=== PATIENT | male | born 1980 | race African-American/Black ===

== ENCOUNTER 2021-03-31 18:48 | Inpatient (IN) ==
[2021-03-31] MEDS ORDERED: SODIUM CHLORIDE 0.9% 1000ML 1,000 ML IV ONE ×2 (21:14→22:49)
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
[2021-03-31 22:07] LABS: Basophils # (auto) 0.02 K/uL (0-0.2); Basophils % (auto) 0.4 %; Eosinophils # (auto) 0.55 K/uL (0-0.5); Eosinophils % (auto) 10.2 %; Hematocrit (blood only) 39.1 % (42-52); Hemoglobin 13.3 g/dL (14.0-18.0); Lymphocytes % (auto) 24.2 %; Mean Corpuscular Hemoglobin 28.5 pg (25-34); Mean Corpuscular Volume 83.9 fL (80-100); Mean Platelet Volume 8.9 fL (7.4-10.4); Monocytes # (auto) 0.53 K/uL (0.11-0.59); Monocytes % (auto) 9.9 %; Neutrophils # (auto) 2.97 K/uL (1.4-6.5); Neutrophils % (auto) 55.3 %; Platelet Count 297 K/uL (130-400); RDW Coefficient of Variation 13.6 % (11.5-14.5); RDW Standard Deviation 40.7 fL (36.4-46.3); Red Blood Count 4.66 M/uL (4.7-6.1); White Blood Count 5.37 K/uL (4.8-10.8)
[2021-03-31 22:15] LABS: INR 0.9 (0.9-1.1); Prothrombin Time 9.6 Seconds (9.0-12.0)
[2021-03-31 22:33] LABS: Alanine Aminotransferase 121 U/L (12-78); Albumin Level 3.3 gm/dl (3.4-5.0); Aspartate Aminotransferase 94 U/L (15-37); BUN Creatinine Ratio 20.7 (10-20); Blood Urea Nitrogen 14 mg/dl (7-18); Calcium 9.3 mg/dl (8.5-10.1); Carbon Dioxide 26 mmol/L (21-32); Chloride 105 mmol/L (98-107); Est GFR (African American) 138.5 ml/min; Est GFR (Non-African American) 119.5 ml/min; Glucose 122 mg/dl (70-99); Lipase 164 U/L (73-393); Magnesium 2.2 mg/dl (1.8-2.4); Potassium 4.2 mmol/L (3.5-5.1); Sodium 138 mmol/L (136-145)
[2021-03-31 22:38] LABS: Alkaline Phosphatase 66 U/L (45-117); Bilirubin,Total 0.2 mg/dl (0.2-1); Creatine Kinase 1482 U/L (39-308); Phosphorus 3.3 mg/dl (2.5-4.9); Total Protein 7.3 gm/dl (6.4-8.2); Troponin I < 0.015 ng/ml (0-0.045)
[2021-03-31 23:03] LABS: Lyme Ab IgG w/WB Rflx Negative (Negative); Lyme Ab IgM w/WB Rflx Negative (Negative)
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
[2021-04-01] MEDS ORDERED: ACETAMINOPHEN 325 MG TAB PO STA (00:56)
[2021-04-01] MEDS ORDERED: IBUPROFEN 200 MG TAB PO PRN (02:18)
[2021-04-01] MEDS ORDERED: ONDANSETRON INJ 2 MG/ML 2 ML VIAL IV PRN (02:18)
[2021-04-01] MEDS ORDERED: POLYETHYLENE (MIRALAX) 17 GM PACK PO PRN (02:18)
[2021-04-01] MEDS ORDERED: FLUARIX QUADRIVALENT 0.5 ML SYR IM ONE (02:30)
[2021-04-01 04:26] LABS: Appearance Urine Clear (Clear); Bilirubin Urine Negative (Negative); Blood Urine Negative (Negative); Color Urine Dark Yellow; Glucose Urine UA Negative (Negative); Ketones Urine Trace (Negative); Leukocyte Esterase Urine Negative (Negative); Nitrite Urine Negative (Negative); Protein Urine Negative (Negative); Specific Gravity Urine 1.031 (1.000-1.030); Urobilinogen Urine Negative (Negative); pH Urine 6.5 (4.5-7.5)
[2021-04-01 04:49] LABS: Amphetamines+Metham, Urine Neg (Neg); Barbiturates, Urine Neg (Neg); Benzodiazepine, Urine Neg (Neg); Cocaine, Urine Neg (Neg); MDMA (Ecstacy), Urine Neg (Neg); Methadone, Urine Neg (Neg); Opiate, Urine Neg (Neg); Phencyclidine, Urine Neg (Neg)
--- NOTE | 2021-04-01 06:25 | XRay Report ---
XR chest 1V portable CLINICAL HISTORY: generalized weakness. Evaluate cardiopulmonary status COMPARISON STUDY: No previous studies for comparison. TECHNIQUE: 1 view of the chest FINDINGS: Single frontal view of the chest demonstrates the cardiomediastinal silhouette to be within normal li mits. The lungs are clear of alveolar opacities. There is no evidence for pleural effusion. There is no evidence for vascular congestion. There is no acute osseous pathology. IMPRESSION: No acute cardiopulmonary disease. ACT 112: Negative or not required by law. Electronically signed by: Ki Xiong M.D. 04/01/2021 6:24 AM
[2021-04-01 06:37] LABS: Basophils # (auto) 0.02 K/uL (0-0.2); Basophils % (auto) 0.3 %; Eosinophils # (auto) 0.58 K/uL (0-0.5); Hematocrit (blood only) 38.5 % (42-52); Hemoglobin 13.1 g/dL (14.0-18.0); Immature Granulocytes # (auto) 0.01 K/uL (0.00-0.02); Immature Granulocytes % (auto) 0.2 %; Lymphocytes # (auto) 1.32 K/uL (1.2-3.4); Lymphocytes % (auto) 20.5 %; Mean Corpuscular Hemoglobin 28.6 pg (25-34); Mean Corpuscular Volume 84.1 fL (80-100); Mean Platelet Volume 8.8 fL (7.4-10.4); Monocytes # (auto) 0.44 K/uL (0.11-0.59); Monocytes % (auto) 6.8 %; Neutrophils # (auto) 4.08 K/uL (1.4-6.5); Neutrophils % (auto) 63.2 %; Platelet Count 304 K/uL (130-400); RDW Coefficient of Variation 13.7 % (11.5-14.5); RDW Standard Deviation 41.5 fL (36.4-46.3); Red Blood Count 4.58 M/uL (4.7-6.1); White Blood Count 6.45 K/uL (4.8-10.8)
--- NOTE | 2021-04-01 07:01 | Ultrasound Report ---
US abdomen complete CLINICAL HISTORY: hx alcohol abuse, transaminitis COMPARISON STUDY: No previous studies for comparison. FINDINGS: Liver morphology is normal. Note is made of a non mass-like echogenic subcapsular echogenic focus within the anterior aspect of the right and left hepatic lobes. This measures approximately 6. 2 x 1.5 cm. There is no biliary ductal dilatation. Common bile duct measures 6 mm in caliber. There a re no gallstones. There is no gallbladder wall thickening. Pancreatic body is normal. Head and tail a re obscured. Size of the spleen is normal. There is no hydronephrosis. Both kidneys measure 10.3 cm i n maximal dimension. There are a few suspected subcentimeter renal cysts. Caliber of the abdominal ao rta is normal although distal abdominal aorta is obscured. IVC is patent. IMPRESSION: 1. Normal liver morphology. 6.2 x 1.5 cm non mass-like echogenic subcapsular echogenic focus within t he anterior aspects of the right and left hepatic lobes. This favors focal fat. However, nonemergent liver MRI is recommended to exclude the less likely possibility of a mass. 2. No gallstones or biliary ductal dilatation. ACT 112: Negative or not required by law. Electronically signed by: Jaxson Choudhary M.D. 04/01/2021 7:00 AM
[2021-04-01 07:23] LABS: Alanine Aminotransferase 107 U/L (12-78); Albumin Level 3.1 gm/dl (3.4-5.0); Aspartate Aminotransferase 80 U/L (15-37); BUN Creatinine Ratio 20.3 (10-20); Bilirubin Direct < 0.1 mg/dl (0-0.2); Blood Urea Nitrogen 11 mg/dl (7-18); Calcium 8.7 mg/dl (8.5-10.1); Carbon Dioxide 26 mmol/L (21-32); Chloride 106 mmol/L (98-107); Creatinine Clr Calc Pharmacy 194.9 ml/min; Est GFR (African American) > 150.0 ml/min; Est GFR (Non-African American) 130.3 ml/min; Glucose 105 mg/dl (70-99); Iron 55 mcg/dl (35-175); Potassium 4.1 mmol/L (3.5-5.1); Sodium 138 mmol/L (136-145)
[2021-04-01 07:27] LABS: Albumin Globulin Ratio 0.8 (0.9-2); Alkaline Phosphatase 62 U/L (45-117); Bilirubin,Total 0.2 mg/dl (0.2-1); Ferritin 337.8 ng/ml (8-388); Globulin 3.8 gm/dl (2.5-4.0); Total Iron Binding Capacity 187 mcg/dl (250-450); Total Protein 6.9 gm/dl (6.4-8.2); Transferrin 162 mg/dl (200-360)
--- NOTE | 2021-04-01 07:33 | CT Scan Report ---
CT OF THE HEAD WITHOUT CONTRAST CLINICAL HISTORY: Generalized weakness. Recent falls. COMPARISON STUDY: No previous studies for comparison. TECHNIQUE: Helical axial images of the head were obtained without IV contrast. Automated exposure con trol was utilized for the study. A dose lowering technique was utilized adhering to the principles o f ALARA. FINDINGS: Postoperative findings within the right orbital floor are partially imaged on this exam. Po stoperative findings within the mandible are shown on prototype engineer image. No acute intracranial hemorrhage, midline shift or mass effect is present. Brain volume is normal. Ventricular system is normal. Basal cisterns are patent. There are no extra-axial collections. There are no findings to suggest acute dur al sinus thrombosis or acute territorial infarct. There are scattered small nonspecific white matter hypodensities. No calvarial fracture is identified. Old defect of the medial wall of the right orbit is noted. IMPRESSION: 1. No acute intracranial hemorrhage or mass effect. 2. Small indeterminate white matter hypodensities. 3. No calvarial fracture. ACT 112: Negative or not required by law. Electronically signed by: Jaxson Choudhary M.D. 04/01/2021 7:31 AM
--- NOTE | 2021-04-01 07:35 | CT Scan Report ---
CT OF THE CERVICAL SPINE WITHOUT CONTRAST CLINICAL HISTORY: fall, head injury COMPARISON STUDY: No previous studies for comparison. TECHNIQUE: Helical axial images of the cervical spine were obtained without IV contrast. Sagittal a nd coronal reconstructions were viewed. Automated exposure control was utilized for the study. A do se lowering technique was utilized adhering to the principles of ALARA. FINDINGS: Note is made of reversal the normal cervical lordosis. Vertebral body heights are maintaine d. No acute cervical spine fracture or subluxation is present. There is no prevertebral edema. Facet joints are intact. There is moderate multilevel disc space narrowing, osteophytosis and facet arthro sis within the cervical spine. This is most pronounced at C5-C6 and C6-C7. IMPRESSION: 1. No acute cervical spine fracture or subluxation. 2. Moderate multilevel degenerative disc disease and facet arthrosis within the cervical spine. ACT 112: Negative or not required by law. Electronically signed by: Jaxson Choudhary M.D. 04/01/2021 7:34 AM
[2021-04-01 07:47] LABS: Folate (Folic Acid) 10.8 ng/ml (>5.38)
--- NOTE | 2021-04-01 08:40 | Magnetic Resonance Report ---
MRI OF THE BRAIN WITHOUT CONTRAST CLINICAL HISTORY: weakness, frequent falls, abnormal neuro exam COMPARISON STUDY: Head CT March 31, 2021. TECHNIQUE: Utilizing a 1.5 Hali magnet and dedicated coil, multiplanar, multiecho imaging of the bra in was performed without IV contrast. This study was ordered as an MS protocol brain with and without contrast. However, the patient was unable to complete the exam. Therefore, only noncontrast MRI was performed. FINDINGS: Foci of increased signal intensity on the diffusion-weighted sequence are hyperintense on t he ADC map and therefore reflect T2 shine through. No acute intracranial hemorrhage, midline shift or mass effect is present. There is no evidence for acute infarction. This exam is mildly compromised b y motion artifact. Note is made of numerous supratentorial and infratentorial T2 hyperintense foci. M any of these are periventricular in distribution. Involvement of the corpus callosum and bilateral in ternal capsules is noted. In addition, foci within the left cerebellar peduncle are noted. Ventricula r system is unremarkable. Basal cisterns are patent. There are no extra-axial collections. Calvarial signal is within normal limits. There is minimal ethmoid sinus mucosal thickening. IMPRESSION: 1. Numerous T2 hyperintense foci suggestive of demyelination. Many of these are periventricular in di stribution. In addition, involvement of the corpus callosum, internal capsules and cerebellar peduncl es. Multiple sclerosis is favored. However, the appearance is nonspecific and additional differential considerations include an infectious process such as Lyme disease. Vasculitis is also within the dif ferential although considered less likely. 2. No evidence for acute infarction. No acute intracranial hemorrhage. 3. Exam mildly compromised by motion artifact. ACT 112: Negative or not required by law. Electronically signed by: Jaxson Choudhary M.D. 04/01/2021 8:38 AM
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
--- NOTE | 2021-04-01 13:39 | Electrocardiogram Report ---
Test Reason : Blood Pressure : / mmHG Vent. Rate : 095 BPM Atrial Rate : 095 BPM P-R Int : 134 ms QRS Dur : 096 ms QT Int : 352 ms P-R-T Axes : 088 090 057 degrees QTc Int : 442 ms Poor data quality, interpretation may be adversely affected Normal sinus rhythm with sinus arrhythmia Rightward axis RSR' or QR pattern in V1 suggests right ventricular conduction delay Abnormal ECG No previous ECGs available Confirmed by Fish Hart ([id number]) on 04/01/2021 1:38:54 PM Referred By: REFERRED SELF Confirmed By:Fish Hart
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
--- NOTE | 2021-04-01 20:58 | Billing Data ---
Date of Service April 01, 2021 Coding Level of Care Code INT OBSERVATION CARE 71M LVL 3
[2021-04-01] MEDS: LORazepam 1 MG/2 ML VIAL IV PRN (22:17)
[2021-04-01] MEDS ORDERED: GADOBUTROL 65ML VIAL IV ONE (23:43)
[2021-04-02 07:00] LABS: Thyroid Stimulating Hormone 0.943 uIu/ml (0.300-4.500)
--- NOTE | 2021-04-02 09:22 | Magnetic Resonance Report ---
MR thoracic spine wo/w con CLINICAL HISTORY: diffuse weakness, ?cord lesion TECHNIQUE: 3 plane localizer images, axial T2, axial T1, sagittal T2, sagittal T1 and sagittal STIR s equences through the thoracic spine were obtained, without intravenous contrast. Comparison: None available at the time of this dictation. FINDINGS: The alignment is anatomical. There is no significant disc bulge or herniation. The spinal canal and n eural foramina are patent. There are small bilateral posterior disc bulges most prominent at T4-T5 an d T6-T7. There is a left sided disc bulge at T10-T11. There is normal height and signal of the visual ized vertebral bodies. The spinal cord is normal in signal intensity and there is no evidence of cord contusion. There is no evidence of an extradural, intradural, extramedullary or intramedullary lesion. The spinal ligaments are intact, without evidence of disruption or abnormal signal intensity. IMPRESSION: No abnormal lesion in the spinal cord. Small lateral disc bulges are seen which may result in up to m ild spinal or neuroforaminal stenosis. ACT 112: Negative or not required by law. Electronically signed by: Onel Taylor M.D. 04/02/2021 9:20 AM
--- NOTE | 2021-04-02 09:34 | Magnetic Resonance Report ---
MR OF THE CERVICAL SPINE WITHOUT IV CONTRAST CLINICAL HISTORY: diffuse weakness, ?cord lesion Comparison: None available at the time of this dictation. TECHNIQUE: MRI of the cervical spine is performed utilizing various T1 and T2 sequences in the axial and sagittal planes. IV contrast was not administered for this examination. FINDINGS: Cervical spine: Vertebral body height and alignment are maintained throughout the cervical spine. The atlantodental articulation appears maintained. No destructive bony lesion is seen. Intervertebral discs: Degenerative changes are seen. Spinal cord: Spinal cord edema is seen at C4 and C5. C2-C3: Unremarkable. C3-C4: A moderate posterior disc bulge is seen with resulting moderate spinal stenosis. There is mild bilateral neural foraminal stenosis. C4-C5: Moderate posterior disc bulge is seen resulting in moderate spinal and neural foraminal stenos is. C5-C6: Large posterior disc bulge resulting in severe spinal and neural foraminal stenosis. C6-C7: Posterior disc bulge resulting in severe spinal and neural foraminal stenosis. C7-T1: Small posterior disc bulge resulting in mild bilateral neuroforaminal stenosis. Soft tissues: The paraspinous and prevertebral soft tissues are normal in appearance. Brain parenchyma: Partially imaged brain parenchyma at the skull base is within normal limits. IMPRESSION: Multilevel degenerative change resulting in up to severe spinal and neural foraminal sten osis. There is underlying cord edema at C4 and C5. ACT 112: Negative or not required by law. Electronically signed by: Onel Taylor M.D. 04/02/2021 9:32 AM
--- NOTE | 2021-04-02 09:39 | Hospitalist Progress Note ---
Date of Service April 02, 2021 Assessment & Plan (1) Generalized weakness: Plan: Patient is a 41 yo man with history of avascular necrosis with 3 months of progressive bilateral severe muscle weakness, found to have exam and imaging findings consistent with an acute demyelinating disease: Multiple Sclerosis vs. ADEM. Generalized progressive weakness with spasticity: Multiple Sclerosis vs. ADEM - History of 3 months of progressive bilateral muscle weakness with acute worsening to inability to walk or use hands to write. - On physical exam, signs of UMN and LMN lesions with upgoing Babinski on right, R leg clonus or spasticity, bilateral LE weakness, R hand weakness. Absent achilles reflex bilaterally - In the ER, found to have negative head CT with indeterminate white matter hypodensities. Negative cervical spine CT. - ESR elevated to 29, CRP elevated 0.70 - Lyme and HIV both negative. - B-12 1875, Folate 10. - 04/01: Brain MRI revealed: - Numerous T2 hyperintense foci suggestive of demyelination. Many of these are periventricular in distribution. In addition, involvement of the corpus callosum, internal capsules and cerebellar peduncles. Multiple sclerosis is favored. However, the appearance is nonspecific and additional differential considerations include an infectious process such as Lyme disease. Vasculitis is also within the differential although considered less likely. - Neuro consulted. Appreciate recommendations: - MRI of the cervical and thoracic spine with and without contrast. - Following this I would obtain a lumbar puncture to look for inflammatory disease and MS. - Recommended Hepatitis panel, JOANN, TSH, Aldolase, and serial CK - Hep-C negative - Hep-B panel and JOANN-12 pending - TSH came back 0.943; normal - Aldolase is still pending - CK has decreased from 1482 to 775 - 04/02: Cervical and Thoracic MRI revealed: - Cervical: Multilevel degenerative change resulting in up to severe spinal and neural foraminal stenosis. There is underlying cord edema at C4 and C5. -Thoracic: No abnormal lesion in the spinal cord. Small lateral disc bulges are seen which may result in up to mild spinal or neuroforaminal stenosis. Addendum: Multiple foci of T2 signal are seen in the spinal cord. Evaluation for enhancement is limited due to patient motion. Findings are compatible with demyelinating disease such as multiple sclerosis. - Discussed Thoracic MRI results of underlying cord edema with Neuro Dr. Chong. Agreed that the spinal and neural foraminal stenosis and cord edema likely secondary to acute demyelinating disease and transverse myelitis. - 04/02: Appreciate neuro recs: - LP with MS panel --> results sent to lab, oligoclonal banding, CSF to serum IgG index - Start 1000mg SoluMedrol this afternoon for 3 days. Mild Transaminitis - In the ER, incidentally found to have mild LFT elevation with AST 94, ALT 121 - 04/01: Abdomen ultrasound revealed: - Normal liver morphology. 6.2 x 1.5 cm non mass-like echogenic subcapsular echogenic focus within the anterior aspects of the right and left hepatic lobes. This favors focal fat. However, nonemergent liver MRI is recommended to exclude the less likely possibility of a mass. - Ordered abdominal MRI with and without contrast --> No suspicious hepatic lesions identified. Focal fat along the falciform ligament which accounts for t he abnormality on prior ultrasound Elevated CK - In the ER, found to have elevated CK to 1482. Decreased to 775 - Continue to monitor H/o avascular necrosis of femoral heads - Right hip replaced, left hip to be replaced in future - 04/01: Peripheral smear results: - The peripheral blood smear shows normochromic, normocytic appearing erythrocytes without significant anisopoikilocytosis. No significant number of sickle cells, schistocytes or spherocytes is identified. Polychromatophilic cells (a subset of reticulocytes) are noted. Leukocytes appear normal in number, relative distribution and morphology. Platelets are normal in number and are unremarkable in appearance. Admission and Anticipated Discharge Date Admission Date: March 31, 2021 Supervising Physician Co-Signing Physician Notes I personally examined the patient and verified all dejesus points of history and exam, discussed case, and agree with decision making with Ruperto Chicas MS2 Leg weakness, arm weakness ongoing. later revisited, mom present - answered all questions to the best of my ability Vitals noted, in general he is awake and alert pleasant no distress. HEENT normocephalic atraumatic mucous membranes moist. Breathing unlabored no accessory muscle use good effort, neuro exam fully as above, as also per neurology notes. He is visibly and grossly weak. MRI brain noted/images reviewed with neurology as well. Weaknessbiggest concern would be MSversus possibly ADEMneed to manage as possible MS. Initiating Solu-Medrol, ongoing PT/OT eval and treat, highly likely to need acute inpatient rehab. Liver lesionMRI of this in the near future, although strongly suspect focal fat Otherwise as above Subjective Mr. Barrera is doing okay today. He states that he is feeling antsy. His appetite is better since being in the hospital. He continues to have spasms in both legs. He has had continued trouble with his hand weakness. No dizziness, headache, nausea. He understands his plan to get an LP today and we had a discussion about the potential diagnosis of MS and what that means for his continued work-up and treatment plan moving forward. Review of Systems Review of Systems: see HPI, any additional below Physical Exam Physical Exam: Constitutional: thin, uncomfortable appearing but in no apparent distress Eyes: EOMI, pupils equal and reactive bilaterally, no scleral icterus Pulm: CTA BL, no wheezes, rhonchi, crackles or rubs, moving air well throughout both lungs Cardiac: RRR, no murmurs, gallops or rubs. Normal S1, S2 MSK: Observed atrophy and spasms of bilateral lower extremities. Results & Data Results & Data ([facility]) Vital Signs (Past 12 Hours) Vital Signs Temp Pulse Pulse Resp BP BP Pulse Ox 04/02/21 07:00 36.9 C 98 H 20 123/87 96 04/01/21 22:29 37 C 106 H 18 148/80 H 97 Resident Activity Tracking Resident Involvement: Resident Care Provided Care Provided: Adult Hospital Medicine
--- NOTE | 2021-04-02 10:43 | Neurology Progress Note ---
Date of Service April 02, 2021 Assessment & Plan (1) Multiple sclerosis: (2) Demyelinating disease: (3) Myelopathy: Plan: Probable multiple sclerosis presenting with subacute lower extremity weakness, paraparesis, element of neurogenic bladder, also has some weakness/clumsiness for the right hand. No history of optic neuritis. No history of other clinical relapses previously. Patient has multiple foci of demyelination within the brain as well as a significant area of demyelination within the cervical spinal cord with associated edema. He has a significant myelopathy on examination. Differential diagnosis includes multiple sclerosis, possibly primary progressive type, versus ADEM (acute disseminated encephalomyelitis). Patient did receive the [employer] COVID-19 vaccination back in November. Although an association is possible, cannot be certain. I note that he does have an area of spinal stenosis at C4-5 due to a moderate posterior disc bulge resulting in moderate central canal and neural foraminal stenosis. However, the degree of spinal stenosis does not appear to be significant enough to explain the degree of associated spinal cord myelopathy. It may be worthwhile to get an opinion from orthopedics, Dr. Xiao, regarding his spinal stenosis as well. Discussed case with hospitalist team, Dr. Dalton. Would proceed with lumbar puncture to include MS panel, oligoclonal banding, CSF to serum IgG index, etc. would also recommend starting treatment with Solu-Medrol, 1 g/day for 3 days, followed by Medrol Dosepak taper. Patient will need to follow-up in neurology clinic with either Dr. Khan or one of our advanced practice clinicians for ongoing evaluation and management. Depending on CSF results, would likely start disease modifying therapy for MS. Given severity of demyelinating disease, would consider Ocrevus. Admission and Anticipated Discharge Date Admission Date: March 31, 2021 Subjective Follow-up for weakness The patient continues to complain of bilateral lower extremity weakness, unable to get up out of bed and walk, also complains of some associated numbness, may have perhaps some degree of difficulty with bladder control as well although no riley incontinence. Denies much difficulty with the arms although does report mild clumsiness and perhaps some numbness with the right hand as well, some difficulty dropping objects with the right hand. Denies any significant headache or vision disturbance such as painful vision loss or diplopia. Patient's weakness/ambulatory dysfunction has been present for the past few weeks. Patient was evaluated by Dr. Khan in neurological consultation yesterday. Had some findings on neurological examination potentially consistent with myelopathy, additional spinal imaging including MRI of the cervical and thoracic spine were recommended and have been completed. Brain MRI had revealed multifocal white matter T2/FLAIR hyperintensities in a pattern potentially consistent with MS. Spinal imaging reveals an area of spinal cord edema at C4, C5 potentially related to a moderate posterior disc bulge and associated spinal stenosis. However, I did discuss this imaging finding with Dr. Taylor, radiology. Agrees that the observed findings could be consistent with demyelinating disease, multiple sclerosis. Review of Systems Eyes: no blind spots and no eye pain Genitourinary: + difficulty urinating Neurologic: as per Subjective / HPI Results & Data ([facility]) Vital Signs (Past 12 Hours) Vital Signs Temp Pulse Resp BP Pulse Ox 04/02/21 07:00 36.9 C 98 H 20 123/87 96 Exam (Neuro) Neurologic: Oriented to:: Person, Place and Time Attention: Span Intact Speech Fluency: negative Dysarthria or Dysfluency Fund of Knowledge: Vocabula ry Cranial Nerves: Normal II, III, IV, and VII Motor Strength: negative Normal Lower Extremities or Normal Upper Extremities Muscle Bulk/Involuntary Movements: No Involuntary Movements Sensation: negative Light Touch Intact Coordination: Finger-Nose Abnormal and Heel-Clark Abnormal Special Tests: Babinski Present (b/l) Details: Patient has a significant paraplegia on neurological examination, able to minimally wiggle the toes for the right foot. Also exhibits a moderate degree of weakness for the right upper extremity and clumsiness with the right hand. Coding Level of Care Code 25999 Subseq Hosp Care Lvl 3 Diagnoses Multiple sclerosis G35 Demyelinating disease G37.9 Myelopathy G95.9
[2021-04-02 12:11] LABS: Anti Nuclear Antibody Screen NEGATIVE (NEGATIVE); HBSAG NON-REACTIVE (NON-REACTIVE); Hepatitis B Core Antibody IgM NON-REACTIVE (NON-REACTIVE)
[2021-04-02] MEDS: LORazepam 1 MG/2 ML VIAL IV PRN (12:11)
[2021-04-02] MEDS ORDERED: GADOXETATE DISODIUM IV ONE (13:24)
--- NOTE | 2021-04-02 14:25 | Magnetic Resonance Report ---
MRI OF THE LIVER WITH AND WITHOUT CONTRAST CLINICAL HISTORY: Echogenic liver mass. COMPARISON STUDY: Abdominal ultrasound April 01, 2021. TECHNIQUE: Utilizing a 1.5 Hali magnet and dedicated coil, multiplanar, multiecho imaging of the abd omen was performed pre and postcontrast administration. Intravenous injection of 10 cc of Eovist was uneventful. Post contrast imaging was performed with dynamic enhancement including 20 minute delayed phase imaging. FINDINGS: Liver morphology is normal. Postcontrast and in and out of phase sequences are compromised by motion artifact. However, there are no suspicious hepatic lesions. There is focal fat along the fa lciform ligament. This corresponds to the finding on prior ultrasound of April 11, 2021. There is no intra or extrahepatic biliary ductal dilatation. A 6 mm proteinaceous left renal cyst is noted. A 1 cm cyst within the upper pole of the left kidney is noted as well as a few smaller bilateral renal lesions. These are suboptimally assessed due to motion artifact on postcontrast images. There is no h ydronephrosis. No pancreatic ductal dilatation is present. There is probable pancreas divisum. The sp jarred, adrenal glands, kidneys and pancreas are unremarkable. Caliber and wall thickness of visualized small and large bowel are normal. There is no abdominal ascites or lymphadenopathy. IMPRESSION: 1. No suspicious hepatic lesions identified. Focal fat along the falciform ligament which accounts fo r the abnormality on prior ultrasound. 2. No biliary or pancreatic ductal dilatation. ACT 112: Negative or not required by law. Electronically signed by: Jaxson Choudhary M.D. 04/02/2021 2:24 PM
--- NOTE | 2021-04-02 16:06 | Fluoroscopy Report ---
FLUOROSCOPICALLY GUIDED LUMBAR PUNCTURE CLINICAL HISTORY: concern for MS FLUOROSCOPY TIME: 0.2 minutes NUMBER OF FLUOROSCOPIC IMAGES: 1 PROCEDURE: The procedure, risks and benefits were discussed with the patient including the risk of s kala headache, bleeding and infection. The patient agreed to the procedure and informed written cons ent was obtained. The procedure was performed by Dr. Choudhary following a timeout. The right L4-L5 i nterlaminar space was targeted. Skin overlying the space was prepped and draped in sterile fashion an d local anesthesia was achieved with 1% lidocaine. Under intermittent fluoroscopic guidance, a 3 and a half-inch, 22-gauge spinal needle was directed into the thecal sac with immediate return of clear C SF. A total of 8 cc was collected in 4 vials and sent to laboratory as ordered. The needle was remove d. The patient tolerated the procedure well and no immediate complications were evident. IMPRESSION: Successful fluoroscopically guided lumbar puncture with collection of 8 cc of clear cereb rospinal fluid which was sent to the laboratory for analysis as ordered. ACT 112: Negative or not required by law. Electronically signed by: Jaxson Choudhary M.D. 04/02/2021 4:05 PM
[2021-04-02 16:14] LABS: Total Protein CSF 85.4 mg/dl (15-45)
--- NOTE | 2021-04-02 19:05 | Billing Data ---
Date of Service April 02, 2021 Coding Level of Care Code 50109 Subseq Hosp Care Lvl 3
--- NOTE | 2021-04-02 19:06 | Billing Data ---
Date of Service April 01, 2021 Coding Level of Care Code 84955 Subseq Obs Care Lvl 3
[2021-04-03] MEDS: MELATONIN 3 MG TAB PO PRN ×2 (04:52→23:47)
[2021-04-03 06:26] LABS: Marijuana Quant, GCMS Urine 187 ng/mL (<5)
--- NOTE | 2021-04-03 07:16 | Hospitalist Progress Note ---
Date of Service April 03, 2021 Assessment & Plan (1) Generalized weakness: Plan: Patient is a 41 yo man with history of avascular necrosis with 3 months of progressive bilateral severe muscle weakness, found to have exam and imaging findings consistent with an acute demyelinating disease: Multiple Sclerosis vs. ADEM. Generalized progressive weakness with spasticity: Multiple Sclerosis vs. ADEM - History of 3 months of progressive bilateral muscle weakness with acute worsening to inability to walk or use hands to write. - On physical exam, signs of UMN and LMN lesions with upgoing Babinski on right, R leg clonus or spasticity, bilateral LE weakness, R hand weakness, poor coordination R hand > L hand. Absent achilles reflex bilaterally - In the ER, found to have negative head CT with indeterminate white matter hypodensities. Negative cervical spine CT. - ESR elevated to 29, CRP elevated 0.70 - Lyme and HIV both negative. - B-12 1874, Folate 10. - 04/01: Brain MRI revealed: - Numerous T2 hyperintense foci suggestive of demyelination. Many of these are periventricular in distribution. In addition, involvement of the corpus callosum, internal capsules and cerebellar peduncles. Multiple sclerosis is favored. However, the appearance is nonspecific and additional differential considerations include an infectious process such as Lyme disease. Vasculitis is also within the differential although considered less likely. - Neuro consulted. Appreciate recommendations: - MRI of the cervical and thoracic spine with and without contrast. - Following this I would obtain a lumbar puncture to look for inflammatory disease and MS. - Recommended Hepatitis panel, JOANN, TSH, Aldolase, and serial CK - Hep-C negative - Hep-B panel and JOANN-12 negative - TSH came back 0.943; normal - Aldolase is still pending - CK has decreased from 1482 on admission to 537 - 04/02: Cervical and Thoracic MRI revealed: - Cervical: Multilevel degenerative change resulting in up to severe spinal and neural foraminal stenosis. There is underlying cord edema at C4 and C5. -Thoracic: No abnormal lesion in the spinal cord. Small lateral disc bulges are seen which may result in up to mild spinal or neuroforaminal stenosis. Addendum: Multiple foci of T2 signal are seen in the spinal cord. Evaluation for enhancement is limited due to patient motion. Findings are compatible with demyelinating disease such as multiple sclerosis. - Discussed Thoracic MRI results of underlying cord edema with Neuro Dr. Chong. Agreed that the spinal and neural foraminal stenosis and cord edema likely secondary to acute demyelinating disease and transverse myelitis. - 04/02: Appreciate neuro recs: - LP this afternoon with MS panel, oligoclonal banding, CSF to serum IgG index - 1000mg SoluMedrol this afternoon for 3 days. -04/03: Lumbar Puncture results: - Clear and colorless, no xanthochromia; cell count low at 4; WBC 4 - Markedly elevated protein to 85 - Mildly elevated lactate to 2.4 - Oligocloncal bands, IgG, Myelin basic protein, CSF Lyme, West Nile all pending - Continue with 1000 mg SoluMedrol Mild Transaminitis - In the ER, incidentally found to have mild LFT elevation with AST 94, ALT 121 - 04/01: Abdomen ultrasound revealed: - Normal liver morphology. 6.2 x 1.5 cm non mass-like echogenic subcapsular echogenic focus within the anterior aspects of the right and left hepatic lobes. This favors focal fat. However, nonemergent liver MRI is recommended to exclude the less likely possibility of a mass. - Ordered abdominal MRI with and without contrast. 04/03: To be completed soon Elevated CK - In the ER, found to have elevated CK to 1482. 04/02, decreased to 775, 04/03 decreased to 537 - Continue to monitor H/o avascular necrosis of femoral heads - Right hip replaced, left hip to be replaced in future - 04/01: Peripheral smear results: - The peripheral blood smear shows normochromic, normocytic appearing erythrocytes without significant anisopoikilocytosis. No significant number of sickle cells, schistocytes or spherocytes is identified. Polychromatophilic cells (a subset of reticulocytes) are noted. Leukocytes appear normal in number, relative distribution and morphology. Platelets are normal in number and are unremarkable in appearance. Admission and Anticipated Discharge Date Admission Date: April 02, 2021 Supervising Physician Co-Signing Physician Notes I personally examined the patient and verified all dejesus points of history and exam, discussed case, and agree with decision making with Ruperto Chicas MS2 feels about the same, maybe slightly better Vitals noted, in general he is awake and alert pleasant no distress. HEENT n ormocephalic atraumatic mucous membranes moist. Breathing unlabored no accessory muscle use good effort, neuro exam fully as above, as also per neurology notes. He still is visibly and grossly weak. Weaknessbiggest concern would be MSversus less likely ADEMneed to manage as possible MS. continue Solu-Medrol, ongoing PT/OT eval and treat, highly likely to need acute inpatient rehab. ortho spine input for Cspine - suspect weakness all from demyelination - but ?external compression Liver lesionno concerning lesion on MRI Otherwise as above Subjective Mr. Barrera feels like he is a bit better than yesterday. He says his leg spasms have been about the same and has continued trouble with his hands. He didn't sleep well and has some mild neck pain. Denies fever, chills, headache, change in vision, fatigue, sob, chest pain, abd pain. He understands that the CSF tests from his LP are still pending. Review of Systems Review of Systems: see HPI Physical Exam Physical Exam: Constitutional: thin, uncomfortable appearing but in no apparent distress Eyes: EOMI, pupils equal and reactive bilaterally, no scleral icterus Pulm: CTA BL, no wheezes, moving air well throughout both lungs Cardiac: RRR, no murmurs, gallops or rubs. Normal S1, S2 MSK: Observed atrophy and spasms of bilateral lower extremities. Neuro: CN II- CXII: intact Reflexes: 2+/4 biceps bilaterally, 1+/4 triceps bilaterally, 2+/4 R patellar, 1+/4 L patellar, 0/4 Achilles bilaterally, R foot upgoing Babinski, L foot normal Babinski Motor: 4+/5 biceps strength bilaterally, 4/5 triceps bilaterally, 5/5 deltoid strength, 1/5 quadricep bilaterally, 2/5 hamstrings bilaterally, 3/5 toe extension bilaterally, 1/5 toe flexion bilaterally. Marked weakness in both lower extremities. Sensation: sensory level at T3/T4 with pinprick. Cannot distinguish hard and soft on LE. Temperature intact. Coordination: did not assess Gait: unable to assess Results & Data Results & Data ([facility]) Vital Signs (Past 12 Hours) Vital Signs Temp Pulse Resp BP Pulse Ox 04/02/21 23:55 36.9 C 90 16 132/81 96 Resident Activity Tracking Resident Involvement: Resident Care Provided Care Provided: [facility]
[2021-04-03] MEDS: methylPREDNISolone 1,000 MG in DEXTROSE 5% 250 ML IV SCH (10:04)
[2021-04-03 10:38] LABS: Appearance CSF Clear; CSF Count Tube # 4; CSF Xanthrochromic No xanthochromia; Color CSF Colorless; White Blood Cell CSF (A) 4 /uL (0-5)
[2021-04-03 10:39] LABS: Red Blood Cell CSF (A) 22 /uL (0-); Red Blood Cell CSF (B) 18 /uL (0-); White Blood Cell CSF (B) 5 /uL (0-5)
--- NOTE | 2021-04-03 10:50 | Neurology Progress Note ---
Date of Service April 03, 2021 Assessment & Plan (1) Multiple sclerosis: Plan: Probable multiple sclerosis. Evidence of brain and spinal cord demyelination with a significant myelopathy due to a focus of spinal cord demyelination at C4- 5 with associated edema. Patient has been receiving IV Solu-Medrol. He has a spastic lower extremity weakness that is mildly improved this morning. Plan for 3 days of IV Solu-Medrol, 1 g/day, followed by a Medrol Dosepak taper. Follow- up with results of CSF/MS panel when available. Anticipate starting disease modifying therapy for multiple sclerosis in the outpatient setting. He does have an element of spinal stenosis at the C4-5 level as well and I would recommend consultation with spinal surgery as well. Admission and Anticipated Discharge Date Admission Date: April 02, 2021 Subjective Follow-up for demyelinating disease The patient reports mild improvement in his bilateral lower extremity weakness, continues to report some sensory loss, difficulty with movement initiation, associated stiffness of the lower limbs. Still has some clumsiness with the hands, has noticed some ataxia or tremor with the left upper extremity. No headache, vision loss, or diplopia. Lumbar puncture completed yesterday including MS panel, results pending at this time although does have an elevated CSF protein. Neuro imaging including MRI of the brain, cervical and thoracic spine have been completed and described previously. Is evidence of multifocal white matter hyperintensities in brain and spinal cord suggestive of demyelinating disease/multiple sclerosis. Patient has been started on Solu- Medrol, 1 g/day for 3-day protocol. Review of Systems Eyes: no blind spots, no diplopia and no eye pain Neurologic: + localized weakness, + loss of sensation and + tremor(s); no headache(s) and no confusion Results & Data ([facility]) Vital Signs (Past 12 Hours) Vital Signs Temp Pulse Pulse Resp BP Pulse Ox 04/03/21 07:50 36.5 C 90 18 145/94 H 95 04/02/21 23:55 36.9 C 90 16 132/81 96 Laboratory Results Total CK 537, CSF clear, colorless, no xanthochromia, WBC 4, RBC 22, glucose 66, protein 85.4, oligoclonal banding and myelin basic protein/MS panel pending. Exam (Neuro) Neurologic: Oriented to:: Person, Place and Time Attention: Span Intact Speech Fluency: negative Dysarthria or Dysfluency Fund of Knowledge: Vocabulary Cranial Nerves: Normal II, III, IV, and VII Motor Strength: negative Normal Lower Extremities or Normal Upper Extremities Muscle Bulk/Involuntary Movements: Intention Tremor Laterality: Left Coordination: Finger-Nose Abnormal and Heel-Clark Abnormal Details: Patient has significant spastic weakness of both lower limbs, upgoing toes noted, right greater than left. Moderate weakness of the upper limbs including dynamics ax technical architect weakness, ataxia noted with the left upper limb as well. Coding Level of Care Code 03509 Subseq Hosp Care Lvl 2 Diagnoses Multiple sclerosis G35
--- NOTE | 2021-04-03 14:22 | Orthopedic Consultation ---
Date of Consultation April 03, 2021 Assessment & Plan (1) Demyelinating disease: I have reviewed his MRIs of the cervical and thoracic spine. The demonstrate evidence of spondylosis particularly in the cervical spine with evidence of least moderate to mild spinal stenosis no severe neuroforaminal disease. There is obvious lesions throughout the entire cord visualized to the cervical and thoracic region. Unfortunately I believe the majority of his symptoms are related to a demyelinating disease and not from external compression that would be amenable to surgical intervention. At this point have nothing to offer surgically. History of Present Illness Reason for Consultation: Bilateral arm and leg weakness Attending Physician: Reymundo Dalton DO History of Present Illness This very pleasant 41-year-old male who presents with unfortunate circumstances. He is noting steady decline in function the upper lower extremities. 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 Allergies Allergy/AdvReac Type Severity Reaction Status Date / Time codeine Allergy Unknown Verified 04/01/21 01:00 Home Medications Medication Instructions Recorded Confirmed Type acetaminophen 500 mg tablet 1,000 mg PO Q6H PRN 03/31/21 03/31/21 History (Tylenol Extra Strength) cholecalciferol (vitamin D3) 25 25 mcg PO DAILY 03/31/21 03/31/21 History mcg (1,000 unit) tablet (Vitamin D3) cyanocobalamin (vitamin B-12) 50 0 mcg PO DAILY 03/31/21 03/31/21 History mcg tablet (Vitamin B-12) ibuprofen 200 mg tablet 400 mg PO Q6H PRN 03/31/21 03/31/21 History multivitamin 1 tab PO DAILY 03/31/21 03/31/21 History Patient History Family History Father , Patient knows nothing about his father. No problems noted. Mother No problems noted. 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 He exhibits upper motor neuron signs to testing and gross generalized weakness to the upper extremities. Results & Data ([facility]) Vital Signs (Past 12 Hours) Vital Signs Temp Pulse Pulse Resp BP BP Pulse Ox 04/03/21 12:07 36.4 C L 101 H 16 124/73 96 04/03/21 07:50 36.5 C 90 18 145/94 H 95
--- NOTE | 2021-04-03 18:34 | Billing Data ---
Date of Service April 03, 2021 Coding Level of Care Code 67474 Subseq Hosp Care Lvl 2
[2021-04-03] MEDS ORDERED: SODIUM CHLORIDE 0.9% 1000ML 1,000 ML IV ONE (19:34)
[2021-04-03 20:11] LABS: BUN Creatinine Ratio 21.5 (10-20); Calcium 9.5 mg/dl (8.5-10.1); Creatinine Clr Calc Pharmacy 148.9 ml/min; Est GFR (African American) 135.2 ml/min; Est GFR (Non-African American) 116.7 ml/min; Potassium 4.1 mmol/L (3.5-5.1)
[2021-04-03] MEDS ORDERED: NITROGLYCERIN SL 0.4 MG/TAB TAB SL PRN (21:57)
[2021-04-03] MEDS ORDERED: MoRPHine SULFATE 2 MG/ML CARP IV PRN (21:57)
[2021-04-04] MEDS: methylPREDNISolone 1,000 MG in DEXTROSE 5% 250 ML IV SCH (09:53)
--- NOTE | 2021-04-04 10:20 | Neurology Progress Note ---
Date of Service April 04, 2021 Assessment & Plan (1) Multiple sclerosis: (2) Myelopathy: Plan: Probable multiple sclerosis with evidence of brain and spinal cord demyelination, especially a focus of demyelination within the spinal cord at C4- 5 with associated edema resulting in a significant myelopathy. Patient will continue with IV Solu-Medrol, plan for 1000 mg/day for 3 days followed with Medrol Dosepak taper. Follow-up with results of lumbar puncture/MS panel when available. Plan to start disease modifying therapy for probable multiple sclerosis in the outpatient setting. Given severity of disease would likely recommend Ocrevus although Gilenya or Mayzent would be appropriate as well. Patient will likely need inpatient rehabilitation. Admission and Anticipated Discharge Date Admission Date: April 02, 2021 Subjective Follow-up for probable multiple sclerosis The patient continues to report bilateral lower extremity weakness and sensory loss, not much change compared with yesterday. He does admit that his hands and arms seem to be moving a little bit better although he still has some clumsiness, especially with the right hand. No headache or vision disturbance. Denies significant neck or spinal pain. Does endorse some ongoing difficulty with bladder control. Review of Systems Eyes: no blind spots and no eye pain Genitourinary: + as per Subjective / HPI Neurologic: + localized weakness, + loss of sensation and + paresthesia; no headache(s) and no memory loss Results & Data ([facility]) Vital Signs (Past 12 Hours) Vital Signs Temp Pulse Pulse Resp BP BP Pulse Ox 04/04/21 07:24 36.5 C 103 H 20 115/63 96 04/04/21 06:17 93 H 04/04/21 04:00 36.8 C 108 H 20 144/76 H 95 04/04/21 02:36 37 C 103 H 22 131/85 96 04/04/21 00:00 122 H 04/03/21 23:00 36.3 C L 109 H 18 131/86 95 Laboratory Results Total CK today 319 CSF MS panel pending. Does have significantly elevated CSF protein, normal cell counts. Diagnostic Findings Brain and spinal MRIs have been reviewed and described in previous clinic notes. Exam (Neuro) Neurologic: Oriented to:: Person, Place and Time Attention: Span Intact and Concentration Intact Speech Fluency: negative Dysarthria or Dysfluency Fund of Knowledge: Vocabulary Cranial Nerves: Normal II, III, IV, and VII Motor Strength: negative Normal Lower Extremities or Normal Upper Extremities Spasticity: Legs Sensation: negative Light Touch Intact, Pain/Temperature Intact, Vibration Intact or Proprioception Intact Coordination: Finger-Nose Abnormal and Heel-Clark Abnormal Deep Tendon Reflexes: Rt Patellar: 3+, Lt Patellar: 3+, Rt Ankle: 3+ and Lt Ankle: 3+ Details: Patient continues to exhibit spastic weakness of both lower extremities, associated upgoing toes, increased deep tendon reflexes, associated sensory loss, clumsiness, dysmetria with the right upper extremity and loss of fine finger movements, right more than left. PG Care Time/CCT Total # of Minutes Spent Total Time Spent with Patient: Total time spent is greater than 50% in coordination of care (as documented) at patient's floor/unit and/or counseling patient: Coding Level of Care Code 16408 Subseq Hosp Care Lvl 2 Diagnoses Multiple sclerosis G35 Myelopathy G95.9
--- NOTE | 2021-04-04 13:38 | Hospitalist Progress Note ---
Date of Service April 04, 2021 Assessment & Plan (1) Generalized weakness: Plan: Patient is a 41 yo man with history of avascular necrosis with 3 months of progressive bilateral severe muscle weakness, found to have exam and imaging findings consistent with an acute demyelinating disease: Multiple Sclerosis vs. ADEM. Generalized progressive weakness with spasticity: Multiple Sclerosis vs. ADEM - History of 3 months of progressive bilateral muscle weakness with acute worsening to inability to walk or use hands to write. - On physical exam, signs of UMN and LMN lesions with upgoing Babinski on right, R leg clonus or spasticity, bilateral LE weakness, R hand weakness, poor coordination R hand > L hand. Absent achilles reflex bilaterally - In the ER, found to have negative head CT with indeterminate white matter hypodensities. Negative cervical spine CT. - ESR elevated to 29, CRP elevated 0.70 - Lyme and HIV both negative. - B-12 1874, Folate 10. - 04/01: Brain MRI revealed: - Numerous T2 hyperintense foci suggestive of demyelination. Many of these are periventricular in distribution. In addition, involvement of the corpus callosum, internal capsules and cerebellar peduncles. Multiple sclerosis is favored. However, the appearance is nonspecific and additional differential considerations include an infectious process such as Lyme disease. Vasculitis is also within the differential although considered less likely. - Neuro consulted. Appreciate recommendations: - MRI of the cervical and thoracic spine with and without contrast. - Following this I would obtain a lumbar puncture to look for inflammatory disease and MS. - Recommended Hepatitis panel, JOANN, TSH, Aldolase, and serial CK - Hep-C negative - Hep-B panel and JOANN-12 negative - TSH came back 0.943; normal - Aldolase is still pending - CK has decreased from 1482 on admission to 537 - 04/02: Cervical and Thoracic MRI revealed: - Cervical: Multilevel degenerative change resulting in up to severe spinal and neural foraminal stenosis. There is underlying cord edema at C4 and C5. -Thoracic: No abnormal lesion in the spinal cord. Small lateral disc bulges are seen which may result in up to mild spinal or neuroforaminal stenosis. Addendum: Multiple foci of T2 signal are seen in the spinal cord. Evaluation for enhancement is limited due to patient motion. Findings are compatible with demyelinating disease such as multiple sclerosis. - Discussed Thoracic MRI results of underlying cord edema with Neuro Dr. Chong. Agreed that the spinal and neural foraminal stenosis and cord edema likely secondary to acute demyelinating disease and transverse myelitis. - 04/02: Appreciate neuro recs: - LP this afternoon with MS panel, oligoclonal banding, CSF to serum IgG index - 1000mg SoluMedrol this afternoon for 3 days. - 04/03: Lumbar Puncture results: - Clear and colorless, no xanthochromia; cell count low at 4; WBC 4 - Markedly elevated protein to 85 - Mildly elevated lactate to 2.4 - Oligocloncal bands, IgG, Myelin basic protein, CSF Lyme, West Nile all pending -Ortho consulted: says cervical stenosis not severe and most likely not causing radicular symptoms. No surgical intervention at this time. - Continue with 1000 mg SoluMedrol, taper PO on discharge, f/u neuro outpatient - Cont. PT/OT - Per ortho: following discharge, plan will be to start disease modifying therapy for probable multiple sclerosis in the outpatient setting. Given severity of disease would likely recommend Ocrevus although Gilenya or Mayzent would be appropriate as well. Mild Transaminitis - In the ER, incidentally found to have mild LFT elevation with AST 94, ALT 121 - 04/01: Abdomen ultrasound revealed: - Normal liver morphology. 6.2 x 1.5 cm non mass-like echogenic subcapsular echogenic focus within the anterior aspects of the right and left hepatic lobes. This favors focal fat. However, nonemergent liver MRI is recommended to exclude the less likely possibility of a mass. - Ordered abdominal MRI with and without contrast. 04/03: No suspicious hepatic lesions identified. Focal fat along the falciform ligament which accounts for the abnormality on prior ultrasound. 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 No significant number of sickle cells, schistocytes or spherocytes is identified. Polychromatophilic cells (a subset of reticulocytes) are noted. Leukocytes appear normal in number, relative distribution and morphology. Platelets are normal in number and are unremarkable in appearance. Tachycardia -Became tachycardic (120s) yesterday night -EKG showed no changes from 3 days prior, BMP was normal -1L NSS Bolus given, HR improved; likely due to hypovolemia Diet: regular Admission and Anticipated Discharge Date Admission Date: April 02, 2021 Supervising Physician Co-Signing Physician Notes I personally examined the patient and verified all dejesus points of history and exam, discussed case, and agree with decision making with Dr Garza No new complaints. Heart rate improved with IV fluids. Revisited later when mom was present and answered questions along with Dr. Garza to the best of our ability. Vitals noted, in general he is awake and alert pleasant no distress. HEENT normocephalic atraumatic mucous membranes moist. Breathing unlabored no accessory muscle use good effort, neuro exam fully as above, as also per neurology notes. He still is visibly and grossly weak. Weaknessbiggest concern would be MSversus less likely ADEMneed to manage as possible MS. continue Solu-Medrol (today is day 2 out of 3) ongoing PT/OT eval and treat, hopefully acute rehab tomorrow after tomorrow's dosing of Solu- Medrol. Liver lesionno concerning lesion on MRI Otherwise as above Subjective Overnight per nurse patient was slightly confused for a few minutes but he states that he was just half a sleep. He feels a little stronger but still having trouble with motor function. Continues to have difficulty with urination/defecation. He dribbles a lot when he urinates. He knows when he has to defecate but doesn't know when it comes out on the commode. Denies fever, chills, headache, change in vision, fatigue, sob, chest pain, abdominal pain. Review of Systems Review of Systems: All systems reviewed & are unremarkable except as noted in HPI & below Physical Exam Physical Exam: Constitutional: thin, uncomfortable appearing but in no apparent distress Eyes: EOMI, pupils equal and reactive bilaterally, no scleral icterus Pulm: CTA BL, no wheezes, moving air well throughout both lungs Cardiac: Tachycardic. Normal rhythm. no murmurs, gallops or rubs. Normal S1, S2 MSK: Observed atrophy and spasms of bilateral lower extremities. Neuro: CN II- CXII: intact Reflexes: 2+/4 biceps bilaterally, 1+/4 triceps bilaterally, 2+/4 R patellar, 1+/4 L patellar, 0/4 Achilles bilaterally, R foot upgoing Babinski, L foot normal Babinski Motor: 4+/5 biceps strength bilaterally, 4/5 triceps bilaterally, 5/5 deltoid strength, 1/5 quadricep bilaterally, 2/5 hamstrings bilaterally, 3/5 toe extension bilaterally, 1/5 toe flexion bilaterally. Marked weakness in both lower extremities. Sensation: sensory level at T3/T4 with pinprick. Cannot distinguish hard and soft on LE. Temperature intact. Coordination: did not assess Gait: unable to assess Results & Data Results & Data ([facility]) Vital Signs (Past 12 Hours) Vital Signs Temp Pulse Pulse Resp BP BP Pulse Ox 04/04/21 11:18 36.8 C 102 H 18 143/80 H 96 04/04/21 07:24 36.5 C 103 H 20 115/63 96 04/04/21 06:17 93 H 04/04/21 04:00 36.8 C 108 H 20 144/76 H 95 04/04/21 02:36 37 C 103 H 22 131/85 96 Resident Activity Tracking Resident Involvement: Resident Care Provided Care Provided: Adult Hospital Medicine
--- NOTE | 2021-04-04 13:39 | Electrocardiogram Report ---
Test Reason : Blood Pressure : / mmHG Vent. Rate : 113 BPM Atrial Rate : 113 BPM P-R Int : 144 ms QRS Dur : 094 ms QT Int : 326 ms P-R-T Axes : 083 096 060 degrees QTc Int : 447 ms Sinus tachycardia Possible Left atrial enlargement Rightward axis Incomplete right bundle branch block Abnormal ECG When compared with ECG of 31-MAR-2021 21:49, No significant change was found Confirmed by Fish Hart ([id number]) on 04/04/2021 1:39:11 PM Referred By: REFERRED SELF Confirmed By:Fish Hart
[2021-04-04] MEDS: ACETAMINOPHEN 325 MG TAB PO PRN (16:44)
--- NOTE | 2021-04-04 17:34 | Billing Data ---
Date of Service April 04, 2021 Coding Level of Care Code 05708 Subseq Hosp Care Lvl 2
[2021-04-04] MEDS: MELATONIN 3 MG TAB PO PRN (21:00)
[2021-04-05] MEDS: ACETAMINOPHEN 325 MG TAB PO PRN (03:26)
--- NOTE | 2021-04-05 09:34 | Neurology Progress Note ---
Date of Service April 05, 2021 Assessment & Plan (1) Multiple sclerosis: (2) Myelopathy: Plan: Probable multiple sclerosis although ADEM may not be completely excluded. Would start a Medrol Dosepak taper upon completion of 3-day Solu-Medrol protocol. Follow-up with results of CSF/MS panel. Results will probably be available next week. Anticipate starting disease modifying therapy for MS in the outpatient setting. Would check a vitamin D level. Anticipate discharge to [facility]hab facility. Patient will need outpatient follow-up in neurology clinic with either Dr. Khan or one of our APCs. Admission and Anticipated Discharge Date Admission Date: April 02, 2021 Subjective Follow-up for multiple sclerosis The patient continues to report bilateral lower extremity weakness and numbness as well as weakness of the hands, associated clumsiness, especially the right hand. Reports that his symptoms are stable compared with yesterday. Able to control urination. Denies significant neck or spinal pain at this time. Denies headache, ocular pain or vision loss. Denies experiencing any difficulty with speech or swallowing. Patient has received 3 doses of IV Solu-Medrol. He has undergone lumbar puncture and MRI of the brain, C-spine, and T-spine. Results have again been reviewed. He has multifocal demyelinating disease within the brain and spinal cord with a notable probable acute focus of demyelination at C4-5 with associated edema. CSF studies/MS panel including oligoclonal banding pending. Review of Systems Eyes: no blind spots, no diplopia and no eye pain Neurologic: as per Subjective / HPI, + localized weakness, + loss of sensation and + lack of coordination; no headache(s) Results & Data ([facility]) Vital Signs (Past 12 Hours) Vital Signs Temp Pulse Resp BP BP Pulse Ox 04/05/21 07:29 36.4 C L 91 H 16 137/81 98 04/05/21 04:00 36.6 C 97 H 18 136/65 96 04/04/21 23:04 36.5 C 75 18 113/76 92 Exam (Neuro) Neurologic: Oriented to:: Person, Place and Time Attention: Span Intact and Concentration Intact Speech Fluency: negative Dysarthria or Dysfluency Fund of Knowledge: Vocabulary Cranial Nerves: Normal II, III, IV, and VII Motor Strength: Paraplegia; negative Normal Lower Extremities or Normal Upper Extremities Spasticity: Legs Sensation: negative Light Touch Intact, Pain/Temperature Intact or Vibration Intact Coordination: Dysdiadochokinesia, Finger-Nose Abnormal and Heel-Clark Abnormal Coding Level of Care Code 06130 Subseq Hosp Care Lvl 2 Diagnoses Multiple sclerosis G35 Myelopathy G95.9
[2021-04-05] MEDS: methylPREDNISolone 1,000 MG in DEXTROSE 5% 250 ML IV SCH (10:08)
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
[2021-04-05 11:13] VITALS: BP 122/72; TEMP 98.2; O2SAT 95
[2021-04-05 12:52] VITALS: PULSE 97
[2021-04-05 13:37] LABS: CMV DNA Qnt Real Time PCR Not Detected; CMV DNA Quant PCR Not Detected log IU/mL; HSV Type 1 DNA Not Detected (Not Detected); HSV Type 1&2 DNA Source CSF; HSV Type 2 DNA Not Detected (Not Detected)
--- NOTE | 2021-04-05 17:41 | Billing Data ---
Date of Service April 05, 2021 Coding Level of Care Code D/C DAY MANAGEMENT <30 MINS
[2021-04-10 16:33] LABS: Albumin 4.2 g/dL (3.5-5.2); Enterovirus RNA by PCR Not Detected (Not Detected); Herpes Virus 6 (DNA) Not Detected (Not Detected); Herpes Virus 6 (DNA) Source CSF; IgG CSF 10.4 mg/dL (0.8-7.7); IgG Index, CSF 1.19 (<0.66); IgG Serum 1530 mg/dL (600-1640); Lyme DNA PCR CSF or Synovial Not detected (Not Detected); Lyme DNA Source CSF; Myelin Basic Protein 4.5 mcg/L (2.0-4.0); Synthesis Rate, IgG CSF 26.8 mg/24 h (-9.9-3.3); VDRL Qualitative CSF Nonreactive (Nonreactive); VZ DNA Source CSF; Varicella Zoster Virus DNA PCR Not Detected (Not Detected)
== END 2021-04-05 13:22 | DRG 59 ==
LOC: 3N 18:48 → ED 18:48 → SUATTDRO 23:27 → 3N 04-01 01:32 → 2N 04-03 19:15

== ENCOUNTER 2021-07-11 19:11 | Inpatient (IN) ==
--- NOTE | 2021-07-11 20:18 | Emergency Department Note ---
History of Present Illness General Chief complaint: Medical Clearance Stated complaint: FAMILY SAYS UNABLE TO GIVE PROPER CARE Time Seen by Provider: 07/11/21 19:56 Source: patient and family History of Present Illness Provider complaint: Need placement Maximum Pain Intensity: 9 This is a 41-year-old male who is brought here by his mother for placement. The patient has no new symptoms today. He has a history of MS-like illness since [facility] of last year. He deteriorated rapidly and ended up wheelchair-bound. His mother does state that he has seemed to be in proving recently with the ability to flex his quadricep muscles. He does have chronic cramping and contractions. His cognition seems to be improving somewhat. He has had no fevers or cough or cold symptoms. He has had no vomiting. He has been living with a family friend whose house is wheelchair accessible. The mother has been trying to get a waiver in order to get him more home care but has been unsuccessful. She states that the clinical social worker told her and the friends that she is living with that if they could not care for him anymore they should just bring him to the emergency department. That is why they are here today. They are hoping to find placement for him as he has nowhere to go. The mother lives in a two-story home which is not wheelchair accessible. Home Medications Medication Instructions Recorded Confirmed Type acetaminophen 500 mg tablet 1,000 mg PO Q6H PRN 03/31/21 06/13/21 History (Tylenol Extra Strength) bisacodyl 10 mg rectal suppository 10 mg NE DAILY PRN 04/11/21 06/13/21 History bisacodyl [Fleet Bisacodyl] NE 04/11/21 06/13/21 History cholecalciferol (vitamin D3) 25 25 mcg PO DAILY 04/11/21 06/13/21 History mcg (1,000 unit) capsule cyanocobalamin (vitamin B-12) 100 100 mcg PO DAILY 04/11/21 06/13/21 History mcg tablet docusate sodium 100 mg capsule 100 mg PO BID 04/11/21 06/13/21 History magnesium hydroxide 400 mg/5 mL 30 ml PO DAILY PRN ml 04/11/21 06/13/21 History oral suspension (Milk of Magnesia) omega-3 fatty acids 1,000 mg 1,000 mg PO DAILY 04/11/21 06/13/21 History capsule (Fish Oil Concentrate) pediatric multivit no.43 with iron tab PO 04/11/21 06/13/21 History fumarate 18 mg iron chewable tablet (Flintstones Complete (iron)) polyethylene glycol 3350 17 17 g PO DAILY 04/11/21 06/13/21 History gram/dose oral powder (Miralax) senna [Senokot] PO 04/11/21 06/13/21 History bethanechol chloride 25 mg tablet See Rx Instructions PO TID tab 05/06/21 06/13/21 History cholecalciferol (vitamin D3) 625 625 mcg PO Q7D #4 cap 05/06/21 06/13/21 Rx mcg (25,000 unit) capsule baclofen 10 mg tablet 20 mg PO Q6H #240 tab 06/09/21 06/13/21 Rx miscellaneous medical supply See Rx Instructions .ROUTE 07/03/21 Rx .COMPLEX #1 ea Allergies Allergy/AdvReac Type Severity Reaction Status Date / Time codeine Allergy Unknown Verified 06/13/21 13:32 Past Med/Surg History Medical History Abnormal gait due to muscle weakness Avascular necrosis of bone of left hip Avascular necrosis of bone of right hip Demyelinating disease Elevated liver enzymes Generalized weakness Malnutrition Multiple sclerosis Muscle spasticity Rhabdomyolysis Surgical History History of right hip replacement Family History Father , Patient knows nothing about his father. No problems noted. Mother No problems noted. 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 and A total of 6 systems reviewed and were otherwise negative Physical Exam Vital Signs Vital Signs - 24 hr 07/11/21 19:18 07/11/21 21:11 Temperature 36.5 C Temperature Source Temporal Artery Scan Pulse Rate 124 H Pulse Rate [Apical] 102 H Respiratory Rate 16 15 Respiratory Effort / Characteristics Non-Labored Spontaneous Non-Labored Respiratory Depth Normal Blood Pressure 145/94 H Blood Pressure [Left Arm] 111/71 Blood Pressure Mean 111 Blood Pressure Mean [Left Arm] 84 Blood Pressure Position Sitting Pulse Oximetry 96 97 Oxygen Delivery Method Room Air Room Air Sepsis Recent Fever Within 48 Hours No Sepsis New/Unexplained Change in Mental Status N/A Sepsis Action Taken by Nursing No Action Required Constitutional: Vital signs reviewed. Eyes: Pupils are equal round reactive to light. Conjunctiva are noninjected. ENT: Pharynx is clear without erythema or exudate. Mucous membranes are moist. Neck supple without meningeal signs. Respiratory: Clear to auscultation bilaterally. Breath sounds are equal bilaterally. Cardiovascular: Tachycardic. Regular rhythm. GI: Soft, nondistended and nontender. Bowel sounds are present. Roldan catheter in place with clear urine in the collection bag Musculoskeletal: No peripheral edema. No lower extremity tenderness. Integumentary: No cyanosis. or jaundice. Neurological: The patient is awake and alert. Wheelchair-bound. Psychiatric: Anxious. Medical Decision Making Differential Diagnosis MS, placement Medical Records Attestation: I reviewed the patient's medical records. I did perform a limited focused review of portions of the patient's old chart on the electronic medical record. The patient was seen here earlier this month for change in mental status and UTI. He had a CT of his head at that time which showed low-attenuation plaques which were present on his previous MRI from March of last year. Home Medications Current Medication List: was personally reviewed by me Laboratory Data Lab Results 07/11/21 Range/Units 21:41 Urine Color Yellow Urine Appearance Cloudy A (Clear) Urine pH >= 9.0 H (4.5-7.5) Ur Specific [place] 1.013 (1.000-1.030) Urine Protein Negative (Negative) Urine Glucose (UA) Negative (Negative) Urine Ketones Negative (Negative) Urine Blood Negative (Negative) Urine Nitrite Negative (Negative) Urine Bilirubin Negative (Negative) Urine Urobilinogen Negative (Negative) Ur Leukocyte Esterase 2+ H (Negative) Urine WBC (Auto) 10-30 H (0-5) /hpf Urine RBC (Auto) 0-4 (0-4) /hpf U Hyaline Cast (Auto) 1-5 (0-5) /lpf U Epithel Cells (Auto) >30 H (0-5) /lpf Urine Bacteria (Auto) 1+ H (Negative) MDM Narrative I did evaluate the patient as noted above. He is here for placement. He has no new acute medical issues at this time. His mother states that he is improving clinically in certain aspects. I did talk to the clinical case manager. I did treat the patient with baclofen 20 mg p.o. IV access was established. I did order a urine analysis. He does appear to have an infection. Prior cultures were reviewed and I did treat him with Keflex. I did order the patient's blood work as noted in the electronic medical record. Placement is impossible at this time. He will therefore be hospitalized for further care and evaluation. I did discuss the case with the hospitalist. COVID screening test was obtained. Impression & Plan Acute UTI, Demyelinating disease, Unable to care for self Discharge Plan Visit Data Chief Complaint: Medical Clearance Stated Complaint: FAMILY SAYS UNABLE TO GIVE PROPER CARE ED Provider: Roberto Luna Discharge Problem: Acute UTI, Demyelinating disease, Unable to care for self Patient Disposition: Being Evaluated by Hospitalist Forms Stand Alone Forms: My [facility] Prescriptions Prescriptions: No Action cholecalciferol (vitamin D3) 625 mcg (25,000 unit) capsule 625 mcg PO Q7D Qty: 4 RF: 1 baclofen 10 mg tablet 20 mg PO Q6H Qty: 240 RF: 2 miscellaneous medical supply Misc See Rx Instructions .ROUTE .COMPLEX Qty: 1 RF: 0 cholecalciferol (vitamin D3) 25 mcg (1,000 unit) capsule 25 mcg PO DAILY RF: 0 cyanocobalamin (vitamin B-12) 100 mcg tablet 100 mcg PO DAILY RF: 0 Flintstones Complete (iron) 18 mg iron tablet,chewable PO RF: 0 docusate sodium 100 mg capsule 100 mg PO BID RF: 0 magnesium hydroxide [Milk of Magnesia] 400 mg/5 mL suspension 30 ml PO DAILY PRNRF: 0 bisacodyl [Fleet Bisacodyl] NE RF: 0 senna [Senokot] PO RF: 0 polyethylene glycol 3350 [Miralax] 17 gram/dose powder 17 g PO DAILY RF: 0 bisacodyl 10 mg suppository 10 mg NE DAILY PRNRF: 0 omega-3 fatty acids [Fish Oil Concentrate] 1,000 mg capsule 1,000 mg PO DAILY RF: 0 bethanechol chloride 25 mg tablet See Rx Instructions PO TID RF: 0 acetaminophen [Tylenol Extra Strength] 500 mg Tablet 1,000 mg PO Q6H PRN (Reason: Pain) RF: 0 Referrals Referrals: PCP,NO [Physician] -
[2021-07-11] MEDS ORDERED: BACLOFEN 20 MG TAB PO STA (21:35)
[2021-07-11 21:51] LABS: Appearance Urine Cloudy (Clear); Bacteria Urine Automated 1+ (Negative); Bilirubin Urine Negative (Negative); Blood Urine Negative (Negative); Color Urine Yellow; Epithelial Cell Urine Auto >30 /lpf (0-5); Glucose Urine UA Negative (Negative); Ketones Urine Negative (Negative); Leukocyte Esterase Urine 2+ (Negative); Nitrite Urine Negative (Negative); Protein Urine Negative (Negative); RBC Urine Automated 0-4 /hpf (0-4); Specific Gravity Urine 1.013 (1.000-1.030); Urobilinogen Urine Negative (Negative); pH Urine >= 9.0 (4.5-7.5)
[2021-07-11] MEDS ORDERED: cephALEXin 250 MG CAP PO ONE (22:03)
[2021-07-11 22:26] LABS: Basophils # (auto) 0.01 K/uL (0-0.2); Basophils % (auto) 0.1 %; Eosinophils # (auto) 0.19 K/uL (0-0.5); Eosinophils % (auto) 2.8 %; Hematocrit (blood only) 40.9 % (42-52); Hemoglobin 14.1 g/dL (14.0-18.0); Immature Granulocytes # (auto) 0.01 K/uL (0.00-0.02); Immature Granulocytes % (auto) 0.1 %; Lymphocytes # (auto) 1.69 K/uL (1.2-3.4); Lymphocytes % (auto) 24.5 %; Mean Corpuscular Hemoglobin 29.9 pg (25-34); Mean Corpuscular Hgb Conc 34.5 g/dL (32-36); Mean Corpuscular Volume 86.7 fL (80-100); Mean Platelet Volume 8.8 fL (7.4-10.4); Monocytes % (auto) 5.8 %; Neutrophils % (auto) 66.7 %; Platelet Count 290 K/uL (130-400); RDW Standard Deviation 41.7 fL (36.4-46.3); Red Blood Count 4.72 M/uL (4.7-6.1)
[2021-07-11 22:50] LABS: Anion Gap 6 (3-11); BUN Creatinine Ratio 23.2 (10-20); Blood Urea Nitrogen 13 mg/dl (6-23); Calcium 9.6 mg/dl (8.5-10.1); Carbon Dioxide 29 mmol/L (21-32); Chloride 100 mmol/L (98-107); Est GFR (Non-African American) 129.4 ml/min; Glucose 100 mg/dl (70-99(Fasting)); Sodium 135 mmol/L (136-145)
--- NOTE | 2021-07-11 23:23 | History & Physical Report ---
Date of Service July 11, 2021 Assessment & Plan (1) Acute UTI: Plan: Follow urine culture and sensitivity. There are number of epithelial cells which may make the urine contaminated He was given cephalexin 500 mg p.o. by the ED Continue with Roldan catheter (2) Multiple sclerosis: Plan: Multiple sclerosis/muscle spasticity/neurogenic bladder/myelopathy- Continue baclofen, Dulcolax suppository, vitamin D3, vitamin B12, magnesium malate and tizanidine (3) Muscle spasticity: Plan: See above (4) Neurogenic bladder: Plan: Continue Roldan catheter (5) Myelopathy: Plan: See above (6) Unable to care for self: Plan: The patient has been brought to the emergency department by his mother, stating that she is not able to provide care for him that he needs at home, and request that he be admitted for placement History of Present Illness Chief Complaint: The patient is brought to the emergency department by family due to their inability to provide proper care needed for his multiple sclerosis and multiple complications thereof, and request patient be admitted for placement Primary Care Provider: Arabella Delarosa MD The patient is a 41-year-old male with a past medical history including multiple sclerosis, muscle spasticity, avascular necrosis of left hip, neurogenic bladder, vitamin D deficiency, myelopathy, urine tract infection, inability to take care of self. The patient reportedly had a caregiver, who told the family that they were no longer able to take care of the patient, and family has brought the patient to the emergency department, due to his significant needs and their inability to meet those needs. Allergies Allergy/AdvReac Type Severity Reaction Status Date / Time codeine Allergy Unknown Verified 07/12/21 00:33 Home Medications Medication Instructions Recorded Confirmed Type acetaminophen 500 mg tablet 1,000 mg PO Q6H PRN 03/31/21 07/12/21 History (Tylenol Extra Strength) bisacodyl 10 mg rectal suppository 10 mg WI DAILY PRN 04/11/21 07/12/21 History docusate sodium 100 mg capsule 100 mg PO BID 04/11/21 07/12/21 History omega-3 fatty acids 1,000 mg 2,000 mg PO DAILY 04/11/21 07/12/21 History capsule (Fish Oil Concentrate) baclofen 10 mg tablet 20 mg PO Q6H #240 tab 06/09/21 07/12/21 Rx Black Seed Oil 1 tsp PO DAILY 07/12/21 07/12/21 History Essiac Tea 4 oz PO DAILY 07/12/21 07/12/21 History Lemon [place]rill 45 drp PO DAILY 07/12/21 07/12/21 History Magnesium Malate 800 mg PO DAILY 07/12/21 07/12/21 History cholecalciferol (vitamin D3) 125 125 mcg PO WE 07/12/21 07/12/21 History mcg (5,000 unit) tablet (Vitamin D3) cholecalciferol (vitamin D3) 25 75 mcg PO DAILY 07/12/21 07/12/21 History mcg (1,000 unit) tablet (Vitamin D3) cod liver oil 5 ml PO DAILY 07/12/21 07/12/21 History cyanocobalamin (vitamin B-12) 2,500 mcg PO DAILY 07/12/21 07/12/21 History 2,500 mcg sublingual tablet (Vitamin B-12) glucosamine sulf dipot 1 cap PO DAILY 07/12/21 07/12/21 History chlr,msm,chond 550 mg-C 30 mg-lucille 1 mg capsule (Glucosamine Chondroitin) ibuprofen 200 mg tablet 200 mg PO Q6H PRN 07/12/21 07/12/21 History tizanidine 2 mg tablet 2 mg PO Q8H PRN 07/12/21 07/12/21 History Past Med/Surg History Medical History (Updated 07/12/21 @ 01:04 by Phillip Watt MD) Abnormal gait due to muscle weakness Avascular necrosis of bone of left hip Avascular necrosis of bone of right hip Demyelinating disease Elevated liver enzymes Generalized weakness Malnutrition Multiple sclerosis Muscle spasticity Rhabdomyolysis Surgical History History of right hip replacement Family History Father , Patient knows nothing about his father. No problems noted. Mother No problems noted. 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 Primary issues are directly related to MS and MS complications, in cluding muscle spasm, bowel and bladder control issues and severe anxiety and panic attacks Physical Exam Physical Exam: The patient is awake, alert and oriented 3, well developed and well nourished, normocephalic and atraumatic, lying in bed and in no acute distress. HEENT--PERRL, EOMI, mucous membranes and oropharynx dry. Neck--supple. No JVD. No bruits. Thyroid normal, trachea midline, no adenopathy. Heart--normal S1 and S2. No murmurs, rubs or gallops. Lungs--clear bilaterally, no respiratory distress, no accessory muscle use. Abdomen--normal bowel sounds and soft. Nontender. Extremities--no cyanosis or clubbing. No edema. Dermatologic--normal skin turgor, normal color, no abnormal lymph nodes, no rash. Neurologic--cranial nerves II through XII grossly intact. Rheumatologic--patient presently with a severe muscle spasm of left leg, limiting examination Psychiatric--normal affect. Results & Data Results & Data ([facility]) Vital Signs (Past 12 Hours) Vital Signs Temp Pulse Pulse Resp BP BP Pulse Ox 07/11/21 23:00 98 H 20 116/83 97 07/11/21 21:11 102 H 15 111/71 97 07/11/21 19:18 36.5 C 124 H 16 145/94 H 96 Laboratory Results Laboratory Results WBC 6.90 K/uL (4.8-10.8) 07/11/21 22:20 RBC 4.72 M/uL (4.7-6.1) 07/11/21 22:20 Hgb 14.1 g/dL (14.0-18.0) 07/11/21:20 Hct 40.9 % (42-52) L 07/11/21:20 MCV 86.7 fL (80-100) 07/11/21:20 MCH 29.9 pg (25-34) 07/11/21:20 MCHC 34.5 g/dL (32-36) 07/11/21:20 RDW Std Deviation 41.7 fL (36.4-46.3) 07/11/21 RDW Coeff of Meg 13.0 % (11.5-14.5) 07/11/21:20 Plt Count 290 K/uL (130-400) 07/11/21:20 MPV 8.8 fL (7.4-10.4) 07/11/21: Immature Gran % (Auto) 0.1 % 07/11/21:20 Neut % (Auto) 66.7 % 07/11/21:20 Lymph % (Auto) 24.5 % 07/11/21:20 [place] % (Auto) 5.8 % 07/11/21 22:20 Eos % (Auto) 2.8 % 07/11/21 22:20 Baso % (Auto) 0.1 % 07/11/21:20 Neut # (Auto) 4.60 K/uL (1.4-6.5) 07/11/21:20 Lymph # (Auto) 1.69 K/uL (1.2-3.4) 07/11/21:20 [place] # (Auto) 0.40 K/uL (0.11-0.59) 07/11/21:20 Eos # (Auto) 0.19 K/uL (0-0.5) 07/11/21:20 Baso # (Auto) 0.01 K/uL (0-0.2) 07/11/21:20 Immature Gran # (Auto) 0.01 K/uL (0.00-0.02) 07/11/21 22:20 Sodium 135 mmol/L (136-145) L 07/11/21 22:20 Potassium 4.3 mmol/L (3.5-5.1) 07/11/21 23:07 Chloride 100 mmol/L (98-107) 07/11/21 22:20 Carbon Dioxide 29 mmol/L (21-32) 07/11/21 22:20 Anion Gap 6 (3-11) 07/11/21 22:20 BUN 13 mg/dl (6-23) 07/11/21 22:20 Creatinine 0.56 mg/dl (0.6-1.4) L 07/11/21 22:20 Est Cr Clr Drug Dosing Not Reportable 07/11/21 22:20 Est GFR ( Amer) 150.0 ml/min 07/11/21 22:20 Est GFR (Non-Af Amer) 129.4 ml/min 07/11/21 22:20 BUN/Creatinine Ratio 23.2 (10-20) H 07/11/21 22:20 Glucose 100 mg/dl (70-99(Fasting)) H 07/11/21 22:20 Calcium 9.6 mg/dl (8.5-10.1) 07/11/21 22:20 Urine Color Yellow 07/11/21 21:41 Urine Appearance Cloudy (Clear) A 07/11/21 21:41 Urine pH >= 9.0 (4.5-7.5) H 07/11/21 21:41 Ur Specific [place] 1.013 (1.000-1.030) 07/11/21 21:41 Urine Protein Negative (Negative) 07/11/21 21:41 Urine Glucose (UA) Negative (Negative) 07/11/21 21:41 Urine Ketones Negative (Negative) 07/11/21 21:41 Urine Blood Negative (Negative) 07/11/21 21:41 Urine Nitrite Negative (Negative) 07/11/21 21:41 Urine Bilirubin Negative (Negative) 07/11/21 21:41 Urine Urobilinogen Negative (Negative) 07/11/21 21:41 Ur Leukocyte Esterase 2+ (Negative) H 07/11/21 21:41 Urine WBC (Auto) 10-30 /hpf (0-5) H 07/11/21 21:41 Urine RBC (Auto) 0-4 /hpf (0-4) 07/11/21 21:41 U Hyaline Cast (Auto) 1-5 /lpf (0-5) 07/11/21 21:41 U Epithel Cells (Auto) >30 /lpf (0-5) H 07/11/21 21:41 Urine Bacteria (Auto) 1+ (Negative) H 07/11/21 21:41 SARS-CoV-2, RNA, NAAT NEGATIVE (NEGATIVE) 07/11/21 22:31 Code Status & VTE Plan Code Status Full code VTE Prophylaxis Plan VTE Prophylaxis will be ordered: Yes PG Care Time/CCT Total # of Minutes Spent Total Time Spent with Patient: Total time spent is greater than 50% in coordination of care (as documented) at patient's floor/unit and/or counseling patient: Coding Level of Care Code INT OBSERVATION CARE 70M LVL 3 Diagnoses Acute UTI N39.0 Unable to care for self Z78.9 Muscle spasticity M62.838 Neurogenic bladder N31.9 Myelopathy G95.9 Multiple sclerosis G35
--- NOTE | 2021-07-12 01:09 | Billing Data ---
Date of Service July 12, 2021 Coding Level of Care Code INT OBSERVATION CARE 70M LVL 3
[2021-07-12] MEDS ORDERED: ALUMINUM/MAGNESIUM SUSP 30 ML UDC PO PRN (01:32)
[2021-07-12] MEDS ORDERED: ONDANSETRON INJ 2 MG/ML 2 ML VIAL IV PRN (01:32)
[2021-07-12] MEDS ORDERED: PATIENT'S HEIGHT AND/OR WEIGHT NEEDED SCH (02:30)
[2021-07-12] MEDS: ENOXAPARIN INJ 30 MG/0.3 ML SYR SQ SCH (05:52)
[2021-07-12] MEDS: BACLOFEN 20 MG TAB PO SCH ×4 (05:52→23:13)
[2021-07-12] MEDS: ACETAMINOPHEN 325 MG TAB PO PRN ×3 (05:59→21:17)
[2021-07-12] MEDS: BETHANECHOL CHL 25 MG TAB PO SCH ×3 (08:07→21:17)
[2021-07-12] MEDS: CYANOCOBALAMIN (B-12) 100 MCG TABLET PO SCH (08:07)
[2021-07-12] MEDS: CHOLECALCIFEROL 1,000 UNITS 25 MCG TAB PO SCH (08:07)
[2021-07-12] MEDS: DOCUSATE SODIUM 100 MG CAP PO SCH ×2 (08:07→21:17)
[2021-07-12] MEDS: MULTIVITAMIN CHEWABLE TAB PO SCH (08:07)
[2021-07-12] MEDS: OMEGA-3 (PURIFIED FISH OIL) 1 GM CAP PO SCH (08:07)
[2021-07-12] MEDS: POLYETHYLENE (MIRALAX) 17 GM PACK PO SCH (08:10)
--- NOTE | 2021-07-12 14:16 | Hospitalist Progress Note ---
Date of Service July 12, 2021 Assessment & Plan (1) Acute UTI: Plan: - U/a with +2 leuk est and +1 bacteria but also had epithelial cells noted. - UC with >100K colonies gram neg bacilli. Will follow final results. - No evidence of leukocytosis on lab work, remains afebrile. - Will start Keflex 500 mg TID due to complicated UTI. - Chronic wilkins catheter due to neurogenic bladder. (2) Multiple sclerosis: Plan: - Multiple sclerosis/muscle spasticity/neurogenic bladder/myelopathy- - Continue baclofen, Dulcolax suppository, vitamin D3, vitamin B12, magnesium malate and tizanidine. (3) Muscle spasticity: Plan: - See above (4) Neurogenic bladder: Plan: - Continue Wilkins catheter. (5) Myelopathy: Plan: - See above. (6) Unable to care for self: Plan: - The patient was brought to the ED by his mother, stating that she is not able to provide care for him that he needs at home. - Case management consulted for further evaluation, along with PT/OT. Plan: DVT ppx: Lovenox 30 mg subQ daily. Dispo: Discharge to facility pending case management evaluation. Admission and Anticipated Discharge Date Admission Date: July 11, 2021 Supervising Physician Co-Signing Physician Notes chart reviewed and case d/w Kojo De Los Santos PAC. give trial of mag IV / calcium PO for spasms -- if not beneficial then can temporarily switch baclofen over to diazepam to hopefully have even more muscle relaxation effect. ?worse spasms in response to inflammation from UTI? Subjective Mr. Barrera is a 41 y/o male with MS, neurogenic bladder with chronic wilkins catheter, myelopathy who presented for an inability of his family to care for him at home. U/a in the ER with bacteria noted but also had epithelial cells c/w contimination. Holding further abx treatment. He did receive Keflex x 1 dose. Patient has chronic wilkins cath due to neurogenic bladder. He will require case management consult to discuss placement options. He is feeling well overall, does experience muscle spasms chronically. Review of Systems Review of Systems: Constitutional: Negative for weight loss, night sweats, or fever Eyes: Negative for event change of vision ENT: Negative for epistaxis, nasal discharge, sore throat, or deafness Cardiovascular: Negative for anginal type chest pain, palpitations, dizziness, diaphoresis Respiratory: Negative for new shortness of breath,hemoptysis, or purulent cough Gastrointestinal: Negative for diarrhea, hematemesis, melena, nausea, vomiting, or dyspepsia Integumentary (skin): Negative for rash or jaundice discoloration Genitourinary: Negative for urinary frequency, hematuria, or dysuria Neurological: Negative for weakness, seizure activity, headache, or dizziness Lymphatic/Hematologic: Negative for petechiae, bleeding or new adenopathy Musculoskeletal: +Muscle spasms Allergic/Immunologic: Negative for unusual rash or pruritis Physical Exam Physical Exam: Constitutional: Vitals are stable Respiratory: Lung sounds were generally clear bilaterally. Cardiovascular: Heart was RRR without significant murmur, gallops or rubs. Gastrointestinal: No palpable hepatic or splenomegaly. The abdomen was soft with normal bowel sounds. Musculoskeletal System: The musculoskeletal system seemed concordant with age. Skin: The skin was negative for jaundice. Extremities: Negative for edema or erythema Results & Data Results & Data ([facility]) Vital Signs (Past 12 Hours) Vital Signs Temp Pulse Resp BP Pulse Ox 07/12/21 08:14 36.7 C 83 18 116/73 95 Laboratory Results 07/11/21 07/11/21 07/11/21 Range/Units 23:07 22:31 22:20 WBC 6.90 (4.8-10.8) K/uL RBC 4.72 (4.7-6.1) M/uL Hgb 14.1 (14.0-18.0) g/dL Hct 40.9 L (42-52) % MCV 86.7 (80-100) fL MCH 29.9 (25-34) pg MCHC 34.5 (32-36) g/dL RDW Std Deviation 41.7 (36.4-46.3) fL RDW Coeff of Meg 13.0 (11.5-14.5) % Plt Count 290 (130-400) K/uL MPV 8.8 (7.4-10.4) fL Immature Gran % (Auto) 0.1 % Neut % (Auto) 66.7 % Lymph % (Auto) 24.5 % [place] % (Auto) 5.8 % Eos % (Auto) 2.8 % Baso % (Auto) 0.1 % Neut # (Auto) 4.60 (1.4-6.5) K/uL Lymph # (Auto) 1.69 (1.2-3.4) K/uL [place] # (Auto) 0.40 (0.11-0.59) K/uL Eos # (Auto) 0.19 (0-0.5) K/uL Baso # (Auto) 0.01 (0-0.2) K/uL Immature Gran # (Auto) 0.01 (0.00-0.02) K/uL Sodium (136-145) mmol/L Potassium 4.3 Chloride (98-107) mmol/L Carbon Dioxide (21-32) mmol/L Anion Gap (3-11) BUN (6-23) mg/dl Creatinine (0.6-1.4) mg/dl Est Cr Clr Drug Dosing Est GFR ( Amer) ml/min Est GFR (Non-Af Amer) ml/min BUN/Creatinine Ratio (10-20) Glucose (70-99(Fasting)) mg/dl Calcium (8.5-10.1) mg/dl Urine Color Urine Appearance (Clear) Urine pH (4.5-7.5) Ur Specific [place] (1.000-1.030) Urine Protein (Negative) Urine Glucose (UA) (Negative) Urine Ketones (Negative) Urine Blood (Negative) Urine Nitrite (Negative) Urine Bilirubin (Negative) Urine Urobilinogen (Negative) Ur Leukocyte Esterase (Negative) Urine WBC (Auto) (0-5) /hpf Urine RBC (Auto) (0-4) /hpf U Hyaline Cast (Auto) (0-5) /lpf U Epithel Cells (Auto) (0-5) /lpf Urine Bacteria (Auto) (Negative) SARS-CoV-2, RNA, NAAT NEGATIVE (NEGATIVE) 07/11/21 07/11/21 Range/Units 22:20 21:41 WBC (4.8-10.8) K/uL RBC (4.7-6.1) M/uL Hgb (14.0-18.0) g/dL Hct (42-52) % MCV (80-100) fL MCH (25-34) pg MCHC (32-36) g/dL RDW Std Deviation (36.4-46.3) fL RDW Coeff of Meg (11.5-14.5) % Plt Count (130-400) K/uL MPV (7.4-10.4) fL Immature Gran % (Auto) % Neut % (Auto) % Lymph % (Auto) % [place] % (Auto) % Eos % (Auto) % Baso % (Auto) % Neut # (Auto) (1.4-6.5) K/uL Lymph # (Auto) (1.2-3.4) K/uL [place] # (Auto) (0.11-0.59) K/uL Eos # (Auto) (0-0.5) K/uL Baso # (Auto) (0-0.2) K/uL Immature Gran # (Auto) (0.00-0.02) K/uL Sodium 135 L (136-145) mmol/L Potassium TNP Chloride 100 (98-107) mmol/L Carbon Dioxide 29 (21-32) mmol/L Anion Gap 6 (3-11) BUN 13 (6-23) mg/dl Creatinine 0.56 L (0.6-1.4) mg/dl Est Cr Clr Drug Dosing Not Reportable Est GFR ( Amer) 150.0 ml/min Est GFR (Non-Af Amer) 129.4 ml/min BUN/Creatinine Ratio 23.2 H (10-20) Glucose 100 H (70-99(Fasting)) mg/dl Calcium 9.6 (8.5-10.1) mg/dl Urine Color Yellow Urine Appearance Cloudy A (Clear) Urine pH >= 9.0 H (4.5-7.5) Ur Specific [place] 1.013 (1.000-1.030) Urine Protein Negative (Negative) Urine Glucose (UA) Negative (Negative) Urine Ketones Negative (Negative) Urine Blood Negative (Negative) Urine Nitrite Negative (Negative) Urine Bilirubin Negative (Negative) Urine Urobilinogen Negative (Negative) Ur Leukocyte Esterase 2+ H (Negative) Urine WBC (Auto) 10-30 H (0-5) /hpf Urine RBC (Auto) 0-4 (0-4) /hpf U Hyaline Cast (Auto) 1-5 (0-5) /lpf U Epithel Cells (Auto) >30 H (0-5) /lpf Urine Bacteria (Auto) 1+ H (Negative) SARS-CoV-2, RNA, NAAT (NEGATIVE) PG Care Time/CCT Total # of Minutes Spent Total Time Spent with Patient: Total time spent is greater than 50% in coordination of care (as documented) at patient's floor/unit and/or counseling patient: [place] [address] Subseq Hosp Care Lvl 2 Patient Type Established Diagnoses Acute UTI N39.0 Multiple sclerosis G35 Muscle spasticity M62.838 Neurogenic bladder N31.9 Myelopathy G95.9 Unable to care for self Z78.9
[2021-07-12] MEDS ORDERED: CALCIUM CARBONATE 500 MG CHEWABLE TAB PO ONE ×2 (15:05→21:00)
[2021-07-12] MEDS: MAGNESIUM HYDROXIDE SUSP 30 ML UDC PO PRN (15:19)
[2021-07-12] MEDS: MAGNESIUM SULFATE / D5W 1 GM/100 ML BAG IV SCH ×4 (15:43→23:28)
[2021-07-12] MEDS: cephALEXin 500 MG CAP PO SCH (21:17)
[2021-07-13] MEDS: ENOXAPARIN INJ 30 MG/0.3 ML SYR SQ SCH (06:05)
[2021-07-13] MEDS: BACLOFEN 20 MG TAB PO SCH ×4 (06:12→23:29)
[2021-07-13] MEDS: CHOLECALCIFEROL 1,000 UNITS 25 MCG TAB PO SCH (09:14)
[2021-07-13] MEDS: BETHANECHOL CHL 25 MG TAB PO SCH ×3 (09:33→21:58)
[2021-07-13] MEDS: MULTIVITAMIN CHEWABLE TAB PO SCH (09:34)
[2021-07-13] MEDS: cephALEXin 500 MG CAP PO SCH ×3 (09:34→21:58)
[2021-07-13] MEDS: DOCUSATE SODIUM 100 MG CAP PO SCH ×2 (09:34→21:57)
[2021-07-13] MEDS: OMEGA-3 (PURIFIED FISH OIL) 1 GM CAP PO SCH (09:34)
[2021-07-13] MEDS: CYANOCOBALAMIN (B-12) 100 MCG TABLET PO SCH (09:34)
[2021-07-13] MEDS: POLYETHYLENE (MIRALAX) 17 GM PACK PO SCH (09:36)
[2021-07-13] MEDS: ACETAMINOPHEN 500 MG TAB PO SCH ×2 (11:19→18:37)
[2021-07-13] MEDS: ERGOCALCIFEROL 50,000 UNITS 1250 MCG CAP PO SCH (11:20)
--- NOTE | 2021-07-13 11:42 | Hospitalist Progress Note ---
Date of Service July 13, 2021 Assessment & Plan (1) Multiple sclerosis: Plan: 1) Multiple sclerosis -Unfortunately chronic illness with poor prognosis given degree of deterioration over past year -Current home medications do not show any disease modifying agents -Continue PT/OT -Complicated disposition planning- requiring 14/12 care and mother attempting to find set up care, has hearing on 07/21. Case management will try to secure SNF placement for pt until long-term arrangements can be coordinated with family 2) Muscle spasticity -Most likely due to multiple sclerosis -Trial of magnesium and calcium PO given without much improvement noted -Pt reports relief from home essential oil balm, this is likely placebo effect but encourage use -Scheduled Tylenol given some relief -Continue baclofen, tizanidine, B12 supplementation -Consider trial of valium therapy if symptoms persist or worsen on baclofen 3) Vitamin D deficiency -04/2021 most recent D3 level of 16 -Vitamin D supplementation increased to cholecalciferol 5000u daily, ergocalciferol 50,000u weekly 4) Questionable UTI -Positive UA results and growth of E Coli on UCx -No leukocytosis, afebrile, no urinary symptoms -Though asymptomatic, will continue Keflex 500 mg TID short-course given kentrell teriuria in a male and complex PMH including urinary dysfunction secondary to neurologic disease requiring chronic wilkins catheter DVT ppx: Lovenox 30 mg subQ daily. Dispo: Discharge to facility pending case management evaluation. (2) Acute UTI: (3) Muscle spasticity: (4) Demyelinating disease: (5) Neurogenic bladder: (6) Vitamin D deficiency: (7) Myelopathy: Admission and Anticipated Discharge Date Admission Date: July 11, 2021 Supervising Physician Co-Signing Physician Notes I personally examined the patient and verified all edjesus points of history and exam, discussed case, and agree with decision making with Dr Bauer feeling Ok. in relation to initial dx around march, he feels like he's actually made some improvement, just still needs more care than can be arranged currently. remains optimistic vitals noted nad heent nc at mmm breathing unlabored no accessory muscles good effort skin no rashes no pallor or icterus. weakness persists MS - debility requires more care than he was able to have at home. placement vs being able to get waiver for more care at home. increase vitamin D supplementation. continue outpt neuro follow up and modified diet. ?search for clinical trials? UTI vs colonization - treating on the hope that he may have some inflammatory fallout from infection that could make MS symptoms worse. otherwise as above Subjective No acute events overnight. Pt complaining of muscle spasms in legs but reports relief from the yellow essential oils balm he regularly takes at home, also states Tylenol has relieved some of the discomfort. He feels well otherwise, no acute complaints, would like to to get set up with long-term care. Review of Systems Review of Systems: All systems reviewed & are unremarkable except as noted in Subjective Physical Exam Physical Exam: Constitutional: thin, no apparent distress HEENT: Normocephalic, EOMI, pupils equal and reactive bilaterally, no scleral icterus, no LAD CV: RRR, normal S1, S2, no murmurs Resp: CTAB, unlabored respirations MSK: atrophied b/l LE, poor bulk and tone of b/l UE and LE Neuro: AOx3, no cranial nerve deficits, unable to elicit Achilles reflexes b/l, 2+ patellar reflexes b/l, upgoing Babinski b/l, 2/5 strength of b/l LE and pronounced weakness, no sensory deficits of b/l LE, no dysmetria, unable to assess gait Results & Data Results & Data ([facility]) Vital Signs (Past 12 Hours) Vital Signs Temp Pulse Resp BP Pulse Ox 07/13/21 09:10 36.6 C 84 18 123/85 97
--- NOTE | 2021-07-13 13:48 | Billing Data ---
Date of Service July 13, 2021 Coding Level of Care Code 60999 Subseq Obs Care Lvl 2
[2021-07-13] MEDS: bisacodyL 10 MG SUPP PR PRN (14:54)
[2021-07-13] MEDS: IBUPROFEN 600 MG TAB PO PRN (20:47)
[2021-07-13] MEDS: MELATONIN 3 MG TAB PO PRN (23:47)
[2021-07-14] MEDS: ACETAMINOPHEN 500 MG TAB PO SCH ×4 (00:12→22:39)
[2021-07-14] MEDS ORDERED: LORazepam 1 MG/2 ML VIAL IV STA (01:42)
[2021-07-14] MEDS ORDERED: LORazepam 1 MG TAB PO STA (02:13)
[2021-07-14] MEDS: MULTIVITAMIN CHEWABLE TAB PO SCH (10:55)
[2021-07-14] MEDS: POLYETHYLENE (MIRALAX) 17 GM PACK PO SCH (10:55)
[2021-07-14] MEDS: CYANOCOBALAMIN (B-12) 100 MCG TABLET PO SCH (10:55)
[2021-07-14] MEDS: CHOLECALCIFEROL 1,000 UNITS 25 MCG TAB PO SCH (10:55)
[2021-07-14] MEDS: BACLOFEN 20 MG TAB PO SCH ×4 (10:55→23:12)
[2021-07-14] MEDS: cephALEXin 500 MG CAP PO SCH ×3 (10:55→20:46)
[2021-07-14] MEDS: BETHANECHOL CHL 25 MG TAB PO SCH ×3 (10:56→20:45)
[2021-07-14] MEDS: OMEGA-3 (PURIFIED FISH OIL) 1 GM CAP PO SCH (10:56)
[2021-07-14] MEDS: DOCUSATE SODIUM 100 MG CAP PO SCH ×2 (10:56→20:46)
[2021-07-14] MEDS: ENOXAPARIN INJ 30 MG/0.3 ML SYR SQ SCH (10:56)
--- NOTE | 2021-07-14 11:43 | Hospitalist Progress Note ---
Date of Service July 14, 2021 Assessment & Plan (1) Multiple sclerosis: (2) Muscle spasticity: (3) Acute UTI: (4) Vitamin D deficiency: (5) Neurogenic bladder: (6) Unable to care for self: Plan: Bi is a 41M with a history of recently diagnosed primary progressive MS with neurogenic bladder and muscle spasticity as well as vitamin D deficiency who presented to the ED on 07/11 due to inability of caretakers to provide needed level of care and was found to have a UTI. 1) Multiple sclerosis, primary progressive -Chronic illness with progressive deterioration over the past year now requiring 24/7 care -Current home medications do not include any disease modifying agents. Follow up with outpatient neurology -PT/OT agree pt requires 24/7 care, recommending SNF -Continue PT/OT -Complicated disposition planning- requiring 24/7 care and mother attempting to find set up care, has hearing on 07/21. Case management will try to secure SNF placement until long-term arrangements can be coordinated with family 2) Muscle spasticity -Likely due to multiple sclerosis -Trial of magnesium and calcium PO given without much improvement -Patient reports relief from home essential oil balm, this is likely placebo effect but encourage use, and Wahls diet -Scheduled Tylenol providing some relief -Continue baclofen and B12 supplementation -Consider trial of Valium if symptoms persist or worsen on baclofen 3) UTI -Positive UA and growth of pansensitive E Coli on UCx -No leukocytosis, afebrile, no urinary symptoms -Continue Keflex 500 mg TID short-course (day 2/7) given bacteriuria in a male and complex PMH including urinary dysfunction secondary to neurologic disease requiring chronic wilkins catheter 4) Vitamin D deficiency -04/2021 most recent D3 level of 16 -Vitamin D supplementation increased to cholecalciferol 5000u daily, ergocalciferol 50,000u weekly DVT ppx: Lovenox 30 mg subQ daily. Dispo: Discharge to facility pending case management evaluation. Admission and Anticipated Discharge Date Admission Date: July 11, 2021 Supervising Physician Co-Signing Physician Notes I also saw the patient with the resident physician and the medical student confirmed dejesus portions of the history and physical examination. Agree with the impression and plan as noted in the documentation above. To this point, the patient has been started resistant to recommendations from neurology, favoring treatment from a homeopathic practitioner, thus he is not on any specific MS treatment. Upon exam, the patient is without significant plan. Does note some increased spasticity this afternoon. 110/70, 91, 16, 36.7, 96% on room air Impression and plan Multiple sclerosis Debility requires more care than he was able to have at home Case management looking into options, including temporary placement and/or waiver services at home Additional as noted above Subjective Overnight, he had restlessness and agitation after melatonin administration; he was given Ativan and measures were given to ensure uninterrupted sleep. The patient was asleep throughout the morning. He reports muscle spasms that partially improves with Tylenol. He feels he is doing well, better than a few months ago, particularly with the essential oil balm and Wahls diet. He is optimistic and would like to have long-term care at his own apartment. Review of Systems Constitutional: no fever and no chills Eyes: no diplopia and no worsening vision Genitourinary: no dysuria or no urinary frequency Musculoskeletal: muscle spasms Neurologic: no dizziness and no headache(s) Physical Exam Physical Exam: Per Dr. Bauer's exam Constitutional: thin, no apparent distress HEENT: Normocephalic, EOMI, pupils equal and reactive bilaterally, no scleral icterus, no LAD CV: RRR, normal S1, S2, no murmurs Resp: CTAB, unlabored respirations MSK: atrophied b/l LE, poor bulk and tone of b/l UE and LE Neuro: AOx3, no cranial nerve deficits, unable to elicit Achilles reflexes b/l, 2+ patellar reflexes b/l, upgoing Babinski b/l, 2/5 strength of b/l LE and pronounced weakness, no sensory deficits of b/l LE, no dysmetria, unable to assess gait Constitutional: no acute distress Eyes: normal conjunctivae, anicteric sclera ENMT: external ear and nose normal Neurologic: decreased tone of b/l LE, unable to assess gait Psychiatric: Orientation: alert and oriented x 3 Results & Data Results & Data ([facility]) Vital Signs (Past 12 Hours) Vital Signs Temp Pulse Resp BP Pulse Ox 07/14/21 09:41 36.6 C 84 12 103/71 98 Resident Activity Tracking Resident Involvement: Resident Care Provided Care Provided: [facility]
[2021-07-14] MEDS: MAGNESIUM HYDROXIDE SUSP 30 ML UDC PO PRN (11:55)
[2021-07-14] MEDS: MELATONIN 3 MG TAB PO PRN (22:38)
[2021-07-15] MEDS ORDERED: hydrOXYzine HCl 10 MG TAB PO STA ×2 (02:57→05:32)
[2021-07-15] MEDS: ENOXAPARIN INJ 30 MG/0.3 ML SYR SQ SCH (05:26)
[2021-07-15] MEDS: BACLOFEN 20 MG TAB PO SCH ×4 (05:27→23:36)
[2021-07-15] MEDS: ACETAMINOPHEN 500 MG TAB PO SCH ×3 (05:27→21:37)
[2021-07-15] MEDS: OMEGA-3 (PURIFIED FISH OIL) 1 GM CAP PO SCH (08:02)
[2021-07-15] MEDS: DOCUSATE SODIUM 100 MG CAP PO SCH ×2 (08:02→21:36)
[2021-07-15] MEDS: MAGNESIUM HYDROXIDE SUSP 30 ML UDC PO PRN ×2 (08:02→15:54)
[2021-07-15] MEDS: cephALEXin 500 MG CAP PO SCH ×3 (08:03→21:36)
[2021-07-15] MEDS: BETHANECHOL CHL 25 MG TAB PO SCH ×3 (08:03→21:35)
[2021-07-15] MEDS: CHOLECALCIFEROL 1,000 UNITS 25 MCG TAB PO SCH (08:03)
[2021-07-15] MEDS: CYANOCOBALAMIN (B-12) 100 MCG TABLET PO SCH (08:03)
[2021-07-15] MEDS: POLYETHYLENE (MIRALAX) 17 GM PACK PO SCH (08:04)
[2021-07-15] MEDS: MULTIVITAMIN CHEWABLE TAB PO SCH (08:12)
[2021-07-15 08:50] LABS: Creatinine Clr Calc Pharmacy 169.2 ml/min; Est GFR (African American) > 150.0 ml/min; Est GFR (Non-African American) 130.3 ml/min
--- NOTE | 2021-07-15 12:49 | Hospitalist Progress Note ---
Date of Service July 15, 2021 Assessment & Plan (1) Multiple sclerosis: (2) Muscle spasticity: (3) Acute UTI: (4) Vitamin D deficiency: (5) Neurogenic bladder: (6) Unable to care for self: Plan: Bi is a 41M with a history of recently diagnosed primary progressive MS with neurogenic bladder and muscle spasticity as well as vitamin D deficiency who presented to the ED on 07/11 due to inability of caretakers to provide needed level of care and was found to have a UTI. 1) Multiple sclerosis, primary progressive -Chronic illness with progressive deterioration over the past year now requiring 24/7 care -Current home medications do not include any disease modifying agents. Follow up with outpatient neurology -Start hydroxyzine HS for nighttime insomnia and agitation -PT recommended 24 hour care, OT recommended SNF -Complicated disposition planning- requiring 24/7 care and mother attempting to find set up care, has hearing on 07/21. Case management will try to secure SNF placement until long-term arrangements can be coordinated with family 2) Muscle spasticity -Likely due to multiple sclerosis -Trial of magnesium and calcium PO given without much improvement -Patient reports relief from home essential oil balm, this is likely placebo effect but encourage use, and Wahls diet -Scheduled Tylenol given some relief -Continue baclofen and B12 supplementation -Consider trial of Valium if symptoms persist or worsen on baclofen 3) UTI -Positive UA and growth of pansensitive E Coli on UCx -No leukocytosis, afebrile, no urinary symptoms -Continue Keflex 500 mg TID short-course (day 3/7) given bacteriuria in a male and complex PMH including urinary dysfunction secondary to neurologic disease requiring chronic wilkins catheter 4) Vitamin D deficiency -04/2021 most recent D3 level of 16 -Vitamin D supplementation increased to cholecalciferol 5000u daily, ergocalciferol 50,000u weekly DVT ppx: Lovenox 30 mg subQ daily. Dispo: Discharge to facility pending case management evaluation. Admission and Anticipated Discharge Date Admission Date: July 14, 2021 Supervising Physician Co-Signing Physician Notes I also saw the patient with the resident physician and the medical student confirmed dejesus portions of the history and physical examination. Agree with the impression and plan as noted in the documentation above. He did have some agitation overnight. He was given hydroxyzine with some improvement. Exam 112/75, 85, 16, 36.9, 97% on room air He is alert and oriented. At the time of our exam, he feels the need to defecate; need some assistance with the repositioning in bed in anticipation of using the bedside commode. Data Creatinine 0.55 Impression and plan Multiple sclerosis Debility requires more care than he was able to have at home Case management looking into options, including temporary placement and/or waiver services at home Patient has sought care with a homeopathic provider, no formal consultation with neurology Will continue to discuss with family and patient. Unsure if agitation at night related to MS - no metabolic or infectious etiology. Could consider MRI of Brain Additional as noted above Subjective Overnight, he again had restlessness and agitation; he was given hydroxyzine. His mother would like to discuss regimens that would help with his overnight events and bowel regimen. The patient was asleep throughout the morning. Review of Systems Constitutional: no fever and no chills Eyes: no diplopia and no worsening vision Genitourinary: no dysuria or no urinary frequency Musculoskeletal: muscle spasms Neurologic: no dizziness and no headache(s) Physical Exam Constitutional: + thin; no acute distress Eyes: normal conjunctivae, anicteric sclera ENMT: external ear and nose normal Neurologic: decreased tone of b/l LE, unable to assess gait Psychiatric: Orientation: alert and oriented x 3 Results & Data Results & Data ([facility]) Vital Signs (Past 12 Hours) Vital Signs Temp Pulse Resp BP Pulse Ox 07/15/21 08:00 36.9 C 85 16 112/75 97 Laboratory Results 07/15/21 Range/Units 07:44 Creatinine 0.55 L (0.6-1.4) mg/dl Est Cr Clr Drug Dosing 169.2 ml/min Est GFR ( Amer) > 150.0 ml/min Est GFR (Non-Af Amer) 130.3 ml/min Resident Activity Tracking Resident Involvement: Resident Care Provided Care Provided: Adult Hospital Medicine
[2021-07-15] MEDS: bisacodyL 10 MG SUPP PR PRN (15:25)
[2021-07-15] MEDS: hydrOXYzine HCl 10 MG TAB PO SCH (21:36)
[2021-07-16] MEDS: IBUPROFEN 600 MG TAB PO PRN ×3 (00:19→17:31)
[2021-07-16] MEDS: ENOXAPARIN INJ 30 MG/0.3 ML SYR SQ SCH (05:57)
[2021-07-16] MEDS: ACETAMINOPHEN 500 MG TAB PO SCH ×3 (05:57→21:33)
[2021-07-16] MEDS: BACLOFEN 20 MG TAB PO SCH ×4 (05:57→23:25)
--- NOTE | 2021-07-16 07:51 | Hospitalist Progress Note ---
Date of Service July 16, 2021 Assessment & Plan (1) Multiple sclerosis: (2) Muscle spasticity: (3) Acute UTI: (4) Vitamin D deficiency: (5) Neurogenic bladder: (6) Unable to care for self: Plan: Bi is a 41M with a history of recently diagnosed primary progressive MS with neurogenic bladder and muscle spasticity as well as vitamin D deficiency who presented to the ED on 07/11 due to inability of caretakers to provide needed level of care and was found to have a UTI. 1) Multiple sclerosis, primary progressive -Chronic illness with progressive deterioration over the past year now requiring 24/7 care -Current home medications do not include any disease modifying agents. Follow up with outpatient neurology -Start hydroxyzine HS for nighttime insomnia and agitation -PT recommended 24 hour care, OT recommended SNF -Complicated disposition planning- requiring 24/7 care and mother attempting to find set up care, has hearing on 07/21. Case management will try to secure SNF placement until long-term arrangements can be coordinated with family 2) Muscle spasticity -Likely due to multiple sclerosis -Trial of magnesium and calcium PO given without much improvement -Patient reports relief from home essential oil balm, this is likely placebo effect but encourage use, and Wahls diet -Scheduled Tylenol given some relief -Continue baclofen and B12 supplementation -Consider trial of Valium if symptoms persist or worsen on baclofen 3) UTI -Positive UA and growth of pansensitive E Coli on UCx -No leukocytosis, afebrile, no urinary symptoms -Continue Keflex 500 mg TID short-course (day 3/7) given bacteriuria in a male and complex PMH including urinary dysfunction secondary to neurologic disease requiring chronic wilkins catheter 4) Vitamin D deficiency -04/2021 most recent D3 level of 16 -Vitamin D supplementation increased to cholecalciferol 5000u daily, ergocalciferol 50,000u weekly DVT ppx: Lovenox 30 mg subQ daily. Dispo: Discharge to facility pending case management evaluation. Admission and Anticipated Discharge Date Admission Date: July 14, 2021 Subjective Overnight, he was given scheduled hydroxyzine that improved his agitation at night although he still had restlessness. Review of Systems Constitutional: no fever and no chills Eyes: no diplopia and no worsening vision Genitourinary: no dysuria or no urinary frequency Musculoskeletal: muscle spasms Neurologic: no dizziness and no headache(s) Physical Exam Constitutional: + thin; no acute distress Respiratory: normal respiratory effort, lungs clear to auscultation Cardiovascular: RRR, no murmur, no edema Results & Data Results & Data ([facility]) Vital Signs (Past 12 Hours) Vital Signs Temp Pulse Resp BP Pulse Ox 07/16/21 07:29 36.6 C 90 18 134/81 95 07/15/21 22:03 36.7 C 99 H 16 124/82 95
[2021-07-16] MEDS: DOCUSATE SODIUM 100 MG CAP PO SCH ×2 (08:32→20:26)
[2021-07-16] MEDS: BETHANECHOL CHL 25 MG TAB PO SCH ×3 (08:33→20:26)
[2021-07-16] MEDS: MULTIVITAMIN CHEWABLE TAB PO SCH (08:34)
[2021-07-16] MEDS: CYANOCOBALAMIN (B-12) 100 MCG TABLET PO SCH (08:34)
[2021-07-16] MEDS: CHOLECALCIFEROL 1,000 UNITS 25 MCG TAB PO SCH (08:34)
[2021-07-16] MEDS: cephALEXin 500 MG CAP PO SCH ×3 (08:34→20:26)
[2021-07-16] MEDS: bisacodyL 10 MG SUPP PR SCH (08:34)
[2021-07-16] MEDS: OMEGA-3 (PURIFIED FISH OIL) 1 GM CAP PO SCH (08:35)
[2021-07-16] MEDS: POLYETHYLENE (MIRALAX) 17 GM PACK PO SCH (08:35)
--- NOTE | 2021-07-16 09:46 | Neurology Consultation ---
Date of Consultation July 16, 2021 Assessment & Plan (1) Multiple sclerosis: Primary progressive multiple sclerosis. Patient has considerable disability due to his subacute, progressive demyelinating disease which first came to medical attention this past March, during an admission to [facility] at that time. Patient is nonambulatory. 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 He has neurogenic bladder. Patient has extensive brain and spinal cord demyelination which was identified on MRIs done this past March. His condition has continued to decline. He did have a follow-up appointment in our neurology clinic on April 11, 2021. At that point in time, the plan was to start disease modifying therapy. Preliminary lab evaluation has been completed although patient did not present for several additional follow-up appointments and it does not look like treatment for his multiple sclerosis has been started. Additional follow-up with our neurology clinic will need to be coordinated so we can start treatment for primary progressive MS. Ocrevus would be appropriate and can be administered in the medical treatment unit at [facility]. This treatment is given as an infusion 2 times per year and is FDA approved for primary progressive MS. Patient has a neurogenic bladder and is currently receiving treatment for a urinary tract infection. I would not recommend administering corticosteroids at this point in time. I do not think obtaining additional MRIs at this point in time would change his acute management. Continue medical care of urinary tract infection. He does have a Roldan catheter currently. If this catheter can be removed at some point going forward, I am not sure to what degree a medication for spastic bladder such as Detrol would be helpful, although such a medication could be considered. It looks like he was evaluated by [facility] urology on May 19, 2021, Dr. Pimentel. It would probably be worthwhile to have patient touch base with urology again in the outpatient setting. Baclofen is appropriate to address MS associated spasticity. He also has a prescription for tizanidine which is also useful for the same indication. It looks like the tizanidine is an as needed order. He may continue with both of these medications. Assistance with case management will be useful going forward as well. History of Present Illness Reason for Consultation: Multiple sclerosis Requesting Physician: Merline Bauer Attending Physician: Guido Hunt DO History of Present Illness The patient is a 41-year-old male who is known to the neurology service. He was initially evaluated by Dr. Khan during an admission to the [facility] on April 01, 2021 for subacute, progressive gait dysfunction, multiple falls, weakness of the legs and arms. He was found to have extensive demyelinating lesions on MRI of the brain and spinal cord. I saw him for several follow-up appointments during his hospitalization as well. His imaging and clinical presentation were felt to be consistent with multiple sclerosis, a lumbar puncture was performed as well. He was acutely treated for his demyelinating disease with IV corticosteroids with instructions to follow-up in neurology clinic after discharge, to review results of CSF analysis when available and for further treatment decisions at that time. He did see Teri Grewal PA-C, in neurology clinic on April 11, 2021. His lumbar puncture results were consistent with multiple sclerosis revealing greater than 5 oligoclonal bands in the CSF, not in the corresponding serum sample. He did have an elevated CSF protein as well, normal cell counts. At that point time, he was felt to probably have multiple sclerosis although acute disseminated encephalomyelitis not completely excluded, but probably less likely. Unfortunately, patient's clinical status has continued to decline. He has had progressive weakness and has been nonambulatory. It is notable that he has not had optic neuritis in the past and has not experienced diplopia or other signs or symptoms suggestive of brainstem syndrome. Additional lab evaluation was recommended at his last appointment in our clinic in anticipation of starting disease modifying therapy for his multiple sclerosis. Consideration of starting either Tysabri or Ocrevus was made at that time. Unfortunately, it looks like several follow-up appointments in our clinic were made and subsequently canceled. It does not look like he has started disease modifying therapy for his multiple sclerosis. He has been having ongoing difficulty with neurogenic bladder and associated infections. He presented to the emergency department on July 11, 2021 primarily for placement. His condition has continued to deteriorate, he is nonambulatory, wheelchair-bound, he has become progressively spastic and contracted. He had been living with a family friend, his mother has also been involved with his care but has had some difficulty getting him appropriate resources. It looks like she had been working with the family welfare social work professor as well who suggested emergency department evaluation for possible admission, for assistance with placement. Allergies Allergy/AdvReac Type Severity Reaction Status Date / Time codeine Allergy Unknown Verified 07/12/21 00:33 gluten AdvReac Verified 07/12/21 14:58 Home Medications Medication Instructions Recorded Confirmed Type acetaminophen 500 mg tablet 1,000 mg PO Q6H PRN 03/31/21 07/12/21 History (Tylenol Extra Strength) bisacodyl 10 mg rectal suppository 10 mg TX DAILY PRN 04/11/21 07/12/21 History docusate sodium 100 mg capsule 100 mg PO BID 04/11/21 07/12/21 History omega-3 fatty acids 1,000 mg 2,000 mg PO DAILY 04/11/21 07/12/21 History capsule (Fish Oil Concentrate) baclofen 10 mg tablet 20 mg PO Q6H #240 tab 06/09/21 07/12/21 Rx Black Seed Oil 1 tsp PO DAILY 07/12/21 07/12/21 History Essiac Tea 4 oz PO DAILY 07/12/21 07/12/21 History Lemon [place] 45 drp PO DAILY 07/12/21 07/12/21 History Magnesium Malate 800 mg PO DAILY 07/12/21 07/12/21 History cholecalciferol (vitamin D3) 125 125 mcg PO WE 07/12/21 07/12/21 History mcg (5,000 unit) tablet (Vitamin D3) cholecalciferol (vitamin D3) 25 75 mcg PO DAILY 07/12/21 07/12/21 History mcg (1,000 unit) tablet (Vitamin D3) cod liver oil 5 ml PO DAILY 07/12/21 07/12/21 History cyanocobalamin (vitamin B-12) 2,500 mcg PO DAILY 07/12/21 07/12/21 History 2,500 mcg sublingual tablet (Vitamin B-12) glucosamine sulf dipot 1 cap PO DAILY 07/12/21 07/12/21 History chlr,msm,chond 550 mg-C 30 mg-lucille 1 mg capsule (Glucosamine Chondroitin) ibuprofen 200 mg tablet 200 mg PO Q6H PRN 07/12/21 07/12/21 History tizanidine 2 mg tablet 2 mg PO Q8H PRN 07/12/21 07/12/21 History Patient History Medical History (Updated 07/12/21 @ 01:04 by Phillip Watt MD) Abnormal gait due to muscle weakness Avascular necrosis of bone of left hip Avascular necrosis of bone of right hip Demyelinating disease Elevated liver enzymes Generalized weakness Malnutrition Multiple sclerosis Muscle spasticity Rhabdomyolysis Surgical History History of right hip replacement Family History Father , Patient knows nothing about his father. No problems noted. Mother No problems noted. Grandmother (Maternal) Colorectal cancer Ovarian cancer Denies family history of Prostate cancer Myocardial infarction Breast cancer Social History Smoking Status: Never smoker Tobacco Type: Cigarettes Second Hand Exposure: No; Do You Dip or Chew Tobacco: No; Hx Alcohol Use: No Hx Substance Use: No Preferred Language: Wolof Communication Ability: Effective Plier Worker Required: No Beliefs That Will Affect Care: Yazidism Yazidism Beliefs: Eastern Rastafarian- requesting a daily visit from marital status: Single Current Living Situation: Other Current Living Situation Comment: family unable to care for patient current occupational status: unemployed and disabled 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 How many Children do You have: 1 Other Information That Helps Us Care for You: No Feels Safe at Home: No Is there a partner from a previous relationship who is making you feel unsafe now?: No Any Concerns about Your Family Situation: No Would You Like to Speak to Someone About Your Situation: No Safety Concerns: Feels Safe At This Time Childhood Exposure to Second-Hand Smoke: Yes Dental Care, Regularly: Yes Physical Activity Frequency: Does not Exercise Seatbelt Use: always Sunscreen Use: No Assistive Devices: None Assistive Devices Comment: uses kelvin at home Review of Systems Constitutional: no fever and no chills Eyes: no blind spots and no diplopia Ear, Nose, Mouth, Throat: no ear pain and no hearing loss Respiratory: no cough and no dyspnea Cardiovascular: no chest pain and no palpitations Gastrointestinal: no constipation and no diarrhea/loose stools Genitourinary: + urinary incontinence and + urinary urgency Musculoskeletal: + stiffness, + muscle weakness and + muscle atrophy Integumentary: no rash and no lesions Neurologic: as per Subjective / HPI, + gait abnormality, + localized weakness, + loss of sensation, + paresthesia, + lack of coordination, + abnormal speech and + behavioral changes; no tremor(s) and no headache(s) Psychiatric: no behavioral changes, no depression, no abnormal sleep pattern and no anxiety Hematologic / Lymphatic: no easy bruising and no lymphadenopathy Exam (Neuro) Constitutional: + ill appearing and + thin Eyes: normal visual cabrera by confrontation, PERRL, normal accommodation and EOM intact bilaterally; no fundoscopic abnormality, no nystagmus and no papilledema Cardiovascular: Vessels: normal carotid upstroke; no carotid bruit Neurologic: Oriented to:: Person, Place and Time Memory: Remote Intact; negative Short Term Intact Attention: negative Span Intact or Concentration Intact Language: Naming Objects and Repeating Phrases Speech Fluency: Dysarthria, Dysfluency, Slowed and Other (hypophonic) Speech Aphasia: negative Aphasia Fund of Knowledge: Past History and Vocabulary; negative Current Events Cranial Nerves: Normal II (Visual cabrera full to confrontation, visual acuity normal), III, IV, (Pupils equal round reactive to light and accommodation, eye movements normal), V (Facial sensation intact), VII (There is no facial droop or weakness), VIII (Hearing intact), IX, X (Palate elevates to midline), XI (Shoulder shrug intact) and XII (Tongue protrudes to midline) Motor Strength: Paraplegia and Hemiparesis Laterality: Right; negative Normal Lower Extremities or Normal Upper Extremities Spasticity: Arms Laterality: Right and Legs Muscle Bulk/Involuntary Movements: No Involuntary Movements and Muscle Atrophy Sensation: Light Touch Intact and Pain/Temperature Intact; negative Vibration Intact or Proprioception Intact Coordination: Dysdiadochokinesia, Finger-Nose Abnormal and Heel-Clark Abnormal Deep Tendon Reflexes: Rt Triceps: 3+, Lt Triceps: 3+, Rt Biceps: 3+, Lt Biceps: 3+, Rt Brachioradialis: 3+, Lt Brachioradialis: 3+, Rt Patellar: 3+, Lt Patellar: 3+, Rt Ankle: 2+ and Lt Ankle: 2+ Special Tests: Babinski Present (plantar grasp) Details: gait cannot be evaluated, non-ambulatory Results & Data ([facility]) Vital Signs (Past 12 Hours) Vital Signs Temp Pulse Resp BP Pulse Ox 07/16/21 07:29 36.6 C 90 18 134/81 95 07/15/21 22:03 36.7 C 99 H 16 124/82 95 Laboratory Results WBC 6.90, hemoglobin 14.1, hematocrit 40.9, MCV 86.7, platelet count 290, sodium 135, potassium 4.3, BUN 13, creatinine 0.55, glucose 100, calcium 9.6, AST 20, ALT 33, patient is JAMARCUS virus antibody positive. Diagnostic Findings A CT of the head completed June 25, 2021 revealed areas of radiolucency consistent with patient's history of multiple sclerosis. I reviewed the images pertaining to patient's previous MRI of the brain and spinal cord. Again, he has evidence of extensive demyelinating disease within the cerebral hemispheres and spinal cord consistent with multiple sclerosis. Coding Level of Care Code 18543 Initial Inpt Care Lvl 3 Diagnoses Multiple sclerosis G35
--- NOTE | 2021-07-16 11:43 | Hospitalist Progress Note ---
Date of Service July 16, 2021 Assessment & Plan (1) Multiple sclerosis: Plan: Bi is a 41M with a history of recently diagnosed primary progressive MS with neurogenic bladder and muscle spasticity as well as vitamin D deficiency who presented to the ED on 07/11 due to inability of caretakers to provide needed level of care and was found to have a UTI. 1) Multiple sclerosis, primary progressive -Chronic illness with progressive deterioration over the past year now requiring 24/7 care -Current home medications do not include any disease modifying agents -Atarax qHs for nighttime insomnia/agitation -Complicated disposition planning- requiring 24/7 care and mother attempting to set up care, has hearing on 07/21. Case management will try to secure SNF placement until long-term arrangements can be coordinated with family -Neurology consulted- recommending initiation of Ocrevus treatment -Spoke with both pt's mother and pt who will make final decision tomorrow on proceeding with Ocrevus treatment 2) Muscle spasticity -Trial of magnesium and calcium PO given without much improvement -Patient reports relief from home essential oil balm, this is likely placebo effect but encourage use. In the same vein, continue Wahls diet -Scheduled Tylenol, ibuprofen PRN -Continue baclofen and B12 supplementation -Tizanidine PRN added per neurology recommendation 3) UTI -Positive UA and growth of pansensitive E Coli on UCx -No leukocytosis, afebrile, no urinary symptoms -Continue Keflex 500 mg TID short-course (day 4) given bacteriuria in a male and complex PMH including urinary dysfunction secondary to neurogenic bladder requiring chronic wilkins catheter 4) Vitamin D deficiency -04/2021 most recent D3 level of 16 -Vitamin D supplementation increased to cholecalciferol 5000u daily, ergocalciferol 50,000u weekly DVT ppx: Lovenox 30 mg subQ daily. Dispo: Discharge to facility pending case management evaluation. (2) Acute UTI: (3) Unable to care for self: (4) Avascular necrosis of bone of left hip: (5) Muscle spasticity: (6) Demyelinating disease: (7) Neurogenic bladder: (8) Vitamin D deficiency: (9) Myelopathy: Admission and Anticipated Discharge Date Admission Date: July 14, 2021 Supervising Physician Co-Signing Physician Notes I also saw the patient with the resident physician and the medical student confirmed dejesus portions of the history and physical examination. I agree with the impression and plan as noted in the documentation above. The patient probably slept better overnight with less agitation. He had a scheduled Atarax last night. The patient had seen neurology as an inpatient late last year, but had not followed up as an outpatient. After discussion yesterday, the patient is willing to see neurology and consider options for his MS. To this point, he and his mother have elected to pursue more homeopathic/naturopathic treatments. Exam 134/81, 90, 18, 36.6, 95% room air He is alert and oriented. No complaints at the time of our visit Data No new lab work Impression and plan Multiple sclerosis Debility requires more care than he was able to have at home Case management looking into options, including temporary placement and/or waiver services at home Neurology consultation appreciated Additional as noted above Subjective No acute events overnight. Reportedly had less disruptive night compared to nights prior during stay. Still some restlessness but improved from night prior. Denies any acute complaints on evaluation, states he slept better last night and feels ok at present. Review of Systems Review of Systems: All systems reviewed & are unremarkable except as noted in Subjective Physical Exam Physical Exam: Constitutional: thin, no apparent distress HEENT: Normocephalic, EOMI, pupils equal and reactive bilaterally, no scleral icterus, no LAD CV: RRR, normal S1, S2, no murmurs Resp: CTAB, unlabored respirations MSK: atrophied b/l LE, poor bulk and tone of b/l UE and LE Neuro: AOx3, no cranial nerve deficits, unable to elicit Achilles reflexes b/l, 2+ patellar reflexes b/l, upgoing Babinski b/l, 2/5 strength of b/l LE and pronounced weakness, no sensory deficits of b/l LE, no dysmetria, unable to assess gait Results & Data Results & Data ([facility]) Vital Signs (Past 12 Hours) Vital Signs Temp Pulse Resp BP Pulse Ox 07/16/21 07:29 36.6 C 90 18 134/81 95 Resident Activity Tracking Resident Involvement: Resident Care Provided Care Provided: Adult [facility]
[2021-07-16] MEDS: tiZANidine HCL 4 MG TABLET PO PRN (12:47)
[2021-07-16] MEDS: hydrOXYzine HCl 10 MG TAB PO SCH (20:26)
[2021-07-17] MEDS: ACETAMINOPHEN 500 MG TAB PO SCH ×3 (05:30→22:00)
[2021-07-17] MEDS: ENOXAPARIN INJ 30 MG/0.3 ML SYR SQ SCH (05:31)
[2021-07-17] MEDS: BACLOFEN 20 MG TAB PO SCH ×4 (05:31→23:39)
--- NOTE | 2021-07-17 07:01 | Hospitalist Progress Note ---
Date of Service July 17, 2021 Assessment & Plan (1) Multiple sclerosis: Plan: Bi is a 41M with a history of recently diagnosed primary progressive MS with neurogenic bladder and muscle spasticity as well as vitamin D deficiency who presented to the ED on 07/11 due to inability of caretakers to provide needed level of care and was found to have a UTI. 1) Multiple sclerosis, primary progressive -Chronic illness with progressive deterioration over the past year now requiring 24/7 care -Current home medications do not include any disease modifying agents -Atarax qHs for nighttime insomnia/agitation -Complicated disposition planning- requiring 24/7 care and mother attempting to set up care, has hearing on 07/21. Case management will try to secure SNF placement until long-term arrangements can be coordinated with family -Neurology consulted- recommending initiation of Ocrevus treatment. Pt and family agreeable. Neurology coordinating plan of care, Ocrevus to be administered in [facility] as outpatient once pt accepted to SNF and discharged from inpatient unit. 2) Muscle spasticity -Trial of magnesium and calcium PO given without much improvement -Patient reports relief from home essential oil balm, this is likely placebo effect but encourage use. In the same vein, continue Wahls diet -Scheduled Tylenol, ibuprofen PRN -Continue baclofen and B12 supplementation -Tizanidine PRN added per neurology recommendation 3) UTI -Positive UA and growth of pansensitive E Coli on UCx -No leukocytosis, afebrile, no urinary symptoms -Continue Keflex 500 mg TID short-course (day 5/7) given bacteriuria in a male and complex PMH including urinary dysfunction secondary to neurogenic bladder requiring chronic wilkins catheter 4) Vitamin D deficiency -04/2021 most recent D3 level of 16 -Vitamin D supplementation increased to cholecalciferol 5000u daily, ergocal ciferol 50,000u weekly DVT ppx: Lovenox 30 mg subQ daily. Dispo: Discharge to facility pending case management evaluation. (2) Acute UTI: (3) Unable to care for self: (4) Avascular necrosis of bone of left hip: (5) Muscle spasticity: (6) Demyelinating disease: (7) Neurogenic bladder: (8) Vitamin D deficiency: (9) Myelopathy: Admission and Anticipated Discharge Date Admission Date: July 14, 2021 Supervising Physician Co-Signing Physician Notes I also saw the patient with the resident physician and the medical student confirmed dejesus portions of the history and physical examination. I agree with the impression and plan as noted in the documentation above. The patient did meet with neurology yesterday and again today. He is more amendable to starting a disease modifying agent. This will be coordinated as an outpatient. Exam 105/74, 78, 15, 36.6, 98% room air He is alert and oriented. No complaints at the time of our visit Impression and plan Multiple sclerosis Debility requires more care than he was able to have at home Case management looking into options, including temporary placement and/or waiver services at home Neurology consultation appreciated; will likely start a disease modifying agent as an outpatient Additional as noted above Subjective No acute events overnight. Previous night was also less disruptive. Still some restlessness but improved from night prior. Denies any acute complaints on evaluation. Review of Systems Review of Systems: All systems reviewed & are unremarkable except as noted in Subjective Physical Exam Physical Exam: Constitutional: thin, no apparent distress HEENT: Normocephalic, EOMI, pupils equal and reactive bilaterally, no scleral icterus, no LAD CV: RRR, normal S1, S2, no murmurs Resp: CTAB, unlabored respirations MSK: atrophied b/l LE, poor bulk and tone of b/l UE and LE Neuro: AOx3, no cranial nerve deficits, unable to elicit Achilles reflexes b/l, 2+ patellar reflexes b/l, upgoing Babinski b/l, 2/5 strength of b/l LE and pronounced weakness, no sensory deficits of b/l LE, +finger nose finger dysmetria, unable to assess gait Results & Data Results & Data ([facility]) Vital Signs (Past 12 Hours) Vital Signs Temp Pulse Resp BP Pulse Ox 07/16/21 21:46 36.8 C 102 H 18 123/68 96 Resident Activity Tracking Resident Involvement: Resident Care Provided Care Provided: Adult [facility]
[2021-07-17] MEDS: BETHANECHOL CHL 25 MG TAB PO SCH ×3 (08:07→20:13)
[2021-07-17] MEDS: DOCUSATE SODIUM 100 MG CAP PO SCH ×2 (08:07→20:14)
[2021-07-17] MEDS: cephALEXin 500 MG CAP PO SCH ×3 (08:08→20:12)
[2021-07-17] MEDS: OMEGA-3 (PURIFIED FISH OIL) 1 GM CAP PO SCH (08:09)
[2021-07-17] MEDS: bisacodyL 10 MG SUPP PR SCH (08:09)
[2021-07-17] MEDS: CHOLECALCIFEROL 1,000 UNITS 25 MCG TAB PO SCH (08:09)
[2021-07-17] MEDS: POLYETHYLENE (MIRALAX) 17 GM PACK PO SCH (08:10)
[2021-07-17] MEDS: MULTIVITAMIN CHEWABLE TAB PO SCH (08:10)
[2021-07-17] MEDS: CYANOCOBALAMIN (B-12) 100 MCG TABLET PO SCH (08:10)
[2021-07-17] MEDS: IBUPROFEN 600 MG TAB PO PRN (08:44)
--- NOTE | 2021-07-17 10:20 | Neurology Progress Note ---
Date of Service July 17, 2021 Assessment & Plan (1) Multiple sclerosis: Plan: Primary progressive multiple sclerosis. Patient agreeable to starting disease modifying therapy. Ocrevus would be an appropriate treatment for primary progressive MS. We will need to coordinate this treatment with the medical treatment unit and obtain some additional authorizations from his insurance company before arranging the infusion. This treatment would not be administered acutely as an inpatient. He will need additional follow-up in our neurology clinic as well. Case management involvement and probable placement in a [facility] facility are likely going to be important issues going forward and will impact the logistics of ongoing management for his primary progressive MS. I did not have any further immediate recommendations for his management during his current hospitalization. Admission and Anticipated Discharge Date Admission Date: July 14, 2021 Subjective Follow-up for multiple sclerosis The patient does appear to be clinically improved this morning, he is more alert, more interactive, seems to have less difficulty moving the limbs, has been eating well, utilizing eating utensils with specialized handgrips. No difficulty with swallowing. No difficulty with ocular motility or vision loss, still has a Roldan catheter in the context of neurogenic bladder, currently receiving treatment for UTI. Continues to have considerable spasticity, especially the legs, receiving baclofen for this particular symptom also has a prescription for tizanidine as needed. As described previously, patient has not started disease modifying therapy for his multiple sclerosis which came to medical attention during a previous admis dipak to the [facility] this past March. He has had a progressive decline since that time and probably has primary progressive MS. He does not require additional MRIs at this point in time. Patient is interested in starting Ocrevus, disease modifying therapy for his multiple sclerosis. They have been working on this authorization in our clinic and additional follow-up will be needed. This treatment is typically administered through the medical treatment unit as an outpatient. Review of Systems Eyes: no blind spots and no eye pain Neurologic: + gait abnormality, + localized weakness, + loss of sensation, + tremor(s) and + confusion; no headache(s) Results & Data ([facility]) Vital Signs (Past 12 Hours) Vital Signs Temp Pulse Resp BP Pulse Ox 07/17/21 07:41 36.6 C 78 15 105/74 98 Exam (Neuro) Neurologic: Oriented to:: Person and Place; negative Time Memory: Remote Intact; negative Short Term Intact Attention: Span Intact; negative Concentration Intact Speech Fluency: Slowed Speech Aphasia: negative Aphasia Fund of Knowledge: Past History and Vocabulary Cranial Nerves: Normal II, III, IV, , V, VII, VIII, IX, X, XI and XII Motor Strength: negative Normal Lower Extremities or Normal Upper Extremities Spasticity: Hemispasticity and Legs Muscle Bulk/Involuntary Movements: Action Tremor Coordination: Finger-Nose Abnormal Coding Level of Care Code 10945 Subseq Hosp Care Lvl 2 Diagnoses Multiple sclerosis G35
[2021-07-17] MEDS: hydrOXYzine HCl 10 MG TAB PO SCH (20:13)
[2021-07-18] MEDS: ACETAMINOPHEN 500 MG TAB PO SCH ×3 (06:02→22:37)
[2021-07-18] MEDS: BACLOFEN 20 MG TAB PO SCH ×4 (06:02→23:02)
[2021-07-18] MEDS: ENOXAPARIN INJ 30 MG/0.3 ML SYR SQ SCH (06:03)
[2021-07-18 08:10] LABS: Creatinine Clr Calc Pharmacy 189.9 ml/min; Est GFR (African American) > 150.0 ml/min; Est GFR (Non-African American) 136.7 ml/min
--- NOTE | 2021-07-18 09:47 | Neurology Progress Note ---
Date of Service July 18, 2021 Assessment & Plan (1) Multiple sclerosis: (2) Muscle spasticity: (3) Neurogenic bladder: Plan: This patient has a severe demyelinating disease, consistent with primary progressive multiple sclerosis. he has profound weakness and spasticity and wasting of muscles. MRI show multiple central nervous system lesions in the brain and spinal cord. This gives him have a myelopathy from the demyelinating disease as well. He does have some mild spinal stenosis but not enough to cause cord compression for require cervical surgery.He has neurogenic bladder as well. Recommendations: 1. continue aggressive physical, occupational, and speech therapy. 2. consider another course of IV steroids: IV Solu-Medrol 1 g a day for 3 days followed by a tapering oral course of Medrol. 3. Initiate disease modifying therapy as soon as we can. Consider Ocrevus infusion, however, he may benefit from a stronger agent such as oral cladribine. we might consider a 2nd opinion with an MS specialist such as Dr. Newberry as an outpatient. 4. We might consider another MRI of the brain with without contrast ( MS protocol) to compare to the previous study to look for progression. 5. continue baclofen 20 mg 4 times a day ( this is the maximum oral dose). 6. patient needs placement as he cannot cared for well at home anymore. Overall, I spent a total of 40 minutes with this case including review of records, review the MRI films, direct evaluation the patient bedside, and discussion of the case with the patient and nurse at bedside as well as Dr. Lopez, including differential diagnosis and treatment options. Admission and Anticipated Discharge Date Admission Date: July 14, 2021 Subjective Patient has some painful spasticity in his limbs. He is very weak. Laboratory studies were largely unremarkable except for an E coli urinary tract infection for which he is still being treated with oral antibiotics. The patient is known to me from March of 2021 when he came in with weakness and spasticity. MRI of the brain showed multiple white matter lesions consistent with demyelinating disease. MRI of the cervical and thoracic spine showed lesions as well. There was some spinal stenosis at L4-5 but not significant enough to cause cord compression, according to Dr. Xiao as consult. He was somewhat lost to follow-up as an outpatient and we wanted to initiate a disease modifying therapy ( Ocrevus ). He has been in the hospital since July 11 and he is getting progressively weaker and more spastic. Results & Data ([facility]) Vital Signs (Past 12 Hours) Vital Signs Temp Pulse Resp BP Pulse Ox 07/18/21 07:57 36.3 C L 83 20 103/68 97 07/17/21 22:51 36.8 C 95 H 18 117/64 97 Exam (Neuro) Physical Exam: He is awake and alert. Speech is without aphasia or obvious dysarthria. Extraocular eye muscles are intact without nystagmus. He had no facial droop. Cognitively he was reasonable to conversation and mood and affect were normal appropriate. patient had drift in the arms and clumsiness of the hands. Arms were 3-4/5 strength diffusely with spasticity and generalized atrophy. Legs were very atrophic in muscle bulk and were 1-2/5 in strength. Reflexes were 2/4 in the quadriceps biceps and brachioradialis tendons. PG Care Time/CCT Total # of Minutes Spent Total Time Spent with Patient: Total time spent is greater than 50% in coordination of care (as documented) at patient's floor/unit and/or counseling patient: Coding Level of Care Code 53740 Subseq Hosp Care Lvl 3 Diagnoses Multiple sclerosis G35 Muscle spasticity M62.838 Neurogenic bladder N31.9 Time Spent (min) 40
[2021-07-18] MEDS: cephALEXin 500 MG CAP PO SCH ×3 (10:50→20:35)
[2021-07-18] MEDS: CYANOCOBALAMIN (B-12) 100 MCG TABLET PO SCH (10:51)
[2021-07-18] MEDS: OMEGA-3 (PURIFIED FISH OIL) 1 GM CAP PO SCH (10:51)
[2021-07-18] MEDS: DOCUSATE SODIUM 100 MG CAP PO SCH ×2 (10:51→20:35)
[2021-07-18] MEDS: MULTIVITAMIN CHEWABLE TAB PO SCH (10:51)
[2021-07-18] MEDS: BETHANECHOL CHL 25 MG TAB PO SCH ×3 (10:52→20:36)
[2021-07-18] MEDS: POLYETHYLENE (MIRALAX) 17 GM PACK PO SCH (10:53)
[2021-07-18] MEDS: bisacodyL 10 MG SUPP PR SCH (10:53)
[2021-07-18] MEDS: CHOLECALCIFEROL 1,000 UNITS 25 MCG TAB PO SCH (11:44)
--- NOTE | 2021-07-18 12:24 | Hospitalist Progress Note ---
Date of Service July 18, 2021 Assessment & Plan (1) Multiple sclerosis: Plan: Bi is a 41M with a history of recently diagnosed primary progressive MS with neurogenic bladder and muscle spasticity as well as vitamin D deficiency who presented to the ED on 07/11 due to inability of caretakers to provide needed level of care and was found to have a UTI. 1) Multiple sclerosis, primary progressive -Chronic illness with progressive deterioration over the past year now requiring 24/7 care -Current home medications do not include any disease modifying agents -Atarax qHs for nighttime insomnia/agitation -Complicated disposition planning- requiring 24/7 care and mother attempting to set up care, has hearing on 07/21. Case management will try to secure SNF placement until long-term arrangements can be coordinated with family -Neurology consulted- recommending initiation of Ocrevus treatment. Pt and family agreeable. Neurology coordinating plan of care, Ocrevus to be administered in [facility] as outpatient once pt accepted to SNF and discharged from inpatient unit -Per neurology recommendation, initiated short course of IV solumedrol 1 g 3x days followed by oral taper after -Repeat MRI today per neuro to assess interval change from previous MRI in 03/2021 2) Muscle spasticity -Trial of magnesium and calcium PO given without much improvement -Patient reports relief from home essential oil balm, this is likely placebo effect but encourage use. In the same vein, continue Wahls diet -Scheduled Tylenol, ibuprofen PRN -Continue baclofen and B12 supplementation -Tizanidine PRN added per neurology recommendation 3) UTI -Positive UA and growth of pansensitive E Coli on UCx -No leukocytosis, afebrile, no urinary symptoms -Continue Keflex 500 mg TID short-course (day 6) given bacteriuria in a male and complex PMH including urinary dysfunction secondary to neurogenic bladder requiring chronic wilkins catheter 4) Vitamin D deficiency -04/2021 most recent D3 level of 16 -Vitamin D supplementation increased to cholecalciferol 5000u daily, ergocalciferol 50,000u weekly DVT ppx: Lovenox 30 mg subQ daily. Dispo: Discharge to facility pending case management evaluation. (2) Acute UTI: (3) Unable to care for self: (4) Avascular necrosis of bone of left hip: (5) Muscle spasticity: (6) Demyelinating disease: (7) Neurogenic bladder: (8) Vitamin D deficiency: (9) Myelopathy: Admission and Anticipated Discharge Date Admission Date: July 14, 2021 Supervising Physician Co-Signing Physician Notes Patient seen and examined independently of PGY-1 Dr. Bauer. Agree with history, exam findings, assessment and plan of care as outlined. 41 year old male with hx of recently diagnosed progressive MS with neurogenic bladder and muscle spasticity admitted due to the inability for caregivers to care for her. No complaints today. Still having some twitching, muscle spasms. VS and nursing notes reviewed. Thin, non-toxic appearing. Heart with regular rate and rhythm. Lungs are clear to auscultation. CN II-XII in tact, decreased muscle bulk of the upper and lower extremities. 1. MS, primary progressive. Appreciate care management assistance with placement/long-term care arrangements. Appreciate neurology recs: start solumedrol while we wait for placement; plan for Ocrevus as an outpatient. Repeat MRI pending. 2. Muscle spasticity. Continue Tylenol, B12, tizanidine. 3. E. Coli urinary tract infection. Continue Keflex. 4. Vitamin D deficiency. Started on 50,000 IU weekly + 5,000 IU daily. Dispo: pending placement. Subjective No acute events overnight. Minimal disruption to nursing team, no behavioral issues. Pt denies acute complaints on evaluation this morning, still agreeable to disease modifying treatment as outpatient. Review of Systems Review of Systems: All systems reviewed & are unremarkable except as noted in Subjective Physical Exam Physical Exam: Constitutional: thin, no apparent distress HEENT: Normocephalic, EOMI, pupils equal and reactive bilaterally, no scleral icterus, no LAD CV: RRR, normal S1, S2, no murmurs Resp: CTAB, unlabored respirations MSK: atrophied b/l LE, poor bulk and tone of b/l UE and LE Neuro: no gross cranial nerve deficits, unable to elicit Achilles reflexes b/l, 2+ patellar reflexes b/l, upgoing Babinski b/l, 3/5 strength of b/l LE and pronounced weakness, no sensory deficits of b/l LE, +finger nose finger dysmetria, unable to assess gait Results & Data Results & Data ([facility]) Vital Signs (Past 12 Hours) Vital Signs Temp Pulse Resp BP Pulse Ox 07/18/21 07:57 36.3 C L 83 20 103/68 97 Resident Activity Tracking Resident Involvement: Resident Care Provided Care Provided: Adult Hospital Medicine
[2021-07-18] MEDS: methylPREDNISolone 1,000 MG in DEXTROSE 5% 250 ML IV SCH (12:56)
[2021-07-18] MEDS ORDERED: LORazepam 0.5 MG TAB PO STA (14:15)
[2021-07-18] MEDS ORDERED: LORazepam 0.5 MG TAB PO SCH (19:30)
[2021-07-18] MEDS: hydrOXYzine HCl 10 MG TAB PO SCH (20:37)
[2021-07-18] MEDS ORDERED: MELATONIN 3 MG TAB PO ONE (22:16)
[2021-07-19] MEDS: IBUPROFEN 600 MG TAB PO PRN (02:33)
[2021-07-19] MEDS: tiZANidine HCL 4 MG TABLET PO PRN (02:38)
[2021-07-19] MEDS: ENOXAPARIN INJ 30 MG/0.3 ML SYR SQ SCH (05:03)
[2021-07-19] MEDS: BACLOFEN 20 MG TAB PO SCH ×4 (05:04→23:30)
[2021-07-19] MEDS: ACETAMINOPHEN 500 MG TAB PO SCH ×3 (05:04→21:01)
[2021-07-19] MEDS: methylPREDNISolone 1,000 MG in DEXTROSE 5% 250 ML IV SCH (08:54)
[2021-07-19] MEDS: CHOLECALCIFEROL 5,000 UNITS 125 MCG TAB PO SCH (08:55)
[2021-07-19] MEDS: POLYETHYLENE (MIRALAX) 17 GM PACK PO SCH (08:55)
[2021-07-19] MEDS: OMEGA-3 (PURIFIED FISH OIL) 1 GM CAP PO SCH (08:55)
[2021-07-19] MEDS: MULTIVITAMIN CHEWABLE TAB PO SCH (08:55)
[2021-07-19] MEDS: BETHANECHOL CHL 25 MG TAB PO SCH ×3 (08:56→20:14)
[2021-07-19] MEDS: cephALEXin 500 MG CAP PO SCH ×2 (08:56→13:23)
[2021-07-19] MEDS: bisacodyL 10 MG SUPP PR SCH (08:56)
[2021-07-19] MEDS: CYANOCOBALAMIN (B-12) 100 MCG TABLET PO SCH (08:56)
[2021-07-19] MEDS: DOCUSATE SODIUM 100 MG CAP PO SCH ×2 (08:59→20:11)
[2021-07-19] MEDS ORDERED: LORazepam 0.5 MG TAB PO ONE (09:54)
--- NOTE | 2021-07-19 11:07 | Hospitalist Progress Note ---
Date of Service July 19, 2021 Assessment & Plan (1) Multiple sclerosis: Plan: Bi is a 41M with a history of recently diagnosed primary progressive MS with neurogenic bladder and muscle spasticity as well as vitamin D deficiency who presented to the ED on 07/11 due to inability of caretakers to provide needed level of care and was found to have a UTI. 1) Multiple sclerosis, primary progressive -Chronic illness with progressive deterioration over the past year now requiring 24/7 care -home medications did not include any disease modifying agents -Atarax qHs for nighttime insomnia/agitation -Complicated disposition planning- requiring 24/7 care and mother attempting to set up care, has hearing on 07/21. Case management will try to secure SNF placement until long-term arrangements can be coordinated with family -Neurology consulted- recommending initiation of Ocrevus treatment. Pt and family agreeable. Neurology coordinating plan of care, Ocrevus to be administered in [facility] as outpatient once pt accepted to SNF and discharged from inpatient unit -Per neurology recommendation, initiated short course of IV solumedrol 1 g 3x days followed by oral taper after, started 07/18 -Repeat MRI today per neuro to assess interval change from previous MRI in 05/2020 Moderate progression of extensive white matter T2 hyperintense foci suggestive of demyelinating plaques since MRI of April 11, 2021, as described above. Suboptimal evaluation for active demyelination on this exam given motion artifact but no definite plaque enhancement. These findings are consistent with multiple sclerosis. -currently awaiting SNF placement 2) Muscle spasticity -Trial of magnesium and calcium PO given without much improvement -Patient reports relief from home essential oil balm, this is likely placebo effect but encourage use. In the same vein, continue Wahls diet -Scheduled Tylenol, ibuprofen PRN -Continue baclofen and B12 supplementation -Tizanidine PRN added per neurology recommendation 3) UTI -Positive UA and growth of pansensitive E Coli on UCx -No leukocytosis, afebrile, no urinary symptoms -Continue Keflex 500 mg TID short-course (day 11/27) given bacteriuria in a male and complex PMH including urinary dysfunction secondary to neurogenic bladder requiring chronic wilkins catheter 4) Vitamin D deficiency -04/2021 most recent D3 level of 16 -Vitamin D supplementation increased to cholecalciferol 5000u daily, ergocalciferol 50,000u weekly DVT ppx: Lovenox 30 mg subQ daily. Dispo: Discharge to facility pending case management evaluation. PT/OT: ordered (2) Acute UTI: (3) Unable to care for self: (4) Avascular necrosis of bone of left hip: (5) Muscle spasticity: (6) Demyelinating disease: (7) Neurogenic bladder: (8) Vitamin D deficiency: (9) Myelopathy: Admission and Anticipated Discharge Date Admission Date: July 14, 2021 Supervising Physician Co-Signing Physician Notes Patient seen and examined independently of PGY-1 Dr. Bauer. Agree with history, exam findings, assessment and plan of care as outlined. 41 year old male with hx of recently diagnosed progressive MS with neurogenic bladder and muscle spasticity admitted due to the inability for caregivers to care for her. No complaints today. Still having some twitching, muscle spasms. VS and nursing notes reviewed. Thin, non-toxic appearing. MRI brain reviewed. 1. MS, primary progressive. Appreciate care management assistance with placement/long-term care arrangements. Appreciate neurology recs: started solumedrol while we wait for placement; plan for Ocrevus as an outpatient. Repeat MRI brain showing moderate progression of disease. 2. Muscle spasticity. Continue Tylenol, B12, tizanidine. 3. E. Coli urinary tract infection. Today is last day of antibiotics. 4. Vitamin D deficiency. Started on 50,000 IU weekly + 5,000 IU daily. Dispo: pending placement. Subjective 41yo Male seen at bedside, calm comfortable cooperative. He states he slept ate well, able to use bedside commode with assistance. Patient able to move arms to adjust angle of bed, states he was originally paralyzed in his legs but has some movement back. Patient had questions regarding the progression of his disease, we had discussion that per his MRI his disease has progressed, he may start o creus treatment per neurology recommendation in outpatient, his symptoms may improve with treatment. He states physical and occupational therapy have not come by yet. Review of Systems Review of Systems: Negative fever chills Negative headache dizziness Negative chest pain palpitations SOB Negative nausea vomitting diarrhea constipation Physical Exam Constitutional: WD/WN, vitals as above Eyes: PERRL, conjunctivae normal, anicteric sclerae ENMT: external ear and nose normal, oropharynx normal Neck: trachea midline, no thyromegaly Respiratory: normal respiratory effort, lungs clear to auscultation Cardiovascular: RRR, no murmur, no edema Chest (Breasts): Chest: normal inspection of chest Gastrointestinal (Abdomen): normal bowel sounds, soft, nontender, no hepatosplenomegaly Musculoskeletal: Extremities: + lower leg abnormality Bilateral Skin: no rashes, warm and dry Results & Data Results & [facility] ([facility]) Vital Signs (Past 12 Hours) Vital Signs Temp Pulse Resp BP Pulse Ox 07/19/21 09:07 36.6 C 98 H 18 111/70 98 Resident Activity Tracking Resident Involvement: Resident Care Provided Care Provided: Adult Hospital Medicine
--- NOTE | 2021-07-19 13:16 | Magnetic Resonance Report ---
MR brain MS wo/w con CLINICAL HISTORY: Multiple sclerosis. COMPARISON STUDY: MRI of the brain April 01, 2021. Head CT June 25, 2021. TECHNIQUE: Utilizing a 1.5 Hali magnet and dedicated coil, multiplanar, multi echo imaging of the br ain was performed pre and postcontrast administration according to multiple sclerosis protocol. Intra venous injection of Gadavist was uneventful. FINDINGS: There are no foci of restricted diffusion to suggest acute infarct. No acute intracranial h emorrhage, midline shift or mass effect is present. Ventricular system is unremarkable. Basal cistern s are patent. There are no extra-axial collections. Flow-voids for the major intracranial vessels are present. Note is made of extensive white matter T2 hyperintense foci. These favor demyelinating plaq ues, many of which are new or increased since exam of April 01, 2021. These include a 1.8 cm perive ntricular left frontal lobe focus on axial T2-weighted sequence image 15 of 25, a 1.3 cm right perive ntricular focus on image 15 and a 1.5 cm T2 hyperintense focus within the right centrum semiovale. Ev aluation for active demyelination is suboptimal given motion artifact on the postcontrast images. No definite parenchymal enhancement is identified. Multiple plaques within the corpus callosum and poste rior fossa are noted. Calvarial signal is normal. Orbits are unremarkable. IMPRESSION: 1. Moderate progression of extensive white matter T2 hyperintense foci suggestive of demyelinating pl aques since MRI of April 11, 2021, as described above. Suboptimal evaluation for active demyelinat ion on this exam given motion artifact but no definite plaque enhancement. These findings are consist ent with multiple sclerosis. 2. No evidence for acute infarct. No intracranial mass. ACT 112: Negative or not required by law. Electronically signed by: Jaxson Choudhary M.D. 07/19/2021 1:15 PM
[2021-07-19] MEDS: hydrOXYzine HCl 10 MG TAB PO SCH (20:13)
[2021-07-20] MEDS: ENOXAPARIN INJ 30 MG/0.3 ML SYR SQ SCH (05:30)
[2021-07-20] MEDS: ACETAMINOPHEN 500 MG TAB PO SCH ×3 (05:30→23:13)
[2021-07-20] MEDS: BACLOFEN 20 MG TAB PO SCH ×4 (05:30→23:15)
--- NOTE | 2021-07-20 07:22 | Hospitalist Progress Note ---
Date of Service July 20, 2021 Assessment & Plan (1) Multiple sclerosis: Plan: Bi is a 41M with a history of recently diagnosed primary progressive MS with neurogenic bladder and muscle spasticity as well as vitamin D deficiency who presented to the ED on 07/11 due to inability of caretakers to provide needed level of care and was found to have a UTI. 1) Multiple sclerosis, primary progressive -Chronic illness with progressive deterioration over the past year now requiring 24/7 care -home medications did not include any disease modifying agents -Atarax qHs for nighttime insomnia/agitation -Complicated disposition planning- requiring 24/7 care and mother attempting to set up care, has hearing on 07/21. Case management will try to secure SNF placement until long-term arrangements can be coordinated with family -Neurology consulted- recommending initiation of Ocrevus treatment. Pt and family agreeable. Neurology coordinating plan of care, Ocrevus to be administered in [facility] as outpatient once pt accepted to SNF and discharged from inpatient unit -Per neurology recommendation, initiated short course of IV solumedrol 1 g 3x days followed by oral taper after, started 07/18 -Repeat MRI 07/19 per neuro to assess interval change from previous MRI in Moderate progression of extensive white matter T2 hyperintense foci suggestive of demyelinating plaques since MRI of April 11, 2021, as described above. Suboptimal evaluation for active demyelination on this exam given motion artifact but no definite plaque enhancement. These findings are consistent with multiple sclerosis. -currently awaiting SNF placement 2) Muscle spasticity -Trial of magnesium and calcium PO given without much improvement -Patient reports relief from home essential oil balm, this is likely placebo effect but encourage use. In the same vein, continue Wahls diet -Scheduled Tylenol, ibuprofen PRN -Continue baclofen and B12 supplementation -Tizanidine PRN added per neurology recommendation -patient aware he has PRN medication he can request 3) UTI -Positive UA and growth of pansensitive E Coli on UCx -No leukocytosis, afebrile, no urinary symptoms -recieved Keflex 500 mg TID short-course 7 days, completed 07/19 given bacteriuria in a male and complex PMH including urinary dysfunction secondary to neurogenic bladder requiring chronic wilkins catheter 4) Vitamin D deficiency -04/2021 most recent D3 level of 16 -Vitamin D supplementation increased to cholecalciferol 5000u daily, ergocalciferol 50,000u weekly DVT ppx: Lovenox 30 mg subQ daily. Dispo: Discharge to facility pending case management evaluation. PT/OT: ordered (2) Acute UTI: (3) Unable to care for self: (4) Avascular necrosis of bone of left hip: (5) Muscle spasticity: (6) Demyelinating disease: (7) Neurogenic bladder: (8) Vitamin D deficiency: (9) Myelopathy: Admission and Anticipated Discharge Date Admission Date: July 14, 2021 Supervising Physician Co-Signing Physician Notes Patient seen and examined independently of PGY-1 Dr. Sorto. Agree with history, exam findings, assessment and plan of care as outlined. 41 year old male with hx of recently diagnosed progressive MS with neurogenic bladder and muscle spasticity admitted due to the inability for caregivers to care for her. No complaints today excepting wanting some additional hot water to make tea. He denies chest pain, dyspnea. Appetite is good. No nausea or vomiting. VS and nursing notes reviewed. Thin, non-toxic appearing. 1. MS, primary progressive. Appreciate care management assistance with placement/long-term care arrangements. Appreciate neurology recs: start solumedrol while we wait for placement; plan for Ocrevus as an outpatient. Repeat MRI of the brain showing moderate progression of disease. 2. Muscle spasticity. Continue Tylenol, B12, tizanidine. PT/OT. 3. E. Coli urinary tract infection. Completed antibiotic course. 4. Vitamin D deficiency. Started on 50,000 IU weekly + 5,000 IU daily. Dispo: pending placement. Appreciate care management efforts to find a suitable facility for the patient. Subjective 41yo Male seen at bedside, calm comfortable cooperative, states he ate slept well no complaints. He requests his mother be contacted regarding his placement status Review of Systems Review of Systems: Negative fever chills Negative headache dizziness Negative chest pain palpitations SOB Negative nausea vomitting diarrhea constipation Negative numbness tingling rash swelling Physical Exam Constitutional: WD/WN, vitals as above Eyes: PERRL, conjunctivae normal, anicteric sclerae ENMT: external ear and nose normal, oropharynx normal Neck: trachea midline, no thyromegaly Respiratory: normal respiratory effort, lungs clear to auscultation Cardiovascular: RRR, no murmur, no edema Chest (Breasts): Chest: normal inspection of chest Gastrointestinal (Abdomen): normal bowel sounds, soft, nontender, no hepatosplenomegaly Musculoskeletal: Extremities: + lower leg abnormality Skin: no rashes, warm and dry Genitourinary: Wilkins in place Results & Data Results & Data ([facility]) Vital Signs (Past 12 Hours) Vital Signs Temp Pulse Resp BP Pulse Ox 07/19/21 22:08 36.8 C 105 H 18 114/70 95 Resident Activity Tracking Resident Involvement: Resident Care Provided Care Provided: Adult Hospital Medicine
[2021-07-20 08:36] LABS: Anion Gap 5 (3-11); BUN Creatinine Ratio 31.9 (10-20); Blood Urea Nitrogen 15 mg/dl (6-23); Calcium 9.1 mg/dl (8.5-10.1); Carbon Dioxide 28 mmol/L (21-32); Chloride 105 mmol/L (98-107); Est GFR (African American) > 150.0 ml/min; Glucose 84 mg/dl (70-99(Fasting)); Potassium 3.7 mmol/L (3.5-5.1); Sodium 138 mmol/L (136-145)
[2021-07-20] MEDS: CYANOCOBALAMIN (B-12) 100 MCG TABLET PO SCH (10:05)
[2021-07-20] MEDS: CHOLECALCIFEROL 5,000 UNITS 125 MCG TAB PO SCH (10:05)
[2021-07-20] MEDS: ERGOCALCIFEROL 50,000 UNITS 1250 MCG CAP PO SCH (10:05)
[2021-07-20] MEDS: BETHANECHOL CHL 25 MG TAB PO SCH ×3 (10:05→23:14)
[2021-07-20] MEDS: POLYETHYLENE (MIRALAX) 17 GM PACK PO SCH (10:06)
[2021-07-20] MEDS: MULTIVITAMIN CHEWABLE TAB PO SCH (10:06)
[2021-07-20] MEDS: bisacodyL 10 MG SUPP PR SCH (10:06)
[2021-07-20] MEDS: OMEGA-3 (PURIFIED FISH OIL) 1 GM CAP PO SCH (10:06)
[2021-07-20] MEDS: DOCUSATE SODIUM 100 MG CAP PO SCH ×2 (10:06→23:15)
[2021-07-20] MEDS: methylPREDNISolone 1,000 MG in DEXTROSE 5% 250 ML IV SCH (10:07)
[2021-07-20] MEDS: tiZANidine HCL 4 MG TABLET PO PRN (13:56)
[2021-07-20] MEDS: hydrOXYzine HCl 10 MG TAB PO SCH (23:14)
[2021-07-21] MEDS: ACETAMINOPHEN 500 MG TAB PO SCH ×3 (05:07→21:05)
[2021-07-21] MEDS: BACLOFEN 20 MG TAB PO SCH ×4 (05:07→21:43)
[2021-07-21] MEDS: ENOXAPARIN INJ 30 MG/0.3 ML SYR SQ SCH (05:07)
--- NOTE | 2021-07-21 07:26 | Hospitalist Progress Note ---
Date of Service July 21, 2021 Assessment & Plan (1) Multiple sclerosis: Plan: Bi is a 41M with a history of recently diagnosed primary progressive MS with neurogenic bladder and muscle spasticity as well as vitamin D deficiency who presented to the ED on 07/11 due to inability of caretakers to provide needed level of care and was found to have a UTI. 1) Multiple sclerosis, primary progressive -Chronic illness with progressive deterioration over the past year now requiring 24/7 care -home medications did not include any disease modifying agents -Atarax qHs for nighttime insomnia/agitation -Complicated disposition planning- requiring 24/7 care and mother attempting to set up care, has hearing on 07/21. Case management will try to secure SNF placement until long-term arrangements can be coordinated with family -Neurology consulted- recommending initiation of Ocrevus treatment. Pt and family agreeable. Neurology coordinating plan of care, Ocrevus to be administered in [facility] as outpatient once pt accepted to SNF and discharged from inpatient unit Note he may benefit from a stronger agent such as oral cladribine. May consider a 2nd opinion with an MS specialist such as Dr. Newberry as an outpatient. -Per neurology recommendation, initiated short course of IV solumedrol 1 g 3x days followed by oral taper after, started 07/18, oral medrol dosepack start -Repeat MRI 07/19 per neuro to assess interval change from previous MRI in 03/2021 Moderate progression of extensive white matter T2 hyperintense foci suggestive of demyelinating plaques since MRI of April 11, 2021, as described above. Suboptimal evaluation for active demyelination on this exam given motion artifact but no definite plaque enhancement. These findings are consistent with multiple sclerosis. -currently awaiting SNF placement 2) Muscle spasticity -Trial of magnesium and calcium PO given without much improvement -Patient reports relief from home essential oil balm, this is likely placebo effect but encourage use. In the same vein, continue Wahls diet -Scheduled Tylenol, ibuprofen PRN -Continue baclofen and B12 supplementation -Tizanidine PRN added per neurology recommendation 3) UTI -Positive UA and growth of pansensitive E Coli on UCx -No leukocytosis, afebrile, no urinary symptoms -recieved Keflex 500 mg TID short-course 7 days, completed 07/19 given bacteriuria in a male and complex PMH including urinary dysfunction secondary to neurogenic bladder requiring chronic wilkins catheter 4) Vitamin D deficiency -04/2021 most recent D3 level of 16 -Vitamin D supplementation increased to cholecalciferol 5000u daily, ergocalciferol 50,000u weekly DVT ppx: Lovenox 30 mg subQ daily. Dispo: Discharge to facility pending case management evaluation. PT/OT: ordered (2) Acute UTI: (3) Unable to care for self: (4) Avascular necrosis of bone of left hip: (5) Muscle spasticity: (6) Demyelinating disease: (7) Neurogenic bladder: (8) Vitamin D deficiency: (9) Myelopathy: Admission and Anticipated Discharge Date Admission Date: July 14, 2021 Supervising Physician Co-Signing Physician Notes I personally examined the patient and verified all dejesus points of history and exam, discussed case, and agree with decision making with Dr Sorto no new complaints, just needs some help getting things set up for lunch vitals noted nad heent nc at mmm breathing unlabored no accessory muscles good effort skin no rashes no pallor or icterus neuro chronic weakness MS/weakness/inability to care for self at home - SNF vs increase in caregivers at home if approved. conitnue steroids, supportive care. ocrevus as outpt. otherwise as above Subjective Patient seen at bedside, calm comfortable cooperative. States he was able to sleep eat well, regular voiding. Patient understands he should speak with his mother regarding his honey intake. He understands his mother is attending a court hearing later today, Dr. Bauer's letter of support was sent earlier this morning. Neurology has dropped by this morning, are aware mother would like to reach out to them. Review of Systems Review of Systems: Negative fever chills Negative headache dizziness Negative chest pain palpitations SOB Negative nausea vomitting diarrhea constipation Negative numbness tingling rash swelling Physical Exam Constitutional: WD/WN, vitals as above Eyes: PERRL, conjunctivae normal, anicteric sclerae ENMT: external ear and nose normal, oropharynx normal Neck: trachea midline, no thyromegaly Respiratory: normal respiratory effort, lungs clear to auscultation Cardiovascular: RRR, no murmur, no edema Chest (Breasts): Chest: normal inspection of chest Gastrointestinal (Abdomen): normal bowel sounds, soft, nontender, no hepatosplenomegaly Musculoskeletal: Extremities: + limited ROM of extremities Skin: no rashes, warm and dry Results & Data Results & Data ([facility]) Vital Signs (Past 12 Hours) Vital Signs Temp Pulse Resp BP Pulse Ox 07/20/21 22:40 36.6 C 94 H 18 105/67 96 Resident Activity Tracking Resident Involvement: Resident Care Provided Care Provided: Adult Hospital Medicine
[2021-07-21] MEDS: bisacodyL 10 MG SUPP PR SCH (07:36)
[2021-07-21] MEDS: POLYETHYLENE (MIRALAX) 17 GM PACK PO SCH (07:37)
--- NOTE | 2021-07-21 08:39 | Neurology Progress Note ---
Date of Service July 21, 2021 Assessment & Plan (1) Multiple sclerosis: (2) Muscle spasticity: (3) Neurogenic bladder: Plan: This patient has a severe demyelinating disease, consistent with primary progressive multiple sclerosis, with multiple lesions in the brain and spine cord. he has a myelopathy with urinary incontinence. MRI of the brain July 19, shows progression compared to March of 2021. 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 the spasticity is quite significant but the addition of the Solu-Medrol (IV per protocol ) has taken away his pain. in addition, He does have some mild to moderate spinal stenosis at multiple levels, but not obvious cord compression or surgical lesion. Recommendations: 1. continue aggressive physical, occupational, and speech therapy. 2. tapering oral course of Medrol, once the IV Solu-Medrol is finished 3. Initiate disease modifying therapy as soon as we can. Consider Ocrevus infusion, however, he may benefit from a stronger agent such as oral cladribine. we might consider a 2nd opinion with an MS specialist such as Dr. Newberry as an outpatient. 4. Continue baclofen 20 mg 4 times a day ( this is the maximum oral dose). he may also get tizanidine 2 milligrams 3 times a day as needed 6. patient needs placement as he cannot cared for well at home anymore. Overall, I spent a total of 35 minutes with this case including review of records, review the MRI films, direct evaluation the patient bedside, and discussion of the case with the patient and nurse at bedside as well as Dr. Dalton, including differential diagnosis and treatment options. Admission and Anticipated Discharge Date Admission Date: July 14, 2021 Subjective Patient feels better today and yesterday compared to before the weekend. He has no pain in his limbs. He feels that his arms are better than his legs but at least his legs have less pain and spasticity. MRI of the brain July 19 showed a progression of the white matter spots compared to March of 2019. I reviewed these films. The patient is finishing his 3rd day of 3 days of IV Solu-Medrol, 1 grams per day. Results & Data ([facility]) Vital Signs (Past 12 Hours) Vital Signs Temp Pulse Resp BP Pulse Ox 07/21/21 07:42 36.5 C 84 16 105/65 97 07/20/21 22:40 36.6 C 94 H 18 105/67 96 Exam (Neuro) Physical Exam: He is awake and alert. Speech is without obvious aphasia or dysarthria. Mood seems reasonable affect seems appropriate and thought p rocesses seem intact to conversation. Extraocular eye muscles are intact without nystagmus and he has no facial droop. He has weakness in all 4 limbs, arms greater than legs and right arm greater than left arm. Arm strength is 4/5 with spasticity right greater than left side add clumsiness / weakness of the hands. Leg strength is 1/5 diffusely. There is considerable spasticity right greater than left side. Toes are upgoing to plantar stimulation on the left and downgoing on the right. PG Care Time/CCT Total # of Minutes Spent Total Time Spent with Patient: Total time spent is greater than 50% in coordination of care (as documented) at patient's floor/unit and/or counseling patient: Coding Level of Care Code 61570 Subseq Hosp Care Lvl 3 Diagnoses Multiple sclerosis G35 Muscle spasticity M62.838 Neurogenic bladder N31.9 Time Spent (min) 35
[2021-07-21 08:45] LABS: Anion Gap 4 (3-11); BUN Creatinine Ratio 31.5 (10-20); Blood Urea Nitrogen 17 mg/dl (6-23); Calcium 8.9 mg/dl (8.5-10.1); Carbon Dioxide 29 mmol/L (21-32); Chloride 105 mmol/L (98-107); Creatinine Clr Calc Pharmacy 172.3 ml/min; Est GFR (African American) > 150.0 ml/min; Est GFR (Non-African American) 131.3 ml/min; Glucose 88 mg/dl (70-99(Fasting)); Potassium 3.8 mmol/L (3.5-5.1); Sodium 138 mmol/L (136-145)
[2021-07-21] MEDS: OMEGA-3 (PURIFIED FISH OIL) 1 GM CAP PO SCH (08:57)
[2021-07-21] MEDS: DOCUSATE SODIUM 100 MG CAP PO SCH ×2 (08:57→21:04)
[2021-07-21] MEDS: CHOLECALCIFEROL 5,000 UNITS 125 MCG TAB PO SCH (08:57)
[2021-07-21] MEDS: CYANOCOBALAMIN (B-12) 100 MCG TABLET PO SCH (08:57)
[2021-07-21] MEDS: methylPREDNISolone 1,000 MG in DEXTROSE 5% 250 ML IV SCH (08:57)
[2021-07-21] MEDS: BETHANECHOL CHL 25 MG TAB PO SCH ×3 (08:57→21:05)
[2021-07-21] MEDS: MULTIVITAMIN CHEWABLE TAB PO SCH (08:57)
[2021-07-21] MEDS: tiZANidine HCL 4 MG TABLET PO PRN (09:42)
[2021-07-21] MEDS: IBUPROFEN 600 MG TAB PO PRN (09:42)
--- NOTE | 2021-07-21 18:41 | Billing Data ---
Date of Service July 21, 2021 Coding Level of Care Code 09264 Subseq Hosp Care Lvl 2
[2021-07-21] MEDS: hydrOXYzine HCl 10 MG TAB PO SCH (21:04)
[2021-07-22] MEDS: BACLOFEN 20 MG TAB PO SCH ×4 (05:23→23:33)
[2021-07-22] MEDS: ACETAMINOPHEN 500 MG TAB PO SCH ×3 (05:23→21:40)
[2021-07-22] MEDS: ENOXAPARIN INJ 30 MG/0.3 ML SYR SQ SCH (05:23)
[2021-07-22] MEDS: methylPREDNISolone 4 MG TAB PO SCH ×4 (05:25→21:42)
[2021-07-22 07:03] LABS: Anion Gap 6 (3-11); BUN Creatinine Ratio 33.3 (10-20); Blood Urea Nitrogen 18 mg/dl (6-23); Carbon Dioxide 29 mmol/L (21-32); Chloride 102 mmol/L (98-107); Creatinine Clr Calc Pharmacy 172.3 ml/min; Est GFR (African American) > 150.0 ml/min; Est GFR (Non-African American) 131.3 ml/min; Glucose 88 mg/dl (70-99(Fasting)); Potassium 3.9 mmol/L (3.5-5.1); Sodium 137 mmol/L (136-145)
--- NOTE | 2021-07-22 07:43 | Hospitalist Progress Note ---
Date of Service July 22, 2021 Assessment & Plan (1) Multiple sclerosis: Plan: Bi is a 41M with a history of recently diagnosed primary progressive MS with neurogenic bladder and muscle spasticity as well as vitamin D deficiency who presented to the ED on 07/11 due to inability of caretakers to provide needed level of care and was found to have a UTI. 1) Multiple sclerosis, primary progressive -Chronic illness with progressive deterioration over the past year now requiring 24/7 care -home medications did not include any disease modifying agents -Atarax qHs for nighttime insomnia/agitation -Complicated disposition planning- requiring 24/7 care and mother attempting to set up care, has hearing on 07/21, addition hearing on 07/24. Case management will try to secure SNF placement until long-term arrangements can be coordinated with family -Neurology consulted- recommending initiation of Ocrevus treatment. Pt and family agreeable. Neurology coordinating plan of care, Ocrevus to be administered in [facility] as outpatient once pt accepted to SNF and discharged from inpatient unit Note he may benefit from a stronger agent such as oral cladribine. May consider a 2nd opinion with an MS specialist such as Dr. Newberry as an outpatient. -Per neurology recommendation, initiated short course of IV solumedrol 1 g 3x days followed by oral taper after, started 07/18, oral medrol dosepack start -Repeat MRI 07/19 per neuro to assess interval change from previous MRI in 03/2021 Moderate progression of extensive white matter T2 hyperintense foci suggestive of demyelinating plaques since MRI of April 11, 2021, as described above. Suboptimal evaluation for active demyelination on this exam given motion artifact but no definite plaque enhancement. These findings are consistent with multiple sclerosis. -currently awaiting SNF placement 2) Muscle spasticity -Trial of magnesium and calcium PO given without much improvement -Patient reports relief from home essential oil balm, this is likely placebo effect but encourage use. In the same vein, continue Wahls diet -Scheduled Tylenol, ibuprofen PRN -Continue baclofen and B12 supplementation -Tizanidine PRN added per neurology recommendation 3) UTI -Positive UA and growth of pansensitive E Coli on UCx -No leukocytosis, afebrile, no urinary symptoms -recieved Keflex 500 mg TID short-course 7 days, completed 07/19 given bacteriuria in a male and complex PMH including urinary dysfunction secondary to neurogenic bladder requiring chronic wilkins catheter 4) Vitamin D deficiency -04/2021 most recent D3 level of 16 -Vitamin D supplementation increased to cholecalciferol 5000u daily, e rgocalciferol 50,000u weekly DVT ppx: Lovenox 30 mg subQ daily. Dispo: Discharge to facility pending case management evaluation. PT/OT: ordered (2) Acute UTI: (3) Unable to care for self: (4) Avascular necrosis of bone of left hip: (5) Muscle spasticity: (6) Demyelinating disease: (7) Neurogenic bladder: (8) Vitamin D deficiency: (9) Myelopathy: Admission and Anticipated Discharge Date Admission Date: July 14, 2021 Supervising Physician Co-Signing Physician Notes I personally examined the patient and verified all dejesus points of history and exam, discussed case, and agree with decision making with Dr Sorto no complaints. no acute needs at this time vitals noted nad heent nc at mmm breathing unlabored no accessory muscles good effort skin no rashes no pallor or icterus neuro chronic weakness MS/weakness/inability to care for self at home - SNF vs increase in caregivers at home if approved. tapering steroids, supportive care. anticipate ocrevus as outpt. otherwise as above Subjective Patient seen at bedside, calm comfortable cooperative. He states his mother's appeal did not go well. He is currently eating sleeping well voiding normally, no other complaints at this time. States he gets right thigh spasms controlled with baclofen. Per mother, she has a second appeal for increased patient 24hr care on , with outpatient case management visiting on wednesday 10am. Case management has been made aware. Review of Systems Review of Systems: Negative fever chills Negative headache dizziness Negative chest pain palpitations SOB Negative nausea vomitting diarrhea constipation Negative numbness tingling rash swelling Physical Exam Constitutional: WD/WN, vitals as above Eyes: PERRL, conjunctivae normal, anicteric sclerae ENMT: external ear and nose normal, oropharynx normal Neck: trachea midline, no thyromegaly Respiratory: normal respiratory effort, lungs clear to auscultation Cardiovascular: RRR, no murmur, no edema Chest (Breasts): Chest: normal inspection of chest Gastrointestinal (Abdomen): normal bowel sounds, soft, nontender, no hepatosplenomegaly Musculoskeletal: Extremities: + limited ROM of extremities Skin: no rashes, warm and dry Results & Data Results & Data ([facility]) Vital Signs (Past 12 Hours) Vital Signs Temp Pulse Resp BP Pulse Ox 07/21/21 22:35 36.8 C 89 18 119/69 97 Resident Activity Tracking Resident Involvement: Resident Care Provided Care Provided: Adult Hospital Medicine
[2021-07-22] MEDS ORDERED: methylPREDNISolone 4 MG TAB, 6 DAY TAPER PO SCH (08:15)
[2021-07-22] MEDS: IBUPROFEN 600 MG TAB PO PRN ×2 (08:33→16:11)
[2021-07-22] MEDS: OMEGA-3 (PURIFIED FISH OIL) 1 GM CAP PO SCH (08:34)
[2021-07-22] MEDS: MULTIVITAMIN CHEWABLE TAB PO SCH (08:34)
[2021-07-22] MEDS: DOCUSATE SODIUM 100 MG CAP PO SCH ×2 (08:34→21:43)
[2021-07-22] MEDS: CYANOCOBALAMIN (B-12) 100 MCG TABLET PO SCH (08:34)
[2021-07-22] MEDS: CHOLECALCIFEROL 5,000 UNITS 125 MCG TAB PO SCH (08:34)
[2021-07-22] MEDS: BETHANECHOL CHL 25 MG TAB PO SCH ×3 (08:34→21:44)
[2021-07-22] MEDS: bisacodyL 10 MG SUPP PR SCH (08:35)
[2021-07-22] MEDS: POLYETHYLENE (MIRALAX) 17 GM PACK PO SCH (08:35)
[2021-07-22] MEDS: tiZANidine HCL 4 MG TABLET PO PRN (16:18)
--- NOTE | 2021-07-22 18:38 | Billing Data ---
Date of Service July 22, 2021 Coding Level of Care Code 24730 Subseq Hosp Care Lvl 1
[2021-07-22] MEDS: hydrOXYzine HCl 10 MG TAB PO SCH (21:43)
[2021-07-23] MEDS: BACLOFEN 20 MG TAB PO SCH ×4 (05:14→23:04)
[2021-07-23] MEDS: ACETAMINOPHEN 500 MG TAB PO SCH ×3 (05:15→21:02)
[2021-07-23] MEDS: ENOXAPARIN INJ 30 MG/0.3 ML SYR SQ SCH (05:16)
--- NOTE | 2021-07-23 07:00 | Hospitalist Progress Note ---
Date of Service July 23, 2021 Assessment & Plan (1) Multiple sclerosis: Plan: Bi is a 41M with a history of recently diagnosed primary progressive MS with neurogenic bladder and muscle spasticity as well as vitamin D deficiency who presented to the ED on 07/11 due to inability of caretakers to provide needed level of care and was found to have a UTI. 1) Multiple sclerosis, primary progressive -Chronic illness with progressive deterioration over the past year now requiring 24/7 care -home medications did not include any disease modifying agents -Atarax qHs for nighttime insomnia/agitation -Complicated disposition planning- requiring 24/7 care and mother attempting to set up care, has hearing on 07/21, addition hearing on 07/24. Case management will try to secure SNF placement until long-term arrangements can be coordinated with family -Neurology consulted- recommending initiation of Ocrevus treatment. Pt and family agreeable. Neurology coordinating plan of care, Ocrevus to be administered in [facility] as outpatient once pt accepted to SNF and discharged from inpatient unit Note he may benefit from a stronger agent such as oral cladribine. May consider a 2nd opinion with an MS specialist such as Dr. Newberry as an outpatient. -Per neurology recommendation, initiated short course of IV solumedrol 1 g 3x days followed by oral taper after, started 07/18, oral medrol dosepack start -Repeat MRI 07/19 per neuro to assess interval change from previous MRI in 03/2021 Moderate progression of extensive white matter T2 hyperintense foci suggestive of demyelinating plaques since MRI of April 11, 2021, as described above. Suboptimal evaluation for active demyelination on this exam given motion artifact but no definite plaque enhancement. These findings are consistent with multiple sclerosis. -currently awaiting SNF placement Patient patiently awaiting placement 2) Muscle spasticity -Trial of magnesium and calcium PO given without much improvement -Patient reports relief from home essential oil balm, this is likely placebo effect but encourage use. In the same vein, continue Wahls diet -Scheduled Tylenol, ibuprofen PRN -Continue baclofen and B12 supplementation -Tizanidine PRN added per neurology recommendation 3) UTI -Positive UA and growth of pansensitive E Coli on UCx -No leukocytosis, afebrile, no urinary symptoms -recieved Keflex 500 mg TID short-course 7 days, completed 07/19 given bacteriuria in a male and complex PMH including urinary dysfunction secondary to neurogenic bladder requiring chronic wilkins catheter 4) Vitamin D deficiency -04/2021 most recent D3 level of 16 -Vitamin D supplementation increased to cholecalciferol 5000u daily, ergocalciferol 50,000u weekly DVT ppx: Lovenox 30 mg subQ daily. Dispo: Discharge to facility pending case management evaluation. PT/OT: ordered (2) Acute UTI: (3) Unable to care for self: (4) Avascular necrosis of bone of left hip: (5) Muscle spasticity: (6) Demyelinating disease: (7) Neurogenic bladder: (8) Vitamin D deficiency: (9) Myelopathy: Admission and Anticipated Discharge Date Admission Date: July 14, 2021 Supervising Physician Co-Signing Physician Notes I personally examined the patient and verified all dejesus points of history and exam, discussed case, and agree with decision making with Dr Sorto no complaints. no acute needs at this time. notes cramps/spasms have gotten better vitals noted nad heent nc at mmm breathing unlabored no accessory muscles good effort skin no rashes no pallor or icterus neuro chronic weakness MS/weakness/inability to care for self at home - SNF vs increase in caregivers at home if approved - appearing more likely SNF; beds not available. tapering steroids, supportive care. anticipate ocrevus in near future. otherwise as above Subjective Patient seen at bedside, calm comfortable cooperative, eating breakfast with one hand. Patient states he has slept ate well voiding normally. He has not heard any updates regarding his mother's appeal process. Patient states he has occasional leg cramping, states physical therapy has not come by yet. Patient has no other concerns at this time, understands we are still awaiting bed availability. Neuro has contacted patient's mother regarding updates. Review of Systems Review of Systems: Negative fever chills Negative headache dizziness Negative chest pain palpitations SOB Negative nausea vomitting diarrhea constipation Negative numbness tingling rash swelling Physical Exam Constitutional: WD/WN, vitals as above Eyes: PERRL, conjunctivae normal, anicteric sclerae ENMT: external ear and nose normal, oropharynx normal Neck: trachea midline, no thyromegaly Respiratory: normal respiratory effort, lungs clear to auscultation Cardiovascular: RRR, no murmur, no edema Chest (Breasts): Chest: normal inspection of chest Gastrointestinal (Abdomen): normal bowel sounds, soft, nontender, no hepatosplenomegaly Musculoskeletal: Extremities: + limited ROM of extremities Skin: no rashes, warm and dry Results & Data Results & Data ([facility]) Vital Signs (Past 12 Hours) Vital Signs Temp Pulse Resp BP Pulse Ox 07/22/21 22:10 37 C 68 16 106/73 98 Resident Activity Tracking Resident Involvement: Resident Care Provided Care Provided: Adult Hospital Medicine
[2021-07-23] MEDS: CYANOCOBALAMIN (B-12) 100 MCG TABLET PO SCH (08:28)
[2021-07-23] MEDS: BETHANECHOL CHL 25 MG TAB PO SCH ×3 (08:28→20:10)
[2021-07-23] MEDS: MULTIVITAMIN CHEWABLE TAB PO SCH (08:28)
[2021-07-23] MEDS: DOCUSATE SODIUM 100 MG CAP PO SCH ×2 (08:29→20:09)
[2021-07-23] MEDS: CHOLECALCIFEROL 5,000 UNITS 125 MCG TAB PO SCH (08:29)
[2021-07-23] MEDS: POLYETHYLENE (MIRALAX) 17 GM PACK PO SCH (08:30)
[2021-07-23] MEDS: OMEGA-3 (PURIFIED FISH OIL) 1 GM CAP PO SCH (08:30)
[2021-07-23] MEDS: bisacodyL 10 MG SUPP PR SCH (08:31)
[2021-07-23] MEDS: methylPREDNISolone 4 MG TAB PO SCH ×3 (09:34→18:11)
--- NOTE | 2021-07-23 10:44 | Neurology Progress Note ---
Date of Service July 23, 2021 Assessment & Plan (1) Multiple sclerosis: (2) Muscle spasticity: (3) Neurogenic bladder: Plan: This patient has a severe demyelinating disease, consistent with primary progressive multiple sclerosis, with multiple lesions in the brain and spine cord. he has a myelopathy with urinary incontinence. MRI of the brain July 19, shows progression compared to March of 2021. 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 the spasticity is quite significant but the addition of the Solu-Medrol (IV per protocol ) has taken away his pain. in addition, He does have some mild to moderate spinal stenosis at multiple levels, but not obvious cord compression or surgical lesion. Today he is clinically about the same as before. Recommendations: 1. continue aggressive physical, occupational, and speech therapy. 2. Finish Medrol Dosepak oral course. 3. Initiate disease modifying therapy as soon as we can. Consider Ocrevus infusion, however, he may benefit from a stronger agent such as oral cladribine. we might consider a 2nd opinion with an MS specialist such as Dr. Newberry as an outpatient. 4. Continue baclofen 20 mg 4 times a day ( this is the maximum oral dose). he may also get tizanidine 2 milligrams 3 times a day as needed 6. patient needs placement as he cannot cared for well at home anymore. Overall, I spent a total of 35 minutes with this case including review of records, direct evaluation the patient bedside, and discussion of the case with the patient and nurse at bedside , the patient's mother via telephone, and Dr. Dalton, including differential diagnosis and treatment options. Admission and Anticipated Discharge Date Admission Date: July 14, 2021 Subjective patient has a little bit of pain and spasticity of an increased nature in his lower extremities today compared to yesterday. Otherwise he is doing about the same. Nursing reports no new issues. With the patient's permission I called the patient's mother who was interested in discussing case. I had a 15 minute phone call discussing his neurologic status, prognosis, and placement issues. Results & Data ([facility]) Vital Signs (Past 12 Hours) Vital Signs Temp Pulse Resp BP Pulse Ox 07/23/21 07:14 37 C 89 16 109/72 97 Exam (Neuro) Physical Exam: He is awake and alert. Speech is without aphasia or dysarthria. Mood and affect are normal appropriate. Thought processes are intact with good long and short-term memory for conversation. Extraocular eye muscles are intact without nystagmus. There is no facial droop. Coordination is reasonable in the arms without obvious tremor or ataxia. Strength is 4/5 in the upper extremities with spasticity. Leg strength is 1-2/5 with severe spasticity. PG Care Time/CCT Total # of Minutes Spent Total Time Spent with Patient: Total time spent is greater than 50% in coordination of care (as documented) at patient's floor/unit and/or counseling patient: Coding Level of Care Code 09288 Subseq Hosp Care Lvl 3 Diagnoses Multiple sclerosis G35 Muscle spasticity M62.838 Neurogenic bladder N31.9 Time Spent (min) 35
--- NOTE | 2021-07-23 13:08 | Billing Data ---
Date of Service July 23, 2021 Coding Level of Care Code 09304 Subseq Hosp Care Lvl 1
[2021-07-23] MEDS: IBUPROFEN 600 MG TAB PO PRN (20:07)
[2021-07-23] MEDS: hydrOXYzine HCl 10 MG TAB PO SCH (20:11)
[2021-07-23] MEDS ORDERED: methylPREDNISolone 4 MG TAB PO SCH (21:00)
[2021-07-23] MEDS: tiZANidine HCL 4 MG TABLET PO PRN (21:02)
[2021-07-24] MEDS: BACLOFEN 20 MG TAB PO SCH ×4 (04:42→23:04)
[2021-07-24] MEDS: ACETAMINOPHEN 500 MG TAB PO SCH ×3 (04:42→21:08)
[2021-07-24] MEDS: ENOXAPARIN INJ 30 MG/0.3 ML SYR SQ SCH (04:43)
[2021-07-24] MEDS: IBUPROFEN 600 MG TAB PO PRN (04:47)
[2021-07-24] MEDS: methylPREDNISolone 4 MG TAB PO SCH ×4 (06:02→21:08)
[2021-07-24] MEDS: tiZANidine HCL 4 MG TABLET PO PRN (06:16)
[2021-07-24 07:08] LABS: Creatinine Clr Calc Pharmacy 155.1 ml/min; Est GFR (African American) 145.8 ml/min; Est GFR (Non-African American) 125.8 ml/min
--- NOTE | 2021-07-24 07:23 | Hospitalist Progress Note ---
Date of Service July 24, 2021 Assessment & Plan (1) Multiple sclerosis: Plan: Bi is a 41M with a history of recently diagnosed primary progressive MS with neurogenic bladder and muscle spasticity as well as vitamin D deficiency who presented to the ED on 07/11 due to inability of caretakers to provide needed level of care and was found to have a UTI. 1) Multiple sclerosis, primary progressive -Chronic illness with progressive deterioration over the past year now requiring 24/7 care -home medications did not include any disease modifying agents -Atarax qHs for nighttime insomnia/agitation -Complicated disposition planning- requiring 24/7 care and mother attempting to set up care, has hearing on 07/21, addition hearing on 07/24. Case management will try to secure SNF placement until long-term arrangements can be coordinated with family -Neurology consulted- recommending initiation of Ocrevus treatment. Pt and family agreeable. Neurology coordinating plan of care, Ocrevus to be administered in [facility] as outpatient once pt accepted to SNF and discharged from inpatient unit Note he may benefit from a stronger agent such as oral cladribine. May consider a 2nd opinion with an MS specialist such as Dr. Newberry as an outpatient. -Per neurology recommendation, initiated short course of IV solumedrol 1 g 3x days followed by oral taper after, started 07/18, oral medrol dosepack start -Repeat MRI 07/19 per neuro to assess interval change from previous MRI in 03/2021 Moderate progression of extensive white matter T2 hyperintense foci suggestive of demyelinating plaques since MRI of April 11, 2021, as described above. Suboptimal evaluation for active demyelination on this exam given motion artifact but no definite plaque enhancement. These findings are consistent with multiple sclerosis. -currently awaiting SNF placement. Currently unable to find placement in mother's preferred locations Depression -patient would like to see therapy to help cope with his quadriplegia and MS -consulted behavioral health liason -patient amenable to starting medication 2) Muscle spasticity -Trial of magnesium and calcium PO given without much improvement -Patient reports relief from home essential oil balm, this is likely placebo ef fect but encourage use. In the same vein, continue Wahls diet -Scheduled Tylenol, ibuprofen PRN -Continue baclofen and B12 supplementation -Tizanidine PRN added per neurology recommendation 3) UTI -Positive UA and growth of pansensitive E Coli on UCx -No leukocytosis, afebrile, no urinary symptoms -recieved Keflex 500 mg TID short-course 7 days, completed 07/19 given bacteriuria in a male and complex PMH including urinary dysfunction secondary to neurogenic bladder requiring chronic wilkins catheter 4) Vitamin D deficiency -04/2021 most recent D3 level of 16 -Vitamin D supplementation increased to cholecalciferol 5000u daily, ergocalciferol 50,000u weekly Diet: regular DVT ppx: Lovenox 30 mg subQ daily. Dispo: Discharge to facility pending case management evaluation. PT/OT: ordered, seeing PT (2) Acute UTI: (3) Unable to care for self: (4) Avascular necrosis of bone of left hip: (5) Muscle spasticity: (6) Demyelinating disease: (7) Neurogenic bladder: (8) Vitamin D deficiency: (9) Myelopathy: Admission and Anticipated Discharge Date Admission Date: July 14, 2021 Supervising Physician Co-Signing Physician Notes I personally examined the patient and verified all dejesus points of history and exam, discussed case, and agree with decision making with Dr Sorto no complaints. notes that he's doing OK vitals noted nad heent nc at mmm breathing unlabored no accessory muscles good effort skin no rashes no pallor or icterus neuro chronic weakness MS/weakness/inability to care for self at home - SNF vs increase in caregivers at home if approved - appearing more likely SNF; however, beds not available. continue tapering steroids, supportive care. anticipate ocrevus in near future. otherwise as above Subjective Patient seen at bedside, calm comfortable cooperative, wilkins catheter noted in place, patient declined needing assistancce repositioning his blanket. He states he is sleeping eating voiding well. Patient expressed interest in seeing behavioral health to help cope with living with his multiple sclerosis and quadriplegia, denies SI/HI, states he has lost interest in sports since he lost his mobility. States he feels refreshed after sleeping but has been sleeping fewer hours per night. He is amenable to medication for depression. Patient is unsure of progress of his mother's appeals for additional care. Review of Systems Review of Systems: Negative fever chills Negative headache dizziness Negative chest pain palpitations SOB Negative nausea vomitting diarrhea constipation Negative numbness tingling rash swelling Physical Exam Constitutional: WD/WN, vitals as above Eyes: PERRL, conjunctivae normal, anicteric sclerae ENMT: external ear and nose normal, oropharynx normal Neck: trachea midline, no thyromegaly Respiratory: normal respiratory effort, lungs clear to auscultation Cardiovascular: RRR, no murmur, no edema Chest (Breasts): Chest: normal inspection of chest Gastrointestinal (Abdomen): normal bowel sounds, soft, nontender, no hepat osplenomegaly Musculoskeletal: Extremities: + limited ROM of extremities Skin: no rashes, warm and dry Results & Data Results & Data ([facility]) Vital Signs (Past 12 Hours) Vital Signs Temp Pulse Resp BP Pulse Ox 07/23/21 22:15 36.7 C 99 H 20 110/61 94 Resident Activity Tracking Resident Involvement: Resident Care Provided Care Provided: Adult Hospital Medicine
[2021-07-24] MEDS: CYANOCOBALAMIN (B-12) 100 MCG TABLET PO SCH (08:42)
[2021-07-24] MEDS: CHOLECALCIFEROL 5,000 UNITS 125 MCG TAB PO SCH (08:42)
[2021-07-24] MEDS: OMEGA-3 (PURIFIED FISH OIL) 1 GM CAP PO SCH (08:42)
[2021-07-24] MEDS: MULTIVITAMIN CHEWABLE TAB PO SCH (08:43)
[2021-07-24] MEDS: BETHANECHOL CHL 25 MG TAB PO SCH ×3 (08:43→21:07)
[2021-07-24] MEDS: POLYETHYLENE (MIRALAX) 17 GM PACK PO SCH (08:44)
[2021-07-24] MEDS: bisacodyL 10 MG SUPP PR SCH (08:46)
[2021-07-24] MEDS: DOCUSATE SODIUM 100 MG CAP PO SCH ×2 (09:19→21:09)
--- NOTE | 2021-07-24 13:16 | Billing Data ---
Date of Service July 24, 2021 Coding Level of Care Code 39750 Subseq Hosp Care Lvl 1
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
[2021-07-24] MEDS: hydrOXYzine HCl 10 MG TAB PO SCH (21:08)
[2021-07-24] MEDS: MELATONIN 3 MG TAB PO PRN (23:52)
[2021-07-25] MEDS: ACETAMINOPHEN 500 MG TAB PO SCH ×3 (05:48→21:53)
[2021-07-25] MEDS: methylPREDNISolone 4 MG TAB PO SCH ×3 (05:49→20:42)
[2021-07-25] MEDS: BACLOFEN 20 MG TAB PO SCH ×4 (05:50→23:16)
[2021-07-25] MEDS: ENOXAPARIN INJ 30 MG/0.3 ML SYR SQ SCH (05:51)
--- NOTE | 2021-07-25 08:05 | Hospitalist Progress Note ---
Date of Service July 25, 2021 Assessment & Plan (1) Multiple sclerosis: Plan: Bi is a 41M with a history of recently diagnosed primary progressive MS with neurogenic bladder and muscle spasticity as well as vitamin D deficiency who presented to the ED on 07/11 due to inability of caretakers to provide needed level of care and was found to have a UTI. 1) Multiple sclerosis, primary progressive -Chronic illness with progressive deterioration over the past year now requiring 24/7 care -home medications did not include any disease modifying agents -Atarax qHs for nighttime insomnia/agitation -Complicated disposition planning- requiring 24/7 care and mother attempting to set up care, has hearing on 07/21, addition hearing on 07/24 care was declined. Case management will try to secure SNF placement until long-term arrangements can be coordinated with family -Neurology consulted- recommending initiation of Ocrevus treatment. Pt and family agreeable. Neurology coordinating plan of care, Ocrevus to be administered in [facility] as outpatient once pt accepted to SNF and discharged from inpatient unit Note he may benefit from a stronger agent such as oral cladribine. May consider a 2nd opinion with an MS specialist such as Dr. Newberry as an outpatient. -Per neurology recommendation, initiated short course of IV solumedrol 1 g 3x days followed by oral taper after, started 07/18, oral medrol dosepack start -Repeat MRI 07/19 per neuro to assess interval change from previous MRI in 03/2021 Moderate progression of extensive white matter T2 hyperintense foci suggestive of demyelinating plaques since MRI of April 11, 2021, as described above. Suboptimal evaluation for active demyelination on this exam given motion artifact but no definite plaque enhancement. These findings are consistent with multiple sclerosis. -currently awaiting SNF placement. Currently unable to find placement in mother's preferred locations Depression -patient would like to see therapy to help cope with his quadriplegia and MS -consulted behavioral health liason, psychiatry -patient amenable to starting medication -at one point he was on depakote, patient states it was to stabilize his mood, is unsure why it was discontinued 2) Muscle spasticity -Trial of magnesium and calcium PO given without much improvement -Patient reports relief from home essential oil balm, this is likely placebo effect but encourage use. In the same vein, continue Wahls diet -Scheduled Tylenol, ibuprofen PRN -Continue baclofen and B12 supplementation -Tizanidine PRN added per neurology recommendation -PT/OT ordered 3) UTI -Positive UA and growth of pansensitive E Coli on UCx -No leukocytosis, afebrile, no urinary symptoms -recieved Keflex 500 mg TID short-course 7 days, completed 07/19 given bacteriuria in a male and complex PMH including urinary dysfunction secondary to neurogenic bladder requiring chronic wilkins catheter 4) Vitamin D deficiency -04/2021 most recent D3 level of 16 -Vitamin D supplementation increased to cholecalciferol 5000u daily, ergocalci ferol 50,000u weekly Diet: regular DVT ppx: Lovenox 30 mg subQ daily. Dispo: Discharge to facility pending case management evaluation. PT/OT: seeing OT twice a week, PT daily, require 24hr care (2) Acute UTI: (3) Unable to care for self: (4) Avascular necrosis of bone of left hip: (5) Muscle spasticity: (6) Demyelinating disease: (7) Neurogenic bladder: (8) Vitamin D deficiency: (9) Myelopathy: Admission and Anticipated Discharge Date Admission Date: July 14, 2021 Supervising Physician Co-Signing Physician Notes I personally examined the patient and verified all dejesus points of history and exam, discussed case, and agree with decision making with Dr Sorto first saw when he was doing paperwork - came back. on revisit his only complaint was that he had BM - promptly found [employer] to assist. later d/w mom over the phone. vitals noted nad heent nc at mmm breathing unlabored no accessory muscles good effort skin no rashes no pallor or icterus neuro chronic weakness MS/weakness/inability to care for self at home - SNF vs increase in caregivers at home if approved - appearing more likely SNF; however, beds not available. continue tapering steroids, supportive care. anticipate ocrevus in near future. continue current care overall Subjective Patient seen at bedside, calm comfortable cooperative. His mood is less positive today, states he did not sleep well not much appetite, is less engaged verbally. States he is not in pain, voiding normally. Patient feeling limited by his physical condition. He has not heard updates from his mother but does not believe the court case went well. Patient has no other requests at this time. Review of Systems Review of Systems: Negative fever chills Negative headache dizziness Negative chest pain palpitations SOB Negative nausea vomitting diarrhea constipation Negative numbness tingling rash swelling Physical Exam Constitutional: WD/WN, vitals as above Eyes: PERRL, conjunctivae normal, anicteric sclerae ENMT: external ear and nose normal, oropharynx normal Neck: trachea midline, no thyromegaly Respiratory: normal respiratory effort, lungs clear to auscultation Cardiovascular: RRR, no murmur, no edema Chest (Breasts): Chest: normal inspection of chest Gastrointestinal (Abdomen): normal bowel sounds, soft, nontender, no hepatosplenomegaly Musculoskeletal: Extremities: + limited ROM of extremities Skin: no rashes, warm and dry Psychiatric: Mood: + depressed mood Results & Data Results & Data ([facility]) Vital Signs (Past 12 Hours) Vital Signs Temp Pulse Resp BP Pulse Ox 07/24/21 22:44 36.7 C 96 H 15 101/66 97 Resident Activity Tracking Resident Involvement: Resident Care Provided Care Provided: Adult Hospital Medicine
[2021-07-25] MEDS: bisacodyL 10 MG SUPP PR SCH ×2 (09:50→13:18)
[2021-07-25] MEDS: POLYETHYLENE (MIRALAX) 17 GM PACK PO SCH (09:50)
[2021-07-25] MEDS: CHOLECALCIFEROL 5,000 UNITS 125 MCG TAB PO SCH (09:50)
[2021-07-25] MEDS: DOCUSATE SODIUM 100 MG CAP PO SCH ×2 (09:50→20:40)
[2021-07-25] MEDS: OMEGA-3 (PURIFIED FISH OIL) 1 GM CAP PO SCH (09:50)
[2021-07-25] MEDS: CYANOCOBALAMIN (B-12) 100 MCG TABLET PO SCH (09:50)
[2021-07-25] MEDS: MULTIVITAMIN CHEWABLE TAB PO SCH (09:50)
[2021-07-25] MEDS: BETHANECHOL CHL 25 MG TAB PO SCH ×3 (09:50→20:39)
[2021-07-25] MEDS: IBUPROFEN 600 MG TAB PO PRN (10:41)
--- NOTE | 2021-07-25 17:16 | Billing Data ---
Date of Service July 25, 2021 Coding Level of Care Code 58981 Subseq Hosp Care Lvl 1
[2021-07-25] MEDS: hydrOXYzine HCl 10 MG TAB PO SCH (20:41)
[2021-07-25] MEDS: MELATONIN 3 MG TAB PO PRN (23:15)
[2021-07-26] MEDS: ACETAMINOPHEN 500 MG TAB PO SCH ×3 (06:28→22:16)
[2021-07-26] MEDS: BACLOFEN 20 MG TAB PO SCH ×4 (06:29→23:50)
[2021-07-26] MEDS: ENOXAPARIN INJ 30 MG/0.3 ML SYR SQ SCH (06:29)
[2021-07-26] MEDS: methylPREDNISolone 4 MG TAB PO SCH ×2 (06:30→20:10)
[2021-07-26 06:56] LABS: Mean Corpuscular Hemoglobin 30.1 pg (25-34); Mean Corpuscular Hgb Conc 34.1 g/dL (32-36); Mean Corpuscular Volume 88.2 fL (80-100); Mean Platelet Volume 8.6 fL (7.4-10.4); Platelet Count 268 K/uL (130-400); RDW Coefficient of Variation 13.9 % (11.5-14.5); RDW Standard Deviation 44.2 fL (36.4-46.3); Red Blood Count 4.65 M/uL (4.7-6.1); White Blood Count 7.45 K/uL (4.8-10.8)
[2021-07-26 07:13] LABS: BUN Creatinine Ratio 27.6 (10-20); Calcium 9.2 mg/dl (8.5-10.1); Creatinine Clr Calc Pharmacy 160.4 ml/min; Est GFR (African American) 147.8 ml/min; Est GFR (Non-African American) 127.5 ml/min; Potassium 3.9 mmol/L (3.5-5.1)
[2021-07-26] MEDS: CYANOCOBALAMIN (B-12) 100 MCG TABLET PO SCH (08:47)
[2021-07-26] MEDS: BETHANECHOL CHL 25 MG TAB PO SCH ×3 (08:47→20:11)
[2021-07-26] MEDS: DOCUSATE SODIUM 100 MG CAP PO SCH ×2 (08:47→20:10)
[2021-07-26] MEDS: CHOLECALCIFEROL 5,000 UNITS 125 MCG TAB PO SCH (08:47)
[2021-07-26] MEDS: MULTIVITAMIN CHEWABLE TAB PO SCH (08:48)
[2021-07-26] MEDS: OMEGA-3 (PURIFIED FISH OIL) 1 GM CAP PO SCH (08:48)
[2021-07-26] MEDS: POLYETHYLENE (MIRALAX) 17 GM PACK PO SCH (08:48)
--- NOTE | 2021-07-26 13:43 | Hospitalist Progress Note ---
Date of Service July 26, 2021 Assessment & Plan (1) Multiple sclerosis: Plan: Bi is a 41M with a history of recently diagnosed primary progressive MS with neurogenic bladder and muscle spasticity as well as vitamin D deficiency who presented to the ED on 07/11 due to inability of caretakers to provide needed level of care and was found to have a UTI. 1) Multiple sclerosis, primary progressive -Chronic illness with progressive deterioration over the past year now requiring 24/7 care -home medications did not include any disease modifying agents -Atarax qHs for nighttime insomnia/agitation -Complicated disposition planning- requiring 24/7 care and mother attempting to set up care, has hearing on 07/21, addition hearing on 07/24 care was declined. Case management will try to secure SNF placement until long-term arrangements can be coordinated with family -Neurology consulted- recommending initiation of Ocrevus treatment. Pt and family agreeable. Neurology coordinating plan of care, Ocrevus to be administered in [facility] as outpatient once pt accepted to SNF and discharged from inpatient unit Note he may benefit from a stronger agent such as oral cladribine. May consider a 2nd opinion with an MS specialist such as Dr. Newberry as an outpatient. -Per neurology recommendation, initiated short course of IV solumedrol 1 g 3x days followed by oral taper after, started 07/18, oral medrol dosepack start -Repeat MRI 07/19 per neuro to assess interval change from previous MRI in 03/2021 Moderate progression of extensive white matter T2 hyperintense foci suggestive of demyelinating plaques since MRI of April 11, 2021, as described above. Suboptimal evaluation for active demyelination on this exam given motion artifact but no definite plaque enhancement. These findings are consistent with multiple sclerosis. -currently awaiting SNF placement. Currently unable to find placement in mother's preferred locations Depression -patient would like to see therapy to help cope with his quadriplegia and MS -consulted behavioral health liason, psychiatry -patient amenable to starting medication -at one point he was on depakote, patient states it was to stabilize his mood, is unsure why it was discontinued 2) Muscle spasticity -Trial of magnesium and calcium PO given without much improvement -Patient reports relief from home essential oil balm, this is likely placebo effect but encourage use. In the same vein, continue Wahls diet -Scheduled Tylenol, ibuprofen PRN -Continue baclofen and B12 supplementation -Tizanidine PRN added per neurology recommendation -PT/OT ordered 3) UTI -Positive UA and growth of pansensitive E Coli on UCx -No leukocytosis, afebrile, no urinary symptoms -recieved Keflex 500 mg TID short-course 7 days, completed 07/19 given bacteriuria in a male and complex PMH including urinary dysfunction secondary to neurogenic bladder requiring chronic wilkins catheter 4) Vitamin D deficiency -04/2021 most recent D3 level of 16 -Vitamin D supplementation increased to cholecalciferol 5000u daily, ergocalci ferol 50,000u weekly Diet: regular DVT ppx: Lovenox 30 mg subQ daily. Dispo: Discharge to facility pending case management evaluation. PT/OT: seeing OT twice a week, PT daily, require 24hr care (2) Acute UTI: (3) Unable to care for self: (4) Avascular necrosis of bone of left hip: (5) Muscle spasticity: (6) Demyelinating disease: (7) Neurogenic bladder: (8) Vitamin D deficiency: (9) Myelopathy: Admission and Anticipated Discharge Date Admission Date: July 14, 2021 Supervising Physician Co-Signing Physician Notes I personally examined the patient and verified all dejesus points of history and exam, discussed case, and agree with decision making with Dr Garcia notes no needs. vitals noted nad heent nc at mmm breathing unlabored no accessory muscles good effort skin no rashes no pallor or icterus neuro chronic weakness MS/weakness/inability to care for self at home - SNF vs increase in caregivers at home if approved - appearing more likely SNF; however, beds not available. tapering steroids, continue supportive care. anticipate ocrevus in near future. continue current care overall Subjective Patient seen at bedside this morning. Patient seems to be in to depressed mood and is not very talkative today. Patient is very pleasant however when he does speak and is grateful for the care that he is receiving. Has no concerns or complaints at this time. Reports he is not in any pain. No overnight events reported. Review of Systems Review of Systems: All systems reviewed & are unremarkable except as noted in HPI & below Physical Exam Constitutional: WD/WN, vitals as above Eyes: PERRL, conjunctivae normal, anicteric sclerae ENMT: external ear and nose normal, oropharynx normal Neck: trachea midline, no thyromegaly Respiratory: normal respiratory effort, lungs clear to auscultation Cardiovascular: RRR, no murmur, no edema Chest (Breasts): Chest: normal inspection of chest Gastrointestinal (Abdomen): normal bowel sounds, soft, nontender, no hepatosplenomegaly Musculoskeletal: Extremities: + limited ROM of extremities, + abnormal muscle tone and + muscle atrophy Skin: no rashes, warm and dry Psychiatric: Mood: + depressed mood Genitourinary: Wilkins present Results & Data Results & Data ([facility]) Vital Signs (Past 12 Hours) Vital Signs Temp Pulse Resp BP Pulse Ox 07/26/21 07:38 36.7 C 69 16 116/65 97
[2021-07-26] MEDS: hydrOXYzine HCl 10 MG TAB PO PRN (17:28)
--- NOTE | 2021-07-26 17:38 | Billing Data ---
Date of Service July 26, 2021 Coding Level of Care Code 04036 Subseq Hosp Care Lvl 1
[2021-07-26] MEDS: hydrOXYzine HCl 10 MG TAB PO SCH (20:11)
[2021-07-26] MEDS: IBUPROFEN 600 MG TAB PO PRN (23:52)
[2021-07-26] MEDS: MELATONIN 3 MG TAB PO PRN (23:52)
[2021-07-27] MEDS: ACETAMINOPHEN 500 MG TAB PO SCH ×3 (05:21→21:38)
[2021-07-27] MEDS: BACLOFEN 20 MG TAB PO SCH ×4 (05:21→23:55)
[2021-07-27] MEDS: ENOXAPARIN INJ 30 MG/0.3 ML SYR SQ SCH (05:22)
[2021-07-27] MEDS: bisacodyL 10 MG SUPP PR SCH (06:47)
[2021-07-27] MEDS ORDERED: methylPREDNISolone 4 MG TAB PO SCH (07:00)
[2021-07-27] MEDS: OMEGA-3 (PURIFIED FISH OIL) 1 GM CAP PO SCH (07:11)
[2021-07-27] MEDS: BETHANECHOL CHL 25 MG TAB PO SCH ×3 (07:11→20:24)
[2021-07-27] MEDS: DOCUSATE SODIUM 100 MG CAP PO SCH ×2 (07:12→20:24)
[2021-07-27] MEDS: ERGOCALCIFEROL 50,000 UNITS 1250 MCG CAP PO SCH (07:13)
[2021-07-27] MEDS: MULTIVITAMIN CHEWABLE TAB PO SCH (07:13)
[2021-07-27] MEDS: POLYETHYLENE (MIRALAX) 17 GM PACK PO SCH (07:13)
[2021-07-27] MEDS: CHOLECALCIFEROL 5,000 UNITS 125 MCG TAB PO SCH (07:13)
[2021-07-27] MEDS: CYANOCOBALAMIN (B-12) 100 MCG TABLET PO SCH (07:13)
[2021-07-27 07:48] LABS: Creatinine Clr Calc Pharmacy 182.5 ml/min; Est GFR (African American) > 150.0 ml/min; Est GFR (Non-African American) 134.5 ml/min
--- NOTE | 2021-07-27 10:57 | Hospitalist Progress Note ---
Date of Service July 27, 2021 Assessment & Plan (1) Multiple sclerosis: Plan: Bi is a 41M with a history of recently diagnosed primary progressive MS with neurogenic bladder and muscle spasticity as well as vitamin D deficiency who presented to the ED on 07/11 due to inability of caretakers to provide needed level of care and was found to have a UTI. 1) Multiple sclerosis, primary progressive -Chronic illness with progressive deterioration over the past year now requiring 24/7 care -home medications did not include any disease modifying agents -Atarax qHs for nighttime insomnia/agitation -Complicated disposition planning- requiring 24/7 care and mother attempting to set up care, has hearing on 07/21, addition hearing on 07/24 care was declined. Case management will try to secure SNF placement until long-term arrangements can be coordinated with family -Neurology consulted- recommending initiation of Ocrevus treatment. Pt and family agreeable. Neurology coordinating plan of care, Ocrevus to be administered in [facility] as outpatient once pt accepted to SNF and discharged from inpatient unit Note he may benefit from a stronger agent such as oral cladribine. May consider a 2nd opinion with an MS specialist such as Dr. Newberry as an outpatient. -Per neurology recommendation, initiated short course of IV solumedrol 1 g 3x days followed by oral taper after, started 07/18, oral medrol dosepack start -Repeat MRI 07/19 per neuro to assess interval change from previous MRI in 03/2021 Moderate progression of extensive white matter T2 hyperintense foci suggestive of demyelinating plaques since MRI of April 11, 2021, as described above. Suboptimal evaluation for active demyelination on this exam given motion artifact but no definite plaque enhancement. These findings are consistent with multiple sclerosis. -currently awaiting SNF placement. Currently unable to find placement in mother's preferred locations Depression -patient would like to see therapy to help cope with his quadriplegia and MS -consulted behavioral health liason, psychiatry, appreciate recommendations -patient amenable to starting medication -at one point he was on depakote, patient states it was to stabilize his mood, is unsure why it was discontinued 2) Muscle spasticity -Trial of magnesium and calcium PO given without much improvement -Patient reports relief from home essential oil balm, this is likely placebo effect but encourage use. In the same vein, continue Wahls diet -Scheduled Tylenol, ibuprofen PRN -Continue baclofen and B12 supplementation -Tizanidine PRN added per neurology recommendation -PT/OT ordered 3) UTI -Positive UA and growth of pansensitive E Coli on UCx -No leukocytosis, afebrile, no urinary symptoms -recieved Keflex 500 mg TID short-course 7 days, completed 07/19 given bacteriuria in a male and complex PMH including urinary dysfunction secondary to neurogenic bladder requiring chronic wilkins catheter 4) Vitamin D deficiency -04/2021 most recent D3 level of 16 -Vitamin D supplementation increased to cholecalciferol 5000u daily, ergocalciferol 50,000u weekly Overall no change in care at this time. Diet: regular DVT ppx: Lovenox 30 mg subQ daily. Dispo: Discharge to facility pending case management evaluation. PT/OT: seeing OT twice a week, PT daily, require 24hr care (2) Acute UTI: (3) Unable to care for self: (4) Avascular necrosis of bone of left hip: (5) Muscle spasticity: (6) Demyelinating disease: (7) Neurogenic bladder: (8) Vitamin D deficiency: (9) Myelopathy: Admission and Anticipated Discharge Date Admission Date: July 14, 2021 Supervising Physician Co-Signing Physician Notes I personally examined the patient and verified all dejesus points of history and exam, discussed case, and agree with decision making with Dr Garcia only problem is that his phone is not making a network connection in order to make phone call - he asks me to assist. unable to identify the problem, turn off phone to reboot - that does not help. try to reach IT - no answer. vitals noted nad heent nc at mmm breathing unlabored no accessory muscles good effort skin no rashes no pallor or icterus neuro chronic weakness MS/weakness/inability to care for self at home - SNF vs increase in caregivers at home if approved - appearing more likely SNF; however, beds not available. continue tapering steroids, continue supportive care. anticipate ocrevus in near future. continue current care overall Subjective Patient seen at bedside this morning. No acute events reported overnight. Patient reports no needs at this time. Review of Systems Review of Systems: All systems reviewed & are unremarkable except as noted in HPI & below Physical Exam Constitutional: WD/WN, vitals as above Eyes: PERRL, conjunctivae normal, anicteric sclerae ENMT: external ear and nose normal, oropharynx normal Neck: trachea midline, no thyromegaly Respiratory: normal respiratory effort, lungs clear to auscultation Cardiovascular: RRR, no murmur, no edema Chest (Breasts): Chest: normal inspection of chest Gastrointestinal (Abdomen): normal bowel sounds, soft, nontender, no hepatosplenomegaly Musculoskeletal: Extremities: + limited ROM of extremities, + abnormal muscle tone and + muscle atrophy Skin: no rashes, warm and dry Psychiatric: Mood: + depressed mood Results & Data Results & Data ([facility]) Vital Signs (Past 12 Hours) Vital Signs Temp Pulse Resp BP Pulse Ox 07/27/21 08:00 36.6 C 92 H 18 115/75 91
--- NOTE | 2021-07-27 14:47 | Billing Data ---
Date of Service July 27, 2021 Coding Level of Care Code 60573 Subseq Hosp Care Lvl 1
[2021-07-27] MEDS: hydrOXYzine HCl 10 MG TAB PO PRN (15:11)
[2021-07-27] MEDS: hydrOXYzine HCl 10 MG TAB PO SCH (20:24)
[2021-07-28] MEDS: tiZANidine HCL 4 MG TABLET PO PRN (01:51)
[2021-07-28] MEDS: BACLOFEN 20 MG TAB PO SCH ×3 (05:44→18:41)
[2021-07-28] MEDS: ENOXAPARIN INJ 30 MG/0.3 ML SYR SQ SCH (05:44)
[2021-07-28] MEDS: ACETAMINOPHEN 500 MG TAB PO SCH ×3 (06:02→22:56)
--- NOTE | 2021-07-28 08:37 | Hospitalist Progress Note ---
Date of Service July 28, 2021 Assessment & Plan (1) Multiple sclerosis: Plan: Bi is a 41M with a history of recently diagnosed primary progressive MS with neurogenic bladder and muscle spasticity as well as vitamin D deficiency who presented to the ED on 07/11 due to inability of caretakers to provide needed level of care and was found to have a UTI. 1) Multiple sclerosis, primary progressive -Chronic illness with progressive deterioration over the past year now requiring 24/7 care -Neurology consulted- - initiation of Ocrevus treatment. Pt and family agreeable. Neurology coordinating plan of care, Ocrevus to be administered in [facility] as outpatient once pt accepted to SNF and discharged from inpatient unit -Note he may benefit from a stronger agent such as oral cladribine. May consider a 2nd opinion with an MS specialist such as Dr. Newberry as an outpatient. -initiated short course of IV solumedrol 1 g 3x days followed by oral taper after, started 07/18, oral medrol dosepack start -Repeat MRI 07/19 - Moderate progression of extensive white matter T2 hyperintense foci suggestive of demyelinating plaques since MRI of April 11, 2021, -Complicated disposition planning- requiring 24/7 care and mother attempting to set up care, has hearing on 07/21, addition hearing on 07/24 care was declined. awaiting SNF placement. Currently unable to find placement in mother's preferred locations, mother aware her preferred locations are not available Depression -patient would like to see therapy to help cope with his quadriplegia and MS -consulted behavioral health liason, psychiatry, appreciate recommendations -patient amenable to starting medication -at one point he was on depakote, patient states it was to stabilize his mood, is unsure why it was discontinued 2) Muscle spasticity -Trial of magnesium and calcium PO given without much improvement -Patient reports relief from home essential oil balm, this is likely placebo effect but encourage use. In the same vein, continue Wahls diet -Scheduled Tylenol, ibuprofen PRN -Continue baclofen and B12 supplementation -Tizanidine PRN added per neurology recommendation -PT/OT ordered, following 3) UTI -Positive UA and growth of pansensitive E Coli on UCx -No leukocytosis, afebrile, no urinary symptoms -recieved Keflex 500 mg TID short-course 7 days, completed 07/19 given bacteriuria in a male and complex PMH including urinary dysfunction secondary to neurogenic bladder requiring chronic wilkins catheter 4) Vitamin D deficiency -04/2021 most recent D3 level of 16 -Vitamin D supplementation increased to cholecalciferol 5000u daily, ergocalciferol 50,000u weekly Overall no change in care at this time. Diet: regular DVT ppx: Lovenox 30 mg subQ daily. Dispo: Discharge to facility pending case management evaluation. PT/OT: seeing OT twice a week, PT daily, require 24hr care (2) Acute UTI: (3) Unable to care for self: (4) Avascular necrosis of bone of left hip: (5) Muscle spasticity: (6) Demyelinating disease: (7) Neurogenic bladder: (8) Vitamin D deficiency: (9) Myelopathy: Admission and Anticipated Discharge Date Admission Date: July 14, 2021 Supervising Physician Co-Signing Physician Notes Resident Physician Supervision Note: I independently interviewed and examined the patient and verified the dejesus history and physical, reviewed labs and image studies and agree with resident Dr. Sorto findings and care plan. Subjective Patient seen at bedside, calm comfortable cooperative, eating sleeping well voiding normally. States PT has come by and appreciates more exercises. He states his mother's appeals did not go well, is unsure next plans at this point. Patient looking forward to starting MS modifying treatments. No other complaints at this time. Review of Systems 2 Review of Systems: Negative fever chills Negative headache dizziness Negative chest pain palpitations SOB Negative nausea vomitting diarrhea constipation Negative numbness tingling rash swelling Physical Exam Constitutional: WD/WN, vitals as above Eyes: PERRL, conjunctivae normal, anicteric sclerae ENMT: external ear and nose normal, oropharynx normal Neck: trachea midline, no thyromegaly Respiratory: normal respiratory effort, lungs clear to auscultation Cardiovascular: RRR, no murmur, no edema Chest (Breasts): Chest: normal inspection of chest Gastrointestinal (Abdomen): normal bowel sounds, soft, nontender, no hepatosplenomegaly Musculoskeletal: Extremities: + limited ROM of extremities Skin: no rashes, warm and dry Results & Data Results & Data ([facility]) Vital Signs (Past 12 Hours) Vital Signs Temp Pulse Resp BP Pulse Ox 07/27/21 21:26 36.5 C 90 16 115/75 96 Resident Activity Tracking Resident Involvement: Resident Care Provided Care Provided: Adult Hospital Medicine
[2021-07-28] MEDS: CHOLECALCIFEROL 5,000 UNITS 125 MCG TAB PO SCH (09:06)
[2021-07-28] MEDS: CYANOCOBALAMIN (B-12) 100 MCG TABLET PO SCH (09:06)
[2021-07-28] MEDS: BETHANECHOL CHL 25 MG TAB PO SCH ×3 (09:06→20:50)
[2021-07-28] MEDS: DOCUSATE SODIUM 100 MG CAP PO SCH ×2 (09:06→20:51)
[2021-07-28] MEDS: MULTIVITAMIN CHEWABLE TAB PO SCH (09:06)
[2021-07-28] MEDS: OMEGA-3 (PURIFIED FISH OIL) 1 GM CAP PO SCH (09:06)
[2021-07-28] MEDS: POLYETHYLENE (MIRALAX) 17 GM PACK PO SCH (09:07)
[2021-07-28] MEDS: bisacodyL 10 MG SUPP PR SCH ×2 (09:09→15:56)
[2021-07-28] MEDS: ASCORBIC ACID 500 MG TAB PO SCH (11:08)
[2021-07-28] MEDS: IBUPROFEN 600 MG TAB PO PRN (18:41)
[2021-07-28] MEDS: hydrOXYzine HCl 10 MG TAB PO SCH (20:49)
[2021-07-28] MEDS: MELATONIN 3 MG TAB PO PRN (22:56)
[2021-07-29] MEDS: BACLOFEN 20 MG TAB PO SCH ×5 (00:32→23:55)
[2021-07-29] MEDS: ACETAMINOPHEN 500 MG TAB PO SCH ×3 (05:37→21:59)
[2021-07-29] MEDS: ENOXAPARIN INJ 30 MG/0.3 ML SYR SQ SCH (05:38)
--- NOTE | 2021-07-29 08:06 | Hospitalist Progress Note ---
Date of Service July 29, 2021 Assessment & Plan (1) Multiple sclerosis: Plan: Bi is a 41M with a history of recently diagnosed primary progressive MS with neurogenic bladder and muscle spasticity as well as vitamin D deficiency who presented to the ED on 07/11 due to inability of caretakers to provide needed level of care and was found to have a UTI. 1) Multiple sclerosis, primary progressive -Chronic illness with progressive deterioration over the past year now requiring 24/7 care -Neurology consulted- - initiation of Ocrevus treatment. Pt and family agreeable. Neurology coordinating plan of care, Ocrevus to be administered in [facility] as outpatient once pt accepted to SNF and discharged from inpatient unit -Note he may benefit from a stronger agent such as oral cladribine. May consider a 2nd opinion with an MS specialist such as Dr. Newberry as an outpatient. -initiated short course of IV solumedrol 1 g 3x days followed by oral taper after, started 07/18, oral medrol dosepack start -Repeat MRI 07/19 - Moderate progression of extensive white matter T2 hyperintense foci suggestive of demyelinating plaques since MRI of April 11, 2021, -Complicated disposition planning- requiring 24/7 care and mother attempting to set up care, has hearing on 07/21, addition hearing on 07/24 care was declined. awaiting SNF placement. Currently unable to find placement in mother's preferred locations, mother aware her preferred locations are not available Sleep Difficulties -in hospital was started on Hydroxyzine 10mg HS and 3mg melatonin -patient has had several days sleeping difficulty in hospital -will dc HS hydroxyzine and melatonin, started on 1g Lunesta HS. Depression -patient would like to see therapy to help cope with his quadriplegia and MS -consulted behavioral health liason, psychiatry, appreciate recommendations -patient amenable to starting medication -at one point he was on depakote, patient states it was to stabilize his mood, is unsure why it was discontinued -can consider starting depakote or Buspar in outpatient 2) Muscle spasticity -Trial of magnesium and calcium PO given without much improvement -Patient reports relief from home essential oil balm, this is likely placebo effect but encourage use. In the same vein, continue Wahls diet -Scheduled Tylenol, ibuprofen PRN -Continue baclofen and B12 supplementation -Tizanidine PRN added per neurology recommendation -PT/OT ordered, following -consider adding flexeril 3) UTI -pansensitive E Coli on UCx -recieved Keflex 500 mg TID short-course 7 days, completed 07/19 given bacteriuria in a male and complex PMH including urinary dysfunction secondary to neurogenic bladder requiring chronic wilkins catheter 4) Vitamin D deficiency -04/2021 most recent D3 level of 16 -Vitamin D supplementation increased to cholecalciferol 5000u daily, ergocalciferol 50,000u weekly Overall no change in care at this time. Diet: regular DVT ppx: Lovenox 30 mg subQ daily. Dispo: Discharge to facility pending case management evaluation. PT/OT: seeing OT twice a week, PT daily, require 24hr care (2) Acute UTI: (3) Unable to care for self: (4) Avascular necrosis of bone of left hip: (5) Muscle spasticity: (6) Demyelinating disease: (7) Neurogenic bladder: (8) Vitamin D deficiency: (9) Myelopathy: Admission and Anticipated Discharge Date Admission Date: July 14, 2021 Supervising Physician Co-Signing Physician Notes Resident Physician Supervision Note: I independently interviewed and examined the patient and verified the dejesus history and physical, reviewed labs and image studies and agree with resident Dr. Sorto findings and care plan. Subjective Patient seen at bedside, calm comfortable cooperative, eating sleeping well voiding normally. Patient requests a towel for spillage while he eats. Patient has some discomfort with his catheter, wonders if he has a UTI. Patient was reassured per his symptoms (no abd pain fever hematuria) he is unlikely to have a UTI. Patient states he hasn't slept well last night, has cramping in his leg despite the medication he is on. Case management has located placement for patient, however mother has declined. Review of Systems Review of Systems: Negative fever chills Negative headache dizziness Negative chest pain palpitations SOB Negative nausea vomitting diarrhea constipation Negative numbness tingling rash swelling Physical Exam Constitutional: WD/WN, vitals as above Eyes: PERRL, conjunctivae normal, anicteric sclerae ENMT: external ear and nose normal, oropharynx normal Neck: trachea midline, no thyromegaly Respiratory: normal respiratory effort, lungs clear to auscultation Cardiovascular: RRR, no murmur, no edema Chest (Breasts): Chest: normal inspection of chest Gastrointestinal (Abdomen): normal bowel sounds, soft, nontender, no hepatosplenomegaly Musculoskeletal: Extremities: + limited ROM of extremities Skin: no rashes, warm and dry Results & Data Results & Data ([facility] [place]) Vital Signs (Past 12 Hours) Vital Signs Temp Pulse Resp BP Pulse Ox 07/29/21 07:08 36.5 C 71 16 112/74 99 07/28/21 21:26 36.6 C 85 16 122/81 96 Resident Activity Tracking Resident Involvement: Resident Care Provided Care Provided: Adult Hospital Medicine
[2021-07-29] MEDS: MULTIVITAMIN CHEWABLE TAB PO SCH (09:09)
[2021-07-29] MEDS: OMEGA-3 (PURIFIED FISH OIL) 1 GM CAP PO SCH (09:09)
[2021-07-29] MEDS: bisacodyL 10 MG SUPP PR SCH (09:09)
[2021-07-29] MEDS: DOCUSATE SODIUM 100 MG CAP PO SCH ×2 (09:09→22:00)
[2021-07-29] MEDS: CYANOCOBALAMIN (B-12) 100 MCG TABLET PO SCH (09:09)
[2021-07-29] MEDS: tiZANidine HCL 4 MG TABLET PO PRN (09:10)
[2021-07-29] MEDS: BETHANECHOL CHL 25 MG TAB PO SCH ×3 (09:10→22:00)
[2021-07-29] MEDS: ASCORBIC ACID 500 MG TAB PO SCH (09:10)
[2021-07-29] MEDS: POLYETHYLENE (MIRALAX) 17 GM PACK PO SCH (09:13)
[2021-07-29] MEDS: CHOLECALCIFEROL 5,000 UNITS 125 MCG TAB PO SCH (09:13)
[2021-07-29] MEDS: IBUPROFEN 600 MG TAB PO PRN (14:19)
[2021-07-29] MEDS: ESZOPICLONE 1 MG TAB PO SCH (22:00)
[2021-07-30] MEDS: ENOXAPARIN INJ 30 MG/0.3 ML SYR SQ SCH (05:06)
[2021-07-30] MEDS: ACETAMINOPHEN 500 MG TAB PO SCH ×3 (05:06→21:29)
[2021-07-30] MEDS: BACLOFEN 20 MG TAB PO SCH ×4 (05:06→23:11)
--- NOTE | 2021-07-30 07:19 | Hospitalist Progress Note ---
Date of Service July 30, 2021 Assessment & Plan (1) Multiple sclerosis: Plan: Bi is a 41M with a history of recently diagnosed primary progressive MS with neurogenic bladder and muscle spasticity as well as vitamin D deficiency who presented to the ED on 07/11 due to inability of caretakers to provide needed level of care and was found to have a UTI. 1) Multiple sclerosis, primary progressive -Chronic illness with progressive deterioration over the past year now requiring 24/7 care -Neurology consulted- - initiation of Ocrevus treatment. Pt and family agreeable. Neurology coordinating plan of care, Ocrevus to be administered in [facility] as outpatient once pt accepted to SNF and discharged from inpatient unit -Note he may benefit from a stronger agent such as oral cladribine. May consider a 2nd opinion with an MS specialist such as Dr. Newberry as an outpatient. -initiated short course of IV solumedrol 1 g 3x days followed by oral taper after, started 07/18, oral medrol dosepack start -Repeat MRI 07/19 - Moderate progression of extensive white matter T2 hyperintense foci suggestive of demyelinating plaques since MRI of April 11, 2021, -Complicated disposition planning- requiring 24/7 care and mother attempting to set up care, has hearing on 07/21, addition hearing on 07/24 care was declined. awaiting SNF placement. Currently unable to find placement in mother's preferred locations, mother aware her preferred locations are not available Sleep Difficulties -in hospital was started on Hydroxyzine 10mg HS and 3mg melatonin -patient has had several days sleeping difficulty in hospital -started on 1g Lunesta HS. Patient tolerating well Depression -consulted behavioral health liason, psychiatry -at one point he was on depakote, patient states it was to stabilize his mood, is unsure why it was discontinued -can consider starting depakote or Buspar in outpatient 2) Muscle spasticity -Trial of magnesium and calcium PO given without much improvement -Patient reports relief from home essential oil balm, this is likely placebo effect but encourage use. In the same vein, continue Wahls diet -Scheduled Tylenol, ibuprofen PRN -Continue baclofen and B12 supplementation -Tizanidine PRN added per neurology recommendation -PT/OT ordered, following -consider adding flexeril 3) UTI -Positive UA and growth of pansensitive E Coli on UCx -No leukocytosis, afebrile, no urinary symptoms -recieved Keflex 500 mg TID short-course 7 days, completed 07/19 given bacteriuria in a male and complex PMH including urinary dysfunction secondary to neurogenic bladder requiring chronic wilkins catheter 4) Vitamin D deficiency -04/2021 most recent D3 level of 16 -Vitamin D supplementation increased to cholecalciferol 5000u daily, ergocalciferol 50,000u weekly Overall no change in care at this time. Diet: regular DVT ppx: Lovenox 30 mg subQ daily. Dispo: Discharge to facility pending case management evaluation. PT/OT: seeing OT twice a week, PT daily, require 24hr care (2) Acute UTI: (3) Unable to care for self: (4) Avascular necrosis of bone of left hip: (5) Muscle spasticity: (6) Demyelinating disease: (7) Neurogenic bladder: (8) Vitamin D deficiency: (9) Myelopathy: Admission and Anticipated Discharge Date Admission Date: July 14, 2021 Supervising Physician Co-Signing Physician Notes Resident Physician Supervision Note: I independently interviewed and examined the patient and verified the dejesus history and physical, reviewed labs and image studies and agree with resident Dr. Sorto findings and care plan. Subjective Patient seen at bedside, calm comfortable cooperative. He states he was able to find a fork with an enlarged removable head usher. Patient states the lunesta helped him sleep much better last night. His mother cannot drive, he states he will have transportation difficulties upon leaving the hospital. Patient understands he is still waiting for placement. Review of Systems Review of Systems: Negative fever chills Negative headache dizziness Negative chest pain palpitations SOB Negative nausea vomitting diarrhea constipation Negative numbness tingling rash swelling Physical Exam Constitutional: WD/WN, vitals as above Eyes: PERRL, conjunctivae normal, anicteric sclerae ENMT: external ear and nose normal, oropharynx normal Neck: trachea midline, no thyromegaly Respiratory: normal respiratory effort, lungs clear to auscultation Cardiovascular: RRR, no murmur, no edema Chest (Breasts): Chest: normal inspection of chest Gastrointestinal (Abdomen): normal bowel sounds, soft, nontender, no hepatosplenomegaly Musculoskeletal: Extremities: + limited ROM of extremities Skin: no rashes, warm and dry Results & Data Results & Data ([facility]) Vital Signs (Past 12 Hours) Vital Signs Temp Pulse Resp BP Pulse Ox 07/29/21 22:06 36.7 C 89 15 131/82 96 Resident Activity Tracking Resident Involvement: Resident Care Provided Care Provided: Adult Hospital Medicine
[2021-07-30] MEDS: BETHANECHOL CHL 25 MG TAB PO SCH ×3 (08:02→20:30)
[2021-07-30] MEDS: DOCUSATE SODIUM 100 MG CAP PO SCH ×2 (08:02→20:30)
[2021-07-30] MEDS: CYANOCOBALAMIN (B-12) 100 MCG TABLET PO SCH (08:02)
[2021-07-30] MEDS: ASCORBIC ACID 500 MG TAB PO SCH (08:02)
[2021-07-30] MEDS: MULTIVITAMIN CHEWABLE TAB PO SCH (08:02)
[2021-07-30] MEDS: POLYETHYLENE (MIRALAX) 17 GM PACK PO SCH (08:03)
[2021-07-30] MEDS: OMEGA-3 (PURIFIED FISH OIL) 1 GM CAP PO SCH (08:03)
[2021-07-30] MEDS: CHOLECALCIFEROL 5,000 UNITS 125 MCG TAB PO SCH (08:03)
[2021-07-30] MEDS: IBUPROFEN 600 MG TAB PO PRN ×2 (08:04→18:04)
[2021-07-30] MEDS: bisacodyL 10 MG SUPP PR SCH ×3 (08:04→18:35)
[2021-07-30 08:38] LABS: Hematocrit (blood only) 40.3 % (42-52); Hemoglobin 13.6 g/dL (14.0-18.0); Mean Corpuscular Hemoglobin 29.8 pg (25-34); Mean Corpuscular Hgb Conc 33.7 g/dL (32-36); Mean Corpuscular Volume 88.2 fL (80-100); Mean Platelet Volume 8.7 fL (7.4-10.4); Platelet Count 231 K/uL (130-400); RDW Coefficient of Variation 13.9 % (11.5-14.5); Red Blood Count 4.57 M/uL (4.7-6.1); White Blood Count 5.99 K/uL (4.8-10.8)
[2021-07-30 08:59] LABS: BUN Creatinine Ratio 22.2 (10-20); Calcium 8.9 mg/dl (8.5-10.1); Creatinine Clr Calc Pharmacy 147.7 ml/min; Est GFR (African American) 142.9 ml/min; Est GFR (Non-African American) 123.3 ml/min
[2021-07-30] MEDS: ESZOPICLONE 1 MG TAB PO SCH (21:29)
[2021-07-30] MEDS: hydrOXYzine HCl 10 MG TAB PO PRN (23:11)
[2021-07-31] MEDS: ACETAMINOPHEN 500 MG TAB PO SCH ×3 (05:36→22:09)
[2021-07-31] MEDS: BACLOFEN 20 MG TAB PO SCH ×4 (05:37→23:58)
[2021-07-31] MEDS: ENOXAPARIN INJ 30 MG/0.3 ML SYR SQ SCH (05:37)
--- NOTE | 2021-07-31 07:57 | Hospitalist Progress Note ---
Date of Service July 31, 2021 Assessment & Plan (1) Multiple sclerosis: Plan: Bi is a 41M with a history of recently diagnosed primary progressive MS with neurogenic bladder and muscle spasticity as well as vitamin D deficiency who presented to the ED on 07/11 due to inability of caretakers to provide needed level of care and was found to have a UTI. 1) Multiple sclerosis, primary progressive -Chronic illness with progressive deterioration over the past year now requiring 24/7 care -Neurology consulted- - initiation of Ocrevus treatment. Pt and family agreeable. Neurology coordinating plan of care, Ocrevus to be administered in [facility] as outpatient once pt accepted to SNF and discharged from inpatient unit -Note he may benefit from a stronger agent such as oral cladribine. May consider a 2nd opinion with an MS specialist such as Dr. Newberry as an outpatient. -initiated short course of IV solumedrol 1 g 3x days followed by oral taper after, started 07/18, oral medrol dosepack start -Repeat MRI 07/19 - Moderate progression of extensive white matter T2 hyperintense foci suggestive of demyelinating plaques since MRI of April 11, 2021, -Complicated disposition planning- requiring 24/7 care and mother attempting to set up care, has hearing on 07/21, addition hearing on 07/24 care was declined. awaiting SNF placement. Currently unable to find placement in mother's preferred locations, mother aware her preferred locations are not available Sleep Difficulties -in hospital was started on Hydroxyzine 10mg HS and 3mg melatonin -patient has had several days sleeping difficulty in hospital -started on 1mg Lunesta HS. Patient tolerating well Depression -consulted behavioral health liason, psychiatry, -at one point he was on depakote, patient states it was to stabilize his mood, is unsure why it was discontinued -can consider starting depakote or Buspar in outpatient 2) Muscle spasticity -Trial of magnesium and calcium PO given without much improvement -Patient reports relief from home essential oil balm, this is likely placebo effect but encourage use. In the same vein, continue Wahls diet -Scheduled Tylenol, ibuprofen PRN -Continue baclofen and B12 supplementation -Tizanidine PRN added per neurology recommendation -PT/OT ordered, following -consider adding flexeril 3) UTI -Positive UA and growth of pansensitive E Coli on UCx -No leukocytosis, afebrile, no urinary symptoms -recieved Keflex 500 mg TID short-course 7 days, completed 07/19 given bacteriuria in a male and complex PMH including urinary dysfunction secondary to neurogenic bladder requiring chronic wilkins catheter 4) Vitamin D deficiency -04/2021 most recent D3 level of 16 -Vitamin D supplementation increased to cholecalciferol 5000u daily, ergocalciferol 50,000u weekly Overall no change in care at this time. Diet: regular DVT ppx: Lovenox 30 mg subQ daily. Dispo: Discharge to facility pending case management evaluation. PT/OT: seeing OT twice a week, PT daily, require 24hr care (2) Acute UTI: (3) Unable to care for self: (4) Avascular necrosis of bone of left hip: (5) Muscle spasticity: (6) Demyelinating disease: (7) Neurogenic bladder: (8) Vitamin D deficiency: (9) Myelopathy: Admission and Anticipated Discharge Date Admission Date: July 14, 2021 Supervising Physician Co-Signing Physician Notes Resident Physician Supervision Note: I independently interviewed and examined the patient and verified the dejesus history and physical, reviewed labs and image studies and agree with resident Dr. Sorto findings and care plan. Subjective Patient seen at bedside, calm comfortable cooperative. He requests another chapstick. Patient understands we are still waiting on placement, is unsure of his mother's progress finding placement. Has otherwise slept well with medication change, would like something to better control his leg muscle spasms. Review of Systems Review of Systems: Negative fever chills Negative headache dizziness Negative chest pain palpitations SOB Negative nausea vomitting diarrhea constipation Negative numbness tingling rash swelling Physical Exam Constitutional: WD/WN, vitals as above Eyes: PERRL, conjunctivae normal, anicteric sclerae ENMT: external ear and nose normal, oropharynx normal Neck: trachea midline, no thyromegaly Respiratory: normal respiratory effort, lungs clear to auscultation Cardiovascular: RRR, no murmur, no edema Chest (Breasts): Chest: normal inspection of chest Gastrointestinal (Abdomen): normal bowel sounds, soft, nontender, no h epatosplenomegaly Musculoskeletal: Extremities: + limited ROM of extremities Skin: no rashes, warm and dry Results & Data Results & Data ([facility]) Vital Signs (Past 12 Hours) Vital Signs Temp Pulse Resp BP Pulse Ox 07/30/21 21:19 36.6 C 89 18 109/73 94 Resident Activity Tracking Resident Involvement: Resident Care Provided Care Provided: Adult Hospital Medicine
[2021-07-31] MEDS: POLYETHYLENE (MIRALAX) 17 GM PACK PO SCH (08:04)
[2021-07-31] MEDS: MULTIVITAMIN CHEWABLE TAB PO SCH (08:05)
[2021-07-31] MEDS: OMEGA-3 (PURIFIED FISH OIL) 1 GM CAP PO SCH (08:05)
[2021-07-31] MEDS: CYANOCOBALAMIN (B-12) 100 MCG TABLET PO SCH (08:06)
[2021-07-31] MEDS: BETHANECHOL CHL 25 MG TAB PO SCH ×3 (08:06→20:42)
[2021-07-31] MEDS: CHOLECALCIFEROL 5,000 UNITS 125 MCG TAB PO SCH (08:06)
[2021-07-31] MEDS: ASCORBIC ACID 500 MG TAB PO SCH (08:07)
[2021-07-31] MEDS: DOCUSATE SODIUM 100 MG CAP PO SCH ×2 (08:12→20:44)
[2021-07-31] MEDS: bisacodyL 10 MG SUPP PR SCH (15:15)
[2021-07-31] MEDS: IBUPROFEN 600 MG TAB PO PRN (20:41)
[2021-07-31] MEDS: DICLOFENAC SOD 1% GEL 100 GM TUBE EXT SCH (20:44)
[2021-07-31] MEDS: ESZOPICLONE 1 MG TAB PO SCH (22:10)
[2021-08-01] MEDS: BACLOFEN 20 MG TAB PO SCH ×4 (05:19→23:13)
[2021-08-01] MEDS: ACETAMINOPHEN 500 MG TAB PO SCH ×3 (05:19→23:15)
[2021-08-01] MEDS: ENOXAPARIN INJ 30 MG/0.3 ML SYR SQ SCH (05:19)
[2021-08-01] MEDS: tiZANidine HCL 4 MG TABLET PO PRN (06:27)
--- NOTE | 2021-08-01 07:29 | Hospitalist Progress Note ---
Date of Service August 01, 2021 Assessment & Plan (1) Multiple sclerosis: Plan: Bi is a 41M with a history of recently diagnosed primary progressive MS with neurogenic bladder and muscle spasticity as well as vitamin D deficiency who presented to the ED on 07/11 due to inability of caretakers to provide needed level of care and was found to have a UTI. 1) Multiple sclerosis, primary progressive -Chronic illness with progressive deterioration over the past year now requiring 24/7 care -Neurology consulted- - initiation of Ocrevus treatment. Pt and family agreeable. Neurology coordinating plan of care, Ocrevus to be administered in [facility] as outpatient once pt accepted to SNF and discharged from inpatient unit -Note he may benefit from a stronger agent such as oral cladribine. May consider a 2nd opinion with an MS specialist such as Dr. Newberry as an outpatient. -initiated short course of IV solumedrol 1 g 3x days followed by oral taper after, started 07/18, oral medrol dosepack start -Repeat MRI 07/19 - Moderate progression of extensive white matter T2 hyperintense foci suggestive of demyelinating plaques since MRI of April 11, 2021, -Complicated disposition planning- requiring 24/7 care and mother attempting to set up care, has hearing on 07/21, addition hearing on 07/24 care was declined. awaiting SNF placement. Currently unable to find placement in mother's preferred locations, mother aware her preferred locations are not available -placement pending legal contacting mother. Sleep Difficulties -in hospital was started on Hydroxyzine 10mg HS and 3mg melatonin -patient has had several days sleeping difficulty in hospital -started on 1mg Lunesta HS. Patient tolerating well Depression -consulted behavioral health liason, psychiatry, -at one point he was on depakote, patient states it was to stabilize his mood, is unsure why it was discontinued -can consider starting depakote or Buspar in outpatient -mood seems stable currently. 2) Muscle spasticity -Trial of magnesium and calcium PO given without much improvement -Patient reports relief from home essential oil balm, this is likely placebo effect but encourage use. In the same vein, continue Wahls diet -Scheduled Tylenol, ibuprofen PRN -Continue baclofen and B12 supplementation -Tizanidine PRN added per neurology recommendation -PT/OT ordered, following -consider adding flexeril 3) UTI -Positive UA and growth of pansensitive E Coli on UCx -No leukocytosis, afebrile, no urinary symptoms -recieved Keflex 500 mg TID short-course 7 days, completed 07/19 given bacteriuria in a male and complex PMH including urinary dysfunction secondary to neurogenic bladder requiring chronic wilkins catheter 4) Vitamin D deficiency -04/2021 most recent D3 level of 16 -Vitamin D supplementation increased to cholecalciferol 5000u daily, ergocalciferol 50,000u weekly Overall no change in care at this time. Diet: regular DVT ppx: Lovenox 30 mg subQ daily. Dispo: Discharge to facility pending case management evaluation. PT/OT: seeing OT twice a week, PT daily, require 24hr care (2) Acute UTI: (3) Unable to care for self: (4) Avascular necrosis of bone of left hip: (5) Muscle spasticity: (6) Demyelinating disease: (7) Neurogenic bladder: (8) Vitamin D deficiency: (9) Myelopathy: Admission and Anticipated Discharge Date Admission Date: July 14, 2021 Supervising Physician Co-Signing Physician Notes Resident Physician Supervision Note: I independently interviewed and examined the patient and verified the dejesus history and physical, reviewed labs and image studies and agree with resident Dr. Sorto findings and care plan. Subjective Patient seen at bedside, calm comfortable cooperative, states he slept/ate/void ed well. States the voltaren gel on knees did help his pain. Patient requests implements to clean his ears, understands those supplies are not available in the hospital. Per case management, awaiting legal to contact mother to determine placement. Review of Systems Review of Systems: Negative fever chills Negative headache dizziness Negative chest pain palpitations SOB Negative nausea vomitting diarrhea constipation Negative numbness tingling rash swelling Physical Exam Constitutional: WD/WN, vitals as above Eyes: PERRL, conjunctivae normal, anicteric sclerae ENMT: external ear and nose normal, oropharynx normal Neck: trachea midline, no thyromegaly Respiratory: normal respiratory effort, lungs clear to auscultation Cardiovascular: RRR, no murmur, no edema Chest (Breasts): Chest: normal inspection of chest Gastrointestinal (Abdomen): normal bowel sounds, soft, nontender, no hepatosplenomegaly Musculoskeletal: Extremities: + limited ROM of extremities Skin: no rashes, warm and dry Results & Data Results & Data ([facility]) Vital Signs (Past 12 Hours) Vital Signs Temp Pulse Resp BP Pulse Ox 07/31/21 22:25 37.0 C 93 H 16 112/72 96 Resident Activity Tracking Resident Involvement: Resident Care Provided Care Provided: Adult Hospital Medicine
[2021-08-01] MEDS: OMEGA-3 (PURIFIED FISH OIL) 1 GM CAP PO SCH (08:15)
[2021-08-01] MEDS: CYANOCOBALAMIN (B-12) 100 MCG TABLET PO SCH (08:16)
[2021-08-01] MEDS: DOCUSATE SODIUM 100 MG CAP PO SCH ×2 (08:16→20:07)
[2021-08-01] MEDS: CHOLECALCIFEROL 5,000 UNITS 125 MCG TAB PO SCH (08:16)
[2021-08-01] MEDS: BETHANECHOL CHL 25 MG TAB PO SCH ×3 (08:18→20:07)
[2021-08-01] MEDS: POLYETHYLENE (MIRALAX) 17 GM PACK PO SCH (08:19)
[2021-08-01] MEDS: ASCORBIC ACID 500 MG TAB PO SCH (08:19)
[2021-08-01] MEDS: MULTIVITAMIN CHEWABLE TAB PO SCH (08:22)
[2021-08-01] MEDS: DICLOFENAC SOD 1% GEL 100 GM TUBE EXT SCH ×3 (08:23→20:06)
[2021-08-01] MEDS: bisacodyL 10 MG SUPP PR SCH (15:52)
[2021-08-01] MEDS: IBUPROFEN 600 MG TAB PO PRN (17:22)
[2021-08-01] MEDS: ESZOPICLONE 1 MG TAB PO SCH (23:28)
[2021-08-02] MEDS: ENOXAPARIN INJ 30 MG/0.3 ML SYR SQ SCH (06:08)
[2021-08-02] MEDS: ACETAMINOPHEN 500 MG TAB PO SCH ×3 (06:09→13:20)
[2021-08-02] MEDS: BACLOFEN 20 MG TAB PO SCH ×3 (06:10→17:48)
--- NOTE | 2021-08-02 07:28 | Hospitalist Progress Note ---
Date of Service August 02, 2021 Assessment & Plan (1) Multiple sclerosis: Plan: Bi is a 41M with a history of recently diagnosed primary progressive MS with neurogenic bladder and muscle spasticity as well as vitamin D deficiency who presented to the ED on 07/11 due to inability of caretakers to provide needed level of care and was found to have a UTI. 1) Multiple sclerosis, primary progressive -Chronic illness with progressive deterioration over the past year now requiring 24/7 care -Neurology consulted- - initiation of Ocrevus treatment. Pt and family agreeable. Neurology coordinating plan of care, Ocrevus to be administered in [facility] as outpatient once pt accepted to SNF and discharged from inpatient unit -Note he may benefit from a stronger agent such as oral cladribine. May consider a 2nd opinion with an MS specialist such as Dr. Newberry as an outpatient. -initiated short course of IV solumedrol 1 g 3x days followed by oral taper after, started 07/18, oral medrol dosepack start -Repeat MRI 07/19 - Moderate progression of extensive white matter T2 hyperintense foci suggestive of demyelinating plaques since MRI of April 11, 2021, -Complicated disposition planning- requiring 24/7 care and mother attempting to set up care, has hearing on 07/21, addition hearing on 07/24 care was declined. awaiting SNF placement. Legal department has made contact with mother. Sleep Difficulties - resolved -in hospital was started on Hydroxyzine 10mg HS and 3mg melatonin -patient has had several days sleeping difficulty in hospital -started on 1mg Lunesta HS. Patient tolerating well Depression -consulted behavioral health liason, psychiatry, -at one point he was on depakote, patient states it was to stabilize his mood, is unsure why it was discontinued -can consider starting depakote or Buspar in outpatient -mood seems stable currently. 2) Muscle spasticity -Trial of magnesium and calcium PO given without much improvement -Patient reports relief from home essential oil balm, this is likely placebo effect but encourage use. In the same vein, continue Wahls diet -Scheduled Tylenol, ibuprofen PRN -Continue baclofen and B12 supplementation -Tizanidine PRN added per neurology recommendation -PT/OT ordered, 3) UTI -Positive UA and growth of pansensitive E Coli on UCx -recieved Keflex 500 mg TID short-course 7 days, completed 07/19 given bacteriuria in a male and complex PMH including urinary dysfunction secondary to neurogenic bladder requiring chronic wilkins catheter 4) Vitamin D deficiency -04/2021 most recent D3 level of 16 -Vitamin D supplementation increased to cholecalciferol 5000u daily, ergocalciferol 50,000u weekly Left forearm swelling -Soft generalized proximal. No erythema -likely from IV line infiltration -follow. if worse consider doppler study. Overall no change in care at this time. Diet: regular DVT ppx: Lovenox 30 mg subQ daily. Dispo: Discharge to facility pending case management evaluation. PT/OT: seeing OT twice a week, PT daily, require 24hr care (2) Acute UTI: (3) Unable to care for self: (4) Avascular necrosis of bone of left hip: (5) Muscle spasticity: (6) Demyelinating disease: (7) Neurogenic bladder: (8) Vitamin D deficiency: (9) Myelopathy: Admission and Anticipated Discharge Date Admission Date: July 14, 2021 Supervising Physician Co-Signing Physician Notes Resident Physician Supervision Note: I independently interviewed and examined the patient and verified the dejesus history and physical, reviewed labs and image studies and agree with resident Dr. Sorto findings and care plan. Subjective Patient seen at bedside, calm comfortable cooperative, states he slept/ate/voided well. He states his mother was able to get 24/7 care for him, understands he is currently awaiting placement. No complaints at this time. Review of Systems Review of Systems: Negative fever chills Negative headache dizziness Negative chest pain palpitations SOB Negative nausea vomitting diarrhea constipation Negative numbness tingling rash swelling Physical Exam Constitutional: WD/WN, vitals as above Eyes: PERRL, conjunctivae normal, anicteric sclerae ENMT: external ear and nose normal, oropharynx normal Neck: trachea midline, no thyromegaly Respiratory: normal respiratory effort, lungs clear to auscultation Cardiovascular: RRR, no murmur, no edema Chest (Breasts): Chest: normal inspection of chest Gastrointestinal (Abdomen): normal bowel sounds, soft, nontender, no hepatosplenomegaly Musculoskeletal: Extremities: + limited ROM of extremities Skin: no rashes, warm and dry Results & Data Results & Data ([facility]) Vital Signs (Past 12 Hours) Vital Signs Temp Pulse Resp BP Pulse Ox 08/01/21 21:56 36.8 C 88 16 102/61 96 Resident Activity Tracking Resident Involvement: Resident Care Provided Care Provided: Adult [facility]
[2021-08-02 07:48] LABS: Creatinine Clr Calc Pharmacy 182.5 ml/min; Est GFR (African American) > 150.0 ml/min; Est GFR (Non-African American) 134.5 ml/min
[2021-08-02] MEDS: IBUPROFEN 600 MG TAB PO PRN ×2 (08:04→21:29)
[2021-08-02] MEDS: BETHANECHOL CHL 25 MG TAB PO SCH ×3 (08:05→21:29)
[2021-08-02] MEDS: CHOLECALCIFEROL 5,000 UNITS 125 MCG TAB PO SCH (08:05)
[2021-08-02] MEDS: ASCORBIC ACID 500 MG TAB PO SCH (08:05)
[2021-08-02] MEDS: OMEGA-3 (PURIFIED FISH OIL) 1 GM CAP PO SCH (08:05)
[2021-08-02] MEDS: MULTIVITAMIN CHEWABLE TAB PO SCH (08:05)
[2021-08-02] MEDS: CYANOCOBALAMIN (B-12) 100 MCG TABLET PO SCH (08:05)
[2021-08-02] MEDS: DOCUSATE SODIUM 100 MG CAP PO SCH ×2 (08:06→21:29)
[2021-08-02] MEDS: DICLOFENAC SOD 1% GEL 100 GM TUBE EXT SCH ×3 (08:06→21:29)
[2021-08-02] MEDS: POLYETHYLENE (MIRALAX) 17 GM PACK PO SCH (08:06)
[2021-08-02] MEDS: bisacodyL 10 MG SUPP PR SCH (14:56)
[2021-08-02] MEDS: hydrOXYzine HCl 10 MG TAB PO PRN (17:48)
[2021-08-02] MEDS: MELATONIN 3 MG TAB PO PRN (21:30)
[2021-08-02] MEDS: ESZOPICLONE 1 MG TAB PO SCH (22:29)
[2021-08-03] MEDS: BACLOFEN 20 MG TAB PO SCH ×5 (00:30→23:33)
[2021-08-03] MEDS: ACETAMINOPHEN 500 MG TAB PO SCH ×3 (05:27→22:36)
[2021-08-03] MEDS: ENOXAPARIN INJ 30 MG/0.3 ML SYR SQ SCH (05:28)
[2021-08-03 06:09] LABS: Hematocrit (blood only) 39.4 % (42-52); Hemoglobin 12.9 g/dL (14.0-18.0); Mean Corpuscular Hemoglobin 29.1 pg (25-34); Mean Corpuscular Hgb Conc 32.7 g/dL (32-36); Mean Corpuscular Volume 88.7 fL (80-100); Mean Platelet Volume 8.6 fL (7.4-10.4); Platelet Count 224 K/uL (130-400); RDW Standard Deviation 45.7 fL (36.4-46.3); Red Blood Count 4.44 M/uL (4.7-6.1); White Blood Count 6.79 K/uL (4.8-10.8)
[2021-08-03 06:27] LABS: Anion Gap 5 (3-11); BUN Creatinine Ratio 26.9 (10-20); Blood Urea Nitrogen 14 mg/dl (6-23); Calcium 8.8 mg/dl (8.5-10.1); Carbon Dioxide 27 mmol/L (21-32); Chloride 103 mmol/L (98-107); Est GFR (African American) > 150.0 ml/min; Est GFR (Non-African American) 133.4 ml/min; Glucose 95 mg/dl (70-99(Fasting)); Potassium 4.2 mmol/L (3.5-5.1); Sodium 135 mmol/L (136-145)
[2021-08-03] MEDS: hydrOXYzine HCl 10 MG TAB PO PRN (07:26)
[2021-08-03] MEDS: BETHANECHOL CHL 25 MG TAB PO SCH ×3 (08:02→22:36)
[2021-08-03] MEDS: ERGOCALCIFEROL 50,000 UNITS 1250 MCG CAP PO SCH (08:02)
[2021-08-03] MEDS: CHOLECALCIFEROL 5,000 UNITS 125 MCG TAB PO SCH (08:02)
[2021-08-03] MEDS: bisacodyL 10 MG SUPP PR SCH (08:02)
[2021-08-03] MEDS: ASCORBIC ACID 500 MG TAB PO SCH (08:02)
[2021-08-03] MEDS: DOCUSATE SODIUM 100 MG CAP PO SCH ×2 (08:03→22:30)
[2021-08-03] MEDS: DICLOFENAC SOD 1% GEL 100 GM TUBE EXT SCH ×3 (08:03→22:35)
[2021-08-03] MEDS: POLYETHYLENE (MIRALAX) 17 GM PACK PO SCH (08:03)
--- NOTE | 2021-08-03 08:03 | Hospitalist Progress Note ---
Date of Service August 03, 2021 Assessment & Plan (1) Multiple sclerosis: Plan: Bi is a 41M with a history of recently diagnosed primary progressive MS with neurogenic bladder and muscle spasticity as well as vitamin D deficiency who presented to the ED on 07/11 due to inability of caretakers to provide needed level of care and was found to have a UTI. 1) Multiple sclerosis, primary progressive -Chronic illness with progressive deterioration over the past year now requiring 24/7 care -Neurology consulted- - initiation of Ocrevus treatment. Pt and family agreeable. Neurology coordinating plan of care, Ocrevus to be administered in [facility] as outpatient once pt accepted to SNF and discharged from inpatient unit -Note he may benefit from a stronger agent such as oral cladribine. May consider a 2nd opinion with an MS specialist such as Dr. Newberry as an outpatient. -initiated short course of IV solumedrol 1 g 3x days followed by oral taper after, started 07/18, oral medrol dosepack start -Repeat MRI 07/19 - Moderate progression of extensive white matter T2 hyperintense foci suggestive of demyelinating plaques since MRI of April 11, 2021, -Complicated disposition planning- requiring 24/7 care and mother attempting to set up care, has hearing on 07/21, addition hearing on 07/24 care was declined. awaiting SNF placement. Legal department has made contact with mother. Sleep Difficulties - resolved -in hospital was started on Hydroxyzine 10mg HS and 3mg melatonin -patient has had several days sleeping difficulty in hospital -started on 1mg Lunesta HS. Patient tolerating well Depression -consulted behavioral health liason, psychiatry, -at one point he was on depakote, patient states it was to stabilize his mood, is unsure why it was discontinued -can consider starting depakote or Buspar in outpatient -mood stable currently. 2) Muscle spasticity -Trial of magnesium and calcium PO given without much improvement -Patient reports relief from home essential oil balm, this is likely placebo effect but encourage use. In the same vein, continue Wahls diet -Scheduled Tylenol, ibuprofen PRN -Continue baclofen and B12 supplementation -Tizanidine PRN added per neurology recommendation -PT/OT ordered, 3) UTI -Positive UA and growth of pansensitive E Coli on UCx -recieved Keflex 500 mg TID short-course 7 days, completed 07/19 given bacteriuria in a male and complex PMH including urinary dysfunction secondary to neurogenic bladder requiring chronic wilkins catheter 4) Vitamin D deficiency -04/2021 most recent D3 level of 16 -Vitamin D supplementation increased to cholecalciferol 5000u daily, ergocalciferol 50,000u weekly Left forearm swelling -Soft generalized proximal. No erythema, improved without further intervention -unlikely to be clot given he's on lovenox and no recent IV lines, frequently uses arms throughout day -follow. if worse consider doppler study. Overall no change in care at this time. Diet: regular DVT ppx: Lovenox 30 mg subQ daily. Dispo: Discharge to facility pending case management evaluation. PT/OT: seeing OT twice a week, PT daily, require 24hr care (2) Acute UTI: (3) Unable to care for self: (4) Avascular necrosis of bone of left hip: (5) Muscle spasticity: (6) Demyelinating disease: (7) Neurogenic bladder: (8) Vitamin D deficiency: (9) Myelopathy: Admission and Anticipated Discharge Date Admission Date: July 14, 2021 Supervising Physician Co-Signing Physician Notes Resident Physician Supervision Note: I independently interviewed and examined the patient and verified the dejesus hi story and physical, reviewed labs and image studies and agree with resident Dr. Sorto findings and care plan. Subjective Patient seen at bedside calm comfortable cooperative, slept/ate/voiding well, eating carrots with almond butter. He states his left forearm had some pain yesterday with some swelling, has not experienced the pain today yet, not really aggrevated by passive or active movement of arm, mildly tender on palpation of medial elbow and forearm, patient wonders if this is a muscle spasm. Patient understands he is on blood thinners and has not had IV lines in a while, unlikely to form a clot in that area, patient aware if it turns red, more swollen, or more painful he should let his nurse know. Otherwise he has no concerns at this time. Review of Systems Review of Systems: Negative fever chills Negative headache dizziness Negative chest pain palpitations SOB Negative nausea vomitting diarrhea constipation Negative numbness tingling rash swelling Physical Exam Constitutional: WD/WN, vitals as above Eyes: PERRL, conjunctivae normal, anicteric sclerae ENMT: external ear and nose normal, oropharynx normal Neck: trachea midline, no thyromegaly Respiratory: normal respiratory effort, lungs clear to auscultation Cardiovascular: RRR, no murmur, no edema Chest (Breasts): Chest: normal inspection of chest Gastrointestinal (Abdomen): normal bowel sounds, soft, nontender, no hepatosplenomegaly Musculoskeletal: Extremities: + limited ROM of extremities mild tenderness on palpation medial forearm Skin: no rashes, warm and dry Results & Data Results & Data ([facility]) Vital Signs (Past 12 Hours) Vital Signs Temp Pulse Resp BP Pulse Ox 08/02/21 21:57 36.7 C 91 H 18 116/75 96 Resident Activity Tracking Resident Involvement: Resident Care Provided Care Provided: Adult Hospital Medicine
[2021-08-03] MEDS: CYANOCOBALAMIN (B-12) 100 MCG TABLET PO SCH (08:58)
[2021-08-03] MEDS: OMEGA-3 (PURIFIED FISH OIL) 1 GM CAP PO SCH (08:58)
[2021-08-03] MEDS: MULTIVITAMIN CHEWABLE TAB PO SCH (08:59)
[2021-08-03] MEDS: IBUPROFEN 600 MG TAB PO PRN (21:00)
[2021-08-03] MEDS: ESZOPICLONE 1 MG TAB PO SCH (22:35)
[2021-08-04] MEDS: MELATONIN 3 MG TAB PO PRN (01:28)
[2021-08-04] MEDS: tiZANidine HCL 4 MG TABLET PO PRN (01:32)
[2021-08-04] MEDS: ENOXAPARIN INJ 30 MG/0.3 ML SYR SQ SCH (06:08)
[2021-08-04] MEDS: ACETAMINOPHEN 500 MG TAB PO SCH ×3 (06:09→21:43)
[2021-08-04] MEDS: BACLOFEN 20 MG TAB PO SCH ×4 (06:10→23:50)
[2021-08-04] MEDS: OMEGA-3 (PURIFIED FISH OIL) 1 GM CAP PO SCH (08:00)
[2021-08-04] MEDS: CHOLECALCIFEROL 5,000 UNITS 125 MCG TAB PO SCH (08:00)
[2021-08-04] MEDS: BETHANECHOL CHL 25 MG TAB PO SCH ×3 (08:00→21:42)
[2021-08-04] MEDS: ASCORBIC ACID 500 MG TAB PO SCH (08:01)
[2021-08-04] MEDS: MULTIVITAMIN CHEWABLE TAB PO SCH (08:01)
[2021-08-04] MEDS: DOCUSATE SODIUM 100 MG CAP PO SCH ×2 (08:01→21:42)
[2021-08-04] MEDS: CYANOCOBALAMIN (B-12) 100 MCG TABLET PO SCH (08:01)
[2021-08-04] MEDS: DICLOFENAC SOD 1% GEL 100 GM TUBE EXT SCH ×3 (08:02→21:43)
[2021-08-04] MEDS: POLYETHYLENE (MIRALAX) 17 GM PACK PO SCH (08:02)
[2021-08-04] MEDS: bisacodyL 10 MG SUPP PR SCH ×2 (10:00→15:23)
[2021-08-04] MEDS: hydrOXYzine HCl 10 MG TAB PO PRN (10:25)
--- NOTE | 2021-08-04 12:43 | Hospitalist Progress Note ---
Date of Service August 04, 2021 Assessment & Plan (1) Multiple sclerosis: Plan: Bi is a 41M with a history of recently diagnosed primary progressive MS with neurogenic bladder and muscle spasticity as well as vitamin D deficiency who presented to the ED on 07/11 due to inability of caretakers to provide needed level of care and was found to have a UTI. 1. Multiple sclerosis, primary progressive -Chronic illness with progressive deterioration over the past year now requiring 24/7 care -Neurology consulted- - initiation of Ocrevus treatment. Pt and family agreeable. Neurology coordinating plan of care, Ocrevus to be administered in [facility] as outpatient once pt accepted to SNF and discharged from inpatient unit -Note he may benefit from a stronger agent such as oral cladribine. May consider a 2nd opinion with an MS specialist such as Dr. Newberry as an outpatient. -initiated short course of IV solumedrol 1 g 3x days followed by oral taper after, started 07/18, oral medrol dosepack start -Repeat MRI 07/19 - Moderate progression of extensive white matter T2 hyperintense foci suggestive of demyelinating plaques since MRI of April 11, 2021, -Complicated disposition planning- requiring 24/7 care and mother attempting to set up care, has hearing on 07/21, addition hearing on 07/24 care was declined. awaiting SNF placement. Legal department has made contact with mother. 2. Sleep Difficulties - resolved -in hospital was started on Hydroxyzine 10mg HS and 3mg melatonin -patient has had several days sleeping difficulty in hospital -started on 1mg Lunesta HS. Patient tolerating well 3. Depression -consulted behavioral health liason, psychiatry, -at one point he was on depakote, patient states it was to stabilize his mood, is unsure why it was discontinued -can consider starting depakote or Buspar in outpatient -mood seems stable currently. 4. Muscle spasticity -Trial of magnesium and calcium PO given without much improvement -Patient reports relief from home essential oil balm, this is likely placebo effect but encourage use. In the same vein, continue Wahls diet -Scheduled Tylenol, ibuprofen PRN -Continue baclofen and B12 supplementation -Tizanidine PRN added per neurology recommendation -PT/OT ordered, continue 5. UTI -Positive UA and growth of pansensitive E Coli on UCx -recieved Keflex 500 mg TID short-course 7 days, completed 07/19 given bacteriuria in a male and complex PMH including urinary dysfunction secondary to neurogenic bladder requiring chronic wilkins catheter 6 Vitamin D deficiency -04/2021 most recent D3 level of 16 -Vitamin D supplementation increased to cholecalciferol 5000u daily, ergocalciferol 50,000u weekly 7. Left forearm swelling -Soft generalized proximal. No erythema, improved without further intervention -unlikely to be clot given he's on lovenox and no recent IV lines, frequently uses arms throughout day -follow. if worse consider doppler study. Overall no change in care at this time. Diet: regular DVT ppx: Lovenox 30 mg subQ daily. Dispo: Discharge to facility pending case management evaluation. PT/OT: seeing OT twice a week, PT daily, require 24hr care (2) Acute UTI: (3) Unable to care for self: (4) Avascular necrosis of bone of left hip: (5) Muscle spasticity: (6) Demyelinating disease: (7) Neurogenic bladder: (8) Vitamin D deficiency: (9) Myelopathy: Admission and Anticipated Discharge Date Admission Date: July 14, 2021 Supervising Physician Co-Signing Physician Notes I personally examined the patient and verified all dejesus points of history and exam, discussed case, and agree with decision making with Dr Garcia no complaints or needs at the time i see him. still awaiting placement options. eventual goal for apartment with 24/7 caregivers, but much needs to be arranged for this to occur vitals noted nad heent nc at mmm breathing unlabored no accessory muscles good effort skin no rashes no pallor or icterus MS/progressive weakness - continue supportive care, working on placement otherwise as above Subjective Pt seen at bedside this morning. No overnight events. Pt has no complaints at this time. Still awaiting placement. Review of Systems Review of Systems: All systems reviewed & are unremarkable except as noted in HPI & below Physical Exam Constitutional: WD/WN, vitals as above Eyes: PERRL, conjunctivae normal, anicteric sclerae ENMT: external ear and nose normal, oropharynx normal Neck: trachea midline, no thyromegaly Respiratory: normal respiratory effort, lungs clear to auscultation Cardiovascular: RRR, no murmur, no edema Chest (Breasts): Chest: normal inspection of chest Gastrointestinal (Abdomen): normal bowel sounds, soft, nontender, no hepatosplenomegaly Musculoskeletal: Extremities: + limited ROM of extremities, + abnormal muscle tone and + muscle atrophy Skin: no rashes, warm and dry Psychiatric: Mood: + depressed mood Results & Data Results & Data ([facility]) Vital Signs (Past 12 Hours) Vital Signs Temp Pulse Resp BP Pulse Ox 08/04/21 07:42 36.8 C 78 16 103/61 99
--- NOTE | 2021-08-04 16:22 | Billing Data ---
Date of Service August 04, 2021 Coding Level of Care Code 50830 Subseq Hosp Care Lvl 1
[2021-08-04] MEDS: ESZOPICLONE 1 MG TAB PO SCH (21:41)
[2021-08-05] MEDS: ACETAMINOPHEN 500 MG TAB PO SCH ×3 (05:33→22:18)
[2021-08-05] MEDS: BACLOFEN 20 MG TAB PO SCH ×3 (05:33→17:54)
[2021-08-05] MEDS: ENOXAPARIN INJ 30 MG/0.3 ML SYR SQ SCH (05:34)
[2021-08-05] MEDS: DOCUSATE SODIUM 100 MG CAP PO SCH ×2 (08:32→22:20)
[2021-08-05] MEDS: tiZANidine HCL 4 MG TABLET PO PRN (08:32)
[2021-08-05] MEDS: MULTIVITAMIN CHEWABLE TAB PO SCH (08:32)
[2021-08-05] MEDS: ASCORBIC ACID 500 MG TAB PO SCH (08:32)
[2021-08-05] MEDS: OMEGA-3 (PURIFIED FISH OIL) 1 GM CAP PO SCH (08:33)
[2021-08-05] MEDS: BETHANECHOL CHL 25 MG TAB PO SCH ×3 (08:34→22:19)
[2021-08-05] MEDS: CHOLECALCIFEROL 5,000 UNITS 125 MCG TAB PO SCH (08:34)
[2021-08-05] MEDS: CYANOCOBALAMIN (B-12) 100 MCG TABLET PO SCH (08:34)
[2021-08-05] MEDS: DICLOFENAC SOD 1% GEL 100 GM TUBE EXT SCH ×3 (08:35→22:21)
[2021-08-05] MEDS: POLYETHYLENE (MIRALAX) 17 GM PACK PO SCH (08:35)
[2021-08-05] MEDS: bisacodyL 10 MG SUPP PR SCH ×2 (08:35→13:32)
[2021-08-05] MEDS: IBUPROFEN 600 MG TAB PO PRN (08:51)
[2021-08-05 11:07] LABS: Creatinine Clr Calc Pharmacy 163.3 ml/min; Est GFR (African American) 148.9 ml/min; Est GFR (Non-African American) 128.4 ml/min
--- NOTE | 2021-08-05 11:34 | Hospitalist Progress Note ---
Date of Service August 05, 2021 Assessment & Plan (1) Multiple sclerosis: Plan: Bi is a 41M with a history of recently diagnosed primary progressive MS with neurogenic bladder and muscle spasticity as well as vitamin D deficiency who presented to the ED on 07/11 due to inability of caretakers to provide needed level of care and was found to have a UTI. 1. Multiple sclerosis, primary progressive -Chronic illness with progressive deterioration over the past year now requiring 24/7 care -Neurology consulted- - initiation of Ocrevus treatment. Pt and family agreeable. Neurology coordinating plan of care, Ocrevus to be administered in [facility] as outpatient once pt accepted to SNF and discharged from inpatient unit -Note he may benefit from a stronger agent such as oral cladribine. May consider a 2nd opinion with an MS specialist such as Dr. Newberry as an outpatient. -initiated short course of IV solumedrol 1 g 3x days followed by oral taper after, started 07/18, oral medrol dosepack start -Repeat MRI 07/19 - Moderate progression of extensive white matter T2 hyperintense foci suggestive of demyelinating plaques since MRI of April 11, 2021, -Complicated disposition planning- requiring 24/7 care and mother attempting to set up care, has hearing on 07/21, addition hearing on 07/24 care was declined. awaiting SNF placement. Legal department has made contact with mother. 2. Sleep Difficulties - resolved -in hospital was started on Hydroxyzine 10mg HS and 3mg melatonin -patient has had several days sleeping difficulty in hospital -started on 1mg Lunesta HS. Patient tolerating well 3. Depression -consulted behavioral health liason, psychiatry, -at one point he was on depakote, patient states it was to stabilize his mood, is unsure why it was discontinued -can consider starting depakote or Buspar in outpatient -mood seems stable currently. 4. Muscle spasticity -Trial of magnesium and calcium PO given without much improvement -Patient reports relief from home essential oil balm, this is likely placebo effect but encourage use. In the same vein, continue Wahls diet -Scheduled Tylenol, ibuprofen PRN -Continue baclofen and B12 supplementation -Tizanidine PRN added per neurology recommendation -PT/OT ordered, continue 5. UTI -Positive UA and growth of pansensitive E Coli on UCx -recieved Keflex 500 mg TID short-course 7 days, completed 07/19 given bacteriuria in a male and complex PMH including urinary dysfunction secondary to neurogenic bladder requiring chronic wilkins catheter 6 Vitamin D deficiency -04/2021 most recent D3 level of 16 -Vitamin D supplementation increased to cholecalciferol 5000u daily, ergocalciferol 50,000u weekly 7. Left forearm swelling -Soft generalized proximal. No erythema, improved without further intervention -unlikely to be clot given he's on lovenox and no recent IV lines, frequently uses arms throughout day -follow. if worse consider doppler study. Overall no change in care at this time. Diet: regular DVT ppx: Lovenox 30 mg subQ daily. Dispo: Discharge to facility pending case management evaluation. PT/OT: seeing OT twice a week, PT daily, require 24hr care (2) Acute UTI: (3) Unable to care for self: (4) Avascular necrosis of bone of left hip: (5) Muscle spasticity: (6) Demyelinating disease: (7) Neurogenic bladder: (8) Vitamin D deficiency: (9) Myelopathy: Admission and Anticipated Discharge Date Admission Date: July 14, 2021 Supervising Physician Co-Signing Physician Notes I personally examined the patient and verified all dejesus points of history and exam, discussed case, and agree with decision making with Dr Garcia doing OK. wonders about voltaren for his elbow vitals noted nad heent nc at mmm breathing unlabored no accessory muscles good effort skin no rashes no pallor or icterus MS/progressive weakness - continue supportive care, working on placement left arm medial epicondylitis - likely from using L arm more than normal in trying to complete ADLs; voltaren, strap. otherwise as above Subjective Pt seen at bedside this morning. No overnight events. Pt has no complaints at this time. Still awaiting placement. Review of Systems Review of Systems: All systems reviewed & are unremarkable except as noted in HPI & below Physical Exam Constitutional: WD/WN, vitals as above Eyes: PERRL, conjunctivae normal, anicteric sclerae ENMT: external ear and nose normal, oropharynx normal Neck: trachea midline, no thyromegaly Respiratory: normal respiratory effort, lungs clear to auscultation Cardiovascular: RRR, no murmur, no edema Chest (Breasts): Chest: normal inspection of chest Gastrointestinal (Abdomen): normal bowel sounds, soft, nontender, no hepatosplenomegaly Musculoskeletal: Extremities: + limited ROM of extremities, + abnormal muscle tone and + muscle atrophy Skin: no rashes, warm and dry Psychiatric: Mood: + depressed mood Results & Data Results & Data ([facility]) Vital Signs (Past 12 Hours) Vital Signs Temp Pulse Resp BP Pulse Ox 08/05/21 08:29 36.9 C 81 18 107/69 94
[2021-08-05] MEDS: hydrOXYzine HCl 10 MG TAB PO PRN (15:33)
--- NOTE | 2021-08-05 16:47 | Billing Data ---
Date of Service August 05, 2021 Coding Level of Care Code 56807 Subseq Hosp Care Lvl 1
[2021-08-05] MEDS: ESZOPICLONE 1 MG TAB PO SCH (22:19)
[2021-08-06] MEDS: BACLOFEN 20 MG TAB PO SCH ×4 (01:08→17:18)
[2021-08-06] MEDS: IBUPROFEN 600 MG TAB PO PRN (04:22)
[2021-08-06] MEDS: ACETAMINOPHEN 500 MG TAB PO SCH ×3 (05:53→21:56)
[2021-08-06] MEDS: ENOXAPARIN INJ 30 MG/0.3 ML SYR SQ SCH (05:54)
[2021-08-06] MEDS: BETHANECHOL CHL 25 MG TAB PO SCH ×3 (08:53→21:57)
[2021-08-06] MEDS: MULTIVITAMIN CHEWABLE TAB PO SCH (08:54)
[2021-08-06] MEDS: DOCUSATE SODIUM 100 MG CAP PO SCH ×2 (08:54→21:56)
[2021-08-06] MEDS: tiZANidine HCL 4 MG TABLET PO PRN (08:56)
[2021-08-06] MEDS: CYANOCOBALAMIN (B-12) 100 MCG TABLET PO SCH (08:57)
[2021-08-06] MEDS: ASCORBIC ACID 500 MG TAB PO SCH (08:57)
[2021-08-06] MEDS: CHOLECALCIFEROL 5,000 UNITS 125 MCG TAB PO SCH (08:57)
[2021-08-06] MEDS: bisacodyL 10 MG SUPP PR SCH (08:58)
[2021-08-06] MEDS: POLYETHYLENE (MIRALAX) 17 GM PACK PO SCH (08:58)
[2021-08-06] MEDS: OMEGA-3 (PURIFIED FISH OIL) 1 GM CAP PO SCH (08:58)
[2021-08-06] MEDS: DICLOFENAC SOD 1% GEL 100 GM TUBE EXT SCH ×3 (08:59→21:58)
--- NOTE | 2021-08-06 11:20 | Hospitalist Progress Note ---
Date of Service August 06, 2021 Assessment & Plan (1) Multiple sclerosis: Plan: Bi is a 41M with a history of recently diagnosed primary progressive MS with neurogenic bladder and muscle spasticity as well as vitamin D deficiency who presented to the ED on 07/11 due to inability of caretakers to provide needed level of care and was found to have a UTI. 1. Multiple sclerosis, primary progressive -Chronic illness with progressive deterioration over the past year now requiring 24/7 care -Neurology consulted- - initiation of Ocrevus treatment. Pt and family agreeable. Neurology coordinating plan of care, Ocrevus to be administered in [facility] as outpatient once pt accepted to SNF and discharged from inpatient unit -Note he may benefit from a stronger agent such as oral cladribine. May consider a 2nd opinion with an MS specialist such as Dr. Newberry as an outpatient. -initiated short course of IV solumedrol 1 g 3x days followed by oral taper after, started 07/18, oral medrol dosepack start -Repeat MRI 07/19 - Moderate progression of extensive white matter T2 hyperintense foci suggestive of demyelinating plaques since MRI of April 11, 2021, -Complicated disposition planning- requiring 24/7 care and mother attempting to set up care, has hearing on 07/21, addition hearing on 07/24 care was declined. awaiting SNF placement. Legal department has made contact with mother. 2. Sleep Difficulties - resolved -in hospital was started on Hydroxyzine 10mg HS and 3mg melatonin -patient has had several days sleeping difficulty in hospital -started on 1mg Lunesta HS. Patient tolerating well 3. Depression -consulted behavioral health liason, psychiatry, -at one point he was on depakote, patient states it was to stabilize his mood, is unsure why it was discontinued -can consider starting depakote or Buspar in outpatient -mood seems stable currently. 4. Muscle spasticity -Trial of magnesium and calcium PO given without much improvement -Patient reports relief from home essential oil balm, this is likely placebo effect but encourage use. In the same vein, continue Wahls diet -Scheduled Tylenol, ibuprofen PRN -Continue baclofen and B12 supplementation -Tizanidine PRN added per neurology recommendation -PT/OT ordered, continue 5. UTI -Positive UA and growth of pansensitive E Coli on UCx -recieved Keflex 500 mg TID short-course 7 days, completed 07/19 given bacteriuria in a male and complex PMH including urinary dysfunction secondary to neurogenic bladder requiring chronic wilkins catheter 6 Vitamin D deficiency -04/2021 most recent D3 level of 16 -Vitamin D supplementation increased to cholecalciferol 5000u daily, ergocalciferol 50,000u weekly 7. Left forearm swelling -Soft generalized proximal. No erythema, improved without further intervention -unlikely to be clot given he's on lovenox and no recent IV lines, frequently uses arms throughout day -follow. if worse consider doppler study. -voltaren gel for pain Overall no change in care at this time. Diet: regular DVT ppx: Lovenox 30 mg subQ daily. Dispo: Discharge to facility pending case management evaluation. PT/OT: seeing OT twice a week, PT daily, require 24hr care (2) Acute UTI: (3) Unable to care for self: (4) Avascular necrosis of bone of left hip: (5) Muscle spasticity: (6) Demyelinating disease: (7) Neurogenic bladder: (8) Vitamin D deficiency: (9) Myelopathy: Admission and Anticipated Discharge Date Admission Date: July 14, 2021 Supervising Physician Co-Signing Physician Notes I personally examined the patient and verified all dejesus points of history and exam, discussed case, and agree with decision making with Dr Garcia doing OK. watching podcast vitals noted nad heent nc at mmm breathing unlabored no accessory muscles good effort skin no rashes no pallor or icterus MS/progressive weakness - continue supportive care, working on placement left arm medial epicondylitis - likely from using L arm more than normal in trying to complete ADLs; continue voltaren, strap. otherwise as above Subjective Pt seen at bedside this morning. No overnight events. Pt has no complaints at this time. Still awaiting placement. Physical Exam Constitutional: WD/WN, vitals as above Eyes: PERRL, conjunctivae normal, anicteric sclerae ENMT: external ear and nose normal, oropharynx normal Neck: trachea midline, no thyromegaly Respiratory: normal respiratory effort, lungs clear to auscultation Cardiovascular: RRR, no murmur, no edema Chest (Breasts): Chest: normal inspection of chest Gastrointestinal (Abdomen): normal bowel sounds, soft, nontender, no hepatosplenomegaly Musculoskeletal: Extremities: + limited ROM of extremities, + abnormal muscle tone and + muscle atrophy Skin: no rashes, warm and dry Psychiatric: Mood: + depressed mood Results & Data Results & Data ([facility]) Vital Signs (Past 12 Hours) Vital Signs Temp Pulse Resp BP Pulse Ox 08/06/21 07:58 36.2 C L 73 18 103/66 97
--- NOTE | 2021-08-06 19:42 | Billing Data ---
Date of Service August 06, 2021 Coding Level of Care Code 91245 Subseq Hosp Care Lvl 1
[2021-08-06] MEDS: ESZOPICLONE 1 MG TAB PO SCH (21:56)
[2021-08-07] MEDS: BACLOFEN 20 MG TAB PO SCH ×5 (00:24→23:48)
[2021-08-07] MEDS: ENOXAPARIN INJ 30 MG/0.3 ML SYR SQ SCH (05:43)
[2021-08-07] MEDS: ACETAMINOPHEN 500 MG TAB PO SCH ×3 (05:44→20:41)
[2021-08-07] MEDS: tiZANidine HCL 4 MG TABLET PO PRN (09:10)
[2021-08-07] MEDS: POLYETHYLENE (MIRALAX) 17 GM PACK PO SCH (09:10)
[2021-08-07] MEDS: CHOLECALCIFEROL 5,000 UNITS 125 MCG TAB PO SCH (09:11)
[2021-08-07] MEDS: OMEGA-3 (PURIFIED FISH OIL) 1 GM CAP PO SCH (09:11)
[2021-08-07] MEDS: CYANOCOBALAMIN (B-12) 100 MCG TABLET PO SCH (09:12)
[2021-08-07] MEDS: BETHANECHOL CHL 25 MG TAB PO SCH ×3 (09:12→20:41)
[2021-08-07] MEDS: DOCUSATE SODIUM 100 MG CAP PO SCH ×2 (09:12→20:41)
[2021-08-07] MEDS: MULTIVITAMIN CHEWABLE TAB PO SCH (09:13)
[2021-08-07] MEDS: ASCORBIC ACID 500 MG TAB PO SCH (09:13)
[2021-08-07] MEDS: hydrOXYzine HCl 10 MG TAB PO PRN (09:13)
[2021-08-07] MEDS: DICLOFENAC SOD 1% GEL 100 GM TUBE EXT SCH ×3 (09:14→20:41)
--- NOTE | 2021-08-07 12:59 | Hospitalist Progress Note ---
Date of Service August 07, 2021 Assessment & Plan (1) Multiple sclerosis: Plan: Bi is a 41M with a history of recently diagnosed primary progressive MS with neurogenic bladder and muscle spasticity as well as vitamin D deficiency who presented to the ED on 07/11 due to inability of caretakers to provide needed level of care and was found to have a UTI. 1. Multiple sclerosis, primary progressive -Chronic illness with progressive deterioration over the past year now requiring 24/7 care -Neurology consulted- - initiation of Ocrevus treatment. Pt and family agreeable. Neurology coordinating plan of care, Ocrevus to be administered in [facility] as outpatient once pt accepted to SNF and discharged from inpatient unit -Note he may benefit from a stronger agent such as oral cladribine. May consider a 2nd opinion with an MS specialist such as Dr. Newberry as an outpatient. -initiated short course of IV solumedrol 1 g 3x days followed by oral taper after, started 07/18, oral medrol dosepack start -Repeat MRI 07/19 - Moderate progression of extensive white matter T2 hyperintense foci suggestive of demyelinating plaques since MRI of April 11, 2021, -Complicated disposition planning- requiring 24/7 care and mother attempting to set up care, has hearing on 07/21, addition hearing on 07/24 care was declined. awaiting SNF placement. Legal department has made contact with mother. -Discussed utilization of a crevice with pharmacy today, uncertain at this time when the first dose of Ocrevus will be received by patient but is in the works to hopefully receive within the next couple of days. 2. Sleep Difficulties - resolved -in hospital was started on Hydroxyzine 10mg HS and 3mg melatonin -patient has had several days sleeping difficulty in hospital -started on 1mg Lunesta HS. Patient tolerating well 3. Depression -consulted behavioral health liason, psychiatry, -at one point he was on depakote, patient states it was to stabilize his mood, is unsure why it was discontinued -can consider starting depakote or Buspar in outpatient -mood seems stable currently. 4. Muscle spasticity -Trial of magnesium and calcium PO given without much improvement -Patient reports relief from home essential oil balm, this is likely placebo effect but encourage use. In the same vein, continue Wahls diet -Scheduled Tylenol, ibuprofen PRN -Continue baclofen and B12 supplementation -Tizanidine PRN added per neurology recommendation -PT/OT ordered, continue 5. UTI -Positive UA and growth of pansensitive E Coli on UCx -recieved Keflex 500 mg TID short-course 7 days, completed 07/19 given bacteriuria in a male and complex PMH including urinary dysfunction secondary to neurogenic bladder requiring chronic wilkins catheter 6 Vitamin D deficiency -04/2021 most recent D3 level of 16 -Vitamin D supplementation increased to cholecalciferol 5000u daily, ergocalciferol 50,000u weekly 7. Left forearm swelling -Soft generalized proximal. No erythema, improved without further intervention -unlikely to be clot given he's on lovenox and no recent IV lines, frequently uses arms throughout day -follow. if worse consider doppler study. -voltaren gel for pain Overall no change in care at this time. Diet: regular DVT ppx: Lovenox 30 mg subQ daily. Dispo: Discharge to facility pending case management evaluation. PT/OT: seeing OT twice a week, PT daily, require 24hr care (2) Acute UTI: (3) Unable to care for self: (4) Avascular necrosis of bone of left hip: (5) Muscle spasticity: (6) Demyelinating disease: (7) Neurogenic bladder: (8) Vitamin D deficiency: (9) Myelopathy: Admission and Anticipated Discharge Date Admission Date: July 14, 2021 Supervising Physician Co-Signing Physician Notes I personally examined the patient and verified all dejesus points of history and exam, discussed case, and agree with decision making with Dr Garcia doing OK. no complaints no needs vitals noted nad heent nc at mmm breathing unlabored no accessory muscles good effort skin no rashes no pallor or icterus MS/progressive weakness - continue supportive care, working on placement, ocrevus getting set up appreciate neuro input left arm medial epicondylitis - likely from using L arm more than normal in trying to complete ADLs; continue voltaren, strap. otherwise as above Subjective Pt seen at bedside this morning. No overnight events. Pt has no complaints at this time. Still awaiting placement. Through the efforts of Dr. Khan, the neurologist, patient now able to start taking Ocrevus inpatient. Currently working with pharmacy to make it possible for the patient to get this medication in his room while he is waiting for placement. Review of Systems Review of Systems: All systems reviewed & are unremarkable except as noted in HPI & below Physical Exam Constitutional: WD/WN, vitals as above Eyes: PERRL, conjunctivae normal, anicteric sclerae ENMT: external ear and nose normal, oropharynx normal Neck: trachea midline, no thyromegaly Respiratory: normal respiratory effort, lungs clear to auscultation Cardiovascular: RRR, no murmur, no edema Chest (Breasts): Chest: normal inspection of chest Gastrointestinal (Abdomen): normal bowel sounds, soft, nontender, no hepatosplenomegaly Musculoskeletal: Extremities: + limited ROM of extremities, + abnormal muscle tone and + muscle atrophy Skin: no rashes, warm and dry Psychiatric: Mood: + depressed mood Results & Data Results & Data ([facility]) Vital Signs (Past 12 Hours) Vital Signs Temp Pulse Resp BP Pulse Ox 08/07/21 07:35 36.5 C 72 14 99/61 L 97
[2021-08-07] MEDS: bisacodyL 10 MG SUPP PR SCH (14:32)
--- NOTE | 2021-08-07 14:54 | Billing Data ---
Date of Service August 07, 2021 Coding Level of Care Code 54479 Subseq Hosp Care Lvl 1
[2021-08-07] MEDS: IBUPROFEN 600 MG TAB PO PRN (17:33)
[2021-08-07] MEDS: MELATONIN 3 MG TAB PO PRN (20:45)
[2021-08-07] MEDS: ESZOPICLONE 1 MG TAB PO SCH (21:41)
[2021-08-08] MEDS: BACLOFEN 20 MG TAB PO SCH ×3 (05:39→18:01)
[2021-08-08] MEDS: ACETAMINOPHEN 500 MG TAB PO SCH ×3 (05:39→21:48)
[2021-08-08] MEDS: ENOXAPARIN INJ 30 MG/0.3 ML SYR SQ SCH (05:40)
[2021-08-08 08:04] LABS: Creatinine Clr Calc Pharmacy 166.2 ml/min; Est GFR (Non-African American) 129.4 ml/min
[2021-08-08] MEDS: POLYETHYLENE (MIRALAX) 17 GM PACK PO SCH (08:59)
[2021-08-08] MEDS: DICLOFENAC SOD 1% GEL 100 GM TUBE EXT SCH ×3 (08:59→21:50)
[2021-08-08] MEDS: BETHANECHOL CHL 25 MG TAB PO SCH ×3 (08:59→21:47)
[2021-08-08] MEDS: CHOLECALCIFEROL 5,000 UNITS 125 MCG TAB PO SCH (09:00)
[2021-08-08] MEDS: ASCORBIC ACID 500 MG TAB PO SCH (09:00)
[2021-08-08] MEDS: CYANOCOBALAMIN (B-12) 100 MCG TABLET PO SCH (09:00)
[2021-08-08] MEDS: OMEGA-3 (PURIFIED FISH OIL) 1 GM CAP PO SCH (09:00)
[2021-08-08] MEDS: tiZANidine HCL 4 MG TABLET PO PRN ×2 (09:01→21:49)
[2021-08-08] MEDS: MULTIVITAMIN CHEWABLE TAB PO SCH (09:02)
[2021-08-08] MEDS: DOCUSATE SODIUM 100 MG CAP PO SCH ×2 (09:02→21:46)
[2021-08-08] MEDS: bisacodyL 10 MG SUPP PR SCH ×2 (10:06→13:59)
[2021-08-08] MEDS ORDERED: Nursing to Pharmacy Communication SCH (10:15)
--- NOTE | 2021-08-08 11:05 | Neurology Progress Note ---
Date of Service August 08, 2021 Assessment & Plan (1) Multiple sclerosis: (2) Muscle spasticity: (3) Neurogenic bladder: Plan: This patient has a severe demyelinating disease, consistent with primary progressive multiple sclerosis, with multiple lesions in the brain and spine cord. he has a myelopathy with urinary incontinence. MRI of the brain July 19, shows progression compared to March of 2021. LP was positive for although clonal bands, increased IgG synthesis rate. 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 the spasticity is quite significant but the addition of the Solu-Medrol (IV per protocol ) has taken away his pain. in addition, He does have some mild to moderate spinal stenosis at multiple levels, but not obvious cord compression or surgical lesion. Today he is clinically about the same as before. Rituximab could be given alone for Multiple sclerosis, as 1 gram IV once every 2 weeks for 2 doses followed by 1 gram every 6-12 months. alternatively, we can use 1 dose of rituximab prior to initiating Ocrevus. The pre treatment of both medications is the same. Recommendations: 1. continue aggressive physical, occupational, and speech therapy. 2. Consider rituximab, 1 gram IV x1. Pre treat with 100 milligrams Solu- Medrol IV, Benadryl 25 milligrams IV, and Tylenol 500 milligrams p.o., all 30 minutes prior to the infusion. 3. Continue baclofen 20 mg 4 times a day ( this is the maximum oral dose). he may also get tizanidine 2 milligrams 3 times a day as needed 4. patient needs placement as he cannot be cared for well at home anymore. Overall, I spent a total of 60 minutes with this case including review of records, direct evaluation the patient bedside, and discussion of the case with the patient and nurse at bedside , Dr. Mejia from [facility], Dr. Garcia, and Dr. Dalton, including differential diagnosis and treatment options. Admission and Anticipated Discharge Date Admission Date: July 14, 2021 Subjective patient is doing about the same with his weakness, pain, and numbness. He has had no new events. I discussed, via telephone, this patient's case with Dr. Otilio Mejia, MS specialist at [facility], this morning. Dr. Mejia related that he had had similar patients in the hospital and could not get MS treatments approved due to their expense while the patient was an inpatient. Ocrevus is approximately $18,000 a dose. Oral Cladribine course would be approximately $110,000. He agreed that Ocrevus would be the appropriate medication for this patient. He also suggested that rituximab IV, 1 time in the hospital would act as a "1st Ocrevus dose". He would give 1000 milligrams IV infusion with the same pre treatment that we give for Ocrevus. Results & Data ([facility]) Vital Signs (Past 12 Hours) Vital Signs Temp Pulse Resp BP Pulse Ox 08/08/21 08:15 36.8 C 71 16 102/63 97 PG Care Time/CCT Total # of Minutes Spent Total Time Spent with Patient: Total time spent is greater than 50% in coordination of care (as documented) at patient's floor/unit and/or counseling patient: Coding Level of Care Code 40370 Subseq Hosp Care Lvl 3 Diagnoses Multiple sclerosis G35 Muscle spasticity M62.838 Neurogenic bladder N31.9 Time Spent (min) 60 Comment add modifiers as able
[2021-08-08] MEDS: hydrOXYzine HCl 10 MG TAB PO PRN (15:29)
--- NOTE | 2021-08-08 16:11 | Hospitalist Progress Note ---
Date of Service August 08, 2021 Assessment & Plan (1) Multiple sclerosis: Plan: Bi is a 41M with a history of recently diagnosed primary progressive MS with neurogenic bladder and muscle spasticity as well as vitamin D deficiency who presented to the ED on 07/11 due to inability of caretakers to provide needed level of care and was found to have a UTI. 1. Multiple sclerosis, primary progressive -Chronic illness with progressive deterioration over the past year now requiring 24/7 care -Neurology consulted- - initiation of Ocrevus treatment. Pt and family agreeable. Neurology coordinating plan of care, Ocrevus to be administered in [facility] as outpatient once pt accepted to SNF and discharged from inpatient unit -Note he may benefit from a stronger agent such as oral cladribine. May consider a 2nd opinion with an MS specialist such as Dr. Newberry as an outpatient. -initiated short course of IV solumedrol 1 g 3x days followed by oral taper after, started 07/18, oral medrol dosepack start -Repeat MRI 07/19 - Moderate progression of extensive white matter T2 hyperintense foci suggestive of demyelinating plaques since MRI of April 11, 2021, -Complicated disposition planning- requiring 24/7 care and mother attempting to set up care, has hearing on 07/21, addition hearing on 07/24 care was declined. awaiting SNF placement. Legal department has made contact with mother. -After discussion with both neurology as well as pharmacy, it is impossible to give Ocrevus while the patient is admitted to the hospital. There was some hope that the patient was going to get placed into a facility today and if patient were to, Ocrevus could be scheduled in the [facility] in the outpatient setting, however, it seems that patient still is waiting placement. While patient is in the hospital discussed with neurology and patient can get 1 dose of rituximab in-house that would act as the patient's first dose of a crevice. See neurology 's note. Since patient did not get placed today and likely will not get placed over the weekend, will consider giving rituximab tomorrow. 2. Sleep Difficulties - resolved -in hospital was started on Hydroxyzine 10mg HS and 3mg melatonin -patient has had several days sleeping difficulty in hospital -started on 1mg Lunesta HS. Patient tolerating well 3. Depression -consulted behavioral health liason, psychiatry, -at one point he was on depakote, patient states it was to stabilize his mood, is unsure why it was discontinued -can consider starting depakote or Buspar in outpatient -mood seems stable currently. 4. Muscle spasticity -Trial of magnesium and calcium PO given without much improvement -Patient reports relief from home essential oil balm, this is likely placebo effect but encourage use. In the same vein, continue Wahls diet -Scheduled Tylenol, ibuprofen PRN -Continue baclofen and B12 supplementation -Tizanidine PRN added per neurology recommendation -PT/OT ordered, continue 5. UTI -Positive UA and growth of pansensitive E Coli on UCx -recieved Keflex 500 mg TID short-course 7 days, completed 07/19 given bacteriuria in a male and complex PMH including urinary dysfunction secondary to neurogenic bladder requiring chronic wilkins catheter 6 Vitamin D deficiency -04/2021 most recent D3 level of 16 -Vitamin D supplementation increased to cholecalciferol 5000u daily, ergocalciferol 50,000u weekly 7. Left forearm swelling -Soft generalized proximal. No erythema, improved without further intervention -unlikely to be clot given he's on lovenox and no recent IV lines, frequently uses arms throughout day -follow. if worse consider doppler study. -voltaren gel for pain Diet: regular DVT ppx: Lovenox 30 mg subQ daily. Dispo: Discharge to facility pending case management evaluation. PT/OT: seeing OT twice a week, PT daily, require 24hr care (2) Acute UTI: (3) Unable to care for self: (4) Avascular necrosis of bone of left hip: (5) Muscle spasticity: (6) Demyelinating disease: (7) Neurogenic bladder: (8) Vitamin D deficiency: (9) Myelopathy: Admission and Anticipated Discharge Date Admission Date: July 14, 2021 Supervising Physician Co-Signing Physician Notes I personally examined the patient and verified all dejesus points of history and exam, discussed case, and agree with decision making with Dr Radha Boo and no complaints, d/w neurology - and then d/w pt re rituxin. he expressed good understanding and would like to proceed. vitals noted nad heent nc at mmm breathing unlabored no accessory muscles good effort skin no rashes no pallor or icterus MS/progressive weakness - continue supportive care, working on placement, ocrevus getting set up appreciate neuro input. rituxin x1 for now. left arm medial epicondylitis - likely from using L arm more than normal in trying to complete ADLs; continue voltaren gel, strap. otherwise as above Subjective Patient seen at bedside this morning. No acute events overnight. No acute complaints at this time. After long discussion with [facility] and pharmacy yesterday, it is impossible for us to administer Ocrevus while patient is admitted to the hospital. It is strictly positive the hospital that Ocrevus is given in the [facility]. Review of Systems Review of Systems: All systems reviewed & are unremarkable except as noted in HPI & below Physical Exam Constitutional: WD/WN, vitals as above Eyes: PERRL, conjunctivae normal, anicteric sclerae ENMT: external ear and nose normal, oropharynx normal Neck: trachea midline, no thyromegaly Respiratory: normal respiratory effort, lungs clear to auscultation Cardiovascular: RRR, no murmur, no edema Chest (Breasts): Chest: normal inspection of chest Gastrointestinal (Abdomen): normal bowel sounds, soft, nontender, no hepatosplenomegaly Musculoskeletal: Extremities: + limited ROM of extremities, + abnormal muscle tone and + muscle atrophy Skin: no rashes, warm and dry Psychiatric: Mood: + depressed mood Results & Data Results & Data ([facility]) Vital Signs (Past 12 Hours) Vital Signs Temp Pulse Resp BP Pulse Ox 08/08/21 08:15 36.8 C 71 16 102/63 97
[2021-08-08] MEDS: IBUPROFEN 600 MG TAB PO PRN (16:45)
--- NOTE | 2021-08-08 17:35 | Billing Data ---
Date of Service August 08, 2021 Coding Level of Care Code 05289 Subseq Hosp Care Lvl 2
[2021-08-08] MEDS: MAGNESIUM HYDROXIDE SUSP 30 ML UDC PO PRN (18:28)
[2021-08-08] MEDS: ESZOPICLONE 1 MG TAB PO SCH (21:52)
[2021-08-09] MEDS: BACLOFEN 20 MG TAB PO SCH ×5 (00:01→23:10)
[2021-08-09] MEDS: ACETAMINOPHEN 500 MG TAB PO SCH ×3 (05:22→21:00)
[2021-08-09] MEDS: ENOXAPARIN INJ 30 MG/0.3 ML SYR SQ SCH (05:23)
--- NOTE | 2021-08-09 07:37 | Hospitalist Progress Note ---
Date of Service August 09, 2021 Assessment & Plan (1) Multiple sclerosis: Plan: Bi is a 41M with a history of recently diagnosed primary progressive MS with neurogenic bladder and muscle spasticity as well as vitamin D deficiency who presented to the ED on 07/11 due to inability of caretakers to provide needed level of care and was found to have a UTI. 1. Multiple sclerosis, primary progressive -Chronic illness with progressive deterioration over the past year now requiring 24/7 care -Neurology consulted- - initiation of Ocrevus treatment. Pt and family agreeable. Neurology coordinating plan of care, Ocrevus to be administered in [facility] as outpatient once pt accepted to SNF and discharged from inpatient unit -Note he may benefit from a stronger agent such as oral cladribine. May consider a 2nd opinion with an MS specialist such as Dr. Newberry as an outpatient. -initiated short course of IV solumedrol 1 g 3x days followed by oral taper after, started 07/18, oral medrol dosepack start -Repeat MRI 07/19 - Moderate progression of extensive white matter T2 hyperintense foci suggestive of demyelinating plaques since MRI of April 11, 2021, -Complicated disposition planning- requiring 24/7 care and mother attempting to set up care, has hearing on 07/21, addition hearing on 07/24 care was declined. awaiting SNF placement. Legal department has made contact with mother. -After discussion with both neurology as well as pharmacy, it is impossible to give Ocrevus while the patient is admitted to the hospital. There was some hope that the patient was going to get placed into a facility today and if patient were to, Ocrevus could be scheduled in the [facility] in the outpatient setting, however, it seems that patient still is waiting placement. While patient is in the hospital discussed with neurology and patient can get 1 dose of rituximab in-house that would act as the patient's first dose of a crevice. See neurology 's note. Since patient did not get placed today and likely will not get placed over the weekend. After discussion with patient, elected to start rituximab tomorrow will begin pretreatment at 7:00 in the morning with the expectation of starting rituximab at 9 AM. Called pharmacy and this will be an approximately 5 to 10-hour infusion. -Treatment: rituximab, 1 gram IV x1. Pre treat with 100 milligrams Solu-Medrol IV, Benadryl 25 milligrams IV, and Tylenol 500 milligrams p.o., all 30 minutes prior to the infusion. 2. Sleep Difficulties - resolved -in hospital was started on Hydroxyzine 10mg HS and 3mg melatonin -patient has had several days sleeping difficulty in hospital -started on 1mg Lunesta HS. Patient tolerating well 3. Depression -consulted behavioral health liason, psychiatry, -at one point he was on depakote, patient states it was to stabilize his mood, is unsure why it was discontinued -can consider starting depakote or Buspar in outpatient -mood seems stable currently. 4. Muscle spasticity -Trial of magnesium and calcium PO given without much improvement -Patient reports relief from home essential oil balm, this is likely placebo effect but encourage use. In the same vein, continue Wahls diet -Scheduled Tylenol, ibuprofen PRN -Continue baclofen and B12 supplementation -Tizanidine PRN added per neurology recommendation -PT/OT ordered, continue 5. UTI, resolved -Positive UA and growth of pansensitive E Coli on UCx -recieved Keflex 500 mg TID short-course 7 days, completed 07/19 given bacteriuria in a male and complex PMH including urinary dysfunction secondary to neurogenic bladder requiring chronic wilkins catheter 6 Vitamin D deficiency -04/2021 most recent D3 level of 16 -Vitamin D supplementation increased to cholecalciferol 5000u daily, ergocalciferol 50,000u weekly 7. Left forearm swelling, resolved -Soft generalized proximal. No erythema, improved without further intervention -unlikely to be clot given he's on lovenox and no recent IV lines, frequently uses arms throughout day -follow. if worse consider doppler study. -voltaren gel for pain Diet: regular DVT ppx: Lovenox 30 mg subQ daily. Dispo: Discharge to facility pending case management evaluation. PT/OT: seeing OT twice a week, PT daily, require 24hr care (2) Acute UTI: (3) Unable to care for self: (4) Avascular necrosis of bone of left hip: (5) Muscle spasticity: (6) Demyelinating disease: (7) Neurogenic bladder: (8) Vitamin D deficiency: (9) Myelopathy: Admission and Anticipated Discharge Date Admission Date: July 14, 2021 Supervising Physician Co-Signing Physician Notes I personally examined the patient and verified all dejesus points of history and exam, discussed case, and agree with decision making with Dr Garcia doing OK and no complaints, drone software development engineer coming today - so will hold rituxin infusion until tomorrow since he will be in house either way and 1 day difference clinically insignificant in this situation vitals noted nad heent nc at mmm breathing unlabored no accessory muscles good effort skin no rashes no pallor or icterus MS/progressive weakness - continue supportive care, working on placement, ocrevus getting set up appreciate neuro input. rituxin x1 for now. to be given tomorrow left arm medial epicondylitis - likely from using L arm more than normal in trying to complete ADLs; continue voltaren gel, continue epicondylitis strap. otherwise as above Physical Exam Constitutional: WD/WN, vitals as above Eyes: PERRL, conjunctivae normal, anicteric sclerae ENMT: external ear and nose normal, oropharynx normal Neck: trachea midline, no thyromegaly Respiratory: normal respiratory effort, lungs clear to auscultation Cardiovascular: RRR, no murmur, no edema Chest (Breasts): Chest: normal inspection of chest Gastrointestinal (Abdomen): normal bowel sounds, soft, nontender, no hepatosplenomegaly Musculoskeletal: Extremities: + limited ROM of extremities, + abnormal muscle tone and + muscle atrophy Skin: no rashes, warm and dry Psychiatric: Mood: + depressed mood Results & Data Results & Data ([facility]) Vital Signs (Past 12 Hours) Vital Signs Temp Pulse Resp BP Pulse Ox 08/08/21 21:51 36.7 C 92 H 16 112/65 95
[2021-08-09 08:27] LABS: Basophils # (auto) 0.02 K/uL (0-0.2); Basophils % (auto) 0.4 %; Eosinophils # (auto) 0.17 K/uL (0-0.5); Eosinophils % (auto) 3.4 %; Hematocrit (blood only) 36.4 % (42-52); Hemoglobin 12.2 g/dL (14.0-18.0); Immature Granulocytes # (auto) 0.01 K/uL (0.00-0.02); Immature Granulocytes % (auto) 0.2 %; Lymphocytes # (auto) 1.62 K/uL (1.2-3.4); Lymphocytes % (auto) 32.1 %; Mean Corpuscular Hemoglobin 29.5 pg (25-34); Mean Corpuscular Hgb Conc 33.5 g/dL (32-36); Mean Corpuscular Volume 87.9 fL (80-100); Mean Platelet Volume 8.5 fL (7.4-10.4); Monocytes # (auto) 0.29 K/uL (0.11-0.59); Monocytes % (auto) 5.8 %; Neutrophils # (auto) 2.93 K/uL (1.4-6.5); Neutrophils % (auto) 58.1 %; Platelet Count 225 K/uL (130-400); RDW Coefficient of Variation 14.3 % (11.5-14.5); Red Blood Count 4.14 M/uL (4.7-6.1); White Blood Count 5.04 K/uL (4.8-10.8)
[2021-08-09 08:49] LABS: Albumin Globulin Ratio 1.6 (0.9-2); Albumin Level 3.7 gm/dl (3.4-5.0); BUN Creatinine Ratio 21.1 (10-20); Bilirubin,Total 0.3 mg/dl (0.2-1.0); Calcium 9.2 mg/dl (8.5-10.1); Creatinine Clr Calc Pharmacy 163.3 ml/min; Est GFR (African American) 148.9 ml/min; Est GFR (Non-African American) 128.4 ml/min; Globulin 2.3 gm/dl (2.5-4.0); Potassium 4.1 mmol/L (3.5-5.1)
[2021-08-09] MEDS: MULTIVITAMIN CHEWABLE TAB PO SCH (09:16)
[2021-08-09] MEDS: CYANOCOBALAMIN (B-12) 100 MCG TABLET PO SCH (09:17)
[2021-08-09] MEDS: CHOLECALCIFEROL 5,000 UNITS 125 MCG TAB PO SCH (09:17)
[2021-08-09] MEDS: POLYETHYLENE (MIRALAX) 17 GM PACK PO SCH (09:17)
[2021-08-09] MEDS: DOCUSATE SODIUM 100 MG CAP PO SCH ×2 (09:17→21:01)
[2021-08-09] MEDS: BETHANECHOL CHL 25 MG TAB PO SCH ×3 (09:17→21:01)
[2021-08-09] MEDS: OMEGA-3 (PURIFIED FISH OIL) 1 GM CAP PO SCH (09:17)
[2021-08-09] MEDS: ASCORBIC ACID 500 MG TAB PO SCH (09:18)
[2021-08-09] MEDS: tiZANidine HCL 4 MG TABLET PO PRN ×2 (09:31→19:57)
[2021-08-09] MEDS: IBUPROFEN 600 MG TAB PO PRN (09:33)
[2021-08-09] MEDS: DICLOFENAC SOD 1% GEL 100 GM TUBE EXT SCH ×3 (09:34→21:00)
[2021-08-09] MEDS: bisacodyL 10 MG SUPP PR SCH (10:21)
[2021-08-09] MEDS: MAGNESIUM HYDROXIDE SUSP 30 ML UDC PO PRN (12:39)
--- NOTE | 2021-08-09 13:30 | Billing Data ---
Date of Service August 09, 2021 Coding Level of Care Code 68691 Subseq Hosp Care Lvl 2
[2021-08-09] MEDS: ESZOPICLONE 1 MG TAB PO SCH (21:00)
[2021-08-10] MEDS: MELATONIN 3 MG TAB PO PRN (00:34)
[2021-08-10] MEDS: ACETAMINOPHEN 500 MG TAB PO SCH ×3 (05:51→21:55)
[2021-08-10] MEDS: ENOXAPARIN INJ 30 MG/0.3 ML SYR SQ SCH (05:52)
[2021-08-10] MEDS: BACLOFEN 20 MG TAB PO SCH ×4 (05:52→23:31)
[2021-08-10] MEDS ORDERED: ACETAMINOPHEN 500 MG TAB PO ONE (08:30)
[2021-08-10] MEDS ORDERED: methylPREDNISolone 100 MG in SYRINGE 0 ML IV SCH (08:30)
[2021-08-10] MEDS ORDERED: diphenhydrAMINE 50 MG/ML VIAL IV SCH (08:30)
[2021-08-10] MEDS ORDERED: ACETAMINOPHEN 500 MG TAB PO SCH (08:30)
[2021-08-10] MEDS ORDERED: methylPREDNISolone 100 MG in SYRINGE 0 ML IV ONE (08:30)
[2021-08-10] MEDS ORDERED: diphenhydrAMINE 50 MG/ML VIAL IV ONE (08:30)
[2021-08-10] MEDS ORDERED: RITUXIMAB IV SCH (09:00)
[2021-08-10] MEDS ORDERED: SODIUM CHLORIDE 0.9% IV SCH (09:00)
[2021-08-10] MEDS ORDERED: RITUXIMAB IV ONE (09:00)
[2021-08-10] MEDS ORDERED: SODIUM CHLORIDE 0.9% IV ONE (09:00)
--- NOTE | 2021-08-10 10:20 | Hospitalist Progress Note ---
Date of Service August 10, 2021 Assessment & Plan (1) Multiple sclerosis: Plan: Bi is a 41M with a history of recently diagnosed primary progressive MS with neurogenic bladder and muscle spasticity as well as vitamin D deficiency who presented to the ED on 07/11 due to inability of caretakers to provide needed level of care and was found to have a UTI. 1. Multiple sclerosis, primary progressive -Chronic illness with progressive deterioration over the past year now requiring 24/7 care -Neurology consulted- - initiation of Ocrevus treatment. Pt and family agreeable. Neurology coordinating plan of care, Ocrevus to be administered in [facility] as outpatient once pt accepted to SNF and discharged from inpatient unit -initiated short course of IV solumedrol 1 g 3x days followed by oral taper after, started 07/18, oral medrol dosepack started on -Repeat MRI 07/19 - Moderate progression of extensive white matter T2 hyperintense foci suggestive of demyelinating plaques since MRI of April 11, 2021, -Complicated disposition planning- requiring 24/7 care and mother attempting to set up care, has hearing on 07/21, addition hearing on 07/24 care was declined. awaiting SNF placement. Legal department has made contact with mother. -After discussion with both neurology as well as pharmacy, it is impossible to give Ocrevus while the patient is admitted to the hospital. There was some hope that the patient was going to get placed into a facility today and if patient were to, Ocrevus could be scheduled in the [facility] in the outpatient setting, however, it seems that patient still is waiting placement. While patient is in the hospital discussed with neurology and patient can get 1 dose of rituximab in-house that would act as the patient's first dose of a crevice. See neurology's note. Since patient did not get placed today and likely will not get placed over the weekend. After discussion with patient, elected to start rituximab tomorrow will begin pretreatment at 7:00 in the morning with the expectation of starting rituximab at 9 AM. Called pharmacy and this will be an approximately 5 to 10-hour infusion. -Treatment today: rituximab, 1 gram IV x1. Pre treat with 100 milligrams Solu- Medrol IV, Benadryl 25 milligrams IV, and Tylenol 500 milligrams p.o., all 30 minutes prior to the infusion. Next dose in 2 weeks per Neurology.. 2. Depression -consulted behavioral health liason, psychiatry, -can consider starting depakote or Buspar in outpatient -mood seems stable currently. 3. Muscle spasticity -Trial of magnesium and calcium PO given without much improvement -Patient reports relief from home essential oil balm, this is likely placebo effect but encourage use. In the same vein, continue Wahls diet -Scheduled Tylenol, ibuprofen PRN -Continue baclofen and B12 supplementation -Tizanidine PRN added per neurology recommendation -PT/OT ordered, continue 4. Vitamin D deficiency -04/2021 most recent D3 level of 16 -Vitamin D supplementation increased to cholecalciferol 5000u daily, ergocalciferol 50,000u weekly 5. Left Epicondylitis -Soft generalized proximal. No erythema, improved without further intervention -unlikely to be clot given he's on lovenox and no recent IV lines, frequently uses arms throughout day -voltaren gel for pain, arm band for treatment Resolved Problems: -UTI, treated with keflex -Sleep Difficulties, started on Lunesta Diet: regular DVT ppx: Lovenox 30 mg subQ daily. Dispo: Discharge to facility pending case management evaluation. PT/OT: seeing OT twice a week, PT daily, require 24hr care (2) Acute UTI: (3) Unable to care for self: (4) Avascular necrosis of bone of left hip: (5) Muscle spasticity: (6) Demyelinating disease: (7) Neurogenic bladder: (8) Vitamin D deficiency: (9) Myelopathy: Admission and Anticipated Discharge Date Admission Date: July 14, 2021 Supervising Physician Co-Signing Physician Notes I personally examined the patient and verified all dejesus points of history and exam, discussed case, and agree with decision making with Dr Radha mark running in doing well no complaints. vitals noted nad heent nc at mmm breathing unlabored no accessory muscles good effort skin no rashes no pallor or icterus MS/progressive weakness - continue supportive care, working on placement, ocrevus getting set up appreciate neuro input. jas x1 for now - premedicated, given today - thus far without any complication left arm medial epicondylitis - likely from using L arm more than normal in trying to complete ADLs; continue voltaren gel, wearing epicondylitis strap. otherwise as above Subjective Patient seen at bedside this morning. No acute events reported overnight. Patient is to start taking rituximab this morning for which the patient is excited to get some treatment while he is here. Understands the risks/benefits of utilizing the medication and the importance of pretreating with steroids, antihistamine and Tylenol. Still wishes to pursue treatment at this time. Otherwise has no complaints at this time and seems to be doing well overall. His mood does seem to be a little bit better compared to how I was seen him for the past week. No other complaints at this time. Review of Systems Review of Systems: All systems reviewed & are unremarkable except as noted in HPI & below Physical Exam Constitutional: WD/WN, vitals as above Eyes: PERRL, conjunctivae normal, anicteric sclerae ENMT: external ear and nose normal, oropharynx normal Neck: trachea midline, no thyromegaly Respiratory: normal respiratory effort, lungs clear to auscultation Cardiovascular: RRR, no murmur, no edema Chest (Breasts): Chest: normal inspection of chest Gastrointestinal (Abdomen): normal bowel sounds, soft, nontender, no hepatosplenomegaly Musculoskeletal: Extremities: + limited ROM of extremities, + abnormal muscle tone and + muscle atrophy Skin: no rashes, warm and dry Results & Data Results & Data ([facility]) Vital Signs (Past 12 Hours) Vital Signs Temp Pulse Pulse Resp BP BP Pulse Ox 08/10/21 09:58 36.8 C 106 H 18 116/63 95 08/10/21 09:25 36.7 C 89 18 113/55 L 97 08/10/21 07:23 36.9 C 76 18 109/70 97 08/09/21 22:40 36.6 C 91 H 16 106/64 95
[2021-08-10] MEDS: POLYETHYLENE (MIRALAX) 17 GM PACK PO SCH (10:38)
[2021-08-10] MEDS: CYANOCOBALAMIN (B-12) 100 MCG TABLET PO SCH (10:39)
[2021-08-10] MEDS: ASCORBIC ACID 500 MG TAB PO SCH (10:39)
[2021-08-10] MEDS: OMEGA-3 (PURIFIED FISH OIL) 1 GM CAP PO SCH (10:39)
[2021-08-10] MEDS: BETHANECHOL CHL 25 MG TAB PO SCH ×3 (10:40→21:54)
[2021-08-10] MEDS: ERGOCALCIFEROL 50,000 UNITS 1250 MCG CAP PO SCH (10:40)
[2021-08-10] MEDS: DOCUSATE SODIUM 100 MG CAP PO SCH ×2 (10:40→21:55)
[2021-08-10] MEDS: MULTIVITAMIN CHEWABLE TAB PO SCH (10:40)
[2021-08-10] MEDS: DICLOFENAC SOD 1% GEL 100 GM TUBE EXT SCH ×3 (10:40→21:55)
[2021-08-10] MEDS: CHOLECALCIFEROL 5,000 UNITS 125 MCG TAB PO SCH (10:40)
[2021-08-10] MEDS: bisacodyL 10 MG SUPP PR SCH (11:32)
--- NOTE | 2021-08-10 15:49 | Billing Data ---
Date of Service August 10, 2021 Coding Level of Care Code 99146 Subseq Hosp Care Lvl 3
[2021-08-10] MEDS: MAGNESIUM HYDROXIDE SUSP 30 ML UDC PO PRN (18:03)
[2021-08-10] MEDS: ESZOPICLONE 1 MG TAB PO SCH (22:00)
[2021-08-11] MEDS: tiZANidine HCL 4 MG TABLET PO PRN (03:37)
[2021-08-11] MEDS: hydrOXYzine HCl 10 MG TAB PO PRN (04:07)
[2021-08-11] MEDS: ACETAMINOPHEN 500 MG TAB PO SCH ×3 (05:58→22:30)
[2021-08-11] MEDS: ENOXAPARIN INJ 30 MG/0.3 ML SYR SQ SCH (07:25)
[2021-08-11] MEDS: ASCORBIC ACID 500 MG TAB PO SCH ×3 (07:25→21:31)
[2021-08-11] MEDS: BACLOFEN 20 MG TAB PO SCH ×3 (07:25→18:43)
[2021-08-11 07:27] LABS: Basophils # (auto) 0.02 K/uL (0-0.2); Basophils % (auto) 0.3 %; Eosinophils # (auto) 0.15 K/uL (0-0.5); Eosinophils % (auto) 2.4 %; Hematocrit (blood only) 37.6 % (42-52); Hemoglobin 12.3 g/dL (14.0-18.0); Immature Granulocytes # (auto) 0.01 K/uL (0.00-0.02); Immature Granulocytes % (auto) 0.2 %; Lymphocytes % (auto) 17.5 %; Mean Corpuscular Hemoglobin 29.1 pg (25-34); Mean Corpuscular Hgb Conc 32.7 g/dL (32-36); Mean Corpuscular Volume 88.9 fL (80-100); Monocytes # (auto) 0.43 K/uL (0.11-0.59); Monocytes % (auto) 6.8 %; Neutrophils # (auto) 4.58 K/uL (1.4-6.5); Neutrophils % (auto) 72.8 %; Platelet Count 221 K/uL (130-400); RDW Coefficient of Variation 14.4 % (11.5-14.5); RDW Standard Deviation 47.2 fL (36.4-46.3); Red Blood Count 4.23 M/uL (4.7-6.1); White Blood Count 6.29 K/uL (4.8-10.8)
[2021-08-11 07:50] LABS: Alanine Aminotransferase 38 U/L (7-52); Albumin Globulin Ratio 1.5 (0.9-2); Albumin Level 3.8 gm/dl (3.4-5.0); Alkaline Phosphatase 36 U/L (34-104); Anion Gap 5 (3-11); Aspartate Aminotransferase 17 U/L (13-39); BUN Creatinine Ratio 22.4 (10-20); Bilirubin,Total 0.3 mg/dl (0.2-1.0); Blood Urea Nitrogen 11 mg/dl (6-23); Calcium 9.4 mg/dl (8.5-10.1); Carbon Dioxide 28 mmol/L (21-32); Chloride 103 mmol/L (98-107); Creatinine Clr Calc Pharmacy 189.9 ml/min; Est GFR (African American) > 150.0 ml/min; Est GFR (Non-African American) 136.7 ml/min; Globulin 2.5 gm/dl (2.5-4.0); Glucose 89 mg/dl (70-99(Fasting)); Potassium 3.9 mmol/L (3.5-5.1); Sodium 136 mmol/L (136-145); Total Protein 6.3 gm/dl (6.0-8.3)
[2021-08-11] MEDS: CHOLECALCIFEROL 5,000 UNITS 125 MCG TAB PO SCH (10:44)
[2021-08-11] MEDS: DICLOFENAC SOD 1% GEL 100 GM TUBE EXT SCH ×3 (10:45→21:32)
--- NOTE | 2021-08-11 11:02 | Hospitalist Progress Note ---
Date of Service August 11, 2021 Assessment & Plan (1) Multiple sclerosis: Plan: Bi is a 41M with a history of recently diagnosed primary progressive MS with neurogenic bladder and muscle spasticity as well as vitamin D deficiency who presented to the ED on 07/11 due to inability of caretakers to provide needed level of care and was found to have a UTI. 1. Multiple sclerosis, primary progressive -Chronic illness with progressive deterioration over the past year now requiring 24/7 care -Neurology consulted- - initiation of Ocrevus treatment when able to be discharged.. Pt and family agreeable. Neurology coordinating plan of care, Ocrevus to be administered in [facility] as outpatient once pt accepted to SNF and discharged from inpatient unit -initiated short course of IV solumedrol 1 g 3x days followed by oral taper after, started 07/18, oral medrol dosepack started on -Repeat MRI 07/19 - Moderate progression of extensive white matter T2 hyperintense foci suggestive of demyelinating plaques since MRI of April 11, 2021, -Complicated disposition planning- requiring 24/7 care and mother attempting to set up care, has hearing on 07/21, addition hearing on 07/24 care was declined. awaiting SNF placement. Legal department has made contact with mother. -After discussion with both neurology as well as pharmacy, it is impossible to give Ocrevus while the patient is admitted to the hospital. There was some hope that the patient was going to get placed into a facility today and if patient were to, Ocrevus could be scheduled in the [facility] in the outpatient setting, however, it seems that patient still is waiting placement. While patient is in the hospital discussed with neurology and patient can get 1 dose of rituximab in-house that would act as the patient's first dose of a crevice. See neurology's note. Since patient did not get placed today and likely will not get placed over the weekend. After discussion with patient, elected to start rituximab tomorrow will begin pretreatment at 7:00 in the morning with the expectation of starting rituximab at 9 AM. Called pharmacy and this will be an approximately 5 to 10-hour infusion. -Treatment on 08/10/21: rituximab, 1 gram IV x1. Pre treat with 100 milligrams Solu-Medrol IV, Benadryl 25 milligrams IV, and Tylenol 500 milligrams p.o., all 30 minutes prior to the infusion. Next dose in 2 weeks per Neurology. 2. Depression -consulted behavioral health liason, psychiatry, -can consider starting depakote or Buspar in outpatient -mood seems stable currently. 3. Muscle spasticity -Trial of magnesium and calcium PO given without much improvement -Patient reports relief from home essential oil balm, this is likely placebo effect but encourage use. In the same vein, continue Wahls diet -Scheduled Tylenol, ibuprofen PRN -Continue baclofen and B12 supplementation -Tizanidine PRN added per neurology recommendation -PT/OT ordered, continue 4. Vitamin D deficiency -04/2021 most recent D3 level of 16 -Vitamin D supplementation increased to cholecalciferol 5000u daily, ergocalciferol 50,000u weekly 5. Left Epicondylitis -Soft generalized proximal. No erythema, improved without further intervention -unlikely to be clot given he's on lovenox and no recent IV lines, frequently uses arms throughout day -voltaren gel for pain, arm band for treatment Resolved Problems: -UTI, treated with keflex -Sleep Difficulties, started on Lunesta Diet: regular DVT ppx: Lovenox 30 mg subQ daily. Dispo: Discharge to facility pending case management evaluation. PT/OT: seeing OT twice a week, PT daily, require 24hr care (2) Acute UTI: (3) Unable to care for self: (4) Avascular necrosis of bone of left hip: (5) Muscle spasticity: (6) Demyelinating disease: (7) Neurogenic bladder: (8) Vitamin D deficiency: (9) Myelopathy: Admission and Anticipated Discharge Date Admission Date: July 14, 2021 Supervising Physician Co-Signing Physician Notes Attending attestation Pt seen and examined in concert with Dr. Garcia. In agreement with the documented findings as noted in the resident documentation with any exceptions or additions as noted here. Patient reports tolerating rituxamab well without complaint and with marginally improving weakness complaint working with PT well. On examination, S1/S2 nl RRR no MCG. CTAB. Abd NT/ND BS+ve Multiple sclerosis with progressive weakness - supportive care. Next dose of rituximab would be 2 wks following the first. Continue supportive services Else see resident documentation as noted. Subjective Bedside this morning. No acute events reported overnight. Patient seems to be doing well overall and seems to be in a better mood as of lately ever since starting treatment. Patient remains optimistic about treatment giving some benefit to his weakness/spasticity. Still ongoing search for care facility per case management. Patient has some concerns regarding the frequency of his holistic medications. Requesting that vitamin C be changed to 3 times a day rather than once in the morning. Otherwise no complaints at this time. Review of Systems Review of Systems: All systems reviewed & are unremarkable except as noted in HPI & below Physical Exam Constitutional: WD/WN, vitals as above Eyes: PERRL, conjunctivae normal, anicteric sclerae ENMT: external ear and nose normal, oropharynx normal Neck: trachea midline, no thyromegaly Respiratory: normal respiratory effort, lungs clear to auscultation Cardiovascular: RRR, no murmur, no edema Chest (Breasts): Chest: normal inspection of chest Gastrointestinal (Abdomen): normal bowel sounds, soft, nontender, no hepatosplenomegaly Musculoskeletal: Extremities: + limited ROM of extremities, + abnormal muscle tone and + muscle atrophy Skin: no rashes, warm and dry Psychiatric: A+Ox3, euthymic affect Results & Data Results & Data ([facility]) Vital Signs (Past 12 Hours) Vital Signs Temp Pulse Resp BP Pulse Ox 08/11/21 07:28 36.4 C L 79 16 107/67 96
[2021-08-11] MEDS: bisacodyL 10 MG SUPP PR SCH (14:29)
[2021-08-11] MEDS: ESZOPICLONE 1 MG TAB PO SCH (21:31)
[2021-08-12] MEDS: BACLOFEN 20 MG TAB PO SCH ×5 (00:06→23:18)
[2021-08-12] MEDS: tiZANidine HCL 4 MG TABLET PO PRN ×2 (01:14→09:18)
[2021-08-12] MEDS: ACETAMINOPHEN 500 MG TAB PO SCH (05:58)
[2021-08-12] MEDS: ENOXAPARIN INJ 30 MG/0.3 ML SYR SQ SCH (09:16)
[2021-08-12] MEDS: DICLOFENAC SOD 1% GEL 100 GM TUBE EXT SCH ×3 (09:17→20:10)
[2021-08-12] MEDS: ASCORBIC ACID 500 MG TAB PO SCH ×3 (09:18→20:09)
[2021-08-12] MEDS: CHOLECALCIFEROL 5,000 UNITS 125 MCG TAB PO SCH (09:19)
--- NOTE | 2021-08-12 10:10 | Hospitalist Progress Note ---
Date of Service August 12, 2021 Assessment & Plan (1) Multiple sclerosis: Plan: Bi is a 41M with a history of recently diagnosed primary progressive MS with neurogenic bladder and muscle spasticity as well as vitamin D deficiency who presented to the ED on 07/11 due to inability of caretakers to provide needed level of care and was found to have a UTI. 1. Multiple sclerosis, primary progressive -Chronic illness with progressive deterioration over the past year now requiring 24/7 care -Neurology consulted- - initiation of Ocrevus treatment when able to be discharged.. Pt and family agreeable. Neurology coordinating plan of care, Ocrevus to be administered in [facility] as outpatient once pt accepted to SNF and discharged from inpatient unit -initiated short course of IV solumedrol 1 g 3x days followed by oral taper after, started 07/18, oral medrol dosepack started on -Repeat MRI 07/19 - Moderate progression of extensive white matter T2 hyperintense foci suggestive of demyelinating plaques since MRI of April 11, 2021, -Complicated disposition planning- requiring 24/7 care and mother attempting to set up care, has hearing on 07/21, addition hearing on 07/24 care was declined. awaiting SNF placement. Legal department has made contact with mother. -After discussion with both neurology as well as pharmacy, it is impossible to give Ocrevus while the patient is admitted to the hospital. There was some hope that the patient was going to get placed into a facility today and if patient were to, Ocrevus could be scheduled in the [facility] in the outpatient setting, however, it seems that patient still is waiting placement. While patient is in the hospital discussed with neurology and patient can get 1 dose of rituximab in-house that would act as the patient's first dose of a crevice. See neurology's note. Since patient did not get placed today and likely will not get placed over the weekend. After discussion with patient, elected to start rituximab tomorrow will begin pretreatment at 7:00 in the morning with the expectation of starting rituximab at 9 AM. Called pharmacy and this will be an approximately 5 to 10-hour infusion. -Treatment on 08/10/21: rituximab, 1 gram IV x1. Pre treat with 100 milligrams Solu-Medrol IV, Benadryl 25 milligrams IV, and Tylenol 500 milligrams p.o., all 30 minutes prior to the infusion. Next dose in 2 weeks per Neurology. -Patient feeling well today and is requesting participation in physical therapy. 2. Depression, improved -consulted behavioral health liason, psychiatry, -can consider starting depakote or Buspar in outpatient -mood seems stable currently. 3. Muscle spasticity -Trial of magnesium and calcium PO given without much improvement -Patient reports relief from home essential oil balm, this is likely placebo effect but encourage use. In the same vein, continue Wahls diet -Scheduled Tylenol, ibuprofen PRN -Continue baclofen and B12 supplementation -Tizanidine PRN added per neurology recommendation -PT/OT ordered, continue 4. Vitamin D deficiency -04/2021 most recent D3 level of 16 -Vitamin D supplementation increased to cholecalciferol 5000u daily, ergocalciferol 50,000u weekly 5. Left Epicondylitis, improved -Soft generalized proximal. No erythema, improved without further intervention -unlikely to be clot given he's on lovenox and no recent IV lines, frequently uses arms throughout day -voltaren gel for pain, arm band for treatment Resolved Problems: -UTI, treated with keflex -Sleep Difficulties, started on Lunesta Diet: regular DVT ppx: Lovenox 30 mg subQ daily. Dispo: Discharge to facility pending case management evaluation. PT/OT: seeing OT twice a week, PT daily, require 24hr care (2) Acute UTI: (3) Unable to care for self: (4) Avascular necrosis of bone of left hip: (5) Muscle spasticity: (6) Demyelinating disease: (7) Neurogenic bladder: (8) Vitamin D deficiency: (9) Myelopathy: Admission and Anticipated Discharge Date Admission Date: July 14, 2021 Supervising Physician Co-Signing Physician Notes Attending attestation Pt seen and examined in concert with Dr. Garcia. In agreement with the documented findings as noted in the resident documentation with any exceptions or additions as noted here. Resting well and more enthusiastic today re: working with PT/rehab services. On examination, S1/S2 nl RRR no MCG. CTAB. Abd NT/ND BS+ve Multiple sclerosis with progressive weakness - supportive care. Next dose of rituximab would be 2 wks following the first. Continue supportive services, re- engage in house PT as patient more amenable at present Else see resident documentation as noted. Subjective Patient seen at bedside this morning. No acute overnight events reported. Patient again seems to be in a better mood this morning and states that his mother seems to be getting close to getting an apartment for him which has him in a good mood. Patient feels out for participating in physical therapy today to try and work on his muscles. Otherwise has no complaints at this time and seems to be doing well. Review of Systems Review of Systems: All systems reviewed & are unremarkable except as noted in HPI & below Physical Exam Constitutional: WD/WN, vitals as above Eyes: PERRL, conjunctivae normal, anicteric sclerae ENMT: external ear and nose normal, oropharynx normal Neck: normal visual inspection Respiratory: normal respiratory effort, lungs clear to auscultation Cardiovascular: RRR, no murmur, no edema Gastrointestinal (Abdomen): normal bowel sounds, soft, nontender, no hepatosplenomegaly Musculoskeletal: Extremities: + limited ROM of extremities, + abnormal muscle tone and + muscle atrophy Skin: no rashes, warm and dry Psychiatric: A+Ox3, euthymic affect Results & Data Results & Data ([facility]) Vital Signs (Past 12 Hours) Vital Signs Temp Pulse Pulse Resp BP BP Pulse Ox 08/12/21 07:30 36.6 C 64 20 102/66 98 08/11/21 22:50 36.5 C 81 18 114/69 95
[2021-08-12] MEDS: bisacodyL 10 MG SUPP PR SCH (12:36)
[2021-08-12] MEDS: ESZOPICLONE 1 MG TAB PO SCH (23:17)
[2021-08-13] MEDS: BACLOFEN 20 MG TAB PO SCH ×3 (06:04→18:36)
--- NOTE | 2021-08-13 07:23 | Hospitalist Progress Note ---
Date of Service August 13, 2021 Assessment & Plan (1) Multiple sclerosis: Plan: Bi is a 41M with a history of recently diagnosed primary progressive MS with neurogenic bladder and muscle spasticity as well as vitamin D deficiency who presented to the ED on 07/11 due to inability of caretakers to provide needed level of care and was found to have a UTI. 1. Multiple sclerosis, primary progressive -Chronic illness with progressive deterioration over the past year now requiring 24/7 care -Neurology consulted- - initiation of Ocrevus treatment when able to be discharged.. Pt and family agreeable. Neurology coordinating plan of care, Ocrevus to be administered in [facility] as outpatient once pt accepted to SNF and discharged from inpatient unit -initiated short course of IV solumedrol 1 g 3x days followed by oral taper after, started 07/18, oral medrol dosepack started on -Repeat MRI 07/19 - Moderate progression of extensive white matter T2 hyperintense foci suggestive of demyelinating plaques since MRI of April 11, 2021, -Complicated disposition planning- requiring 24/7 care and mother attempting to set up care, has hearing on 07/21, addition hearing on 07/24 care was declined. awaiting SNF placement. Legal department has made contact with mother. -After discussion with both neurology as well as pharmacy, it is impossible to give Ocrevus while the patient is admitted to the hospital. There was some hope that the patient was going to get placed into a facility today and if patient were to, Ocrevus could be scheduled in the [facility] in the outpatient setting, however, it seems that patient still is waiting placement. While patient is in the hospital discussed with neurology and patient can get 1 dose of rituximab in-house that would act as the patient's first dose of a crevice. See neurology's note. Since patient did not get placed today and likely will not get placed over the weekend. After discussion with patient, elected to start rituximab tomorrow will begin pretreatment at 7:00 in the morning with the expectation of starting rituximab at 9 AM. Called pharmacy and this will be an approximately 5 to 10-hour infusion. -Treatment on 08/10/21: rituximab, 1 gram IV x1. Pre treat with 100 milligrams Solu-Medrol IV, Benadryl 25 milligrams IV, and Tylenol 500 milligrams p.o., all 30 minutes prior to the infusion. Next dose in 2 weeks per Neurology. -Have patient continue to attend physical therapy. 2. Depression, improved -consulted behavioral health liason, psychiatry, -can consider starting depakote or Buspar in outpatient -mood seems stable currently. 3. Muscle spasticity -Trial of magnesium and calcium PO given without much improvement -Patient reports relief from home essential oil balm, this is likely placebo effect but encourage use. In the same vein, continue Wahls diet -Scheduled Tylenol, ibuprofen PRN -Continue baclofen and B12 supplementation -Tizanidine PRN added per neurology recommendation -PT/OT ordered, continue -We will continue to utilize Roldan catheter at this time unless patient states he would like to do the voiding trial. 4. Vitamin D deficiency -04/2021 most recent D3 level of 16 -Vitamin D supplementation increased to cholecalciferol 5000u daily, ergocalciferol 50,000u weekly 5. Left Epicondylitis, improved -Soft generalized proximal. No erythema, improved without further intervention -unlikely to be clot given he's on lovenox and no recent IV lines, frequently uses arms throughout day -voltaren gel for pain, arm band for treatment Resolved Problems: -UTI, treated with keflex -Sleep Difficulties, started on Lunesta Diet: regular DVT ppx: Lovenox 30 mg subQ daily. Dispo: Discharge to facility pending case management evaluation. PT/OT: seeing OT twice a week, PT daily, require 24hr care (2) Acute UTI: (3) Unable to care for self: (4) Avascular necrosis of bone of left hip: (5) Muscle spasticity: (6) Demyelinating disease: (7) Neurogenic bladder: (8) Vitamin D deficiency: (9) Myelopathy: Admission and Anticipated Discharge Date Admission Date: July 14, 2021 Supervising Physician Co-Signing Physician Notes Attending attestation Pt seen and examined in concert with Dr. Garcia. In agreement with the documented findings as noted in the resident documentation with any exceptions or additions as noted here. Some consipation for the last few days without recent use of miralax. On examination, S1/S2 nl RRR no MCG. CTAB. Abd NT/ND BS+ve Multiple sclerosis with progressive weakness - supportive care. Next dose of rituximab would be 2 wks following the first. Continue supportive services, re- engage in house PT as patient more amenable at present Constipation - restart miralax and monitor for response, consider colace if needed vs. stimulant Else see resident documentation as noted. Subjective Patient seen at bedside this morning. Her only concern patient has today is that he did not have a bowel movement yesterday even with a Dulcolax suppository. Patient requested MiraLAX and/or Colace. Patient did not participate in physical therapy yesterday because he did not have a bowel movement. Encourage patient to continue to try physical therapy even if he has not had a bowel movement. Mother was on the phone during rounds with us this morning and requesting that patient have a voiding trial. Patient seemed to be uncomfortable with this idea at this time. Otherwise patient seems to be doing well and has no complaints at this time. Review of Systems Review of Systems: All systems reviewed & are unremarkable except as noted in HPI & below Physical Exam Constitutional: WD/WN, vitals as above Eyes: PERRL, conjunctivae normal, anicteric sclerae ENMT: external ear and nose normal, oropharynx normal Neck: normal visual inspection Respiratory: normal respiratory effort, lungs clear to auscultation Cardiovascular: RRR, no murmur, no edema Chest (Breasts): Chest: normal inspection of chest Gastrointestinal (Abdomen): normal bowel sounds, soft, nontender, no hepatosplenomegaly Musculoskeletal: Extremities: + limited ROM of extremities, + abnormal muscle tone and + muscle atrophy Skin: no rashes, warm and dry Psychiatric: A+Ox3, euthymic affect Results & Data Results & Data ([facility]) Vital Signs (Past 12 Hours) Vital Signs Temp Pulse Resp BP Pulse Ox 08/12/21 21:30 36.5 C 79 15 117/73 95
[2021-08-13] MEDS: CHOLECALCIFEROL 5,000 UNITS 125 MCG TAB PO SCH (08:32)
[2021-08-13] MEDS: ENOXAPARIN INJ 30 MG/0.3 ML SYR SQ SCH (08:32)
[2021-08-13] MEDS: ASCORBIC ACID 500 MG TAB PO SCH ×3 (08:32→20:26)
[2021-08-13] MEDS: DICLOFENAC SOD 1% GEL 100 GM TUBE EXT SCH ×3 (08:33→20:27)
[2021-08-13] MEDS: POLYETHYLENE (MIRALAX) 17 GM PACK PO SCH (10:36)
[2021-08-13] MEDS: bisacodyL 10 MG SUPP PR SCH (14:14)
[2021-08-13] MEDS: ESZOPICLONE 1 MG TAB PO SCH (20:27)
[2021-08-14] MEDS: BACLOFEN 20 MG TAB PO SCH ×4 (00:32→17:41)
[2021-08-14] MEDS: ENOXAPARIN INJ 30 MG/0.3 ML SYR SQ SCH (08:35)
[2021-08-14] MEDS: ASCORBIC ACID 500 MG TAB PO SCH ×3 (08:35→21:42)
[2021-08-14] MEDS: CHOLECALCIFEROL 5,000 UNITS 125 MCG TAB PO SCH (08:36)
[2021-08-14] MEDS: POLYETHYLENE (MIRALAX) 17 GM PACK PO SCH (08:36)
[2021-08-14] MEDS: DICLOFENAC SOD 1% GEL 100 GM TUBE EXT SCH ×3 (08:36→21:42)
[2021-08-14] MEDS: bisacodyL 10 MG SUPP PR SCH (12:51)
--- NOTE | 2021-08-14 15:25 | Hospitalist Progress Note ---
Date of Service August 14, 2021 Assessment & Plan (1) Multiple sclerosis: Plan: Bi is a 41M with a history of recently diagnosed primary progressive MS with neurogenic bladder and muscle spasticity as well as vitamin D deficiency who presented to the ED on 07/11 due to inability of caretakers to provide needed level of care and was found to have a UTI. 1. Multiple sclerosis, primary progressive -Chronic illness with progressive deterioration over the past year now requiring 24/7 care -Neurology consulted- - initiation of Ocrevus treatment when able to be discharged.. Pt and family agreeable. Neurology coordinating plan of care, Ocrevus to be administered in [facility] as outpatient once pt accepted to SNF and discharged from inpatient unit -initiated short course of IV solumedrol 1 g 3x days followed by oral taper after, started 07/18, oral medrol dosepack started on -Repeat MRI 07/19 - Moderate progression of extensive white matter T2 hyperintense foci suggestive of demyelinating plaques since MRI of April 11, 2021, -Complicated disposition planning- requiring 24/7 care and mother attempting to set up care, has hearing on 07/21, addition hearing on 07/24 care was declined. awaiting SNF placement. Legal department has made contact with mother. -After discussion with both neurology as well as pharmacy, it is impossible to give Ocrevus while the patient is admitted to the hospital. There was some hope that the patient was going to get placed into a facility today and if patient were to, Ocrevus could be scheduled in the [facility] in the outpatient setting, however, it seems that patient still is waiting placement. While patient is in the hospital discussed with neurology and patient can get 1 dose of rituximab in-house that would act as the patient's first dose of a crevice. See neurology's note. Since patient did not get placed today and likely will not get placed over the weekend. After discussion with patient, elected to start rituximab tomorrow will begin pretreatment at 7:00 in the morning with the expectation of starting rituximab at 9 AM. Called pharmacy and this will be an approximately 5 to 10-hour infusion. -Treatment on 08/10/21: rituximab, 1 gram IV x1. Pre treat with 100 milligrams Solu-Medrol IV, Benadryl 25 milligrams IV, and Tylenol 500 milligrams p.o., all 30 minutes prior to the infusion. Next dose in 2 weeks per Neurology. -Have patient continue to attend physical therapy. 2. Depression, improved -consulted behavioral health liason, psychiatry, -can consider starting depakote or Buspar in outpatient -mood seems stable currently. 3. Muscle spasticity -Trial of magnesium and calcium PO given without much improvement -Patient reports relief from home essential oil balm, this is likely placebo effect but encourage use. In the same vein, continue Wahls diet -Scheduled Tylenol, ibuprofen PRN -Continue baclofen and B12 supplementation -Tizanidine PRN added per neurology recommendation -PT/OT ordered, continue -We will continue to utilize Roldan catheter at this time unless patient states he would like to do the voiding trial. 4. Vitamin D deficiency -04/2021 most recent D3 level of 16 -Vitamin D supplementation increased to cholecalciferol 5000u daily, ergocalciferol 50,000u weekly 5. Left Epicondylitis, improved -Soft generalized proximal. No erythema, improved without further intervention -unlikely to be clot given he's on lovenox and no recent IV lines, frequently uses arms throughout day -voltaren gel for pain, arm band for treatment Resolved Problems: -UTI, treated with keflex -Sleep Difficulties, started on Lunesta Diet: regular DVT ppx: Lovenox 30 mg subQ daily. Dispo: Discharge to facility pending case management evaluation. PT/OT: seeing OT twice a week, PT daily, require 24hr care (2) Acute UTI: (3) Unable to care for self: (4) Avascular necrosis of bone of left hip: (5) Muscle spasticity: (6) Demyelinating disease: (7) Neurogenic bladder: (8) Vitamin D deficiency: (9) Myelopathy: Admission and Anticipated Discharge Date Admission Date: July 14, 2021 Supervising Physician Co-Signing Physician Notes Attending attestation Pt seen and examined in concert with Dr. Garcia. In agreement with the documented findings as noted in the resident documentation with any exceptions or additions as noted here. Resting comfortably with improved bowel movements following addition of miralax. Was unable to work with PT yesterday 2/2 BM, but still open to doing so. On examination, S1/S2 nl RRR no MCG. CTAB. Abd NT/ND BS+ve Multiple sclerosis with progressive weakness - supportive care. Next dose of rituximab would be 2 wks following the first (3.). Continue supportive services, re-engage in house PT as patient more amenable at present Constipation - continue miralax, suppository Else see resident documentation as noted. Subjective Patient seen at bedside this morning. Complaint from yesterday was that he had not had a bowel movement in 48 hours, at that time patient was given MiraLAX in addition to his daily suppository. He reports that he did have a large bowel movement yesterday. In addition patient did participate in physical therapy for a limited amount of time as he had just gotten the suppository but did get 15 minutes of in bed of work done per physical therapy note. Otherwise no complaints at this time seems to be doing well. Review of Systems Review of Systems: All systems reviewed & are unremarkable except as noted in HPI & below Physical Exam Constitutional: WD/WN, vitals as above Eyes: PERRL, conjunctivae normal, anicteric sclerae ENMT: external ear and nose normal, oropharynx normal Neck: normal visual inspection Respiratory: normal respiratory effort, lungs clear to auscultation Cardiovascular: RRR, no murmur, no edema Gastrointestinal (Abdomen): normal bowel sounds, soft, nontender, no hepatosplenomegaly Musculoskeletal: Extremities: + limited ROM of extremities, + abnormal muscle tone and + muscle atrophy Skin: no rashes, warm and dry Psychiatric: A+Ox3, euthymic affect Results & Data Results & Data ([facility]) Vital Signs (Past 12 Hours) Vital Signs Temp Pulse Resp BP Pulse Ox 08/14/21 07:05 36.5 C 73 18 99/59 L 95
[2021-08-14] MEDS: ESZOPICLONE 1 MG TAB PO SCH (21:42)
[2021-08-15] MEDS: BACLOFEN 20 MG TAB PO SCH ×4 (00:31→18:31)
[2021-08-15] MEDS: hydrOXYzine HCl 10 MG TAB PO PRN (04:02)
[2021-08-15] MEDS: CHOLECALCIFEROL 5,000 UNITS 125 MCG TAB PO SCH (08:44)
[2021-08-15] MEDS: ASCORBIC ACID 500 MG TAB PO SCH ×3 (08:44→22:11)
[2021-08-15] MEDS: ENOXAPARIN INJ 30 MG/0.3 ML SYR SQ SCH (08:45)
[2021-08-15] MEDS: DICLOFENAC SOD 1% GEL 100 GM TUBE EXT SCH ×3 (08:45→22:11)
[2021-08-15] MEDS: POLYETHYLENE (MIRALAX) 17 GM PACK PO SCH (08:45)
--- NOTE | 2021-08-15 08:50 | Hospitalist Progress Note ---
Date of Service August 15, 2021 Assessment & Plan (1) Multiple sclerosis: Plan: Bi is a 41M with a history of recently diagnosed primary progressive MS with neurogenic bladder and muscle spasticity as well as vitamin D deficiency who presented to the ED on 07/11 due to inability of caretakers to provide needed level of care and was found to have a UTI. 1. Multiple sclerosis, primary progressive -Chronic illness with progressive deterioration over the past year now requiring 24/7 care -Neurology consulted- - initiation of Ocrevus treatment when able to be discharged.. Pt and family agreeable. Neurology coordinating plan of care, Ocrevus to be administered in [facility] as outpatient once pt accepted to SNF and discharged from inpatient unit -initiated short course of IV solumedrol 1 g 3x days followed by oral taper after, started 07/18, oral medrol dosepack started on -Repeat MRI 07/19 - Moderate progression of extensive white matter T2 hyperintense foci suggestive of demyelinating plaques since MRI of April 11, 2021, -Complicated disposition planning- requiring 24/7 care and mother attempting to set up care, has hearing on 07/21, addition hearing on 07/24 care was declined. awaiting SNF placement. Legal department has made contact with mother. -After discussion with both neurology as well as pharmacy, it is impossible to give Ocrevus while the patient is admitted to the hospital. There was some hope that the patient was going to get placed into a facility today and if patient were to, Ocrevus could be scheduled in the [facility] in the outpatient setting, however, it seems that patient still is waiting placement. While patient is in the hospital discussed with neurology and patient can get 1 dose of rituximab in-house that would act as the patient's first dose of a crevice. See neurology's note. Since patient did not get placed today and likely will not get placed over the weekend. After discussion with patient, elected to start rituximab tomorrow will begin pretreatment at 7:00 in the morning with the expectation of starting rituximab at 9 AM. Called pharmacy and this will be an approximately 5 to 10-hour infusion. -Treatment on 08/10/21: rituximab, 1 gram IV x1. Pre treat with 100 milligrams Solu-Medrol IV, Benadryl 25 milligrams IV, and Tylenol 500 milligrams p.o., all 30 minutes prior to the infusion. Next dose in 2 weeks per Neurology. -Have patient continue to attend physical therapy. 2. Depression, improved -consulted behavioral health liason, psychiatry, -can consider starting depakote or Buspar in outpatient -mood seems stable currently. 3. Muscle spasticity -Trial of magnesium and calcium PO given without much improvement -Patient reports relief from home essential oil balm, this is likely placebo effect but encourage use. In the same vein, continue Wahls diet -Scheduled Tylenol, ibuprofen PRN -Continue baclofen and B12 supplementation -Tizanidine PRN added per neurology recommendation -PT/OT ordered, continue -We will continue to utilize Roldan catheter at this time unless patient states he would like to do the voiding trial. 4. Vitamin D deficiency -04/2021 most recent D3 level of 16 -Vitamin D supplementation increased to cholecalciferol 5000u daily, ergocalciferol 50,000u weekly 5. Left Epicondylitis, improved -Soft generalized proximal. No erythema, improved without further intervention -unlikely to be clot given he's on lovenox and no recent IV lines, frequently uses arms throughout day -voltaren gel for pain, arm band for treatment Resolved Problems: -UTI, treated with keflex -Sleep Difficulties, started on Lunesta Diet: regular DVT ppx: Lovenox 30 mg subQ daily. Dispo: Discharge to facility pending case management evaluation. PT/OT: seeing OT twice a week, PT daily, require 24hr care (2) Acute UTI: (3) Unable to care for self: (4) Avascular necrosis of bone of left hip: (5) Muscle spasticity: (6) Demyelinating disease: (7) Neurogenic bladder: (8) Vitamin D deficiency: (9) Myelopathy: Admission and Anticipated Discharge Date Admission Date: July 14, 2021 Supervising Physician Co-Signing Physician Notes I saw the patient with the resident physician and confirmed dejesus portions of the history and physical examination. With impression and plan as noted in the resident documentation. Upon our visit with the patient this morning, he is resting comfortably in bed. He is actually doing pull-ups on the overhead bar. He tells us that his mother has found an apartment and this may be a discharge option for him. Exam 110/69, 74, 18, 36.7, 97% on room air Heart regular Lungs clear throughout with nonlabored respirations. Assessment and plan Multiple sclerosis with progressive weakness - Continue supportive care Next dose of rituximab will be 2 weeks following his initial on 08/12/2021 Continue physical therapy Discharge planning continues Else see resident documentation as noted. Subjective Patient seen at bedside this morning. No acute events reported overnight. Patient seems to be doing well and is optimistic about physical therapy. Patient seems to be getting a little bit more strength in his lower extremities and has been doing pull-ups using the lift bar in his room. Patient reports he has been having good bowel movements and overall feels well. No other complaints at this time. Review of Systems Review of Systems: All systems reviewed & are unremarkable except as noted in HPI & below Physical Exam Constitutional: WD/WN, vitals as above Eyes: PERRL, conjunctivae normal, anicteric sclerae ENMT: external ear and nose normal, oropharynx normal Neck: normal visual inspection Respiratory: normal respiratory effort, lungs clear to auscultation Cardiovascular: RRR, no murmur, no edema Chest (Breasts): Chest: normal inspection of chest Gastrointestinal (Abdomen): normal bowel sounds, soft, nontender, no hepatosplenomegaly Musculoskeletal: Extremities: + limited ROM of extremities, + abnormal muscle tone and + muscle atrophy Skin: no rashes, warm and dry Psychiatric: A+Ox3, euthymic affect Results & Data Results & Data ([facility]) Vital Signs (Past 12 Hours) Vital Signs Temp Pulse Resp BP Pulse Ox 08/15/21 07:19 36.7 C 74 18 110/69 97 08/14/21 21:58 36.7 C 86 16 108/66 95
[2021-08-15] MEDS: ESZOPICLONE 1 MG TAB PO SCH (22:10)
[2021-08-15] MEDS: bisacodyL 10 MG SUPP PR PRN (22:10)
[2021-08-16] MEDS: BACLOFEN 20 MG TAB PO SCH ×4 (00:19→18:19)
[2021-08-16] MEDS: DICLOFENAC SOD 1% GEL 100 GM TUBE EXT SCH ×3 (08:49→22:08)
[2021-08-16] MEDS: ENOXAPARIN INJ 30 MG/0.3 ML SYR SQ SCH (08:49)
[2021-08-16] MEDS: POLYETHYLENE (MIRALAX) 17 GM PACK PO SCH (08:49)
[2021-08-16] MEDS: CHOLECALCIFEROL 5,000 UNITS 125 MCG TAB PO SCH (08:50)
[2021-08-16] MEDS: ASCORBIC ACID 500 MG TAB PO SCH ×3 (08:50→22:08)
--- NOTE | 2021-08-16 11:31 | Hospitalist Progress Note ---
Date of Service August 16, 2021 Assessment & Plan (1) Multiple sclerosis: Plan: 41 yo M with PMH primary progressive MS, vitamin D deficiency admitted for placement given increasing care needs no longer manageable by previous caregiver. Multiple sclerosis, primary progressive -Chronic illness with progressive deterioration over the past year now requiring 24/7 care -Neurology consulted- -will coordinate Ocrevus treatment after d/c, will be administered in [facility] as outpatient once pt accepted to SNF -initiated short course of steroids earlier in hospitalization -Repeat MRI 07/19 - Moderate progression of extensive white matter T2 hy perintense foci suggestive of demyelinating plaques since MRI 03/2021 -Rituximab given 08/12, repeat in 2 weeks -Complicated disposition planning- requiring 24/7 care, mother secured an apartment but not 24/7 staffing yet. Case management searching for SNF in interim. -Continue physical therapy Muscle spasticity -Trial of magnesium and calcium PO given without much improvement -Patient reports relief from home essential oil balm, this is likely placebo effect but encourage use. In the same vein, continue Wahls diet -Scheduled Tylenol, ibuprofen PRN -Continue baclofen and B12 supplementation -Tizanidine PRN added per neurology recommendation Vitamin D deficiency -04/2021 most recent D3 level of 16 -Cholecalciferol 5000u daily, ergocalciferol 50,000u weekly Depression -Psychiatry consulted 07/24- limited clarification of history of bipolar/substance use, recommended against SSRI at this time. F/u outpatient after placement -Currently stable mood Diet: regular DVT ppx: Lovenox 30 mg subQ qAM Dispo: Discharge to SNF PT/OT: seeing OT twice a week, PT daily, requires 24hr care (2) Acute UTI: (3) Unable to care for self: (4) Avascular necrosis of bone of left hip: (5) Muscle spasticity: (6) Demyelinating disease: (7) Neurogenic bladder: (8) Vitamin D deficiency: (9) Myelopathy: Admission and Anticipated Discharge Date Admission Date: July 14, 2021 Supervising Physician Co-Signing Physician Notes I saw the patient with the resident physician and confirmed dejesus portions of the history and physical examination. I agree with impression and plan as noted in the resident documentation. Upon our visit with the patient this morning, he is sleeping but awakens upon our entry. No changes from yesterday. Exam 101/65, 86, 16, 36.5, 95% room air Heart regular Lungs clear throughout with nonlabored respirations. Assessment and plan Multiple sclerosis with progressive weakness - Continue supportive care Next dose of rituximab will be 2 weeks following his initial on 08/12/2021 Continue physical therapy Discharge planning continues Additional per resident documentation. Subjective Pt doing well overall, no acute events overnight. Denies any acute complaints, feels that his strength is improving and generally feeling better. Review of Systems Review of Systems: Per Subjective Physical Exam Constitutional: WD/WN, vitals as above Eyes: PERRL, conjunctivae normal, anicteric sclerae ENMT: external ear and nose normal, oropharynx normal Neck: normal visual inspection Respiratory: normal respiratory effort, lungs clear to auscultation Cardiovascular: RRR, no murmur, no edema Chest (Breasts): Chest: normal inspection of chest Gastrointestinal (Abdomen): normal bowel sounds, soft, nontender, no hepatosplenomegaly Musculoskeletal: Extremities: + limited ROM of extremities, + abnormal muscle tone and + muscle atrophy Pt's muscle bulk, tone and ROM is significantly improved from my previous assessment 1 month prior Skin: no rashes, warm and dry Psychiatric: A+Ox3, euthymic affect Results & Data Results & Data ([facility]) Vital Signs (Past 12 Hours) Vital Signs Temp Pulse Resp BP BP Pulse Ox 08/16/21 07:23 36.5 C 86 16 101/65 95 08/15/21 23:43 36.4 C L 86 18 117/74 95 Resident Activity Tracking Resident Involvement: Resident Care Provided Care Provided: Adult [facility] Medicine
[2021-08-16] MEDS: ESZOPICLONE 1 MG TAB PO SCH (22:09)
[2021-08-16] MEDS: bisacodyL 10 MG SUPP PR PRN (22:47)
[2021-08-17] MEDS: BACLOFEN 20 MG TAB PO SCH ×4 (00:26→17:46)
[2021-08-17] MEDS: hydrOXYzine HCl 10 MG TAB PO PRN (04:18)
--- NOTE | 2021-08-17 08:20 | Hospitalist Progress Note ---
Date of Service August 17, 2021 Assessment & Plan (1) Multiple sclerosis: Plan: 41 yo M with PMH primary progressive MS, vitamin D deficiency admitted for placement given increasing care needs no longer manageable by previous caregiver. Multiple sclerosis, primary progressive -Chronic illness with progressive deterioration over the past year now requiring 24/7 care -Neurology consulted- -will coordinate Ocrevus treatment after d/c, will be administered in [facility] as outpatient once pt accepted to SNF -initiated short course of steroids earlier in hospitalization -Repeat MRI 07/19 - Moderate progression of extensive white matter T2 hy perintense foci suggestive of demyelinating plaques since MRI 03/2021 -Rituximab given 08/12, repeat in 2 weeks -Complicated disposition planning- requiring 24/7 care, mother secured an apartment but not 24/7 staffing yet. Case management searching for SNF in interim. -Continue physical therapy Muscle spasticity -Trial of magnesium and calcium PO given without much improvement -Patient reports relief from home essential oil balm, this is likely placebo effect but encourage use. In the same vein, continue Wahls diet -Scheduled Tylenol, ibuprofen PRN -Continue baclofen and B12 supplementation -Tizanidine PRN added per neurology recommendation Vitamin D deficiency -04/2021 most recent D3 level of 16 -Cholecalciferol 5000u daily, ergocalciferol 50,000u weekly Depression -Psychiatry consulted 07/24- limited clarification of history of bipolar/substance use, recommended against SSRI at this time. F/u outpatient after placement -Currently stable mood Diet: regular DVT ppx: Lovenox 30 mg subQ qAM Dispo: Discharge to SNF PT/OT: seeing OT twice a week, PT daily, requires 24hr care (2) Acute UTI: (3) Unable to care for self: (4) Avascular necrosis of bone of left hip: (5) Muscle spasticity: (6) Demyelinating disease: (7) Neurogenic bladder: (8) Vitamin D deficiency: (9) Myelopathy: Admission and Anticipated Discharge Date Admission Date: July 14, 2021 Supervising Physician Co-Signing Physician Notes I saw the patient with the resident physician and confirmed dejesus portions of the history and physical examination. I agree with impression and plan as noted in the resident documentation. Patient without complaints today. Exam 106/68, 74, 16, 36.2, 95% room air Heart regular Lungs clear throughout with nonlabored respirations. Assessment and plan Multiple sclerosis with progressive weakness - Continue supportive care Next dose of rituximab will be 2 weeks following his initial on 08/12/2021 Continue physical therapy Discharge planning continues Additional per resident documentation. Subjective Pt doing well overall, no acute events overnight. Denies any acute complaints, feels that his strength is improving and generally feeling better. Review of Systems 2 Review of Systems: Per Subjective Physical Exam Constitutional: WD/WN, vitals as above Eyes: PERRL, conjunctivae normal, anicteric sclerae ENMT: external ear and nose normal, oropharynx normal Neck: normal visual inspection Respiratory: normal respiratory effort, lungs clear to auscultation Cardiovascular: RRR, no murmur, no edema Chest (Breasts): Chest: normal inspection of chest Gastrointestinal (Abdomen): normal bowel sounds, soft, nontender, no hepatosplenomegaly Musculoskeletal: Extremities: + limited ROM of extremities, + abnormal muscle tone and + muscle atrophy Pt's muscle bulk, tone and ROM is significantly improved from my previous assessment 1 month prior Skin: no rashes, warm and dry Psychiatric: A+Ox3, euthymic affect Results & Data Results & Data ([facility]) Vital Signs (Past 12 Hours) Vital Signs Temp Pulse Resp BP Pulse Ox 08/17/21 07:19 36.2 C L 74 16 106/68 95 08/17/21 00:52 37.0 C 77 18 106/66 95 Resident Activity Tracking Resident Involvement: Resident Care Provided Care Provided: Adult Hospital Medicine
[2021-08-17] MEDS: CHOLECALCIFEROL 5,000 UNITS 125 MCG TAB PO SCH (09:29)
[2021-08-17] MEDS: ASCORBIC ACID 500 MG TAB PO SCH ×3 (09:29→20:04)
[2021-08-17] MEDS: DICLOFENAC SOD 1% GEL 100 GM TUBE EXT SCH ×3 (09:29→20:04)
[2021-08-17] MEDS: ENOXAPARIN INJ 30 MG/0.3 ML SYR SQ SCH (09:29)
[2021-08-17] MEDS: POLYETHYLENE (MIRALAX) 17 GM PACK PO SCH (09:29)
[2021-08-17] MEDS: ACETAMINOPHEN 500 MG TAB PO PRN (21:32)
[2021-08-17] MEDS: bisacodyL 10 MG SUPP PR PRN (21:59)
[2021-08-17] MEDS: ESZOPICLONE 1 MG TAB PO SCH (21:59)
[2021-08-18] MEDS: BACLOFEN 20 MG TAB PO SCH ×5 (00:24→23:58)
--- NOTE | 2021-08-18 07:23 | Hospitalist Progress Note ---
Date of Service August 18, 2021 Assessment & Plan (1) Multiple sclerosis: Plan: 41 yo M with PMH primary progressive MS, vitamin D deficiency admitted for placement given increasing care needs no longer manageable by previous caregiver. Multiple sclerosis, primary progressive -Chronic illness with progressive deterioration over the past year now requiring 24/7 care -Neurology consulted- -will coordinate Ocrevus treatment after d/c, will be administered in [facility] as outpatient once pt accepted to SNF -initiated short course of steroids earlier in hospitalization -Repeat MRI 07/19 - Moderate progression of extensive white matter T2 hy perintense foci suggestive of demyelinating plaques since MRI 03/2021 -Rituximab given 08/12, repeat in 2 weeks -Complicated disposition planning- requiring 24/7 care, mother secured an apartment but not 24/7 staffing yet. Case management searching for SNF in interim. -Continue physical therapy Muscle spasticity -Trial of magnesium and calcium PO given without much improvement -Patient reports relief from home essential oil balm, this is likely placebo effect but encourage use. In the same vein, continue Wahls diet -Scheduled Tylenol, ibuprofen PRN -Continue baclofen and B12 supplementation -Tizanidine PRN added per neurology recommendation Vitamin D deficiency -04/2021 most recent D3 level of 16 -Cholecalciferol 5000u daily, ergocalciferol 50,000u weekly Depression -Psychiatry consulted 07/24- limited clarification of history of bipolar/substance use, recommended against SSRI at this time. F/u outpatient after placement -Currently stable mood Diet: regular DVT ppx: Lovenox 30 mg subQ qAM Dispo: Discharge to SNF PT/OT: seeing OT twice a week, PT daily, requires 24hr care (2) Acute UTI: (3) Unable to care for self: (4) Avascular necrosis of bone of left hip: (5) Muscle spasticity: (6) Demyelinating disease: (7) Neurogenic bladder: (8) Vitamin D deficiency: (9) Myelopathy: Admission and Anticipated Discharge Date Admission Date: July 14, 2021 Supervising Physician Co-Signing Physician Notes I personally examined the patient and verified all dejesus points of history and exam, discussed case, and agree with decision making with Dr Vásquez Feeling about the same. No new complaints. Still waiting on placement or an apartment. I noted that he did not have assistive handles on his utensils, nor had he spilled food all over himselfhe actually noted that he was not aware of this, but just that he had stopped using them. We wondered together if that meant he might have a little bit more fine motor control than before. Vitals noted, in general he is awake and alert pleasant no distress. HEENT normocephalic atraumatic mucous membranes moist. Breathing unlabored no accessory muscle use good effort. Skin shows no rashes no pallor or icterus. Neuro shows him to have chronic weakness, certainly given my a desire for him to have improvement there is going to be subjective examiner bias, but I do feel there may be a little bit more fine motor control in his hands than when I saw him last week. Multiple sclerosis with progressive weakness - Continue supportive care Next dose of rituximab will be 2 weeks following his initial on 08/12/2021, ocrevus as outpt Continue physical therapy Discharge planning continues Additional per resident documentation. Subjective No overnight events. Patient without complaints today, eating well and able to use regular utensils without issue. Physical Exam 2 Constitutional: WD/WN, vitals as above Eyes: PERRL, conjunctivae normal, anicteric sclerae Respiratory: normal respiratory effort, lungs clear to auscultation Cardiovascular: RRR, no murmur, no edema Chest (Breasts): normal inspection/palpation of breasts Gastrointestinal (Abdomen): normal bowel sounds, soft, nontender, no hepatosplenomegaly Results & Data Results & Data ([facility]) Vital Signs (Past 12 Hours) Vital Signs Temp Pulse Resp BP Pulse Ox 08/17/21 22:31 36.7 C 68 17 103/58 L 96 Resident Activity Tracking Resident Involvement: Resident Care Provided Care Provided: Adult Hospital Medicine
[2021-08-18] MEDS: DICLOFENAC SOD 1% GEL 100 GM TUBE EXT SCH ×3 (08:07→22:14)
[2021-08-18] MEDS: ENOXAPARIN INJ 30 MG/0.3 ML SYR SQ SCH (08:07)
[2021-08-18] MEDS: ASCORBIC ACID 500 MG TAB PO SCH ×3 (08:07→22:15)
[2021-08-18] MEDS: POLYETHYLENE (MIRALAX) 17 GM PACK PO SCH (08:08)
--- NOTE | 2021-08-18 17:40 | Billing Data ---
Date of Service August 18, 2021 Coding Level of Care Code 87009 Subseq Hosp Care Lvl 1
[2021-08-18] MEDS: ESZOPICLONE 1 MG TAB PO SCH (22:13)
[2021-08-18] MEDS: bisacodyL 10 MG SUPP PR PRN (22:19)
[2021-08-19] MEDS: BACLOFEN 20 MG TAB PO SCH ×4 (06:32→23:53)
--- NOTE | 2021-08-19 06:35 | Hospitalist Progress Note ---
Date of Service August 19, 2021 Assessment & Plan (1) Multiple sclerosis: Plan: 41 yo M with PMH primary progressive MS, vitamin D deficiency admitted for placement given increasing care needs no longer manageable by previous caregiver. Multiple sclerosis, primary progressive -Chronic illness with progressive deterioration over the past year now requiring 24/7 care -Neurology consulted- -will coordinate Ocrevus treatment after d/c, will be administered in [facility] as outpatient once pt accepted to SNF -initiated short course of steroids earlier in hospitalization -Repeat MRI 07/19 - Moderate progression of extensive white matter T2 hy perintense foci suggestive of demyelinating plaques since MRI 03/2021 -Rituximab given 08/12, repeat in 2 weeks -Complicated disposition planning- requiring 24/7 care, mother secured an apartment but not 24/7 staffing yet. Case management searching for SNF in interim. -Continue physical therapy Muscle spasticity -Trial of magnesium and calcium PO given without much improvement -Some improvement after rituximab infusion. -Patient reports relief from home essential oil balm, this is likely placebo effect but encourage use. In the same vein, continue Wahls diet -Scheduled Tylenol, ibuprofen PRN -Continue baclofen and B12 supplementation -Tizanidine PRN added per neurology recommendation Vitamin D deficiency -04/2021 most recent D3 level of 16 -Cholecalciferol 5000u daily, ergocalciferol 50,000u weekly Depression -Psychiatry consulted 07/24- limited clarification of history of bipolar/substance use, recommended against SSRI at this time. F/u outpatient after placement -Currently stable mood Diet: regular DVT ppx: Lovenox 30 mg subQ qAM Dispo: Discharge to SNF PT/OT: seeing OT twice a week, PT daily, requires 24hr care (2) Acute UTI: (3) Unable to care for self: (4) Avascular necrosis of bone of left hip: (5) Muscle spasticity: (6) Demyelinating disease: (7) Neurogenic bladder: (8) Vitamin D deficiency: (9) Myelopathy: Admission and Anticipated Discharge Date Admission Date: July 14, 2021 Supervising Physician Co-Signing Physician Notes I personally examined the patient and verified all dejesus points of history and exam, discussed case, and agree with decision making with Dr Vásquez no new complaints or problems Vitals noted, in general he is awake and alert pleasant no distress. HEENT normocephalic atraumatic mucous membranes moist. Breathing unlabored no accessory muscle use good effort. Skin shows no rashes no pallor or icterus. no new changes on neuro exam Multiple sclerosis with progressive weakness - Continue supportive care Next dose of rituximab will be 2 weeks following his initial on 08/12/2021, ocrevus as outpt Continue physical therapy Discharge planning continues - apartment w [address]/ exterminator goal, but while this is not set up, anticipate SNF as short term goal otherwise as above Subjective No overnight events. Patient without complaints today, about to eat breakfast when I went in to his room. He said he noticed a less spasms since the rituximab treatment. Physical Exam Constitutional: WD/WN, vitals as above Eyes: PERRL, conjunctivae normal, anicteric sclerae Respiratory: normal respiratory effort, lungs clear to auscultation Cardiovascular: RRR, no murmur, no edema Chest (Breasts): normal inspection/palpation of breasts Gastrointestinal (Abdomen): normal bowel sounds, soft, nontender, no hepatosplenomegaly Results & Data Results & Data ([facility]) Vital Signs (Past 12 Hours) Vital Signs Temp Pulse Resp BP Pulse Ox 08/19/21 00:15 36.5 C 68 16 114/72 96 Resident Activity Tracking Resident Involvement: Resident Care Provided Care Provided: Adult Hospital Medicine
[2021-08-19] MEDS: DICLOFENAC SOD 1% GEL 100 GM TUBE EXT SCH ×3 (08:21→21:22)
[2021-08-19] MEDS: ENOXAPARIN INJ 30 MG/0.3 ML SYR SQ SCH (08:21)
[2021-08-19] MEDS: POLYETHYLENE (MIRALAX) 17 GM PACK PO SCH (08:21)
[2021-08-19] MEDS: ASCORBIC ACID 500 MG TAB PO SCH ×3 (08:21→21:21)
--- NOTE | 2021-08-19 17:01 | Billing Data ---
Date of Service August 19, 2021 Coding Level of Care Code 22148 Subseq Hosp Care Lvl 1
[2021-08-19] MEDS: ACETAMINOPHEN 500 MG TAB PO PRN (17:49)
[2021-08-19] MEDS: ESZOPICLONE 1 MG TAB PO SCH (21:20)
[2021-08-19] MEDS: bisacodyL 10 MG SUPP PR PRN (21:25)
[2021-08-20] MEDS: BACLOFEN 20 MG TAB PO SCH ×4 (05:38→23:47)
--- NOTE | 2021-08-20 06:40 | Hospitalist Progress Note ---
Date of Service August 20, 2021 Assessment & Plan (1) Multiple sclerosis: Plan: 41 yo M with PMH primary progressive MS, vitamin D deficiency admitted for placement given increasing care needs no longer manageable by previous caregiver. Multiple sclerosis, primary progressive -Chronic illness with progressive deterioration over the past year now requiring 24/7 care -Neurology consulted- -will coordinate Ocrevus treatment after d/c, will be administered in [facility] as outpatient once pt accepted to SNF -initiated short course of steroids earlier in hospitalization -Repeat MRI 07/19 - Moderate progression of extensive white matter T2 hy perintense foci suggestive of demyelinating plaques since MRI 03/2021 -Rituximab given 08/12, repeat in 2 weeks -Complicated disposition planning- requiring 24/7 care, mother secured an apartment but not 24/7 staffing yet. Case management searching for SNF in interim. -Continue physical therapy Muscle spasticity -Trial of magnesium and calcium PO given without much improvement -Some improvement after rituximab infusion. -Patient reports relief from home essential oil balm, this is likely placebo effect but encourage use. In the same vein, continue Wahls diet -Scheduled Tylenol, ibuprofen PRN -Continue baclofen and B12 supplementation -Tizanidine PRN added per neurology recommendation Vitamin D deficiency -04/2021 most recent D3 level of 16 -Cholecalciferol 5000u daily, ergocalciferol 50,000u weekly Depression -Psychiatry consulted 07/24- limited clarification of history of bipolar/substance use, recommended against SSRI at this time. F/u outpatient after placement -Currently stable mood Diet: regular DVT ppx: Lovenox 30 mg subQ qAM Dispo: Discharge to SNF PT/OT: seeing OT twice a week, PT daily, requires 24hr care (2) Acute UTI: (3) Unable to care for self: (4) Avascular necrosis of bone of left hip: (5) Muscle spasticity: (6) Demyelinating disease: (7) Neurogenic bladder: (8) Vitamin D deficiency: (9) Myelopathy: Admission and Anticipated Discharge Date Admission Date: July 14, 2021 Supervising Physician Co-Signing Physician Notes I personally examined the patient and verified all dejesus points of history and exam, discussed case, and agree with decision making with Dr Vásquez no new issues, no needs Vitals noted, in general he is awake and alert pleasant no distress. HEENT normocephalic atraumatic mucous membranes moist. Breathing unlabored no accessory muscle use good effort. Skin shows no rashes no pallor or icterus. no new changes on neuro exam Multiple sclerosis with progressive weakness - Continue supportive care Next dose of rituximab will be 2 weeks following his initial on 08/10/2021 (08/24/21), ocrevus as outpt Continue physical therapy Discharge planning continues - apartment w 14/12 alf goal, but while this is not set up, anticipate SNF as short term goal otherwise as above Subjective No overnight events. Patient feeling well today and without complaint. Physical Exam Constitutional: WD/WN, vitals as above Eyes: PERRL, conjunctivae normal, anicteric sclerae Respiratory: normal respiratory effort, lungs clear to auscultation Cardiovascular: RRR, no murmur, no edema Chest (Breasts): normal inspection/palpation of breasts Gastrointestinal (Abdomen): normal bowel sounds, soft, nontender, no hepatosplenomegaly Results & Data [facility] ([facility]) Vital Signs (Past 12 Hours) Vital Signs Temp Pulse Resp BP Pulse Ox 08/19/21 21:23 36.6 C 68 16 101/63 96
[2021-08-20] MEDS: DICLOFENAC SOD 1% GEL 100 GM TUBE EXT SCH ×3 (08:44→22:20)
[2021-08-20] MEDS: ENOXAPARIN INJ 30 MG/0.3 ML SYR SQ SCH (08:44)
[2021-08-20] MEDS: ASCORBIC ACID 500 MG TAB PO SCH ×3 (08:44→22:20)
[2021-08-20] MEDS: POLYETHYLENE (MIRALAX) 17 GM PACK PO SCH (08:44)
[2021-08-20] MEDS: ACETAMINOPHEN 500 MG TAB PO PRN ×2 (08:49→18:13)
--- NOTE | 2021-08-20 15:24 | Billing Data ---
Date of Service August 20, 2021 Coding Level of Care Code 97853 Subseq Hosp Care Lvl 1
--- NOTE | 2021-08-20 15:25 | Billing Data ---
Date of Service August 20, 2021 Coding Level of Care Code 44796 Subseq Hosp Care Lvl 1
[2021-08-20] MEDS: ESZOPICLONE 1 MG TAB PO SCH (22:20)
[2021-08-20] MEDS: bisacodyL 10 MG SUPP PR PRN (22:21)
[2021-08-20] MEDS: hydrOXYzine HCl 10 MG TAB PO PRN (22:22)
[2021-08-21] MEDS: BACLOFEN 20 MG TAB PO SCH ×2 (05:36→12:03)
--- NOTE | 2021-08-21 07:45 | Hospitalist Progress Note ---
Date of Service August 21, 2021 Assessment & Plan (1) Multiple sclerosis: Plan: 41 yo M with PMH primary progressive MS, vitamin D deficiency admitted for placement given increasing care needs no longer manageable by previous caregiver. Multiple sclerosis, primary progressive -Chronic illness with progressive deterioration over the past year now requiring 24/7 care -Neurology consulted- -will coordinate Ocrevus treatment after d/c, will be administered in [facility] as outpatient once pt accepted to SNF -initiated short course of steroids earlier in hospitalization -Repeat MRI 07/19 - Moderate progression of extensive white matter T2 hy perintense foci suggestive of demyelinating plaques since MRI 03/2021 -Rituximab given 08/12, repeat in 2 weeks -Complicated disposition planning- requiring 24/7 care, mother secured an apartment but not 24/7 staffing yet. Case management searching for SNF in interim. -Continue physical therapy Muscle spasticity -Trial of magnesium and calcium PO given without much improvement -Some improvement after rituximab infusion. -Patient reports relief from home essential oil balm, this is likely placebo effect but encourage use. In the same vein, continue Wahls diet -Scheduled Tylenol, ibuprofen PRN -Continue baclofen and B12 supplementation -Tizanidine PRN added per neurology recommendation Vitamin D deficiency -04/2021 most recent D3 level of 16 -Cholecalciferol 5000u daily, ergocalciferol 50,000u weekly Depression -Psychiatry consulted 07/24- limited clarification of history of bipolar/substance use, recommended against SSRI at this time. F/u outpatient after placement -Currently stable mood Diet: regular DVT ppx: Lovenox 30 mg subQ qAM Dispo: Discharge to SNF PT/OT: seeing OT twice a week, PT daily, requires 24hr care (2) Acute UTI: (3) Unable to care for self: (4) Avascular necrosis of bone of left hip: (5) Muscle spasticity: (6) Demyelinating disease: (7) Neurogenic bladder: (8) Vitamin D deficiency: (9) Myelopathy: Admission and Anticipated Discharge Date Admission Date: July 14, 2021 Subjective No overnight events. Physical Exam Constitutional: WD/WN, vitals as above Eyes: PERRL, conjunctivae normal, anicteric sclerae Respiratory: normal respiratory effort, lungs clear to auscultation Cardiovascular: RRR, no murmur, no edema Chest (Breasts): normal inspection/palpation of breasts Gastrointestinal (Abdomen): normal bowel sounds, soft, nontender, no hepatosplenomegaly Results & Data Results & Data ([facility]) Vital Signs (Past 12 Hours) Vital Signs Temp Pulse Resp BP Pulse Ox 08/20/21 22:11 36.6 C 81 16 116/73 96 Resident Activity Tracking Resident Involvement: Resident Care Provided Care Provided: Adult Hospital Medicine
[2021-08-21] MEDS: ENOXAPARIN INJ 30 MG/0.3 ML SYR SQ SCH (08:55)
[2021-08-21] MEDS: ASCORBIC ACID 500 MG TAB PO SCH (08:55)
[2021-08-21] MEDS: POLYETHYLENE (MIRALAX) 17 GM PACK PO SCH (08:55)
[2021-08-21] MEDS: DICLOFENAC SOD 1% GEL 100 GM TUBE EXT SCH (08:56)
--- NOTE | 2021-08-21 12:33 | Discharge Summary ---
Date of Service August 21, 2021 Admission HPI Per Admitting Provider The patient is a 41-year-old male with a past medical history including multiple sclerosis, muscle spasticity, avascular necrosis of left hip, neurogenic bladder, vitamin D deficiency, myelopathy, urine tract infection, inability to take care of self. The patient reportedly had a caregiver, who told the family that they were no longer able to take care of the patient, and family has brought the patient to the emergency department, due to his significant needs and their inability to meet those needs. Admission Exam Per Admitting Provider The patient is awake, alert and oriented 3, well developed and well nourished, normocephalic and atraumatic, lying in bed and in no acute distress. HEENT--PERRL, EOMI, mucous membranes and oropharynx dry. Neck--supple. No JVD. No bruits. Thyroid normal, trachea midline, no adenopathy. Heart--normal S1 and S2. No murmurs, rubs or gallops. Lungs--clear bilaterally, no respiratory distress, no accessory muscle use. Abdomen--normal bowel sounds and soft. Nontender. Extremities--no cyanosis or clubbing. No edema. Dermatologic--normal skin turgor, normal color, no abnormal lymph nodes, no rash. Neurologic--cranial nerves II through XII grossly intact. Rheumatologic--patient presently with a severe muscle spasm of left leg, limiting examination Psychiatric--normal affect. Principal Diagnosis UTI, Multiple Sclerosis Discharge Exam Constitutional WD/WN, vitals as above Eyes PERRL, conjunctivae normal, anicteric sclerae Respiratory normal respiratory effort, lungs clear to auscultation Cardiovascular RRR, no murmur, no edema Chest (Breasts) normal inspection/palpation of breasts Gastrointestinal (Abdomen) normal bowel sounds, soft, nontender, no hepatosplenomegaly Discharge Data Allergies Allergy/AdvReac Type Severity Reaction Status Date / Time codeine Allergy Unknown Verified 07/12/21 00:33 gluten AdvReac Verified 07/12/21 14:58 Consultations 07/11/21 22:03 ED Decision to Admit Stat 07/16/21 08:06 Consult Neurology Routine 07/23/21 20:09 Consult Psychiatry Routine 07/23/21 20:16 Consult Behavioral Health Liaison Routine 07/24/21 09:44 Consult Behavioral Health Liaison Routine Ordered Studies 07/19/21 11:37 MR brain MS wo/w con Routine IMPRESSION: 1. Moderate progression of extensive white matter T2 hyperintense foci s uggestive of demyelinating plaques since MRI of April 11, 2021, as described above. Suboptimal evaluation for active demyelination on this exam given motion artifact but no definite plaque enhancement. These findings are consistent with multiple sclerosis. 2. No evidence for acute infarct. No intracranial mass. Hospital Course (1) Multiple sclerosis: 41 yo M with PMH primary progressive MS, vitamin D deficiency admitted for placement given increasing care needs no longer manageable by previous caregiver. Multiple sclerosis, primary progressive -Chronic illness with progressive deterioration over the past year now requiring 24/7 care -Neurology consulted- -will coordinate Ocrevus treatment after d/c, will be administered in [facility] as outpatient once pt accepted to SNF -initiated short course of steroids earlier in hospitalization -Repeat MRI 07/19 - Moderate progression of extensive white matter T2 hyperintense foci suggestive of demyelinating plaques since MRI 03/2021 -Rituximab given 08/10, repeat in 2 weeks then 6-12 months. -Complicated disposition planning- requiring 24/7 care, mother secured an apartment but not 24/7 staffing yet. Patient transferred to SNF at [facility]. -Continue physical therapy at SNF facility. Muscle spasticity -Trial of magnesium and calcium PO given without much improvement -Some improvement after rituximab infusion. -Patient reports relief from home essential oil balm, this is likely placebo effect but encourage use. In the same vein, continue Wahls diet -Continued baclofen and B12 supplementation -Tizanidine PRN added per neurology recommendation Vitamin D deficiency -04/2021 most recent D3 level of 16 -Cholecalciferol 5000u daily, ergocalciferol 50,000u weekly, last received 08/16/21 Depression -Psychiatry consulted 07/24- limited clarification of history of bipolar/substance use, recommended against SSRI at this time. F/u outpatient after placement -Stable mood during stay. (2) Acute UTI: (3) Unable to care for self: (4) Avascular necrosis of bone of left hip: (5) Muscle spasticity: (6) Demyelinating disease: (7) Neurogenic bladder: (8) Vitamin D deficiency: (9) Myelopathy: Total Time Total Time Spent Total Time Spent (In Minutes): Please see attending attestation. Discharge Plan Discharge Items Patient Disposition: Transfer Care Home Fac Reason For Visit: PROGRESSIVE DEBILITATION, MULTIPLE SCLEROSIS Discharge Diagnosis: Multiple Sclerosis Activity: Per Instructions section Non-emergency contact: Primary Care Provider and Neurologist Call non-emergency contact if: your symptoms worsen, your pain is worsening and your temperature is above 101 Follow-up/Referrals: Arabella Delarosa MD [Primary Care Provider] - Diet: Regular Addtl Attending Provider Instructions: A discharge summary will be sent to your primary care physician to ensure continuity of care. You came in to the hospital for a UTI. This was most likely due to your neurogenic bladder that may be a result of your multiple sclerosis. You completed an antibiotic regimen for the urinary tract infection. While you were here our neurologist contacted the multiple sclerosis specialist at [facility] who recommended treatment of Ocrevus for your multiple sclerosis. You were approved for this medication but it is only able to be given in the outpatient setting. As a result we gave you an equivalent medication called Rituximab during your hospital stay here. You received the infusion of Rituximab on 08/10/21, you are scheduled to get the next infusion two weeks after that dose (August 24 or ). The third dose of Please follow up with a primary care doctor and your neurologist for further treatment for your multiple sclerosis. Follow-up: * You should be seen by your primary physician within the next few weeks. * You should follow up with your neurologist within the next few weeks. Medications: Your medication list has been reviewed and reconciled upon discharge to ensure accuracy and continuity of care. An updated list of all your medications is included with your hospital discharge paperwork. Please review this list closely, and make note of any changes. * You were given 1 gram Rituximab infusion intravenously on 08/10/2021 while in the inpatient setting for your multiple sclerosis. This was taken with 100mg solu-medrol, 25mg benadryl, and 500mg Tylenol 30 minutes before this infusion. You did well with the infusion and will need another infusion of Ocreva on 08/23/2021, and then receive your next infusion at 6-12 months after that. Take your medications as instructed; do not skip a dose of your medicines. Make sure all of your doctors know every medicine you are taking (including [id number] medicines, vitamins, and supplements). let your primary care provider know before taking any new medicines because some of these may interact with your current medications, or may make your symptoms worse. CONTACT YOUR PRIMARY CARE PROVIDER if you experience any of the following: * Fevers or shaking chills * Shortness of breath not relieved by inhalers, fainting * Sudden abdominal distension not relieved by catheterization. * Difficulty following your treatment plan, or difficulty taking medications CALL 911 OR GO TO THE EMERGENCY DEPARTMENT if you experience any of the following: * Sudden, severe abdominal pain or nausea/vomiting * Severe chest pain, or chest pain that radiates (moves) to your jaw or arm * Sudden, severe shortness of breath or difficulty breathing It was was our pleasure taking care of you here at [facility] . Thank you for allowing us to participate in your care. Pending Studies at Discharge: No Stand-Alone Forms: My [facility] Skilled Items Patient informed of condition?: Yes DNR: No Discharge Level of Care: Skilled Communicable Disease: No Discharge Prognosis: Stable Lines: Peripheral IV Urinary Catheter: Yes Medications and DC Order Prescriptions: Continued baclofen 10 mg tablet 20 mg PO Q6H Qty: 240 RF: 2 docusate sodium 100 mg capsule 100 mg PO BID RF: 0 bisacodyl 10 mg suppository 10 mg DE DAILY PRN (Reason: Constipation) RF: 0 omega-3 fatty acids [Fish Oil Concentrate] 1,000 mg capsule 2,000 mg PO DAILY RF: 0 acetaminophen [Tylenol Extra Strength] 500 mg Tablet 1,000 mg PO Q6H PRN (Reason: Pain) RF: 0 cyanocobalamin (vitamin B-12) [Vitamin B-12] 2,500 mcg Tablet, Sublingual 2,500 mcg PO DAILY RF: 0 tizanidine 2 mg Tablet 2 mg PO Q8H PRN (Reason: muscle spasms) RF: 0 cod liver oil Oil 5 ml PO DAILY RF: 0 ibuprofen 200 mg Tablet 200 mg PO Q6H PRN (Reason: Pain) RF: 0 cholecalciferol (vitamin D3) [Vitamin D3] 25 mcg (1,000 unit) Tablet 75 mcg PO DAILY RF: 0 cholecalciferol (vitamin D3) [Vitamin D3] 125 mcg (5,000 unit) Tablet 125 mcg PO WE RF: 0 Glucosamine Chondroitin 550-30-1 mg Capsule 1 cap PO DAILY RF: 0 Black Seed Oil 1 tsp PO DAILY RF: 0 Essiac Tea 4 oz PO DAILY RF: 0 Lemon Jackson 45 drp PO DAILY RF: 0 Magnesium Malate 800 mg PO DAILY RF: 0 Discharge Orders: Discharge Order (Routine); Ordered 08/21/21 Ordered By: Valdez Vásquez Admission Data Admit Date/Time: 07/14/21 12:13 Attending Provider: Reymundo Dalton Admit Provider: Phillip Watt Primary Care Provider: Arabella Delarosa Other Providers: Phillip Watt ; [facility] ; Charles Chong ; Marshal Lopez ; Marilee Varma ; Tasneem Escalante ; Massiel Montoya ; Nguyễn Hardwick ; [facility] ; [facility] ; [facility] Other Interventions: Discharge Summary Assessment (RN) Last Done: 08/21/21 12:24 Supervising Physician Co-Signing Physician Notes I personally examined the patient and verified all dejesus points of history and exam, discussed case, and agree with decision making with Dr Vásquez Feeling okay. No complaints. Happy about moving to SNF from hospital. Still long-term goal is apartment with 24/7 care Vitals noted, in general he is awake and alert pleasant no distress. HEENT normocephalic atraumatic mucous membranes moist. Breathing unlabored no accessory muscle use good effort. Skin shows no rashes no pallor or icterus. Neuro with chronic weaknesses, although I do suspect after several days of review that his fine motor in his hands has a bit more dexterity than it did pre-getting rituximab Multiple sclerosis with significant disability -Given Rituxan last week (08/10/2021) by previous neurology recommendations, likely would be due for another dose around 08/24, 08/25/21would follow through with this based on neurology recommendations in follow-up, because he also has been approved for ocrevus. Follow-up with Dr. Bill Mejia neurology in short order -For SNF, PT/OT eval and treat Otherwise as above Resident Activity Tracking Resident Involvement: Resident Care Provided Care Provided: Adult Hospital Medicine
--- NOTE | 2021-08-21 19:47 | Billing Data ---
Date of Service August 21, 2021 Coding Level of Care Code D/C DAY MANAGEMENT <30 MINS
--- NOTE | 2021-08-28 07:41 | Coding Query ---
CODING QUERY To promote full compliance with coding requirements relating to patient care, provider participation is requested in all cases of geophysical manager uncertainty. Please assist us with the question(s) below: Coding Question(s): Patient with Multiple Sclerosis with chronic indwelling wilkins admitted with UTI and for placement. Please document, if known or suspected, the edtiology of the E Coli Urinary Tract Infection. Thanks for your help! Stephane Watters [facility] Physician's Response(s): possible UTI related to chronic indwelling wilkins and MS related disability Principal Diagnosis: "that condition established after study, to be chiefly responsible for occasioning the admission of the patient to the hospital for care." Co-Existing Principal Diagnosis: "when two or more diagnoses equally meet the criteria for principal diagnosis as determined by the circumstances of admission, diagnostic work up, and/or therapy provided, and the Alphabetic Index, Tabular List, or another coding guideline does not provide sequencing direction, any one of the diagnoses may be sequenced first." "When the physician has documented what appears to be a current diagnosis in the body of the record, but has not included the diagnosis in the final diagnostic statement, the physician should be asked whether the diagnosis should be added." (Source Coding [facility] 2 QTR90. p3-4) VIDAL
== END 2021-08-21 13:15 | DRG 698 ==
LOC: ED 19:11 → 3W 19:11 → SUATTDRO 23:22 → 3W 07-12 01:03 → SUATTDRO 07-14 12:13
DX: G81.11 Spastic hemiplegia affecting right dominant side; Z96.641 Presence of right artificial hip joint; G82.50 Quadriplegia, unspecified; G35 Multiple sclerosis; Z88.5 Allergy status to narcotic agent; N31.9 Neuromuscular dysfunction of bladder, unspecified; Z99.3 Dependence on wheelchair; R45.1 Restlessness and agitation; F32.A Depression, unspecified; G95.9 Disease of spinal cord, unspecified; B96.20 Unspecified Escherichia coli [E. coli] as the cause of diseases classified elsewhere; G37.8 Other specified demyelinating diseases of central nervous system; M87.052 Idiopathic aseptic necrosis of left femur; E55.9 Vitamin D deficiency, unspecified; G47.00 Insomnia, unspecified; M77.12 Lateral epicondylitis, left elbow; Z78.9 Other specified health status; G82.20 Paraplegia, unspecified; Y92.009 Unspecified place in unspecified non-institutional (private) residence as the place of occurrence of the external cause; Z74.2 Need for assistance at home and no other household member able to render care; Z74.8 Other problems related to care provider dependency; T83.511A Infection and inflammatory reaction due to indwelling urethral catheter, initial encounter; N39.0 Urinary tract infection, site not specified

== ENCOUNTER 2021-10-24 19:49 | Observation (INO) ==
[2021-10-24] MEDS ORDERED: ACETAMINOPHEN 500 MG TAB PO STA (20:56)
[2021-10-24] MEDS ORDERED: BACLOFEN 20 MG TAB PO ONE (20:57)
[2021-10-24] MEDS ORDERED: bisacodyL 10 MG SUPP PR STA (21:01)
[2021-10-24] MEDS ORDERED: cefTRIAXone SODIUM 2,000 MG/70 ML BAG IV STA (21:04)
[2021-10-24 21:39] LABS: Basophils # (auto) 0.03 K/uL (0-0.2); Basophils % (auto) 0.5 %; Eosinophils # (auto) 0.23 K/uL (0-0.5); Eosinophils % (auto) 3.7 %; Hematocrit (blood only) 41.1 % (42-52); Hemoglobin 13.9 g/dL (14.0-18.0); Lymphocytes % (auto) 23.8 %; Mean Corpuscular Hemoglobin 28.8 pg (25-34); Mean Corpuscular Hgb Conc 33.8 g/dL (32-36); Mean Corpuscular Volume 85.3 fL (80-100); Mean Platelet Volume 9.2 fL (7.4-10.4); Monocytes % (auto) 6.3 %; Neutrophils # (auto) 4.14 K/uL (1.4-6.5); Neutrophils % (auto) 65.7 %; Platelet Count 258 K/uL (130-400); RDW Coefficient of Variation 13.3 % (11.5-14.5); Red Blood Count 4.82 M/uL (4.7-6.1)
[2021-10-24 22:10] LABS: Albumin Globulin Ratio 1.5 (0.9-2); Albumin Level 4.3 gm/dl (3.4-5.0); BUN Creatinine Ratio 15.2 (10-20); Bilirubin,Total 0.3 mg/dl (0.2-1.0); Calcium 9.6 mg/dl (8.5-10.1); Creatinine Clr Calc Pharmacy 149.8 ml/min; Est GFR (African American) 140.2 ml/min; Est GFR (Non-African American) 120.9 ml/min; Globulin 2.9 gm/dl (2.5-4.0); Potassium 4.3 mmol/L (3.5-5.1); Total Protein 7.2 gm/dl (6.0-8.3)
[2021-10-24 22:14] LABS: Troponin I High Sensitivity 2.4 pg/ml (0-20)
--- NOTE | 2021-10-24 22:41 | Emergency Department Note ---
Impression & Plan Neurogenic bladder, UTI (urinary tract infection), Multiple sclerosis, Muscle spasticity ED Provider Note Provider: Yosef Adams MD DATE OF SERVICE: 10/24/2021 CHIEF COMPLAINT: Call back for UTI HISTORY OF PRESENT ILLNESS: Patient is a 41-year-old gentleman history of multiple sclerosis with neurogenic bladder and muscle spasms called back due to positive urine culture. Was here 2 days ago and required urine Roldan catheter placement. Since then has been not having fevers but having some increased abdominal discomfort increased persistently. Mother states is often like when he has an infection and she believes is consistent with a urine infection. Culture grew resistant organism and was called back by pharmacist today. Was on Bactrim. Patient also states has not been getting suppositories as normal as his caregivers are no longer comfortable doing this since been several days since he has had a bowel movement. REVIEW OF SYSTEMS: A total of 10 review of systems was obtained and negative except as stated above in the HPI. PAST MEDICAL HISTORY: As noted above MEDICATIONS: Reviewed home medications SOCIAL HISTORY: Lives at home with mother and caregivers PHYSICAL EXAM: GENERAL: alert and oriented intermittently moving on the bed complaining of spastic pains. Head: normocephalic and atraumatic EYES: No injection, discharge or icterus. NECK: Trachea midline. Supple. ENT: Mucous membranes pink and moist. LUNGS: Airway patent. No retractions. Breath sounds clear HEART: Regular rate and rhythm. No chest wall tenderness ABDOMEN: Soft mild diffuse tenderness. SKIN: Acyanotic, warm, dry, without rashes EXTREMITIES: Without swelling, tenderness or deformity NEUROLOGICAL: No facial droop or slurred speech. Movement to the upper extremities but no significant over the lower extremities on exam Patient's laboratory studies and imaging reviewed. Differential includes Renal colic, UTI, appendicitis, diverticulitis, mesenteric ischemia, aortic pathology, infections, inflammatory bowel disease, PUD, biliary pathology, as well as other pathologies. IMPRESSION/MEDICAL DECISION MAKING: Reviewed urine culture growing Morganella. Multiple resistances. Discussed with pharmacy via phone and recommended against oral cephalosporin usage. As such we will start in discussion with them IV cephalosporins for coverage. Given 2 g of ceftriaxone. Blood protein without evidence of sepsis or renal dysfunction. Patient given some Tylenol baclofen to help with his symptoms which did improve regarding his spasticity and discomfort. Given a Dulcolax suppository per his request. Blood work otherwise reassuring and given report of similar history in discussion with the patient will not pursue further work- up of the abdominal complaint at this time as I believe is related to his UTI and some constipation. Discussed with the hospitalist. DIAGNOSIS: Acute UTI, multiple sclerosis DISPOSITION: Hospitalist will evaluate Patient and mother at bedside updated. Past Med/Surg History Medical History Abnormal gait due to muscle weakness Acute UTI Avascular necrosis of bone of right hip Demyelinating disease Elevated liver enzymes Generalized weakness Malnutrition Multiple sclerosis Muscle spasticity Rhabdomyolysis Surgical History History of right hip replacement Family History Father , Patient knows nothing about his father. No problems noted. Mother No problems noted. Grandmother (Maternal) Colorectal cancer Ovarian cancer Denies family history of Prostate cancer Myocardial infarction Breast cancer Social History Smoking Status: Never smoker Tobacco Type: Cigarettes Second Hand Exposure: No; Hx Alcohol Use: No Hx Substance Use: No Preferred Language: Romanian Communication Ability: Effective Service Tech Required: No Beliefs That Will Affect Care: Mandaeism Mandaeism Beliefs: Eastern Muslim- requesting a daily visit from job training supervisor marital status: Single Current Living Situation: Other Current Living Situation Comment: family unable to care for patient current occupational status: unemployed and disabled 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 gluten AdvReac Unknown PER PT Verified 10/24/21 21:27 "FOLLOW A GLUTEN FREE DIET". Home Meds Home Medications Medication Instructions Recorded Confirmed acetaminophen 500 mg tablet 1,000 mg PO Q6H PRN 03/31/21 10/24/21 (Tylenol Extra Strength) bisacodyl 10 mg rectal suppository 10 mg IN DAILY PRN 04/11/21 10/24/21 docusate sodium 100 mg capsule 100 mg PO BID 04/11/21 10/24/21 Black Seed Oil 1 tsp PO DAILY 07/12/21 10/24/21 Essiac Tea 4 oz PO DAILY 07/12/21 10/24/21 Lemon [place] 45 drp PO DAILY 07/12/21 10/24/21 Magnesium Malate 800 mg PO DAILY 07/12/21 10/24/21 cholecalciferol (vitamin D3) 25 75 mcg PO DAILY 07/12/21 10/24/21 mcg (1,000 unit) tablet (Vitamin D3) cod liver oil 5 ml PO DAILY 07/12/21 10/24/21 cyanocobalamin (vitamin B-12) 2,500 mcg PO DAILY 07/12/21 10/24/21 2,500 mcg sublingual tablet (Vitamin B-12) glucosamine sulf dipot 1 cap PO DAILY 07/12/21 10/24/21 chlr,msm,chond 550 mg-C 30 mg-lucille 1 mg capsule (Glucosamine Chondroitin) ibuprofen 200 mg tablet 200 mg PO Q6H PRN 07/12/21 10/24/21 tizanidine 2 mg tablet 2 mg PO Q8H PRN 07/12/21 10/24/21 omega-3 fatty acids 1,000 mg 2,000 mg PO DAILY 10/22/21 10/24/21 capsule baclofen 20 mg tablet 20 mg PO QID PRN 10/24/21 10/24/21 Previous Rx's Medication Instructions Recorded ocrelizumab 30 mg/mL intravenous 300 mg IV .COMPLEX #10 ml 08/27/21 solution (Ocrevus) Results & Data (ED) Vital Signs Vital Signs - 24 hr 10/24/21 20:01 10/24/21 22:01 Temperature 36.7 C Temperature Source Oral Pulse Rate 79 Pulse Rate [Finger] 71 Respiratory Rate 18 18 Blood Pressure 119/73 Blood Pressure [Right Arm] 130/79 Blood Pressure Mean 88 Blood Pressure Mean [Right Arm] 96 Blood Pressure Position Sitting Pulse Oximetry 96 97 Oxygen Delivery Method Room Air Room Air Sepsis Recent Fever Within 48 Hours No Sepsis New/Unexplained Change in Mental Status N/A Sepsis Action Taken by Nursing No Action Required Laboratory Data Result diagrams: 10/24/21 21:05 10/24/21 21:05 Lab Results 10/24/21 10/24/21 10/24/21 Range/Units 21:05 21:05 21:05 WBC 6.30 (4.8-10.8) K/uL RBC 4.82 (4.7-6.1) M/uL Hgb 13.9 L (14.0-18.0) g/dL Hct 41.1 L (42-52) % MCV 85.3 (80-100) fL MCH 28.8 (25-34) pg MCHC 33.8 (32-36) g/dL RDW Std Deviation 42.0 (36.4-46.3) fL RDW Coeff of Meg 13.3 (11.5-14.5) % Plt Count 258 (130-400) K/uL MPV 9.2 (7.4-10.4) fL Immature Gran % (Auto) 0.0 % Neut % (Auto) 65.7 % Lymph % (Auto) 23.8 % [place] % (Auto) 6.3 % Eos % (Auto) 3.7 % Baso % (Auto) 0.5 % Neut # (Auto) 4.14 (1.4-6.5) K/uL Lymph # (Auto) 1.50 (1.2-3.4) K/uL [place] # (Auto) 0.40 (0.11-0.59) K/uL Eos # (Auto) 0.23 (0-0.5) K/uL Baso # (Auto) 0.03 (0-0.2) K/uL Immature Gran # (Auto) 0.00 (0.00-0.02) K/uL Sodium 137 (136-145) mmol/L Potassium 4.3 (3.5-5.1) mmol/L Chloride 105 (98-107) mmol/L Carbon Dioxide 25 (21-32) mmol/L Anion Gap 7 (3-11) BUN 10 (6-23) mg/dl Creatinine 0.66 (0.6-1.4) mg/dl Est Cr Clr Drug Dosing 149.8 ml/min Est GFR ( Amer) 140.2 ml/min Est GFR (Non-Af Amer) 120.9 ml/min BUN/Creatinine Ratio 15.2 (10-20) Glucose 87 (70-99(Fasting)) mg/dl Lactate 0.6 (0.4-2.0) mmol/L Calcium 9.6 (8.5-10.1) mg/dl Total Bilirubin 0.3 (0.2-1.0) mg/dl AST 14 (13-39) U/L ALT 17 (7-52) U/L Alkaline Phosphatase 49 (34-104) U/L Troponin I High Sens 2.4 (0-20) pg/ml Total Protein 7.2 (6.0-8.3) gm/dl Albumin 4.3 (3.4-5.0) gm/dl Globulin 2.9 (2.5-4.0) gm/dl Albumin/Globulin Ratio 1.5 (0.9-2) Lipase 33 (11-82) U/L Procalcitonin (0-0.5) ng/ml SARS-CoV-2, RNA, NAAT (NEGATIVE) 10/24/21 10/24/21 Range/Units 21:05 21:36 WBC (4.8-10.8) K/uL RBC (4.7-6.1) M/uL Hgb (14.0-18.0) g/dL Hct (42-52) % MCV (80-100) fL MCH (25-34) pg MCHC (32-36) g/dL RDW Std Deviation (36.4-46.3) fL RDW Coeff of Meg (11.5-14.5) % Plt Count (130-400) K/uL MPV (7.4-10.4) fL Immature Gran % (Auto) % Neut % (Auto) % Lymph % (Auto) % [place] % (Auto) % Eos % (Auto) % Baso % (Auto) % Neut # (Auto) (1.4-6.5) K/uL Lymph # (Auto) (1.2-3.4) K/uL [place] # (Auto) (0.11-0.59) K/uL Eos # (Auto) (0-0.5) K/uL Baso # (Auto) (0-0.2) K/uL Immature Gran # (Auto) (0.00-0.02) K/uL Sodium (136-145) mmol/L Potassium (3.5-5.1) mmol/L Chloride (98-107) mmol/L Carbon Dioxide (21-32) mmol/L Anion Gap (3-11) BUN (6-23) mg/dl Creatinine (0.6-1.4) mg/dl Est Cr Clr Drug Dosing ml/min Est GFR ( Amer) ml/min Est GFR (Non-Af Amer) ml/min BUN/Creatinine Ratio (10-20) Glucose (70-99(Fasting)) mg/dl Lactate (0.4-2.0) mmol/L Calcium (8.5-10.1) mg/dl Total Bilirubin (0.2-1.0) mg/dl AST (13-39) U/L ALT (7-52) U/L Alkaline Phosphatase (34-104) U/L Troponin I High Sens (0-20) pg/ml Total Protein (6.0-8.3) gm/dl Albumin (3.4-5.0) gm/dl Globulin (2.5-4.0) gm/dl Albumin/Globulin Ratio (0.9-2) Lipase (11-82) U/L Procalcitonin < 0.05 (0-0.5) ng/ml SARS-CoV-2, RNA, NAAT NEGATIVE (NEGATIVE) Administered Medications Discontinued Medications Acetaminophen (Acetaminophen 500 Mg Tab) 1,000 mg PO NOW STA Stop: 10/24/21 20:57 Last Admin: 10/24/21 21:40 Dose: 1,000 mg Documented by: [id number] Baclofen (Baclofen 20 Mg Tab) 20 mg PO ONCE ONE Stop: 10/24/21 20:58 Last Admin: 10/24/21 21:40 Dose: 20 mg Documented by: [id number] Bisacodyl (Bisacodyl 10 Mg Supp) 10 mg IN NOW STA Stop: 10/24/21 21:02 Last Admin: 10/24/21 22:37 Dose: Not Given Documented by: [id number] Ceftriaxone Sodium (Rocephin) 2,000 mg in 70 mls @ 140 mls/hr IV NOW STA Stop: 10/24/21 21:33 Last Infusion: 10/24/21 22:24 Dose: 0 mls/hr Documented by: [id number] Admin: 06/03/22 21:40 Dose: 140 mls/hr Documented by: [id number] Discharge Plan Visit Data Chief Complaint: Referred by Doctor Stated Complaint: UTI/ abdominal pain ED Provider: Yosef Adams Discharge Problem: Neurogenic bladder, UTI (urinary tract infection), Multiple sclerosis, Muscle spasticity Patient Disposition: Being Evaluated by Hospitalist Forms Stand Alone Forms: [facility] Prescriptions Prescriptions: No Action Ocrevus 30 mg/mL solution 300 mg IV .COMPLEX Qty: 10 RF: 1 docusate sodium 100 mg capsule 100 mg PO BID RF: 0 bisacodyl 10 mg suppository 10 mg IN DAILY PRN (Reason: Constipation) RF: 0 omega-3 fatty acids 1,000 mg Capsule 2,000 mg PO DAILY RF: 0 baclofen 20 mg tablet 20 mg PO QID PRN (Reason: Muscle Spasm) RF: 0 acetaminophen [Tylenol Extra Strength] 500 mg Tablet 1,000 mg PO Q6H PRN (Reason: Pain) RF: 0 cyanocobalamin (vitamin B-12) [Vitamin B-12] 2,500 mcg Tablet, Sublingual 2,500 mcg PO DAILY RF: 0 tizanidine 2 mg Tablet 2 mg PO Q8H PRN (Reason: muscle spasms) RF: 0 cod liver oil Oil 5 ml PO DAILY RF: 0 ibuprofen 200 mg Tablet 200 mg PO Q6H PRN (Reason: Pain) RF: 0 cholecalciferol (vitamin D3) [Vitamin D3] 25 mcg (1,000 unit) Tablet 75 mcg PO DAILY RF: 0 Glucosamine Chondroitin 550-30-1 mg Capsule 1 cap PO DAILY RF: 0 Black Seed Oil 1 tsp PO DAILY RF: 0 Essiac Tea 4 oz PO DAILY RF: 0 Lemon [place] 45 drp PO DAILY RF: 0 Magnesium Malate 800 mg PO DAILY RF: 0 Referrals Referrals: Arabella Delarosa MD [Primary Care Provider] -
--- NOTE | 2021-10-24 22:55 | History & Physical Report ---
Date of Service October 24, 2021 Assessment & Plan (1) UTI (urinary tract infection): Plan: 41yo male with history of primary progressive MS, neurogenic bladder with chronic indwelling Roldan catheter presenting with complaints consistent with UTI - left hip pain, back pain and increased stiffness and spasm which have been ongoing x 2 months. Patient was treated with a course of Levaquin as well as Macrobid. Per culture from 10/22/21 - morganella morganii - organism is resistant to these agents. Patient is afebrile, HD stable, non-toxic in appearance. Roldan was last changed 3 days ago per report from mother. -Admit to medical -Ceftriaxone 1gm IV daily -Case management consultation re: home antibiotics Patient is on the waiver program. Presently lives in his own apartment with 14/12 nursing care as well as considerable assistance from his mother. (2) Multiple sclerosis: Plan: Chronic, progressive. Patient follows with Neurology. He is on Ocrelizumab infusions with next dose due 10/30/21. -Continue Tizanidine as needed for spasm -Continue Baclofen as needed for spasm -Ibuprofen as needed for pain -Roldan catheter management -Bisacodyl suppository daily until normal BM -Colace, Miralax PRN -Turn and position q 2 hours, offload heels -Aspiration precautions -Fall precautions -Mother requests double portions for meals as well as increased fruits and vegetables (eats appx 9 cups/day at home) -Will hold home supplements and neutraceuticals. (3) Neurogenic bladder: Plan: Roldan catheter in place. Last changed 3 days ago -Monitor I/Os History of Present Illness Chief Complaint: UTI, spasms Primary Care Provider: Arabella Delarosa MD Bi Barrera is a 41yo male with history of primary progressive MS, neurogenic bladder with indwelling Roldan catheter presenting with UTI. Patient's mother is at bedside and provides details of history - patient is very tired and would like to rest. Patient was previously a resident at [facility]. He was recently transitioned to his own apartment one week ago. His mother states that he developed symptoms consistent with UTI approximately 8 weeks ago - patient typically develops pain in his left hip, low back as well as increased stiffness, spasm and myoclonic jerking when he has an infection. He was treated with Levaquin with no improvement in symptoms and subsequently treated with a course of Macrobid which ended last week. He has continued symptoms. urine culture from 10/22/21 with >100,000 CFU Morganella morganii which is resistant to Cipro, Levaquin and Bactrim - sensitive to Ceftriaxone. Mother does not report patient having any fevers, chills, rigors or sweats. No nausea, vomiting, diarrhea. He has had some constipation with last BM being 4 days ago - thought to be secondary to not receiving daily suppository. Patient has frequent bladder spasms and headache. Otherwise, no additional complaints. In the ER his is afebrile, HD stable, NAD. ER Course: Tylenol, Ceftriaxone Allergies Allergy/AdvReac Type Severity Reaction Status Date / Time codeine AdvReac Intermediate "MADE ME Verified 10/24/21 21:27 FEEL FUNNY". gluten AdvReac Unknown PER PT Verified 10/24/21 21:27 "FOLLOW A GLUTEN FREE DIET". Home Medications Medication Instructions Recorded Confirmed Type acetaminophen 500 mg tablet 1,000 mg PO Q6H PRN 03/31/21 10/24/21 History (Tylenol Extra Strength) bisacodyl 10 mg rectal suppository 10 mg AK DAILY PRN 04/11/21 10/24/21 History docusate sodium 100 mg capsule 100 mg PO BID 04/11/21 10/24/21 History Black Seed Oil 1 tsp PO DAILY 07/12/21 10/24/21 History Essiac Tea 4 oz PO DAILY 07/12/21 10/24/21 History Lemon [place] 45 drp PO DAILY 07/12/21 10/24/21 History Magnesium Malate 800 mg PO DAILY 07/12/21 10/24/21 History cholecalciferol (vitamin D3) 25 75 mcg PO DAILY 07/12/21 10/24/21 History mcg (1,000 unit) tablet (Vitamin D3) cod liver oil 5 ml PO DAILY 07/12/21 10/24/21 History cyanocobalamin (vitamin B-12) 2,500 mcg PO DAILY 07/12/21 10/24/21 History 2,500 mcg sublingual tablet (Vitamin B-12) glucosamine sulf dipot 1 cap PO DAILY 07/12/21 10/24/21 History chlr,msm,chond 550 mg-C 30 mg-lucille 1 mg capsule (Glucosamine Chondroitin) ibuprofen 200 mg tablet 200 mg PO Q6H PRN 07/12/21 10/24/21 History tizanidine 2 mg tablet 2 mg PO Q8H PRN 07/12/21 10/24/21 History ocrelizumab 30 mg/mL intravenous 300 mg IV .COMPLEX #10 ml 08/27/21 10/24/21 Rx solution (Ocrevus) omega-3 fatty acids 1,000 mg 2,000 mg PO DAILY 10/22/21 10/24/21 History capsule baclofen 20 mg tablet 20 mg PO QID PRN 10/24/21 10/24/21 History Past Med/Surg History Medical History Abnormal gait due to muscle weakness Acute UTI Avascular necrosis of bone of right hip Demyelinating disease Elevated liver enzymes Generalized weakness Malnutrition Multiple sclerosis Muscle spasticity Rhabdomyolysis Surgical History History of right hip replacement Family History Father , Patient knows nothing about his father. No problems noted. Mother No problems noted. Grandmother (Maternal) Colorectal cancer Ovarian cancer Denies family history of Prostate cancer Myocardial infarction Breast cancer Social History Smoking Status: Never smoker Tobacco Type: Cigarettes Second Hand Exposure: No; Hx Alcohol Use: No Hx Substance Use: No Preferred Language: Kenyan Communication Ability: Effective Juvenile Officer Required: No Beliefs That Will Affect Care: Gnosticist Gnosticist Beliefs: Eastern Synagogue- requesting a daily visit from visual merchandising coordinator marital status: Single Current Living Situation: Other Current Living Situation Comment: family unable to care for patient current occupational status: unemployed and disabled 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 How many Children do You have: 1 Feels Safe at Home: No Is there a partner from a previous relationship who is making you feel unsafe now?: No Childhood Exposure to Second-Hand Smoke: Yes Dental Care, Regularly: Yes Physical Activity Frequency: Does not Exercise Seatbelt Use: always Sunscreen Use: No Assistive Devices: Mechanical Lift Review of Systems Review of Systems: All systems reviewed & are unremarkable except as noted in HPI & below Physical Exam Physical Exam: General: patient resting comfortably in bed with occasional muscle spasm, NAD, non-toxic in appearance, AA&O x 4 Skin: warm, dry, intact, no rashes or lesions HEENT: NC/AT, PERRL, EOMI, anicteric sclera, conjunctiva without injection, external ear normal to inspection and nontender, nares patent, moist mucus membranes, dentition intact, no oropharyngeal lesions, neck supple, trachea midline, no LAD, no thyromegaly, no JVD Heart: +S1/S2, regular, no m/r/g Lungs: equal air entry bilaterally, no rales/rhonchi/wheezes Abd: +BS, soft, NT/ND, no masses/organomegaly/ascites, Roldan in place with clear, yellow urine in bag Ext: warm, 2+ pulses in UE/LE bilaterally, no clubbing/cyanosis or edema Neuro: resting comfortably, arousable, answers questions and follows commands, oriented x 4, limited strength and mobility of bilateral LE, occasional muscle twitching Results & Data Results & Data ([facility]) Vital Signs (Past 12 Hours) Vital Signs Temp Pulse Pulse Resp BP BP Pulse Ox 10/24/21 22:01 71 18 130/79 97 10/24/21 20:01 36.7 C 79 18 119/73 96 Laboratory Results Laboratory Results WBC 6.30 K/uL (4.8-10.8) 10/24/21 21:05 RBC 4.82 M/uL (4.7-6.1) 10/24/21 21:05 Hgb 13.9 g/dL (14.0-18.0) L 10/24/21 21:05 Hct 41.1 % (42-52) L 10/24/21 21:05 MCV 85.3 fL (80-100) 10/24/21 21:05 MCH 28.8 pg (25-34) 10/24/21 21:05 MCHC 33.8 g/dL (32-36) 10/24/21 21:05 RDW Std Deviation 42.0 fL (36.4-46.3) 10/24/21 21:05 RDW Coeff of Meg 13.3 % (11.5-14.5) 10/24/21 21:05 Plt Count 258 K/uL (130-400) 10/24/21 21:05 MPV 9.2 fL (7.4-10.4) 10/24/21 21:05 Immature Gran % (Auto) 0.0 % 10/24/21 21:05 Neut % (Auto) 65.7 % 10/24/21 21:05 Lymph % (Auto) 23.8 % 10/24/21 21:05 [place] % (Auto) 6.3 % 10/24/21 21:05 Eos % (Auto) 3.7 % 10/24/21 21:05 Baso % (Auto) 0.5 % 10/24/21 21:05 Neut # (Auto) 4.14 K/uL (1.4-6.5) 10/24/21 21:05 Lymph # (Auto) 1.50 K/uL (1.2-3.4) 10/24/21 21:05 [place] # (Auto) 0.40 K/uL (0.11-0.59) 10/24/21 21:05 Eos # (Auto) 0.23 K/uL (0-0.5) 10/24/21 21:05 Baso # (Auto) 0.03 K/uL (0-0.2) 10/24/21 21:05 Immature Gran # (Auto) 0.00 K/uL (0.00-0.02) 10/24/21 21:05 Sodium 137 mmol/L (136-145) 10/24/21 21:05 Potassium 4.3 mmol/L (3.5-5.1) 10/24/21 21:05 Chloride 105 mmol/L (98-107) 10/24/21 21:05 Carbon Dioxide 25 mmol/L (21-32) 10/24/21 21:05 Anion Gap 7 (3-11) 10/24/21 21:05 BUN 10 mg/dl (6-23) 10/24/21 21:05 Creatinine 0.66 mg/dl (0.6-1.4) 10/24/21 21:05 Est Cr Clr Drug Dosing 149.8 ml/min 10/24/21 21:05 Est GFR ( Amer) 140.2 ml/min 10/24/21 21:05 Est GFR (Non-Af Amer) 120.9 ml/min 10/24/21 21:05 BUN/Creatinine Ratio 15.2 (10-20) 10/24/21 21:05 Glucose 87 mg/dl (70-99(Fasting)) 10/24/21 21:05 Lactate 0.6 mmol/L (0.4-2.0) 10/24/21 21:05 Calcium 9.6 mg/dl (8.5-10.1) 10/24/21 21:05 Total Bilirubin 0.3 mg/dl (0.2-1.0) 10/24/21 21:05 AST 14 U/L (13-39) 10/24/21 21:05 ALT 17 U/L (7-52) 10/24/21 21:05 Alkaline Phosphatase 49 U/L (34-104) 10/24/21 21:05 Troponin I High Sens 2.4 pg/ml (0-20) 10/24/21 21:05 Total Protein 7.2 gm/dl (6.0-8.3) 10/24/21 21:05 Albumin 4.3 gm/dl (3.4-5.0) 10/24/21 21:05 Globulin 2.9 gm/dl (2.5-4.0) 10/24/21 21:05 Albumin/Globulin Ratio 1.5 (0.9-2) 10/24/21 21:05 Lipase 33 U/L (11-82) 10/24/21 21:05 Procalcitonin < 0.05 ng/ml (0-0.5) 10/24/21 21:05 SARS-CoV-2, RNA, NAAT NEGATIVE (NEGATIVE) 10/24/21 21:36 ECG Additional Comments: EKG - NSR at 66, normal axis, JE=845, OXX=837, MAw=102, incomplete RBBB, no acute ischemic changes PG Care Time/CCT Total # of Minutes Spent Total Time Spent with Patient: Total time spent is greater than 50% in coordination of care (as documented) at patient's floor/unit and/or counseling patient: Coding Level of Care Code 50307 Initial Inpt Care Lvl 2 Diagnoses UTI (urinary tract infection) N39.0 Hematuria presence: without hematuria Urinary tract infection type: site unspecified Multiple sclerosis G35 Neurogenic bladder N31.9 (1) UTI (urinary tract infection) Hematuria presence: without hematuria Urinary tract infection type: site unspecified Qualified Code(s): N39.0 - Urinary tract infection, site not specified
[2021-10-24] MEDS ORDERED: bisacodyL 10 MG SUPP PR ONE (23:30)
[2021-10-25] MEDS ORDERED: bisacodyL 10 MG SUPP PR PRN (01:46)
[2021-10-25] MEDS ORDERED: IBUPROFEN 200 MG TAB PO PRN (01:46)
[2021-10-25] MEDS ORDERED: POLYETHYLENE (MIRALAX) 17 GM PACK PO PRN (01:46)
[2021-10-25] MEDS ORDERED: tiZANidine HCL 4 MG TABLET PO PRN (01:46)
[2021-10-25] MEDS: BACLOFEN 20 MG TAB PO PRN ×3 (02:34→20:33)
[2021-10-25] MEDS: ACETAMINOPHEN 500 MG TAB PO PRN ×2 (03:43→20:32)
[2021-10-25 06:23] LABS: Basophils # (auto) 0.03 K/uL (0-0.2); Basophils % (auto) 0.7 %; Eosinophils # (auto) 0.26 K/uL (0-0.5); Eosinophils % (auto) 5.7 %; Hematocrit (blood only) 42.9 % (42-52); Hemoglobin 14.1 g/dL (14.0-18.0); Immature Granulocytes # (auto) 0.01 K/uL (0.00-0.02); Immature Granulocytes % (auto) 0.2 %; Lymphocytes # (auto) 1.39 K/uL (1.2-3.4); Lymphocytes % (auto) 30.5 %; Mean Corpuscular Hemoglobin 28.1 pg (25-34); Mean Corpuscular Hgb Conc 32.9 g/dL (32-36); Mean Corpuscular Volume 85.5 fL (80-100); Mean Platelet Volume 9.4 fL (7.4-10.4); Monocytes # (auto) 0.25 K/uL (0.11-0.59); Monocytes % (auto) 5.5 %; Neutrophils # (auto) 2.61 K/uL (1.4-6.5); Neutrophils % (auto) 57.4 %; Platelet Count 261 K/uL (130-400); RDW Coefficient of Variation 13.7 % (11.5-14.5); RDW Standard Deviation 42.6 fL (36.4-46.3); Red Blood Count 5.02 M/uL (4.7-6.1); White Blood Count 4.55 K/uL (4.8-10.8)
[2021-10-25 06:51] LABS: BUN Creatinine Ratio 11.9 (10-20); Calcium 9.8 mg/dl (8.5-10.1); Creatinine Clr Calc Pharmacy 146.6 ml/min; Est GFR (African American) 139.3 ml/min; Est GFR (Non-African American) 120.2 ml/min; Potassium 4.1 mmol/L (3.5-5.1)
[2021-10-25] MEDS: DOCUSATE SODIUM 100 MG CAP PO SCH ×2 (07:36→19:42)
--- NOTE | 2021-10-25 08:37 | Hospitalist Progress Note ---
Date of Service October 25, 2021 Assessment & Plan (1) UTI (urinary tract infection): Plan: 41yo male with history of primary progressive MS, neurogenic bladder with chronic indwelling Roldan catheter presenting with complaints consistent with UTI - left hip pain, back pain and increased stiffness and spasm which have been ongoing x 2 months. Patient was treated with a course of Levaquin as well as Macrobid. Per culture from 10/22/21 - morganella morganii - organism is resistant to these agents. Patient is afebrile, HD stable, non-toxic in appearance. Roldan was last changed 3 days ago per report from mother. -Admit to medical -Ceftriaxone 1gm IV daily Monitor blood cultures Case management consultation re: home antibiotics Patient is on the waiver program. Presently lives in his own apartment with 24/7 nursing care as well as considerable assistance from his mother -- just moved there about a week ago from [facility] (2) Multiple sclerosis: Plan: Chronic, progressive. Patient follows with Neurology. He is on Ocrelizumab infusions with next dose due 10/30/21. -Continue Tizanidine as needed for spasm -Continue Baclofen as needed for spasm -Ibuprofen as needed for pain -Roldan catheter management -Bisacodyl suppository daily until normal BM -Colace, Miralax PRN -Turn and position q 2 hours, offload heels -Aspiration precautions -Fall precautions -Mother requests double portions for meals as well as increased fruits and vegetables (eats appx 9 cups/day at home) -Will hold home supplements and neutraceuticals. (3) Neurogenic bladder: Plan: Roldan catheter in place. Last changed 3 days ago -Monitor I/Os Admission and Anticipated Discharge Date Admission Date: October 24, 2021 Results & Data Results & Data ([facility] [place]) Vital Signs (Past 12 Hours) Vital Signs Temp Pulse Resp BP BP Pulse Ox 10/25/21 07:09 36.4 C L 77 16 104/68 96 10/25/21 00:44 65 20 106/72 96 10/25/21 00:23 70 20 10/24/21 23:03 65 20 115/78 96 10/24/21 22:01 71 18 130/79 97 PG Care Time/CCT Total # of Minutes Spent Total Time Spent with Patient: Total time spent is greater than 50% in coordination of care (as documented) at patient's floor/unit and/or counseling patient: Coding Diagnoses UTI (urinary tract infection) N39.0 Hematuria presence: without hematuria Urinary tract infection type: site unspecified Multiple sclerosis G35 Neurogenic bladder N31.9 (1) UTI (urinary tract infection) Hematuria presence: without hematuria Urinary tract infection type: site unspecified Qualified Code(s): N39.0 - Urinary tract infection, site not specified
--- NOTE | 2021-10-25 11:52 | Discharge Summary ---
Date of Service October 25, 2021 Admission HPI Per Admitting Provider Bi Barrera is a 41yo male with history of primary progressive MS, neurogenic bladder with indwelling Wilkins catheter presenting with UTI. Patient's mother is at bedside and provides details of history - patient is very tired and would like to rest. Patient was previously a resident at [facility]. He was recently transitioned to his own apartment one week ago. His mother states that he developed symptoms consistent with UTI approximately 8 weeks ago - patient typically develops pain in his left hip, low back as well as increased stiffness, spasm and myoclonic jerking when he has an infection. He was treated with Levaquin with no improvement in symptoms and subsequently treated with a course of Macrobid which ended last week. He has continued symptoms. urine culture from 10/22/21 with >100,000 CFU Morganella morganii which is resistant to Cipro, Levaquin and Bactrim - sensitive to Ceftriaxone. Mother does not report patient having any fevers, chills, rigors or sweats. No nausea, vomiting, diarrhea. He has had some constipation with last BM being 4 days ago - thought to be secondary to not receiving daily suppository. Patient has frequent bladder spasms and headache. Otherwise, no additional complaints. In the ER his is afebrile, HD stable, NAD. ER Course: Tylenol, Ceftriaxone Admission Exam Per Admitting Provider General: patient resting comfortably in bed with occasional muscle spasm, NAD, non-toxic in appearance, AA&O x 4 Skin: warm, dry, intact, no rashes or lesions HEENT: NC/AT, PERRL, EOMI, anicteric sclera, conjunctiva without injection, external ear normal to inspection and nontender, nares patent, moist mucus membranes, dentition intact, no oropharyngeal lesions, neck supple, trachea midline, no LAD, no thyromegaly, no JVD Heart: +S1/S2, regular, no m/r/g Lungs: equal air entry bilaterally, no rales/rhonchi/wheezes Abd: +BS, soft, NT/ND, no masses/organomegaly/ascites, Wilkins in place with clear, yellow urine in bag Ext: warm, 2+ pulses in UE/LE bilaterally, no clubbing/cyanosis or edema Neuro: resting comfortably, arousable, answers questions and follows commands, oriented x 4, limited strength and mobility of bilateral LE, occasional muscle twitching Principal Diagnosis UTI, Failure of outpatient treatment Discharge Exam General: WN, fatigued appearing, male laying in hospital bed, no acute distress (but having muscle spasm L hand) HEENT: head atraumatic, normocephalic, trachea midline without deviation, mmm Resp: CTAB, decreased effort, no w/c/r, on room air 96% CV: RRR, no m/r/g, no pitting edema, pulses palpable bilaterally GI: +BS, soft, nontender : wilkins with yellow urine draining MSK/Neuro: limited strength/mobility (wheelchair bound), occasional muscle twitching, decreased dexterity of hands with calling mother on phone, answering all questions appropriately, no facial droop Psych: alert, oriented x 3, cooperative and hopeful to be discharged today if able to arrange Discharge Data Allergies Allergy/AdvReac Type Severity Reaction Status Date / Time codeine AdvReac Intermediate "MADE ME Verified 10/24/21 21:27 FEEL FUNNY". gluten AdvReac Unknown PER PT Verified 10/24/21 21:27 "FOLLOW A GLUTEN FREE DIET". Consultations 10/24/21 22:17 ED Decision to Admit Stat Hospital Course (1) UTI (urinary tract infection): 41yo male with history of primary progressive MS, neurogenic bladder with chronic indwelling Wilkins catheter presenting with complaints consistent with UTI - left hip pain, back pain and increased stiffness and spasm which have been ongoing x 2 months. Patient was treated with a course of Levaquin as well as Macrobid, however culture from 10/22/21 - morganella morganii - organism is resistant to these agents. Patient is afebrile, HD stable, non-toxic in appearance. Wilkins last changed 10/22 by research home economist Placed on ceftriaxone 1gm IV daily Blood cultures obtained, however patient afebrile and reasons to have continued infection given resistance. WBC normalized, no fever Discussed with patient and mother regarding bacteria not able to be covered with oral 3rd generation cephalosporin given organism as discussed with pharmacy Arranged for US guided peripheral to be placed and CM assisted to arrange for outpatient antibiotics with home infusion company who will come tomorrow Continue abx to complete 10 days course. Discussed following up with new PCP (seeing Dr Edmond for the first time this upcoming week) and can repeat urine 48hr after completetion of abx vs discuss abx dose w/ exchanges vs proph abx moving forward Could also consider 2-3x/wk gentamicin through wilkins to help prevent recurrent issues? Patient is on the waiver program. Just moved to new independent apartment about a week ago from [facility] to spanish moss picker this evening (asked if needed help with transport, declined and able to arrange themselves) after evening dose Rocephin and continue at home as above for 10days (2) Multiple sclerosis: Chronic, progressive. Patient follows with Neurology. He is TO BE STARTING Ocrelizumab NEW infusion this upcoming MONDAY 10/30 Continue Tizanidine, baclofen, ibuprofen as needed Continue bowel regimen bisacodyl, colace, miralax prn --> LARGE BM reported 10/25. Continue bowel regimen at home. Turn/reposition, aspiration and fall precautions Discussed joining support groups moving forward given young age/MS and associated depression with diagnosis. Stated he was unaware of these. Support provided. DIet: -Mother requests double portions for meals as well as increased fruits and vegetables (eats appx 9 cups/day at home) -Will hold home supplements and nutraceuticals while inpatient. (3) Neurogenic bladder: Wilkins catheter in place. Last changed 10/22 UOP excellent Continue monthly exchanges discharge this evening with mother on continued IV Ceftriaxone to complete course. Total Time Total Time Spent Total Time Spent (In Minutes): 70 Discharge Plan Discharge Items Patient Disposition: Home - Home Health Services Reason For Visit: UTI, MUSCLE SPASM, MS Discharge Diagnosis: UTI, failure of outpatient treatment Goals: You have been hospitalized for an acute medical problem. During your stay at [facility], we have made an effort to correct the problem that brought you to the hospital while keeping you as comfortable as possible. Medications were used to bring your condition under control and your discharge instructions will include directions for any medications you should take after leaving the hospital. Please make sure you see your Primary Care Provider as part of your follow up plan. Activity: Resume your previous activity Non-emergency contact: Primary Care Provider and Neurologist Call non-emergency contact if: you have any medication questions, your symptoms worsen, your pain is not controlled and you have a fever Follow-up/Referrals: Arabella Delarosa MD [Primary Care Provider] - Diet: Regular Addtl Attending Provider Instructions: You have been hospitalized for a UTI that was resistant to the antibiotics that were previously prescribed as Levaquin and Bactrim. Your urine culture showed morganella species and this was sensitive to Ceftriaxone which is a third generation cephalosporin antibiotic and this will be continued for total of ten days, once daily. We have inserted a peripheral IV site and home infusion company will meet you tomorrow for your next dose. You should follow up with your PCP to check for clearance of UTI in follow up sample. You should also discuss about prophylactic dosing of antibiotics with your catheter exchange to prevent issues in the future. You should continue follow up later this week to start your medication with Neurology for your MS. Please follow up with PCP in the next 7-10 days. Please return to the ER with any fever or worsening of symptoms. Pending Studies at Discharge: Yes Studies:: blood cultures Stand-Alone Forms: My [employer], Smoking Cessation Medications and DC Order Prescriptions: New ceftriaxone 1 gram recon soln 1 g IV DAILY Qty: 8 RF: 0 Continued Ocrevus 30 mg/mL solution 300 mg IV .COMPLEX Qty: 10 RF: 1 bisacodyl 10 mg suppository 10 mg IA DAILY PRN (Reason: Constipation) RF: 0 omega-3 fatty acids 1,000 mg Capsule 2,000 mg PO DAILY RF: 0 acetaminophen [Tylenol Extra Strength] 500 mg Tablet 1,000 mg PO Q6H PRN (Reason: Pain) RF: 0 cyanocobalamin (vitamin B-12) [Vitamin B-12] 2,500 mcg Tablet, Sublingual 2,500 mcg PO DAILY RF: 0 tizanidine 2 mg Tablet 2 mg PO Q8H PRN (Reason: muscle spasms) RF: 0 cod liver oil Oil 5 ml PO DAILY RF: 0 ibuprofen 200 mg Tablet 200 mg PO Q6H PRN (Reason: Pain) RF: 0 cholecalciferol (vitamin D3) [Vitamin D3] 25 mcg (1,000 unit) Tablet 75 mcg PO DAILY RF: 0 Glucosamine Chondroitin 550-30-1 mg Capsule 1 cap PO DAILY RF: 0 Black Seed Oil 1 tsp PO DAILY RF: 0 Essiac Tea 4 oz PO DAILY RF: 0 Lemon [place] 45 drp PO DAILY RF: 0 Magnesium Malate 800 mg PO DAILY RF: 0 No Action baclofen 20 mg tablet See Rx Instructions .ROUTE .COMPLEX Qty: 120 RF: 5 docusate sodium [Colace] 100 mg capsule 100 mg PO BID Qty: 60 RF: 5 eszopiclone [Lunesta] 2 mg tablet 2 mg PO . q.h.s. PRN (Reason: insomnia) Qty: 30 RF: 2 Discharge Orders: Discharge Order (Routine); Ordered 10/25/21 Ordered By: April Riggs/Other Patient Handouts: UTIs Understanding Admission Data Admit Date/Time: 10/24/21 22:55 Attending Provider: Kiran Kc Admit Provider: Yesi Lyon Primary Care Provider: Arabella Delarosa Other Providers: Yesi Lyon Other Interventions: Discharge Summary Assessment (RN) Last Done: 10/25/21 16:24 Supervising Physician Co-Signing Physician Notes Patient seen and examined at bedside. Obtained a physical examination and history during face to face encounter. I discussed plan of care with DARIEN Reyna I reviewed above note and agree with it. Patient treated with UTI. Ceftriaxone was ordered, and continued at discharge. Coding Level of Care Code 83672 OBS Care - Discharge Diagnoses UTI (urinary tract infection) N39.0 Hematuria presence: without hematuria Urinary tract infection type: site unspecified Multiple sclerosis G35 Neurogenic bladder N31.9
[2021-10-25] MEDS ORDERED: cefTRIAXone SODIUM 1,000 MG in DEXTROSE 5% 50 ML IV SCH ×2 (20:00→21:00)
--- NOTE | 2021-10-26 08:21 | Electrocardiogram Report ---
Test Reason : Blood Pressure : / mmHG Vent. Rate : 066 BPM Atrial Rate : 066 BPM P-R Int : 168 ms QRS Dur : 110 ms QT Int : 394 ms P-R-T Axes : 075 079 072 degrees QTc Int : 413 ms Poor data quality, interpretation may be adversely affected Normal sinus rhythm Incomplete right bundle branch block Borderline ECG When compared with ECG of 03-APR-2021 19:24, Vent. rate has decreased BY 47 BPM Confirmed by Jordon Chavez ([id number]) on 10/26/2021 8:20:53 AM Referred By: REFERRED SELF Confirmed By:Jordon Chavez
== END 2021-10-25 21:20 | disposition home health service (06) | DRG 690 ==
LOC: ED 19:49 → 3E 22:55 → SUATTDRO 22:55 → INTOOBSV 22:55 → 3E 10-25 01:31

== ENCOUNTER 2023-05-20 04:59 | Observation (INO) ==
--- NOTE | 2023-04-08 12:50 | PAT Medication Instructions ---
Medication Instructions Date of Service April 08, 2023 Home Medications Medication Instructions Recorded ocrelizumab 30 mg/mL intravenous 600 mg (20 mL) IV Q6MO #20 mL 05/12/22 solution (Ocrevus) baclofen 10 mg tablet 10 mg PO QID PRN muscle spasticity 06/08/22 #360 tabs methenamine hippurate 1 gram 1 g PO BID #180 tabs 01/15/23 tablet (Hiprex) mirabegron 25 mg tablet,extended 25 mg PO QAM #90 tabs 01/15/23 release 24 hr (Myrbetriq) acetaminophen 500 mg tablet (Tylenol Extra Strength) 500 mg PO Q6H PRN cholecalciferol (vitamin D3) 25 mcg (1,000 unit) tablet (Vitamin D3) 25 mcg PO QAM cyanocobalamin (vitamin B-12) 2,500 mcg sublingual tablet (Vitamin B-12) 2,500 mcg PO BID ocrelizumab 30 mg/mL intravenous solution (Ocrevus) 600 mg (20 mL) IV Q6MO baclofen 10 mg tablet 10 mg PO QID PRN ascorbate calcium (vitamin C) 500 mg tablet 500 mg PO QAM Probiotic 1 cap PO QAM docusate sodium 100 mg capsule (Colace) 100 mg PO HS turmeric 400 mg capsule 400 mg PO BID methenamine hippurate 1 gram tablet (Hiprex) 1 g PO BID mirabegron 25 mg tablet,extended release 24 hr (Myrbetriq) 25 mg PO QAM L-Theanine 1 cap PO HS acetylcysteine 600 mg capsule (NAC) 600 mg PO HS arginine oxoglurate 350 mg tablet,extended release (L-Arginine (alpha- ketoglutarate)) 350 mg PO HS ginkgo biloba 40 mg PO HS niacin 50 mg tablet 50 mg PO QAM thiamine HCl (vitamin B1) 50 mg tablet (Vitamin B-1) 50 mg PO QAM ASK your prescriber and surgeon ocrelizumab 30 mg/mL intravenous solution (Ocrevus) 600 mg (20 mL) IV Q6MO STOP taking 2 weeks before surgery (or as soon as possible if surgery is within 2 weeks) turmeric 400 mg capsule 400 mg PO BID L-Theanine 1 cap PO HS acetylcysteine 600 mg capsule (NAC) 600 mg PO HS arginine oxoglurate 350 mg tablet,extended release (L-Arginine (alpha- ketoglutarate)) 350 mg PO HS ginkgo biloba 40 mg PO HS STOP taking 48 hours before surgery niacin 50 mg tablet 50 mg PO QAM DO NOT take the morning of surgery cholecalciferol (vitamin D3) 25 mcg (1,000 unit) tablet (Vitamin D3) 25 mcg PO QAM cyanocobalamin (vitamin B-12) 2,500 mcg sublingual tablet (Vitamin B-12) 2,500 mcg PO BID ascorbate calcium (vitamin C) 500 mg tablet 500 mg PO QAM Probiotic 1 cap PO QAM mirabegron 25 mg tablet,extended release 24 hr (Myrbetriq) 25 mg PO QAM thiamine HCl (vitamin B1) 50 mg tablet (Vitamin B-1) 50 mg PO QAM Take morning of surgery With a small sip of water, OTHERWISE NOTHING TO EAT OR DRINK AFTER MIDNIGHT: acetaminophen 500 mg tablet (Tylenol Extra Strength) 500 mg PO Q6H PRN(if needed) baclofen 10 mg tablet 10 mg PO QID PRN(if needed) methenamine hippurate 1 gram tablet (Hiprex) 1 g PO BID Take evening before surgery acetaminophen 500 mg tablet (Tylenol Extra Strength) 500 mg PO Q6H PRN(if needed) cyanocobalamin (vitamin B-12) 2,500 mcg sublingual tablet (Vitamin B-12) 2,500 mcg PO BID baclofen 10 mg tablet 10 mg PO QID PRN(if needed) docusate sodium 100 mg capsule (Colace) 100 mg PO HS methenamine hippurate 1 gram tablet (Hiprex) 1 g PO BID Other Notes If you have any questions please call us at [phone] or [phone] or [phone] or [phone]
--- NOTE | 2023-04-19 10:08 | Anesthesiology Consultation ---
Date of Service April 19, 2023 Assessment & Plan (1) Encounter for pre-operative examination: - Infectious disease screening: Per assessment on 04/19/23: No known infectious disease contacts or current infectious disease symptoms. No noted Covid positive test result in past 90 days. - Outpatient joint assessment: Pt currently scheduled for inpatient pathway. If surgeon requests review for outpatient joint pathway, patient is not recommended candidate for outpatient joint program from anesthesia standpoint based on available information. - S/P Cystolithopaxy (09/22/22): LMA#4, atraumatic at [facility] - PCP visit (03/02/23): "Bi is a 42M who presents today for routine follow up. Neurogenic bladder with chronic indwelling wilkins, Recurrent UTIs.. Bladder stones - [facility] [place] Urology.. Recurrent UTIs in 2021 since MS diagnosis/chronic wilkins placement. Including unusual/resistant pathogens.. Continue monthly wilkins exchanges w/ urology, methenamine, myrbetriq.. Primary progressive MS - Dr Khan Neurology.. Primary progressive multiple sclerosis with myelopathy, neurogenic bladder w/ chronic indwelling wilkins.. Continue treatment per Neurology: Ocrevus (started 10/30/21, receives q6mos).. Continue symptomatic treatment.. Spasms: Baclofen QID PRN. Tizanidine q8h PRN.. Continue PT for gait strengthening & mobility.. L hip pain.. H/o AVN b/l hips s/p R CAIT.. Unclear etiology. No long term care phlebotomist steroids. No SCA.. Continue f/u w/ [facility] management, considering nerve block/RFA.. Continue APAP/ibuprofen as above.. Encourage repositioning to avoid any trochanteric bursitis from pressure on bursa in wheelchair.. scheduled for L CAIT with Dr. Mata Apr 2023.. Keep routine medical follow-up as scheduled with Dr. Maldonado July 2023" - Urology visit (04/07/23): "43 year-old male here for urodynamics for further evaluation of neurogenic bladder. Patient with history of MS/neurogenic bladder. Currently managing with indwelling wilkins catheter, changing monthly. He is feeling well overall. Catheter has been draining well. No dysuria or hematuria. No fevers or chills. Denies nausea or vomiting. Denies additional urologic concerns today." - Urology workload note (04/12/23): "PCR showing multiple bacteria. Rx sent for Doxycycline, take BID x10 days. He will need to make his orthopedic surgeon aware of positive culture as well." > Abx to be completed prior to surgery. Surgeon's office made aware. - Multiple sclerosis: Wheelchair bound. Needs assistance with transfer- uses Arlin lift. OR aware. Chart Review Chart Review: Acceptable Risk for Surgery and Patient seen in Pre Admission Testing Teaching & Discussion Pre-Anesthesia Teaching/Discussion Notes: Instructed NPO after midnight before surgery,except medications with 15 cc of water. Medication instructions provided according to the PAT guidelines. History Surgery Operation Date: 05/21/23 11:40 Proposed Procedures p Left Anterior Total Hip Arthroplasty - Charles Mata DO Height/Weight Height: 6 ft 2.5 in Weight: 68.039 kg (verbal, wheelchair bound) Allergies Allergy/AdvReac Type Severity Reaction Status Date / Time codeine AdvReac Intermediate "[place] Verified 04/09/23 13:50 funny" gluten AdvReac Unknown Follows Verified 04/09/23 13:50 gluten free diet Medications Home Medications Medication Instructions Recorded Confirmed Last Taken acetaminophen 500 mg tablet 500 mg PO Q6H PRN Pain 03/31/21 04/06/23 09/22/22 07:00 (Tylenol Extra Strength) cholecalciferol (vitamin D3) 25 25 mcg PO QAM 07/12/21 04/06/23 11/20/22 mcg (1,000 unit) tablet (Vitamin D3) cyanocobalamin (vitamin B-12) 2,500 mcg PO BID 07/12/21 04/06/23 11/20/22 2,500 mcg sublingual tablet (Vitamin B-12) ocrelizumab 30 mg/mL intravenous 600 mg (20 mL) IV Q6MO #20 mL 05/12/22 04/06/23 Unknown solution (Ocrevus) baclofen 10 mg tablet 10 mg PO QID PRN muscle spasticity 06/08/22 04/06/23 09/22/22 07:00 #360 tabs ascorbate calcium (vitamin C) 500 500 mg PO QAM Supplument 07/28/22 04/06/23 11/20/22 mg tablet Probiotic 1 cap PO QAM 09/15/22 04/06/23 11/20/22 docusate sodium 100 mg capsule 100 mg PO HS 09/15/22 04/06/23 11/19/22 (Colace) turmeric 400 mg capsule 400 mg PO BID 09/15/22 04/06/23 11/20/22 methenamine hippurate 1 gram 1 g PO BID #180 tabs 01/15/23 04/06/23 Unknown tablet (Hiprex) mirabegron 25 mg tablet,extended 25 mg PO QAM #90 tabs 01/15/23 04/06/23 Unknown release 24 hr (Myrbetriq) L-Theanine 1 cap PO HS 04/06/23 04/06/23 Unknown acetylcysteine 600 mg capsule (NAC) 600 mg PO HS 04/06/23 04/06/23 Unknown arginine oxoglurate 350 mg 350 mg PO HS 04/06/23 04/06/23 Unknown tablet,extended release (L-Arginine (alpha-ketoglutarate)) ginkgo biloba 40 mg PO HS 04/06/23 04/06/23 Unknown niacin 50 mg tablet 50 mg PO QAM 04/06/23 04/06/23 Unknown thiamine HCl (vitamin B1) 50 mg 50 mg PO QAM 04/06/23 04/06/23 Unknown tablet (Vitamin B-1) doxycycline hyclate 100 mg tablet 100 mg PO BID 10 days #20 tabs 04/12/23 Unknown Past Medical History Medical History Ambulatory dysfunction Wheelchair with chair lift, not able to ambulate History of bladder stone History of COVID-19 07/30/22- symptoms resolved Insomnia Avascular necrosis of bone of left hip Chronic indwelling Wilkins catheter Neurogenic bladder 2/2 MS, changes monthly Recurrent urinary tract infection Has indwelling catheter, still intact Multiple sclerosis Primary progressive MS, wheelchair bound, receives Ocrevus infusions Follows with Neuro. LE weakness, myelopathy, neurogenic bladder Muscle spasticity 2/2 primary progressive MS; takes baclofen Rhabdomyolysis Non-traumatic rhabdo 2020 per records, patient unaware Exercise / Class Metabolic Activity IV < 2 Limit ADL/Bedbound Past Family History Family History Father , Patient knows nothing about his father. No problems noted. Mother No problems noted. Grandmother (Maternal) Ovarian cancer Colorectal cancer Other No family history of adverse response to anesthesia Denies family history of Prostate cancer Myocardial infarction Breast cancer Past Surgical History Surgical History History of tooth extraction S/P urological surgery Cystolithopaxy (09/22/22): LMA#4, atraumatic at [facility] History of anesthesia problem Awareness with hip replacement History of mandibular surgery Age 17, no jaw ROM limitations per patient History of open reduction and internal fixation (ORIF) procedure Right eye orbital fracture repair History of right hip replacement Past Anesthesia History No Family Hx of Anesthesia Complications and Other (Awareness with hip replacement) History of PONV No Hx of PONV and No Hx of Motion Sickness Social History Smoking Status: Former smoker Do You Dip or Chew Tobacco: No Smoking End Date: Quit 4-5 years ago Hx Alcohol Use: No Hx Substance Use: No substance use type: does not use Review of Systems Patient denies chest pain, shortness of breath, fever, chills, cough, wheezing, palpitations. Physical Exam Vital Signs VITALS BP 115/78 P 80 TEMP 98.3 SP02 97%RA RESP 18 PHYSICAL Full cervical extension range of motion. Full TMJ range of motion. TMD 3.5 finger breaths Mallampati Score 2 Dentition: several missing teeth (sides) Lungs: clear throughout to auscultation Cardiac: regular rate and rhythm, no murmurs noted Spine: normal Carotid arteries: negative bruit Extremities: no LE edema Lab Results Anesthesia Preop Results Results Anesthesia Widget: WBC 3.94 K/ul (4.8-10.8) L 04/19/23 Hgb 14.5 g/dl (14.0-18.0) 04/19/23 Hct 43.5 % (42.0-52.0) 04/19/23 Plt 236 K/uL (130-400) 04/19/23 Na 138 mmol/L (136-145) 04/19/23 K 4.0 mmol/L (3.5-5.1) 04/19/23 Cl 104 mmol/L (98-107) 04/19/23 CO2 30 mmol/L (21-32) 04/19/23 BUN 8 mg/dl (6-23) 04/19/23 Creat 0.60 mg/dl (0.6-1.4) 04/19/23 Glucose Level 88 mg/dl (70-99(Fasting)) 04/19/23 PT 10.9 Seconds (9.0-12.0) 04/19/23 PTT 34.2 Seconds (21.0-31.0) H 04/19/23 INR 1.0 (0.9-1.1) 04/19/23 Blood Type A Positive 04/19/23 Antibody Screen NEGATIVE 04/19/23 Testing Laboratory Results Surgeon's office made aware of low WBC* Electrocardiogram Date: 07/18/22 Normal sinus rhythm with sinus arrhythmia at 73 bpm. Incomplete right bundle branch block. No significant change compared to 10/24/2021 per escapement maker comparison. Chest X-Ray Date: 07/18/22 Findings: + NAD
--- NOTE | 2023-05-19 07:26 | History & Physical Report ---
Date of Service May 19, 2023 Assessment & Plan (1) Avascular necrosis of bone of left hip: We will proceed with a left anterior total of arthroplasty. Postoperatively he will be started on Eliquis for DVT prophylaxis and kept overnight in the hospital for postop medical management. He plans to have home health or possibly go to rehab upon discharge. History of Present Illness Chief Complaint: Avascular necrosis of the left hip. Primary Care Provider: Arabella Delarosa MD Bi is a pleasant 42-year-old male who has severe MS. It started right after the COVID vaccination. He is now wheelchair-bound because of it. He has a history of a right hip replaced before his MS diagnosis. That was done at the [facility] in [place]. He has done well with that. 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 It has been progressively worse. He has been receiving conservative treatment for it and he has been holding off a hip rep lacement until his MS is little better controlled. At this point, he is wheelchair bound, but he is on better MS medications. His hip is still really hurting him. After failed extensive conservative treatment, he has elected proceed with a left anterior total of arthroplasty. Allergies Allergy/AdvReac Type Severity Reaction Status Date / Time codeine AdvReac Intermediate "[place] Verified 05/06/23 12:11 funny" gluten AdvReac Unknown Follows Verified 05/06/23 12:11 gluten free diet Home Medications Medication Instructions Recorded Confirmed Type acetaminophen 500 mg tablet 500 mg PO Q6H PRN Pain 03/31/21 04/06/23 History (Tylenol Extra Strength) cholecalciferol (vitamin D3) 25 25 mcg PO QAM 07/12/21 04/06/23 History mcg (1,000 unit) tablet (Vitamin D3) cyanocobalamin (vitamin B-12) 2,500 mcg PO BID 07/12/21 04/06/23 History 2,500 mcg sublingual tablet (Vitamin B-12) baclofen 10 mg tablet 10 mg PO QID PRN muscle spasticity 06/08/22 04/06/23 Rx #360 tabs ascorbate calcium (vitamin C) 500 500 mg PO QAM Supplument 07/28/22 04/06/23 History mg tablet Probiotic 1 cap PO QAM 09/15/22 04/06/23 History docusate sodium 100 mg capsule 100 mg PO HS 09/15/22 04/06/23 History (Colace) turmeric 400 mg capsule 400 mg PO BID 09/15/22 04/06/23 History methenamine hippurate 1 gram 1 g PO BID #180 tabs 01/15/23 04/06/23 Rx tablet (Hiprex) L-Theanine 1 cap PO HS 04/06/23 04/06/23 History acetylcysteine 600 mg capsule (NAC) 600 mg PO HS 04/06/23 04/06/23 History arginine oxoglurate 350 mg 350 mg PO HS 04/06/23 04/06/23 History tablet,extended release (L-Arginine (alpha-ketoglutarate)) ginkgo biloba 40 mg PO HS 04/06/23 04/06/23 History niacin 50 mg tablet 50 mg PO QAM 04/06/23 04/06/23 History thiamine HCl (vitamin B1) 50 mg 50 mg PO QAM 04/06/23 04/06/23 History tablet (Vitamin B-1) doxycycline hyclate 100 mg tablet 100 mg PO BID 10 days #20 tabs 04/12/23 Rx mirabegron 25 mg tablet,extended 25 mg PO QAM #90 tabs 04/22/23 Rx release 24 hr (Myrbetriq) ocrelizumab 30 mg/mL intravenous 600 mg (20 mL) IV Q6MO 04/29/23 Rx solution (Ocrevus) ocrelizumab 30 mg/mL intravenous 600 mg (20 mL) IV Q6MO #20 mL 04/29/23 Rx solution (Ocrevus) Past Med/Surg History Medical History Ambulatory dysfunction Wheelchair with chair lift, not able to ambulate History of bladder stone History of COVID-19 07/30/22- symptoms resolved Insomnia Avascular necrosis of bone of left hip Chronic indwelling Roldan catheter Neurogenic bladder 2/2 MS, changes monthly Recurrent urinary tract infection Has indwelling catheter, still intact Multiple sclerosis Primary progressive MS, wheelchair bound, receives Ocrevus infusions Follows with Neuro. LE weakness, myelopathy, neurogenic bladder Muscle spasticity 2/2 primary progressive MS; takes baclofen Rhabdomyolysis Non-traumatic rhabdo 2020 per records, patient unaware Surgical History History of tooth extraction S/P urological surgery Cystolithopaxy (09/22/22): LMA#4, atraumatic at [facility] History of anesthesia problem Awareness with hip replacement History of mandibular surgery Age 17, no jaw ROM limitations per patient History of open reduction and internal fixation (ORIF) procedure Right eye orbital fracture repair History of right hip replacement Family History Father , Patient knows nothing about his father. No problems noted. Mother No problems noted. Grandmother (Maternal) Ovarian cancer Colorectal cancer Other No family history of adverse response to anesthesia Denies family history of Prostate cancer Myocardial infarction Breast cancer Social History Smoking Status: Former smoker Tobacco Type: Cigarettes Smoking End Date: Quit 4-5 years ago; Second Hand Exposure: No; Do You Dip or Chew Tobacco: No; Hx Alcohol Use: No Hx Substance Use: No Preferred Language: Croatian Communication Ability: Effective Rn Or Lpn Required: No Beliefs That Will Affect Care: None marital status: Single Current Living Situation: Alone Current Living Situation Comment: apartment with day/night time caregivers current occupational status: unemployed and disabled 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 Physical Exam On physical examination left hip, he is mostly wheelchair-bound. He is able to lie flat. He is able to fully extend his knee. He has severe pain with range of motion of his hip.. Constitutional WD/WN, vitals as above Eyes PERRL, conjunctivae normal, anicteric sclerae ENMT external ear and nose normal, oropharynx normal Neck trachea midline, no thyromegaly Respiratory normal respiratory effort Cardiovascular RRR, no murmur, no edema Gastrointestinal (Abdomen) normal bowel sounds, soft, nontender, no hepatosplenomegaly Psychiatric A+Ox3, euthymic affect Results & Data Results & Data Laboratory Results . Diagnostic Findings X-rays of the left hip show severe avascular necrosis with advanced collapse of the femoral head.. PG Care Time/CCT Total # of Minutes Spent Total Time Spent with Patient: Total time spent is greater than 50% in coordination of care (as documented) at patient's floor/unit and/or counseling patient: Coding Level of Care Code None Diagnoses Avascular necrosis of bone of left hip M87.052
[2023-05-20] MEDS ORDERED: dexAMETHasone 4 MG TAB PO SCH (06:00)
[2023-05-20] MEDS ORDERED: LR 60ML/HR IV SCH (06:00)
[2023-05-20] MEDS ORDERED: LR 15ML/HR IV SCH (06:00)
[2023-05-20] MEDS ORDERED: GABAPENTIN 900 MG DOSE PO SCH (06:00)
[2023-05-20] MEDS ORDERED: ORTHO JOINT MIX INFIL SCH (06:00)
[2023-05-20] MEDS ORDERED: ceFAZolin 2000MG 2,000 MG/15 ML SYR IV SCH (06:00)
[2023-05-20] MEDS ORDERED: FAMOTIDINE 20 MG TAB PO SCH (06:00)
[2023-05-20] MEDS ORDERED: TRANEXAMIC ACID 1,000 MG **IV Pre-op IV SCH (06:00)
[2023-05-20] MEDS ORDERED: ACETAMINOPHEN 500 MG TAB PO SCH (06:00)
[2023-05-20] MEDS ORDERED: TRANEXAMIC ACID 1,000 MG **IV Intra-op IV SCH (06:00)
[2023-05-20] MEDS ORDERED: BUPIVACAINE 0.5 % 5 MG/1 ML PF 10ML VIAL ONE (06:21)
[2023-05-20] MEDS ORDERED: fentaNYL citrate PF 100 MCG/2 ML VIAL ONE ×2 (06:31→07:23)
[2023-05-20] MEDS ORDERED: MIDAZOLAM HCL 1 MG/ML 2ML VIAL ONE (06:31)
--- NOTE | 2023-05-20 06:43 | History & Physical Bridge Note ---
Date of Service May 20, 2023 History & Physical Bridge Note I have examined the patient, reviewed the History & Physical and in the interval since the performance of the History & Physical I have noted the following changes of clinical significance: no changes noted
[2023-05-20] MEDS ORDERED: OXYMETAZOLINE 0.05% 30 ML BTL NAE ONE (06:48)
[2023-05-20] MEDS ORDERED: PROMETHAZINE HCL 6.25 MG in SODIUM CHLORIDE 0.9% 50 ML IV PRN (06:49)
[2023-05-20] MEDS ORDERED: HYDROmorphone INJ 2 MG/ML SYR/VIAL IV PRN (06:49)
[2023-05-20] MEDS ORDERED: ONDANSETRON INJ 2 MG/ML 2 ML VIAL IV PRN ×2 (06:49→09:53)
[2023-05-20] MEDS ORDERED: ATROPINE SULFATE 0.1 MG/ML 10ML SYR IV PRN (06:49)
[2023-05-20] MEDS ORDERED: ePHEDrine sulfate 50 MG/ML AMP IV PRN (06:49)
[2023-05-20] MEDS ORDERED: fentaNYL citrate PF 100 MCG/2 ML VIAL IV PRN (06:49)
[2023-05-20] MEDS ORDERED: OXYMETAZOLINE 0.05% 30 ML BTL ONE (06:50)
[2023-05-20] MEDS ORDERED: ORTHO JOINT ANESTHETIC ONE (06:54)
[2023-05-20] MEDS ORDERED: DEXAMETHASONE SOD INJ 4 MG/ML VIAL ONE (07:42)
[2023-05-20] MEDS ORDERED: ONDANSETRON INJ 2 MG/ML 2 ML VIAL ONE (07:42)
[2023-05-20] MEDS ORDERED: PROPOFOL IV EMULSION 10 MG/ML 20 ML VIAL IV ONE (07:42)
[2023-05-20] MEDS ORDERED: LIDOCAINE 2% 2 ML VIAL/AMP(20MG/ML) INFIL ONE (07:42)
[2023-05-20] MEDS ORDERED: VASOPRESSIN 20 UNIT/ML VIAL ONE (07:42)
[2023-05-20] MEDS ORDERED: PHENYLEPHRINE 100MCG/ML 10ML SYR IV ONE (07:42)
--- NOTE | 2023-05-20 08:53 | Operative Report ---
PG Post Operative Report Pre & Post Diagnosis Operation Date: 05/20/23 07:00 Pre-Op Diagnosis: Avascular necrosis of bone of left hip Post-Op Diagnosis: Avascular necrosis of bone of left hip I identified the patient and participated in the time-out.: Yes Procedure Operation Date: 05/20/23 07:00 Actual Procedures p Left Anterior Total Hip Arthroplasty(Left) - Charles Mata DO Surgeon Charles Mata DO Slide Forming Machine Operator Colby Bacon PA-C Estimated Blood Loss 300 Findings Consistent with Post-Op Diagnosis Specimens Left femoral head Description of Procedure Implants used I used a ZimmerBiomet total hip arthroplasty system with a size 7 high offset Avenir Complete stem, a 56 mm G7 cup with a 25mm screw, a dual mobility shell, a 28 mm metal head with a +7 neck and a dual mobility liner. Bi arrived at the hospital for the above procedure. He was seen in the preoperative holding area and the operative extremity was identified and signed. He was given a preoperative antibiotic, and TXA. He was then taken back to the operating room and laid on the table in the supine position. He was given general anesthesia. The operative leg was secured to a Puristst leg positioner. The hip was then prepped and draped in sterile fashion. A timeout was done and the patient and the operative extremity was properly identified. An anterior approach was used. Dissection was taken down through the fascia and the tensor muscle belly was retracted laterally and the rectus was retracted medially. The circumflex vessels were identified and ligated. The capsule was then incised and tagged for later repair. The femoral neck was then cut and the femoral head was removed. The acetabulum was exposed. Time was spent doing a complete circumferential labral release. Sequential reaming of the acetabulum up to a size 55 reamer was done. Final reamings were done under fluoroscopy to ensure appropriate version. A Biomet 56 mm G7 cup was then impacted into place. A single 25 mm screw was placed. The dual mobility shell was then snapped into place. Surrounding soft tissues were then injected with 100 cc of an orthopedic pain control cocktail. The proximal femur was then exposed. Sequential broaching up to a size 7 broach was done. Off that broach a size 28 head with a +7 neck and a dual mobility liner was trialed. The hip was reduced and fluoroscopic images showed anatomic alignment of the implants in acceptable length. The broach was removed. The final size 7 high offset Avenir Complete stem was then impacted into place. A metal 28 mm head with a +7 neck and a dual mobility liner was then impacted onto the stem and the hip was reduced. Final fluoroscopic images showed anatomic alignment of the hip. The capsule was then closed with #1 Vicryl suture. A dilute betadyne lavage was then done for 3 minutes. The joint was then irrigated with normal saline solution. The fascia was closed with #1 PDS suture. Skin was closed with 2-0 Vicryl, nicho, and a Silverlon dressing. He was then transferred to a hospital bed and taken to the post anesthesia care unit in stable condition. He tolerated the procedure well. Charles Nguyen PA-C, was present for the entire procedure. He was critical for patient positioning, prepping, draping, retraction exposure, wound closure and application of sterile dressing. I attest to the content of the Intraoperative Record and any orders documented therein. Any exceptions are noted below.
--- NOTE | 2023-05-20 09:30 | Fluoroscopy Report ---
INTRAOPERATIVE RADIOGRAPH CLINICAL HISTORY: Left hip arthroplasty. Fluoro time: 19 seconds Ka,r: 1.49 mGy FINDINGS: A single spot fluoroscopic view of the left hip is correlated with radiographs dated 06/25/19. A bipolar left hip arthroplasty is in near anatomic alignment. A single cortical lag screw transf ixes the acetabular cup. There is no evidence of acute fracture on this single fluoroscopic view. IMPRESSION: Intraoperative image from a left hip arthroplasty procedure as above. Electronically signed by: Nayan Tuttle M.D. 05/20/2023 9:28 AM
[2023-05-20] MEDS ORDERED: traMADol HCL 50 MG TABLET PO PRN (09:53)
[2023-05-20] MEDS ORDERED: bisacodyL 10 MG SUPP PR PRN (09:53)
[2023-05-20] MEDS ORDERED: METOCLOPRAMIDE HCL INJ 5 MG/ML 2 ML VIAL IV PRN (09:53)
[2023-05-20] MEDS ORDERED: oxyCODONE HCL IR 5 MG TAB (IMMEDIATE RELEASE) PO PRN (09:53)
[2023-05-20] MEDS ORDERED: NALOXONE HCL 0.4 MG/1 ML VIAL/CARP IV PRN (09:53)
[2023-05-20] MEDS ORDERED: NON-FORMULARY MEDICATION (Ocrelizumab [Ocrevus] 30 mg/mL solution) IV SCH (09:53)
[2023-05-20] MEDS ORDERED: HYDROmorphone INJ 0.5 MG/0.5 ML SYR IV PRN (09:53)
[2023-05-20] MEDS ORDERED: MAGNESIUM HYDROXIDE SUSP 30 ML UDC PO PRN (09:53)
[2023-05-20] MEDS: SODIUM CHLORIDE 0.9% 1,000 ML IV SCH ×2 (10:19→21:30)
--- NOTE | 2023-05-20 10:57 | Anesthesiology Progress Note ---
Date of Service May 20, 2023 Anesthesia Post Procedure Vital Signs Vital Signs: Temp Pulse Pulse Resp BP BP Pulse Ox 05/20/23 10:23 36.5 C 87 16 127/79 100 05/20/23 09:54 36.5 C 87 16 116/75 97 05/20/23 09:45 36.5 C 88 18 118/85 97 05/20/23 09:35 85 20 122/77 97 05/20/23 09:25 87 19 131/91 95 05/20/23 09:15 36.3 C L 90 12 115/81 97 05/20/23 05:56 36.9 C 89 20 127/76 122/77 95 O2 Del Method O2 Flow Rate 05/20/23 10:23 Room Air 05/20/23 09:54 Room Air 05/20/23 09:45 Room Air 05/20/23 09:35 Room Air 05/20/23 09:25 Room Air 05/20/23 09:15 Oxymask 6 05/20/23 05:56 Room Air Transfer of Care Handoff Completed per policy Notes Mental Status: alert / awake / arousable Patient Amnestic to Procedure: Yes Nausea / Vomiting: adequately controlled Pain: adequately controlled Airway Patency, RR, SpO2: stable & adequate BP & HR: stable & adequate Hydration State: stable & adequate Anesthetic Complications: no major complications apparent
[2023-05-20] MEDS: KETOROLAC TROMETHAMINE 15 MG/ML VIAL IV SCH ×3 (11:14→23:02)
--- NOTE | 2023-05-20 11:49 | XRay Report ---
SINGLE VIEW PELVIS; SINGLE VIEW LEFT HIP CLINICAL HISTORY: Postoperative examination. FINDINGS: An AP portable view of the hips and pelvis with a crosstable lateral portable view of the l eft hip are compared to study dated 06/25/2021. A bipolar left hip arthroplasty is in near-anatomic ali gnment. A single cortical lag screw transfixes the acetabular cup. No acute fracture is identified. T here are expected postoperative changes overlying the left hip including skin clips, subcutaneous gas , and soft tissue swelling. A right hip arthroplasty is unchanged in position. Phleboliths are noted in the pelvis. A Roldan catheter is in place. IMPRESSION: Expected postoperative findings status post left hip arthroplasty. No acute fracture is s een. ACT 112: Negative or not required by law. Electronically signed by: Nayan Tuttle M.D. 05/20/2023 11:48 AM
[2023-05-20] MEDS: ACETAMINOPHEN 500 MG TAB PO SCH ×2 (14:37→23:02)
[2023-05-20] MEDS: ceFAZolin 2000MG 2,000 MG/15 ML SYR IV SCH ×2 (16:05→23:02)
[2023-05-20] MEDS: CYANOCOBALAMIN (B-12) 2,500 MCG TABLET PO SCH (19:57)
[2023-05-20] MEDS: DOCUSATE SODIUM 100 MG CAP PO SCH (19:58)
[2023-05-20] MEDS ORDERED: NON-FORMULARY MEDICATION (Turmeric 400 mg Capsule) PO SCH (21:00)
[2023-05-20] MEDS ORDERED: ACETYLCYSTEINE 600 MG PO SCH (21:00)
[2023-05-20] MEDS ORDERED: SENNA 8.6 MG TAB PO SCH (21:00)
[2023-05-20] MEDS ORDERED: THEANINE PO SCH (21:00)
[2023-05-20] MEDS ORDERED: DOCUSATE SODIUM 100 MG CAP PO SCH (21:00)
[2023-05-20] MEDS ORDERED: GINKGO BILOBA PO SCH (21:00)
[2023-05-20] MEDS ORDERED: ARGININE OXOGLURATE 350 MG PO SCH (21:00)
[2023-05-21] MEDS: KETOROLAC TROMETHAMINE 15 MG/ML VIAL IV SCH (05:05)
[2023-05-21] MEDS: ACETAMINOPHEN 500 MG TAB PO SCH (05:06)
[2023-05-21] MEDS ORDERED: dexAMETHasone 4 MG TAB PO SCH (08:00)
[2023-05-21] MEDS: CYANOCOBALAMIN (B-12) 2,500 MCG TABLET PO SCH (08:20)
[2023-05-21] MEDS: DOCUSATE SODIUM 100 MG CAP PO SCH (08:22)
[2023-05-21] MEDS ORDERED: APIXABAN 2.5 MG TAB PO SCH (09:00)
[2023-05-21] MEDS ORDERED: VIBEGRON 75 MG TAB PO SCH (09:00)
[2023-05-21] MEDS ORDERED: NIACIN 50 MG PO SCH (09:00)
[2023-05-21] MEDS ORDERED: MULTIVITAMIN TAB PO SCH (09:00)
--- NOTE | 2023-05-21 10:26 | Orthopedic Progress Note ---
Date of Service May 21, 2023 Assessment & Plan (1) Status post left hip replacement: Overall, he is doing quite well today with good pain control to the left hip. He will work with physical therapy later today to work on transition and from bed to chair versus bed to wheelchair. He is currently on Eliquis for DVT prophylaxis. He can be discharged home later today pending physical therapy evaluation. He will be discharged back home with his caregivers. I discussed discharge medication and which included oxycodone. He states that he would not like any narcotic prescription and would rather just take Tylenol. If he changes his mind he may call the office for pain management prescription. He w ill follow-up in orthopedics in 2 weeks for postoperative care. Subjective . Bi was seen and evaluated resting comfortably in bed this morning in no apparent distress. He has a nonambulator at baseline in which she has not been out of bed since yesterday. He notes that his pain is well-controlled to the left hip. He denies any other concerns today. Review of Systems All systems reviewed & are unremarkable except as noted in HPI & below. Physical Exam . On physical examination of the left hip, his dressings are in place, clean, dry, and intact. His leg is out in full extension. He has slight active plantarflexion dorsiflexion to the left ankle. +2 DP and PT pulses. Less than 2-second capillary refill. Baseline neurovascular exam. Results & Data Results & Data Laboratory Results . Diagnostic Findings . Postoperative x-rays of the left hip show the prosthesis to be in anatomical alignment with no signs of fracture complication or loosening. PG Care Time/CCT Total # of Minutes Spent Total Time Spent with Patient: Total time spent is greater than 50% in coordination of care (as documented) at patient's floor/unit and/or counseling patient: Coding Level of Care Code 28723 Post Operative Follow-Up Diagnoses Status post left hip replacement Z96.642
--- NOTE | 2023-05-21 10:29 | Discharge Summary ---
Date of Service May 21, 2023 Admission HPI (Per Admitting) Bi is a pleasant 42-year-old male who has severe MS. It started right after the COVID vaccination. He is now wheelchair-bound because of it. He has a history of a right hip replaced before his MS diagnosis. That was done at the [facility] in [place]. He has done well with that. 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 It has been progressively worse. He has been receiving conservative treatment for it and he has been holding off a hip replacement until his MS is little better controlled. At this point, he is wheelchair bound, but he is on better MS medications. His hip is still really hurting him. After failed extensive conservative treatment, he has elected proceed with a left anterior total of arthroplasty. Admission Exam (Per Admitting) On physical examination left hip, he is mostly wheelchair-bound. He is able to lie flat. He is able to fully extend his knee. He has severe pain with range of motion of his hip.. Principal Diagnosis Same as "Discharge Diagnosis" noted below under Discharge Instructions. Discharge Exam . On physical examination of the left hip, his dressings are in place, clean, dry, and intact. His leg is out in full extension. He has slight active plantarflexion dorsiflexion to the left ankle. +2 DP and PT pulses. Less than 2-second capillary refill. Baseline neurovascular exam. Discharge Data Procedures Performed Operation Date: 05/20/23 07:00 Actual Procedures p Left Anterior Total Hip Arthroplasty(Left) - Charles Mata DO Ordered Studies 05/20/23 [place] hip LT 1V Routine Hospital Course (1) Status post left hip replacement: On May 20, 2023 Bi arrived at [facility] and underwent a left total hip arthroplasty without complications. He had a general anesthetic. Postoperatively, he was started on Xarelto for DVT prophylaxis and transferred to the general orthopedic floor in stable condition. His hospital course was uneventful. On postoperative day #1, his vital signs are stable and his pain was well-controlled. He participated well with physical therapy working on exercises as well as transitions. He was then discharged home in stable condition with caregivers. He will follow-up with orthopedics in 2 weeks for postoperative care. PG Care Time/CCT Total # of Minutes Spent Total Time Spent with Patient: Total time spent is greater than 50% in coordination of care (as documented) at patient's floor/unit and/or counseling patient: Discharge Plan Discharge Items Patient Disposition: Home - Self-Care Reason For Visit: Left Hip Degenerative Joint Disease Discharge Diagnosis: Same Activity: Per Instructions section Non-emergency contact: Surgeon Call non-emergency contact if: your temperature is above 101.5, your wound has increased redness and your wound has increased drainage Follow-up/Referrals: Arabella Delarosa MD [Primary Care Provider] - Diet: Regular Addtl Attending Provider Instructions: Activity and Therapy Recommendations: * If you are using [facility] then therapy will be provided at your home until they feel you have accomplished all of your goals. * If you are using [facility] then Physical Therapy will be provided until they feel you are ready to start Outpatient Physical Therapy. * If you are not using home therapy then Outpatient Physical Therapy should start about 3-5 days from your day of surgery. Therapy will last about 6-10 weeks * You were shown a series of exercises in the hospital. Do these exercises three times each day including the exercises you were shown in physical therapy. * Get up and walk several times each day.~ For the first four weeks, try not to stand or walk for more than one hour at a time. If you do stand or walk for more than one hour, you will not hurt anything, but your leg will likely swell.~~ * As you feel comfortable, you may change from the walker or crutches to a cane and~then to independent walking. Medications: * Narcotic You will likely be sent home from the hospital with a prescription for the narcotic pain medication that worked best throughout your stay. * Eliquis -take the Eliquis twice a day for 30 days to help prevent blood clots * Cefadroxil -take the antibiotic twice a day for 10 days to help prevent infection. * Other medications may be prescribed for specific circumstances. If you have any questions, please call the office at . * Resume previous home medications unless otherwise instructed TEDs/Elastic Stockings: The white elastic stockings help limit swelling and prevent blood clots from forming in your legs. The more you wear them, the more they work. Wear them for six weeks. Dressing Care: Leave the Silverlon dressing in place for 7 days. After 7 days you may remove the dressing. If the incision is not draining then you may leave the nicho open to air. If there is a little bit of drainage or if the nicho are getting stuck on your clothing then cover the incision with a dry dressing. The nicho will be removed at your 2 week follow-up appointment. Showering: You may shower with the Silverlon dressing in place. Do not let the shower spray hit the dressing directly. Pat the Silverlon dressing dry. If the dressing becomes wet underneath, then simply remove the dressing. Keep the incision dry until you are 7 days out from the day of surgery. After 7 days you may remove the Silverlon dressing and shower with the nicho exposed. Let soapy water run over the nicho and pat them dry. Do not scrub or soak the incision. Things To Watch For: * Drainage from the incision site that occurs more than one week after your surgery. * Increased redness at the incision site. * Fever above 102 degrees Fahrenheit. * Unusual chest pain or shortness of breath. * Call [facility] at with any of the above problems Follow-Up Visit: Follow-up with Dr. Mata's PA (Charles Nguyen) 2-3 weeks after your day of surgery. He will remove your nicho and answer any questions. If you have any additional questions or concerns, Dr Mata is usually in the office at the same time and will be available An appointment was probably scheduled when you signed-up for surgery in the office. If you have any questions call Office Instructions: More detailed instructions as well as Frequently Asked Questions were provided in a folder by our office when you signed-up for surgery. Please review these instructions when you get home. If you have any further questions or concerns, please feel free to call the office at [phone] Pending Studies at Discharge: No Stand-Alone Forms: My [facility], Smoking Cessation Medications and DC Order Prescriptions: New cefadroxil 500 mg capsule 500 mg PO BID 10 Days Qty: 20 0RF Eliquis 2.5 mg Tablet 2.5 mg PO BID 30 Days Qty: 60 0RF Continued baclofen 10 mg tablet 10 mg PO QID PRN (Reason: muscle spasticity) Qty: 360 3RF Patient Comments: takes morning and night methenamine hippurate [Hiprex] 1 gram tablet 1 g PO BID Qty: 180 3RF Myrbetriq 25 mg tablet extended release 24 hr 25 mg PO QAM Qty: 90 3RF Ocrevus 30 mg/mL solution 600 mg IV Q6MO Qty: 20 1RF Rx Instructions: 30 minutes before each infusion, premedicate with methylprednisolone 100mg IV, diphenhydramine 25mg IV, and acetaminophen 500mg PO. May give an additional 25mg diphenhydramine IV during infusion PRN Ocrevus 30 mg/mL solution 600 mg IV Q6MO Rx Instructions: 30 minutes before each infusion,premedicate with methylprednisolone 100mg IV, diphenhydramine 25mg IV,and acetaminophen 500mg PO. May give an additional 25mg diphenhydramine IV during infusion PRN ascorbate calcium (vitamin C) 500 mg tablet 500 mg PO QAM Patient Comments: Take it with the hibrex BID turmeric 400 mg Capsule 400 mg PO BID Probiotic 1 cap PO QAM Patient Comments: unsure of dose docusate sodium [Colace] 100 mg capsule 100 mg PO HS acetaminophen [Tylenol Extra Strength] 500 mg Tablet 500 mg PO Q6H PRN (Reason: Pain) Patient Comments: 1000 MG QAM, 500MG QPM (7PM) cyanocobalamin (vitamin B-12) [Vitamin B-12] 2,500 mcg Tablet, Sublingual 2,500 mcg PO BID cholecalciferol (vitamin D3) [Vitamin D3] 25 mcg (1,000 unit) Tablet 25 mcg PO QAM niacin 50 mg Tablet 50 mg PO QAM thiamine HCl (vitamin B1) [Vitamin B-1] 50 mg Tablet 50 mg PO QAM ginkgo biloba Tablet 40 mg PO HS Rx Instructions: give with meal/snack acetylcysteine [NAC] 600 mg Capsule 600 mg PO HS L-Arginine(alpha-ketoglutarat) 350 mg Tablet Extended Release 350 mg PO HS L-Theanine 1 cap PO HS Discontinued doxycycline hyclate 100 mg tablet 100 mg PO BID 10 Days Qty: 20 0RF Discharge Orders: Discharge Order (Routine); Ordered 05/21/23 Ordered By: Stu Bacon Admission Data Admit Date/Time: 05/20/23 09:17 Attending Provider: Charles Mata Admit Provider: Charles Mata Primary Care Provider: Arabella Delarosa
== END 2023-05-21 12:26 | disposition home or self-care (01) ==
LOC: ASU 04:59 → 3E 04:59